=== PATIENT | male | born 1960 | race Caucasian/White ===

== ENCOUNTER → 2016-12-07 | Outpatient (CLI) | payer OTHER ==
[~2016-12-07] MED LIST: DIAZ5TAB PO; ELIQ5TAB PO; LEVA750T PO; MAG400TA PO; METO100T PO; OMEP20CA3 PO; TRIA37.5 PO; VITA500T88 PO; VITMTA PO; ZOFR4TAB3 PO
--- NOTE | 2016-12-07 14:21 | REP ---
ABDOMINAL SERIES: Five views. HISTORY: Tenderness. FINDINGS: Upright chest radiograph is compared with the September 01, 2010 prior study. Mild cardiomegaly is observed unchanged. The lungs are well inflated and clear. There is no evidence of infiltrate or free subdiaphragmatic air. Supine and upright views of the abdomen demonstrate an unremarkable bowel gas pattern with air and stool in a nondistended colon. Psoas margins and flank stripes are intact. No mass, organomegaly, or pathologic calcification seen. IMPRESSION: Chest x-ray shows prominent heart. Otherwise negative abdominal series. Signed by Tariq Arriaza MD 12/07/2016 02:25 P
[2016-12-07 14:38] LABS: MEAN CORPUSCULAR HEMOGLOBIN 31.7 pg (27.0-33.0); MEAN CORPUSCULAR HGB CONC 35.2 g/dl (32.0-36.5); MEAN CORPUSCULAR VOLUME 90.2 fl (80.0-96.0); RED CELL DISTRIBUTION WIDTH 11.9 % (11.5-14.5); WHITE BLOOD COUNT 14.9 K/mm3 (4.0-10.0)
[2016-12-07 14:46] LABS: ALBUMIN 3.9 GM/DL (3.2-5.2); ALBUMIN/GLOBULIN RATIO 1.15 (1.00-1.93); ALKALINE PHOSPHATASE 98 U/L (45-117); ALT/SGPT 40 U/L (12-78); AMYLASE 25 U/L (25-115); ANION GAP 9 MEQ/L (8-16); AST/SGOT 22 U/L (15-37); BLOOD UREA NITROGEN 10 MG/DL (7-18); CARBON DIOXIDE LEVEL 26 MEQ/L (21-32); CHLORIDE LEVEL 101 MEQ/L (98-107); CREATININE FOR GFR 0.78 MG/DL (0.70-1.30); GLOMERULAR FILTRATION RATE > 60.0 (>56); GLUCOSE, FASTING 143 MG/DL (70-105); POTASSIUM SERUM 4.4 MEQ/L (3.5-5.1); SODIUM LEVEL 136 MEQ/L (136-145); TOTAL PROTEIN 7.3 GM/DL (6.4-8.2)
[2016-12-07 15:17] LABS: BANDS 1 % (< 11); BASOPHILS 1 % (0-4); EOSINOPHILS 2 % (0-5)
[2016-12-07 15:18] LABS: ANISOCYTOSIS 1+
== END ==
LOC: M WUC 13:25
PROVIDERS: ATTEND Physician Assistant
DX: R10.811 Right upper quadrant abdominal tenderness (principal)

== ENCOUNTER 2016-12-09 08:20 | Inpatient (IN) | payer OTHER ==
[~2016-12-09] VITALS: Ht 177.8 cm; Wt 131.3 kg
[2016-12-09] MEDS ORDERED: KETOROLAC 30 MG/ML VIAL (J1885) As Ordered ONE (09:22)
[2016-12-09] MEDS ORDERED: ONDANSETRON 4MG/2ML VIAL (J2405) As Ordered ONE ×2 (09:22→12:43)
[2016-12-09] MEDS ORDERED: METOPROLOL 5 MG/5 ML VIAL As Ordered ONE (09:42)
[2016-12-09] MEDS ORDERED: METOPROLOL TART 50 MG TAB As Ordered ONE (09:42)
[2016-12-09 09:49] LABS: ALBUMIN 3.4 GM/DL (3.2-5.2); ALBUMIN/GLOBULIN RATIO 0.81 (1.00-1.93); ALKALINE PHOSPHATASE 88 U/L (45-117); ALT/SGPT 32 U/L (12-78); ANION GAP 13 MEQ/L (8-16); AST/SGOT 14 U/L (15-37); BILIRUBIN,DIRECT 0.2 MG/DL (0.0-0.2); BILIRUBIN,TOTAL 0.9 MG/DL (0.2-1.0); BLOOD UREA NITROGEN 10 MG/DL (7-18); CALCIUM LEVEL 8.6 MG/DL (8.5-10.1); CARBON DIOXIDE LEVEL 24 MEQ/L (21-32); CHLORIDE LEVEL 99 MEQ/L (98-107); CREATININE FOR GFR 0.87 MG/DL (0.70-1.30); FREE T4 1.09 NG/DL (0.76-1.46); GLOMERULAR FILTRATION RATE > 60.0 (>56); GLUCOSE, FASTING 241 MG/DL (70-105); POTASSIUM SERUM 3.8 MEQ/L (3.5-5.1); SODIUM LEVEL 136 MEQ/L (136-145); TOTAL PROTEIN 7.6 GM/DL (6.4-8.2)
[2016-12-09 09:59] LABS: BASO # 0.1 K/mm3 (0.0-0.2); BASO % 0.5 % (0.0-1.0); EOS # 0.2 K/mm3 (0.0-0.50); EOS % 1.1 % (0.0-3.0); LARGE UNSTAINED CELL # 0.3 K/mm3 (0.0-0.4); LYMPH # 2.1 K/mm3 (1.5-4.5); LYMPH % 13.6 % (24.0-44.0); MEAN CORPUSCULAR HEMOGLOBIN 31.9 pg (27.0-33.0); MEAN CORPUSCULAR HGB CONC 34.9 g/dl (32.0-36.5); MEAN CORPUSCULAR VOLUME 91.3 fl (80.0-96.0); MONO % 6.3 % (0.0-5.0); NEUTROPHILS % 76.4 % (36.0-66.0); PLATELET COUNT, AUTOMATED 255 k/mm3 (150-450); RED CELL DISTRIBUTION WIDTH 12.1 % (11.5-14.5); WHITE BLOOD COUNT 15.7 K/mm3 (4.0-10.0)
[2016-12-09] MEDS ORDERED: ISOVUE-370 76% 100ML VIAL (Q9967) As Ordered ONE (10:54)
--- NOTE | 2016-12-09 10:54 | ECGEPIP ---
Stationary ECG Study [facility] - ED Test Date: 2016-12-09 Pat Name: DEXTER MALLOY Department: Room: - Gender: M X Ray Technician: : 1960 Requested By: Danny Rojas Order Number: [id number] Reading MD: Laurie Gregory Measurements Intervals [place] Rate: 123 P: [place]: 0 QRS: 49 QRSD: 88 T: -37 QT: 302 QTc: 432 Interpretive Statements ATRIAL FIBRILLATION WITH RAPID VENTRICULAR RESPONSE NONSPECIFIC ST & T-WAVE ABNORMALITY NO PRIOR FOR COMPARISON Electronically Signed On 12-09-2016 10:54:31 EST by Laurie Gregory
--- NOTE | 2016-12-09 12:39 | REP ---
CT abdomen and pelvis with IV but without oral contrast: History: Biliary colic. Comparison study January 03, 2014. CT contrast dose: 100 ml of Isovue [address] by findings: Preliminary special client bus driver radiograph is unremarkable. Lung window settings demonstrate a heterogeneous infiltrate in the right lower lobe of the lung with small right pleural effusion. There is mild linear fibrosis versus discoid atelectasis in the left lower lobe. These findings are new when compared with the 2013 prior exam. Also noted are filling defects in several of the pulmonary arterial tree branches in the right lower lobe and one in the left lower lobe consistent with acute pulmonary embolus. There is moderate diffuse fatty infiltration of the liver. No focal liver mass lesion is seen. The liver is not enlarged. Spleen is unremarkable. There is a small sliding-type hiatal hernia. No adrenal lesion is observed on either side. Pancreas is unremarkable. No gallbladder abnormality is appreciated. There is a 3 cm cyst in the upper pole of the left kidney. A lower pole cyst is seen in the right kidney measuring 1.4 cm in greatest diameter. Kidneys are otherwise morphologically intact. No hydronephrosis is seen. Normal caliber aorta is noted. No retroperitoneal mass or adenopathy is seen. Small and large intestinal bowel loops are normal in caliber and course. There is diverticulosis affecting the sigmoid colon without CT evidence of diverticulitis. There are dystrophic calcifications in the prostate. Seminal vesicles and urinary bladder are unremarkable. No abdominal wall defect is seen. Impression: 1. There is an infiltrate in the right lower lobe, small right pleural effusion. Also noted is a filling defect in the right lower lobe pulmonary arterial tree indicating pulmonary embolism. There is a small thrombus in one of the left lower lobe pulmonary arterial branches as well. 2. Fatty infiltration of the liver. 3. No CT evidence of biliary tract disease. 4. 3 cm cyst upper pole left kidney unchanged from comparison study. 5. Sliding type hiatal hernia. 6. Left colonic diverticulosis without CT evidence of diverticulitis. Signed by Tariq Arriaza MD 12/09/2016 07:25 P
[2016-12-09] MEDS ORDERED: MORPHINE 2 MG/ML 1ML SYRINGE As Ordered ONE (12:42)
[2016-12-09] MEDS ORDERED: ZOFR4TAB3 PO (13:11)
[2016-12-09] MEDS ORDERED: VITA500T88 PO (13:11)
[2016-12-09] MEDS ORDERED: OMEP20CA3 PO (13:11)
[2016-12-09] MEDS ORDERED: DIAZ5TAB PO (13:11)
[2016-12-09] MEDS ORDERED: TRIA37.5 PO (13:11)
[2016-12-09] MEDS ORDERED: VITMTA PO (13:11)
[2016-12-09] MEDS ORDERED: NS 1,000 ML IV SCH (13:15)
[2016-12-09] MEDS ORDERED: GLUCAGON FOR INJ 1 MG VIAL (J1610) SC PRN (13:15)
[2016-12-09] MEDS ORDERED: DEXTROSE 50% 50 ML SYRINGE IV PRN (13:15)
[2016-12-09] MEDS ORDERED: GLUCOSE 4 GM CHEW TABLET PO PRN (13:15)
[2016-12-09] MEDS ORDERED: ONDANSETRON 4MG/2ML VIAL (J2405) IV PRN (13:15)
[2016-12-09] MEDS ORDERED: ACETAMINOPHEN TAB 650MG DOSE (2X325MG) PO PRN (13:15)
[2016-12-09] MEDS ORDERED: cefTRIAXone SOD 1 GM VIAL (J0696) As Ordered ONE (13:17)
[2016-12-09] MEDS ORDERED: AZITHROMYCIN INJ 500MG VIAL (J0456) As Ordered ONE (13:17)
[2016-12-09] MEDS ORDERED: diazePAM 5 MG TAB PO PRN (13:30)
--- NOTE | 2016-12-09 13:44 | HPEPDOC ---
General Date of Admission 12/09/16 143PM Chief Complaint The patient is a 56-year-old male Presented to the ER with Right lower quadrant abdominal pain for 1 month duration that has been worsening. History of Present Illness Patient is a 56 year old male with a PMHx of Menieres disease who presented to the ER with complaints of right upper quadrant abdominal pain. Patient notes that this has been going on for greater than 1 month and has been slowly worsening. He notes that in the last 2 weeks he has been unable to sleep because of it. He does note that the pain is a >10/10 at maximum intensity, throbbing / aching type, occurring intermittently and lasting for many hours. He tried heating pads an ibuprofen without relief. He notes aggravation with lying flat. He has associated nausea, but no vomiting. Deneis diarrhea or constipation. Has not reported fevers at home, but has had chills. Patient came to the ER and had imaging of his abdomen done, which revealed a right lower lobe infiltrate and bilateral pulmonary embolisms. He was also noted to be in new onset atrial fibrillation with a HR in 140s. He received Metoprolol IV x3 and PO dose. His heart rate is currently in 110s. Hospitalist team was called for admission. He denies any chest pain, palpitations, and shortness of breath. He does note a non-productive cough. Denies any dysuria. He denies any prolonged immobility or bed bound status. He has never had a colonoscopy. Home Medications Scheduled Ascorbic Acid (Vitamin C) 500 Mg Tab 500 MG PO DAILY (Reported) Hydrochlorothiazide W/Triamter (Triamterene/Hydrochloroth 37.5-25 mg) 1 Tab Tab 1 TAB PO DAILY (Reported) Multivitamins *[facility] STOCKED* (Thera M Plus *[facility] STOCKED*) 1 Tab Tab 1 TAB PO DAILY (Reported) Omeprazole (Omeprazole) 20 Mg Cap 20 MG PO BID (Reported) NOT REGULAR MED - MD PRESCRIBED FOR ABDOMINAL ISSUES Scheduled PRN Diazepam (Diazepam) 5 Mg Tab 5 MG PO TID PRN PRN ANXIETY (Reported) Ondansetron (Zofran Odt) 4 Mg Tab 4 MG PO Q4H PRN PRN NAUSEA OR VOMITING ( Reported) NOT REGULAR MED - MD PRESCRIBED FOR ABDOMINAL ISSUES Allergies Coded Allergies: No Known Drug Allergy (Verified Allergy, Unknown, 02/11/13) Past Medical History Medical History Menieres disease Surgical History Left hand trigger finger surgery Knee surgery Family History Family History - Mother with no reported medical problems - Father with a history of blood and bone cancer Social History Social History - Denies the use of illicit drugs. Smoked for 40 years at 1ppd, Drinks alcohol socially - Denies recent travel or sick contacts - Lives with - Occupation; [employer] Review of Symptoms Other systems Constitutional: Denies weight loss, change in appetite, or recent trauma Eyes: No visual changes or eye pain Ears, Nose, Throat: Denies nose bleeds, or difficulty swallowing Cardiovascular: Denies chest pain, sweating, or orthopnea Respiratory: Positive non-productive cough, No wheezing, or shortness of breath GI: [place] nausea, vomiting, diarrhea or constipation, Positive right upper quadrant abdominal pain : Denies pain with urination or frequency Musculoskeletal: Denies joint pain or swelling Neuro / Psych: Denies muscle weakness or sensory loss Skin: No skin rashes noted All other review of systems negative; otherwise stated in history of present illness Screening: - Colonoscopy: never done Vital Signs - Vitals: BP 97/76, HR 104, RR 18, Sat 92%RA, Temp 98.6F - General: Lying in bed, No acute distress, Speaking in full sentences, AAOx3 - HEENT: NC, AT, PERRLA, EOMI - CVS: Irregularly irregular, +S1S2 - Lungs: Fair air entry bilaterally, +Crackles / rhonchi at right lung base - Abdomen: Soft, Non-distended, Right upper quadrant tenderness, + Bowel sounds x 4 - Extremities: + PPx4, No lower extremity edema, No calf tenderness - Neuro: No focal motor or sensory deficit - Skin: No visible rashes Laboratory Data Labs 24H Laboratory Tests 2 12/09/16 09:19: Aspartate Amino Transf (AST/SGOT) 14L, Alanine Aminotransferase (ALT/SGPT) 32, Alkaline Phosphatase 88, Total Bilirubin 0.9, Direct Bilirubin 0.2, Albumin 3.4 , Albumin/Globulin Ratio 0.81L, Anion Gap 13, White Blood Count 15.7H, Red Blood Count 5.25, Hemoglobin 16.7, Hematocrit 47.9, Mean Corpuscular Volume 91.3 , Mean Corpuscular Hemoglobin 31.9, Mean Corpuscular Hemoglobin Concent 34.9, Red Cell Distribution Width 12.1, Platelet Count 255, Neutrophils (%) (Auto) 76.4H, Lymphocytes (%) (Auto) 13.6L, Monocytes (%) (Auto) 6.3H, Eosinophils (%) (Auto) 1.1, Basophils (%) (Auto) 0.5, Neutrophils # (Auto) 12.0H, Lymphocytes # (Auto) 2.1, Monocytes # (Auto) 1.0H, Eosinophils # (Auto) 0.2, Basophils # (Auto ) 0.1, Calcium Level 8.6, Creatine Kinase MB 1.0, Creatine Kinase MB Relative Index 1.21, Estimated Mean Plasma Glucose 177H, Free Thyroxine 1.09, Glomerular Filtration Rate > 60.0, Hemoglobin A1c 7.8H, Large Unclassified Cells # 0.3, Large Unclassified Cells % 2.0, Lipase 122, Thyroid Stimulating Hormone (TSH) 1.190, Total Creatine Kinase 82, Total Protein 7.6, Troponin I < 0.02 12/09/16 13:24: 12/09/16 13:26: CBC/BMP Laboratory Tests 12/09/16 09:19 Red Blood Count 5.25, Mean Corpuscular Volume 91.3, Mean Corpuscular Hemoglobin 31.9, Mean Corpuscular Hemoglobin Concent 34.9, Red Cell Distribution Width 12.1 , Neutrophils (%) (Auto) 76.4 H, Lymphocytes (%) (Auto) 13.6 L, Monocytes (%) ( Auto) 6.3 H, Eosinophils (%) (Auto) 1.1, Basophils (%) (Auto) 0.5, Neutrophils # (Auto) 12.0 H, Lymphocytes # (Auto) 2.1, Monocytes # (Auto) 1.0 H, Eosinophils # (Auto) 0.2, Basophils # (Auto) 0.1 Microbiology Microbiology 12/09/16 Blood Culture, Received Pending 12/09/16 Blood Culture, Received Pending Plan / VTE VTE Prophylaxis Ordered?: Yes Plan Plan New onset atrial fibrillation - Remains asymptomatic and hemodynamically stable - EKG reveals atrial fibrillation with RVR at rate of 123 - Troponin first set negative, will trend - Will check thyroid function, ECHO - Will c/w Metoprolol tartrate at 25mg PO Q6H (with holding parameters) - Will start full anticoagulation with Lovenox therapeutic - Discussed case with Cardiology (Dr. Loredo) will be on consult, appreciate their input Bilateral pulmonary embolism - Etiology remains unclear - Saturation is at 92% on room air - Abdominal CT 2: Filling defect in the right lower love, small thrombus in the left lower love - Will check hypercoagulability workup - Will c/w supplemental oxygen - Will start full anticoagulation with Lovenox therapeutic Right lower lobe pneumonia - Has non-productive cough, no fevers reports - Leukocytosis with left shift - Abdominal CT 2: Reveals infiltrate in right lower lobe with small right pleural effusion - Will check blood cultures, urinalysis, urine culture - Will cover for community acquired organisms - Start ceftriaxone and azithromycin Right upper quadrant pain likely 2/2 referred pain from pneumonia, less likely 2/2 gall bladder etiology - Physical reveals right upper quadrant tenderness - Abdominal CT 12/09: No CT evidence of biliary disease, fatty infiltration of liver noted - Will get US of abdomen - Will c/w pain control New onset diabetes mellitus - HbA1c of 7.8 - Will start insulin sliding scale Left colonoic diverticulosis - on CT abdomen 2 Meniere's disease - Will hold diuretic medications at this time, as blood pressure is only lower side of normal - Will give gentle IV fluid hydration for 1 liter only Gastrointestinal prophylaxis - Will start protonix DVT prophylaxis - Will start full anticoagulation for PE and atrial fibrillation ARIEL PETERS MD Dec 09, 2016 13:44
[2016-12-09 13:52] LABS: INR 1.06
--- NOTE | 2016-12-09 15:13 | EDDOCDS ---
Physician Documentation [facility] Name: Sammy Khan Age: 56 yrs Sex: Male : 1960 Arrival Date: 12/09/2016 Time: 08:20 Bed 6 Private MD: Heaven Lassiter C Disposition: 12/09 12:53 Critical Care:. pc Disposition: 12/09/16 13:04 Hospitalization ordered by Herman Peña for Inpatient Admission. Preliminary diagnosis are Pulmonary embolism - RLL and LLL, Bronchopneumonia, unspecified organism - RLL, Persistent atrial fibrillation - new onset. - Bed requested for M PCU. - Status is Inpatient Admission. jmk - Condition is Stable. - Problem is new. - Symptoms have improved. HPI: 09:16 This 56 yrs old Male presents to ER via Walkin/Carried/Asstd with complaints pc of Abdominal Pain. 09:16 The history is obtained from the patient. The patient presents with abdominal pain, in pc the right upper quadrant. The symptoms began at least 2-3 months ago, becoming more frequent in the past 3 weeks.. There have been multiple episodes. At its worst, the symptoms were a 6 out of 10. In the emergency department, the symptoms are a 6 out of 10. The pain is described as "pain". The is primarily located epigastric area and right upper quadrant. It radiates to the right subscapular area. The pain was associated with nausea. The symptoms are aggravated by a supine position, are alleviated by an upright position. Risk factors for CAD: history of high cholesterol, history of hypertension. The patient has experienced similar episodes in the past. The patient has been recently seen at an urgent care, this week, for similar complaints, labs were performed, X-rays were performed. Historical: - Allergies: no known allergies; - Home Meds: 1. omeprazole 20 mg Oral cpDR 1 cap 2 times per day (Last dose: 12/08/2016) 2. Zofran (as hydrochloride) 4 mg Oral tab tid prn 3. diazepam 5 mg Oral tab prn 4. triamterene-hydrochlorothiazid Unknown Oral once daily (Last dose: 12/08/2016) - PMHx: meniere's disease; Hypertension; GERD; Obesity; - PSHx: hand surgery; Knee surgery; - The history from nurses notes was reviewed: and elements of the historical information I have obtained differs from that reported to nursing. - Social history: Smoking status: Patient uses tobacco products, current every day smoker. No barriers to communication noted, The patient speaks fluent Chinese. - Family history: Not pertinent, Pertinent for Father has/had "blood cancer". - : The pt / caregiver states he / she is not on anticoagulants. Home medication list is obtained from the patient. - Hospitalizations: : No recent hospitalization is reported. - Exposure Risk Screening:: None identified. - Immunization history:: All immunizations up-to-date. - Social history:: the patient smokes cigarettes 1ppd the patient drinks alcohol, socially. ROS: 09:20 All systems are negative except if listed. The constitutional, cardiovascular, pc respiratory and neurological components are also addressed in the HPI. Exam: 09:20 General Appearance: alert, mild distress. pc 09:20 ENT: ear, nose and throat normal, pharynx normal. 09:20 Neck: The exam reveals no acute abnormalities. ROM is normal and painless. No nuchal rigidity is noted.. 09:20 Respiratory: no respiratory distress, normal breath sounds, chest non-tender. 09:20 Cardiovascular: normal heart sounds, equal and full pulses bilaterally, tachycardia, 145bpm, Rhythm is irregularly irregular. 09:20 Abdomen: soft, no organomegaly, normal bowel sounds, no masses appreciated, no hernias palpated with/without gravity or Valsalva moderate tenderness in the right upper quadrant, without rebound, voluntary guarding is not appreciated, involuntary guarding is elicited in the right upper quadrant. 09:20 Back: normal inspection, no CVA pain. 09:20 Skin: skin color is normal, warm, dry. 09:20 Extremities: The extremities have a grossly normal appearance, are non-tender, without acute ROM abnormalities. 09:20 Neuro: oriented x 3, cranial nerves normal as tested, no motor deficits, no sensory deficits. 09:20 Psych: mood is normal. Vital Signs: 08:39 BP 137 / 93 RA Sitting (auto/lg); Pulse 103; Resp 18; Temp 98.6(O); Pulse Ox 94% on jjr R/A; Weight 122.47 kg / 270 lbs (R); Height 5 ft. 10 in. (177.80 cm) (R); Pain 6/10; 08:43 BP 130 / 86 RA Sitting (man/reg); jjr 09:24 Pulse 144 MON; jmk 09:25 BP 153 / 93 (auto/); jmk 09:39 BP 145 / 98 (auto/); jmk 09:39 Pulse 138 MON; Pulse Ox 92% ; jmk 09:54 BP 113 / 81 (auto/); jmk 09:54 Pulse 116 MON; Pulse Ox 91% ; jmk 10:00 Pulse 110 MON; Pulse Ox 91% ; jmk 10:01 BP 113 / 89 (auto/); jmk 10:08 Pulse 108 MON; Pulse Ox 92% ; jmk 10:09 BP 106 / 84 (auto/); jmk 10:23 Pulse 108 MON; Pulse Ox 91% ; jmk 10:24 BP 108 / 81 (auto/); jmk 10:38 Pulse 110 MON; Pulse Ox 91% ; jmk 10:39 BP 105 / 74 (auto/); jmk 10:53 Pulse 108 MON; Pulse Ox 90% ; jmk 10:54 BP 115 / 79 (auto/); jmk 11:08 Pulse 112 MON; Pulse Ox 90% ; jmk 11:09 BP 99 / 59 (auto/); jmk 11:24 BP 97 / 76 (auto/); jmk 11:24 Pulse 104 MON; Pulse Ox 92% ; jmk 11:39 BP 112 / 77 (auto/); jmk 11:39 Pulse 108 MON; Pulse Ox 92% ; jmk 11:54 BP 96 / 65 (auto/); jmk 11:54 Pulse 106 MON; Pulse Ox 91% ; jmk 12:08 Pulse 110 MON; Pulse Ox 92% ; jmk 12:09 BP 107 / 64 (auto/); jmk 12:23 Pulse 112 MON; Pulse Ox 93% ; jmk 12:24 BP 112 / 72 (auto/); jmk 12:38 Pulse 108 MON; Pulse Ox 92% ; jmk 12:39 BP 122 / 82 (auto/); jmk 12:45 Pulse 104 MON; Pulse Ox 93% ; jmk 12:46 BP 102 / 57 (auto/); jmk 13:51 Pulse 112 MON; Pulse Ox 92% ; jmk 13:52 BP 141 / 93 (auto/); jmk 14:23 BP 126 / 81 (auto/); jmk 14:23 Pulse 112 MON; Pulse Ox 91% ; jmk 15:03 BP 109 / 80; Pulse 120; Resp 18; Temp 98.5; Pulse Ox 95% on R/A; jmk 08:39 Body Mass Index 38.74 (122.47 kg, 177.80 cm) jr MDM: 09:11 Ondansetron 4 mg IVP once ordered. pc 09:11 ketorolac 30 mg IVP once ordered. pc 09:11 IV Saline Lock ordered. pc 09:11 Bookkeeping Service Sales Agent/Pulse Ox/q 30 min VS ordered. pc 09:12 Basic Metabolic Profile Ordered. EDMS 09:12 CBC with Diff Ordered. EDMS 09:12 Lipase Ordered. EDMS 09:12 Liver Profile Ordered. EDMS 09:12 NOTHING BY MOUTH+DIET ordered. EDMS 09:12 ECG WITH READING ER PHYS+CARDIAG ordered. EDMS 09:20 Differential diagnosis: cholecystitis, Cholelithiasis, non-specific abd pain, pc arrhythmia - new onset. Plan: labs, meds, EKG, review US performed as out-patient just [employer]PER[employer] ROLLING ROOM. 09:33 CARDIAC INJURY PROFILE Ordered. EDMS 09:33 FT4&TSH PANEL Ordered. EDMS 09:33 TROPONIN Ordered. EDMS 09:37 A1C Ordered. EDMS 09:38 Metoprolol (Tartrate) 50 mg PO once ordered. pc 09:38 Metoprolol 5 mg IVP every 5 minutes; Hold for SBP < 100 or HR < 60. x3 ordered. pc 09:39 Test interpretation: EKG. pc 09:49 Financial registration complete. lg 09:53 [facility] Payment Agreement was scanned into [employer] and attached to record. lg 09:59 Basic Metabolic Profile Reviewed. pc 09:59 Liver Profile Reviewed. pc 09:59 Lipase Reviewed. pc 09:59 CARDIAC INJURY PROFILE Reviewed. pc 09:59 TROPONIN Reviewed. pc 10:38 Basic Metabolic Profile Reviewed. pc 10:38 CBC with Diff Reviewed. pc 10:38 Liver Profile Reviewed. pc 10:38 A1C Reviewed. pc 10:38 Lipase Reviewed. pc 10:38 CARDIAC INJURY PROFILE Reviewed. pc 10:38 FT4&TSH PANEL Reviewed. pc 10:38 TROPONIN Reviewed. pc 10:49 CT ABD & PELVIS: IV Contrast Only Ordered. EDMS 12:33 requires 7 blue tops, 1 tiger top, 3 purple tops per lab 4.21.14 ordered. pc 12:34 Anti Thrombin 3 Panel (ag/ac) Ordered. EDMS 12:34 Anti-Cardiolipin Antibodies Ordered. EDMS 12:34 Factor V Leiden Ordered. EDMS 12:34 Protein C Functional Activity Ordered. EDMS 12:34 Protein S Functional Activity Ordered. EDMS 12:34 Pt & Aptt Ordered. EDMS 12:34 BED REQUEST+ADM ordered. EDMS 12:40 morphine 2 mg IVP once ordered. pc 12:40 Ondansetron 4 mg IVP once ordered. pc 12:53 Data reviewed: old medical records, vital signs, nurses notes, EKG(s), lab test pc results, all radiology studies and available results. Test interpretation: LAB - all labs as ordered have been reviewed, interpreted and considered in the overall management of the clinical presentation; interpreted by Radiologist and personally reviewed, Abdomen/Pelvis CT; RLL infiltrate, RLL/LLL pulmonary emboli. nad. The patient has been re-examined and re-evaluated. The patient's symptoms have markedly improved after treatment. Physician consultation: Dr. Fina Loredo and will see patient in inpatient room. 12:53 Physician consultation: Dr. Herman Peña regarding admission. Disposition: The pc historical points, examination findings, and any diagnostic results supporting the provided diagnosis, were discussed with the patient or legal guardian. The need for further work-up and/or treatment in the hospital was explained. 12:55 -Blood Culture (Adults Only), peripheral from different site, or from device/port/PICC pc etc. if present ordered. 12:56 cefTRIAXone 1 grams IVPB once over 30 mins; dilute in 50mL of NS or D5W ordered. pc 12:56 azithromycin 500 mg IVPB once over 1 hrs; dilute in 250mL of D5W or NS ordered. pc 12:56 -Blood Culture Ordered. EDMS 12:56 -Blood Culture (Adults Only), peripheral from different site, or from device/port/PICC lbd etc. if present complete. 13:00 BLOOD CULTURES Ordered. EDMS 13:03 REGULAR DIET ROOM SERVICE ED+DIET ordered. EDMS 13:21 Admission / Observation Status ordered. EDMS 13:21 ECHOCARD,DOPPLER/COLOR FLOW ordered. EDMS 13:22 2 GRAM SODIUM DIET ordered. EDMS 13:22 CARDIAC INJURY PROFILE Ordered. EDMS 13:22 CARDIAC INJURY PROFILE Ordered. EDMS 13:22 TROPONIN Ordered. EDMS 13:22 TROPONIN Ordered. EDMS 13:23 URINALYSIS Ordered. EDMS 13:23 URINE CULTURE Ordered. EDMS 13:42 Abdomen, limited US Ordered. EDMS 13:49 TOTAL T3 Ordered. EDMS 13:54 Lupus Type Anticoagulant Ordered. EDMS EC:39 Rate is 123 beats/min. Rhythm is irregularly irregular, AFib vs AFlut with RVR. QRS pc Barrett is Normal. QRS interval is normal. QT interval is normal. No Q waves. T waves are Inverted in leads II, III, aVF. ST Segment is depressed in leads II, V6, <1mm. Clinical impression: AFib vs AFlut with RVR. Administered Medications: 09:39 Drug: Ondansetron 4 mg Route: IVP; Site: left antecubital; [facility] 09:39 Drug: ketorolac 30 mg [ketorolac 30 mg/mL (1 mL) injection solution (1 mL)] Route: IVP; [facility] Site: left antecubital; 09:45 Drug: Metoprolol (Tartrate) 50 mg Route: PO; [facility] 09:50 Drug: Metoprolol 5 mg [metoprolol 5 mg/5 mL intravenous solution (5 mL)] Route: IVP; [facility] Site: left antecubital; 09:58 Drug: Metoprolol 5 mg [metoprolol 5 mg/5 mL intravenous solution (5 mL)] Route: IVP; [facility] Site: left antecubital; 10:05 Drug: Metoprolol 5 mg [metoprolol 5 mg/5 mL intravenous solution (5 mL)] Route: IVP; [facility] Site: left antecubital; 12:49 Drug: morphine 2 mg Route: IVP; Site: left antecubital; [facility] 12:51 Drug: Ondansetron 4 mg Route: IVP; Site: left antecubital; [facility] 13:27 Drug: cefTRIAXone 1 grams Route: IVPB; Infused Over: 30 mins; Site: left antecubital; [facility] 14:14 Drug: azithromycin 500 mg [azithromycin 500 mg intravenous solution] Route: IVPB; [facility] Infused Over: 1 hrs; Site: left antecubital; Critical Care Time: 12:53 Critical care time: Bedside Care: 30 minutes, Consultation: 20 minutes, Family pc Intervention: 10 minutes. Total time: 60 minutes Signatures: Dispatcher [employer] EDMS Danny Powell MD MD pc Daly, Linda, Finance Admin Unit lbd James Fofana,RN RN Jeff Rodriguez, Reg Reg lg Nicole Cartagena, RN RN karenr Frank, [place], MECHANIC INSULATOR MECHANIC INSULATOR [id number] The chart was reviewed and I authenticate all verbal orders and agree with the evaluation and treatment provided.Corrections: (The following items were deleted from the chart) : 09:18 FT4&TSH PANEL+LAB ordered. EDMS EDMS :33 09:18 CARDIAC INJURY PROFILE+LAB ordered. EDMS EDMS :33 09:18 TROPONIN+LAB ordered. EDMS EDMS 13:45 13:23 BLOOD CULTURES ordered. EDMS EDMS 13:46 13:23 PROTHROMBIN TIME PROFILE\\E\\INR ordered. EDMS EDMS 13:46 13:23 THYROID STIMULATING HORMONE ordered. EDMS EDMS 13:46 13:23 FREE T4 ordered. EDMS EDMS 13:47 13:23 TOTAL T3 ordered. EDMS EDMS 13:53 12:34 Lupus Type Anticoagulant+LAB ordered. EDMS EDMS Attachments: 09:53 [facility] [place] lg MTDD
--- NOTE | 2016-12-09 15:13 | EDDOCDS ---
Nurse's Notes [facility] Name: Dexter Khan Age: 56 yrs Sex: Male : 1960 Arrival Date: 12/09/2016 Time: 08:20 Bed 6 Private MD: Heaven Lassiter C Diagnosis: Pulmonary embolism-RLL and LLL;Bronchopneumonia, unspecified organism-RLL;Persistent atrial fibrillation-new onset Presentation: 12/09 08:34 Presenting complaint: Patient states: right sided abdominal pain radiating to right jjr side of back for past couple weeks, reports nausea for past week and diarrhea lasting 4-5 days from 12/06/16, Dr Reilly ordered outpt blood work and US this morning which was completed. Adult Sepsis Screening: The patient does not have new or worsening altered mentation. Patient's respiratory rate is less than 22. Systolic blood pressure is greater than 100. Patient has a qSOFA score of 0- Negative Sepsis Screen. Suicide/Homicide risk assessment- the patient denies having any suicidal and/or homicidal ideations and does not present with any other emotional, behavioral or mental health complaints. 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 Transition of care: patient was not received from another setting of care. 08:34 Acuity: FELECIA Level 3 [facility] 08:34 Method Of Arrival: Walkin/Carried/Asstd j Triage Assessment: 08:43 General: Appears in no apparent distress. Pain: Location: right flank, right upper jjr quadrant and right lower quadrant. Pt Declines HIV testing. GI: Reports nausea. Historical: - Allergies: no known allergies; - Home Meds: 1. omeprazole 20 mg Oral cpDR 1 cap 2 times per day (Last dose: 12/08/2016) 2. Zofran (as hydrochloride) 4 mg Oral tab tid prn 3. diazepam 5 mg Oral tab prn 4. triamterene-hydrochlorothiazid Unknown Oral once daily (Last dose: 12/08/2016) - PMHx: meniere's disease; Hypertension; GERD; Obesity; - PSHx: hand surgery; Knee surgery; - The history from nurses notes was reviewed: and elements of the historical information I have obtained differs from that reported to nursing. - Social history: Smoking status: Patient uses tobacco products, current every day smoker. No barriers to communication noted, The patient speaks fluent Mauritian. - Family history: Not pertinent, Pertinent for Father has/had "blood cancer". - : The pt / caregiver states he / she is not on anticoagulants. Home medication list is obtained from the patient. - Hospitalizations: : No recent hospitalization is reported. - Exposure Risk Screening:: None identified. - Immunization history:: All immunizations up-to-date. - Social history:: the patient smokes cigarettes 1ppd the patient drinks alcohol, socially. Screenin:51 Screening information is obtained from the patient. Fall risk: No risks identified. jmk Assistance ADL's: requires no assistance with activities of daily living. Abuse/DV Screen: The patient / caregiver reports he/she is: not in a situation that causes fear, pain or injury. Nutritional screening: No deficits noted. Advance Directives: Currently, there is no health care proxy. There is no active DNR order. There is no living will. There is no Power of Athlete Marketing Agent. Advance directive information has not previously been placed in an [facility] medical record. home support is adequate. Assessment: 08:51 General: Appears in no apparent distress, skin warm and dry color satisfactory. Moist jmk pink oral mucosa. Obese abdomen .Firm, but non distended with bowel sounds present x 4. Indicates right upper abd pain that radiates to right scapular area. skin is unremarkable. chest CTA. without resp distress. Slight increase in pain with deep inspiration.. Respiratory: Airway is patent Respiratory effort is even, unlabored, Respiratory pattern is regular, Breath sounds are clear bilaterally. GI: Abdomen is flat, non- distended obese, Bowel sounds present X 4 quads. Abd is tender to palpation in posterior aspect of left lateral abdomen and right upper quadrant. Musculoskeletal: No deficits noted. 10:05 General: Appears states pain has decreased to 2/10/ monitor is AFib with rate of 108. jmk without chest pain dizziness or SOB. 10:23 General: Appears resting quietly. monitor continues as afib with rate of 108. denies jmk chest pain SOB or dizziness. states 2/10 abd pain. 12:51 General: Appears states pain to right upper abdomen has again increased to 6/10 and jmk medicated for same. monitor AF rate 120. no resp distress noted.. 14:39 General: Appears states pain has decreased to 2/10 diet has been taken and retained. IV jmk antibiotics infusing. 15:03 General: Appears ambulating about room ad xu and tolerating activity well. without jmk resp distress. monitor is afib. without chest discomfort. reports no chest discomfort. sl intact with antibiotic infusing without event.. Vital Signs: 08:39 BP 137 / 93 RA Sitting (auto/lg); Pulse 103; Resp 18; Temp 98.6(O); Pulse Ox 94% on jjr R/A; Weight 122.47 kg (R); Height 5 ft. 10 in. (177.80 cm) (R); Pain 6/10; 08:43 BP 130 / 86 RA Sitting (man/reg); jjr 09:24 Pulse 144 MON; jmk 09:25 BP 153 / 93 (auto/); jmk 09:39 BP 145 / 98 (auto/); jmk 09:39 Pulse 138 MON; Pulse Ox 92% ; jmk 09:54 BP 113 / 81 (auto/); jmk 09:54 Pulse 116 MON; Pulse Ox 91% ; jmk 10:00 Pulse 110 MON; Pulse Ox 91% ; jmk 10:01 BP 113 / 89 (auto/); jmk 10:08 Pulse 108 MON; Pulse Ox 92% ; jmk 10:09 BP 106 / 84 (auto/); jmk 10:23 Pulse 108 MON; Pulse Ox 91% ; jmk 10:24 BP 108 / 81 (auto/); jmk 10:38 Pulse 110 MON; Pulse Ox 91% ; jmk 10:39 BP 105 / 74 (auto/); jmk 10:53 Pulse 108 MON; Pulse Ox 90% ; jmk 10:54 BP 115 / 79 (auto/); jmk 11:08 Pulse 112 MON; Pulse Ox 90% ; jmk 11:09 BP 99 / 59 (auto/); jmk 11:24 BP 97 / 76 (auto/); jmk 11:24 Pulse 104 MON; Pulse Ox 92% ; jmk 11:39 BP 112 / 77 (auto/); jmk 11:39 Pulse 108 MON; Pulse Ox 92% ; jmk 11:54 BP 96 / 65 (auto/); jmk 11:54 Pulse 106 MON; Pulse Ox 91% ; jmk 12:08 Pulse 110 MON; Pulse Ox 92% ; jmk 12:09 BP 107 / 64 (auto/); jmk 12:23 Pulse 112 MON; Pulse Ox 93% ; jmk 12:24 BP 112 / 72 (auto/); jmk 12:38 Pulse 108 MON; Pulse Ox 92% ; jmk 12:39 BP 122 / 82 (auto/); jmk 12:45 Pulse 104 MON; Pulse Ox 93% ; jmk 12:46 BP 102 / 57 (auto/); jmk 13:51 Pulse 112 MON; Pulse Ox 92% ; jmk 13:52 BP 141 / 93 (auto/); jmk 14:23 BP 126 / 81 (auto/); jmk 14:23 Pulse 112 MON; Pulse Ox 91% ; jmk 15:03 BP 109 / 80; Pulse 120; Resp 18; Temp 98.5; Pulse Ox 95% on R/A; jmk 08:39 Body Mass Index 38.74 (122.47 kg, 177.80 cm) [facility] Vitals: 08:39 Log In Time: December 09, 2016 at 08:20. r ED Course: 08:22 Patient visited by Josias Thomas. mm15 08:22 Heaven Lassiter is Private Physician. mm15 08:22 Patient moved to Waiting mm15 08:36 Triage Initiated jjr 08:44 Patient moved to 6 jjr 08:49 Danny Powell MD is Attending Physician. pc 08:55 Patient visited by James Fofana RN. jmk 09:10 Patient visited by Danny Powell MD. pc 09:20 Inserted saline lock: 20 gauge in left antecubital area. jmk 09:21 Basic Metabolic Profile Sent. jmk 09:21 CBC with Diff Sent. jmk 09:21 Lipase Sent. jmk 09:21 Liver Profile Sent. jmk 09:37 EKG done. (by ED staff). Reviewed by Danny Powell MD performed by Jef Shelton RN. hs1 09:39 A1C Sent. jmk 09:39 TROPONIN Sent. jmk 09:39 CARDIAC INJURY PROFILE Sent. jmk 09:39 FT4&TSH PANEL Sent. jmk 09:53 [facility] Payment Agreement was scanned into [employer] and attached to record. lg 10:05 The patient / caregiver is instructed regarding the plan of care and ED course. jmk 10:21 Patient visited by Danny Powell MD. pc 11:12 EKG-ADULT Returned. EDMS 11:41 Patient visited by Danny Powell MD. pc 12:52 Patient visited by James Fofana RN. jmk 13:04 Herman Peña is Hospitalizing Provider. pc 13:19 CT ABD & PELVIS: IV Contrast Only Returned. EDMS 13:27 BLOOD CULTURES Sent. jmk 13:27 Anti Thrombin 3 Panel (ag/ac) Sent. jmk 13:27 Anti-Cardiolipin Antibodies Sent. jmk 13:27 Factor V Leiden Sent. jmk 13:27 Protein C Functional Activity Sent. jmk 13:27 Protein S Functional Activity Sent. jmk 13:27 Pt & Aptt Sent. jmk 15:03 No procedures done that require assistance. [facility] Administered Medications: 09:39 Drug: Ondansetron 4 mg Route: IVP; Site: left antecubital; [facility] 09:39 Drug: ketorolac 30 mg [ketorolac 30 mg/mL (1 mL) injection solution (1 mL)] Route: IVP; [facility] Site: left antecubital; 09:45 Drug: Metoprolol (Tartrate) 50 mg Route: PO; [facility] 09:50 Drug: Metoprolol 5 mg [metoprolol 5 mg/5 mL intravenous solution (5 mL)] Route: IVP; [facility] Site: left antecubital; 09:58 Drug: Metoprolol 5 mg [metoprolol 5 mg/5 mL intravenous solution (5 mL)] Route: IVP; [facility] Site: left antecubital; 10:05 Drug: Metoprolol 5 mg [metoprolol 5 mg/5 mL intravenous solution (5 mL)] Route: IVP; [facility] Site: left antecubital; 12:49 Drug: morphine 2 mg Route: IVP; Site: left antecubital; [facility] 12:51 Drug: Ondansetron 4 mg Route: IVP; Site: left antecubital; [facility] 13:27 Drug: cefTRIAXone 1 grams Route: IVPB; Infused Over: 30 mins; Site: left antecubital; [facility] 14:14 Drug: azithromycin 500 mg [azithromycin 500 mg intravenous solution] Route: IVPB; jmk Infused Over: 1 hrs; Site: left antecubital; Order Results: Lab Order: Basic Metabolic Profile; SPEC'M 12/09/16 09:19 Test: GLUCOSE, FASTING; Value: 241; Range: 70-105; Abnormal: Above high normal; Units: MG/DL; Status: F Test: BLOOD UREA NITROGEN; Value: 10; Range: 7-18; Units: MG/DL; Status: F Test: CREATININE FOR GFR; Value: 0.87; Range: 0.70-1.30; Units: MG/DL; Status: F Test: GLOMERULAR FILTRATION RATE; Value: > 60.0; Range: >56; Status: F Test: SODIUM LEVEL; Value: 136; Range: 136-145; Units: MEQ/L; Status: F Test: POTASSIUM SERUM; Value: 3.8; Range: 3.5-5.1; Units: MEQ/L; Status: F Test: CHLORIDE LEVEL; Value: 99; Range: 98-107; Units: MEQ/L; Status: F Test: CARBON DIOXIDE LEVEL; Value: 24; Range: 21-32; Units: MEQ/L; Status: F Test: ANION GAP; Value: 13; Range: 8-16; Units: MEQ/L; Status: F Test: CALCIUM LEVEL; Value: 8.6; Range: 8.5-10.1; Units: MG/DL; Status: F Test Note: ; Units are mL/min/1.73 m2 Chronic Kidney Disease Staging per NKF: Stage I & II GFR >=60 Normal to Mildly Decreased Stage III GFR 30-59 Moderately Decreased Stage IV GFR 15-29 Severely Decreased Stage V GFR <15 Very Little GFR Left ESRD GFR <15 on BATTER MIXER Lab Order: CBC with Diff; SPEC'M 12/09/16 09:19 Test: WHITE BLOOD COUNT; Value: 15.7; Range: 4.0-10.0; Abnormal: Above high normal; Units: K/mm3; Status: F Test: RED BLOOD COUNT; Value: 5.25; Range: 4.30-6.10; Units: M/mm3; Status: F Test: HEMOGLOBIN; Value: 16.7; Range: 14.0-18.0; Units: g/dl; Status: F Test: HEMATOCRIT; Value: 47.9; Range: 42.0-52.0; Units: %; Status: F Test: MEAN CORPUSCULAR VOLUME; Value: 91.3; Range: 80.0-96.0; Units: fl; Status: F Test: MEAN CORPUSCULAR HEMOGLOBIN; Value: 31.9; Range: 27.0-33.0; Units: pg; Status: F Test: MEAN CORPUSCULAR HGB CONC; Value: 34.9; Range: 32.0-36.5; Units: g/dl; Status: F Test: RED CELL DISTRIBUTION WIDTH; Value: 12.1; Range: 11.5-14.5; Units: %; Status: F Test: PLATELET COUNT, AUTOMATED; Value: 255; Range: 150-450; Units: k/mm3; Status: F Test: NEUTROPHILS %; Value: 76.4; Range: 36.0-66.0; Abnormal: Above high normal; Units: %; Status: F Test: LYMPH %; Value: 13.6; Range: 24.0-44.0; Abnormal: Below low normal; Units: %; Status: F Test: MONO %; Value: 6.3; Range: 0.0-5.0; Abnormal: Above high normal; Units: %; Status: F Test: EOS %; Value: 1.1; Range: 0.0-3.0; Units: %; Status: F Test: BASO %; Value: 0.5; Range: 0.0-1.0; Units: %; Status: F Test: LARGE UNSTAINED CELL %; Value: 2.0; Range: 0.0-4.0; Units: %; Status: F Test: NEUTROPHILS #; Value: 12.0; Range: 1.8-7.7; Abnormal: Above high normal; Units: K/mm3; Status: F Test: LYMPH #; Value: 2.1; Range: 1.5-4.5; Units: K/mm3; Status: F Test: MONO #; Value: 1.0; Range: 0.0-0.8; Abnormal: Above high normal; Units: K/mm3; Status: F Test: EOS #; Value: 0.2; Range: 0.0-0.50; Units: K/mm3; Status: F Test: BASO #; Value: 0.1; Range: 0.0-0.2; Units: K/mm3; Status: F Test: LARGE UNSTAINED CELL #; Value: 0.3; Range: 0.0-0.4; Units: K/mm3; Status: F Lab Order: Lipase; [facility] 12/09/16 09:19 Test: LIPASE; Value: 122; Range: 73-393; Units: U/L; Status: F Lab Order: Liver Profile; [facility] 12/09/16 09:19 Test: AST/SGOT; Value: 14; Range: 15-37; Abnormal: Below low normal; Units: U/L; Status: F Test: ALT/SGPT; Value: 32; Range: 12-78; Units: U/L; Status: F Test: ALKALINE PHOSPHATASE; Value: 88; Range: 45-117; Units: U/L; Status: F Test: BILIRUBIN,TOTAL; Value: 0.9; Range: 0.2-1.0; Units: MG/DL; Status: F Test: BILIRUBIN,DIRECT; Value: 0.2; Range: 0.0-0.2; Units: MG/DL; Status: F Test: TOTAL PROTEIN; Value: 7.6; Range: 6.4-8.2; Units: GM/DL; Status: F Test: ALBUMIN; Value: 3.4; Range: 3.2-5.2; Units: GM/DL; Status: F Test: ALBUMIN/GLOBULIN RATIO; Value: 0.81; Range: 1.00-1.93; Abnormal: Below low normal; Status: F Lab Order: CARDIAC INJURY PROFILE; [facility] 12/09/16 09:19 Test: CPK CREATINE PHOSPHOKINASE; Value: 82; Range: 39-308; Units: U/L; Status: F Test: CK-MB VALUE MASS; Value: 1.0; Range: 0.0-3.6; Units: NG/ML; Status: F Test: MB/CK RELATIVE INDEX; Value: 1.21; Range: < OR =4; Status: F Test Note: ; DIAGNOSIS CRITERIA MMB ng/ml Relative Index (RI) NON-AMI < or = 5 N/A [place] > 5 < or = 4 AMI > 5 > 4 Lab Order: FT4&TSH PANEL; [facility] 12/09/16 09:19 Test: THYROID STIMULATING HORMONE; Value: 1.190; Range: 0.358-3.740; Units: uIU/ML; Status: F Test: FREE T4; Value: 1.09; Range: 0.76-1.46; Units: NG/DL; Status: F Lab Order: TROPONIN; [facility] 12/09/16 09:19 Test: TROPONIN I; Value: < 0.02; Range: < 0.10; Units: NG/ML; Status: F Test Note: ; Troponin I Reference Interval for [employer] LOCI: 99th Percentile= 0.00-0.045 ng/ml Risk Stratification: <= 0.10 ng/ml Decreased Risk for Adverse Clinical Events. 0.10-1.50 ng/ml Increased Risk for Adverse Clinical Events. Evaluation of additional criterion and/or repeat testing in 2-6 hours is suggested to rule out myocardial damage. >= 1.50 ng/ml Indicative of Myocardial Injury. Lab Order: A1C; [facility] 12/09/16 09:19 Test: HEMOGLOBIN A1c; Value: 7.8; Range: 4.5-6.2; Abnormal: Above high normal; Units: %; Status: F Test: ESTIMATED AVERAGE GLUCOSE; Value: 177; Range: 60-110; Abnormal: Above high normal; Units: MG/DL; Status: F Lab Order: Pt & Aptt; [facility] 12/09/16 13:24 Test: PROTHROMBIN TIME; Value: 13.9; Range: 12.3-14.5; Units: SECONDS; Status: F Test: INR; Value: 1.06; Status: F Test: PARTIAL THROMBOPLASTIN TIME; Value: 27.9; Range: 26.6-37.1; Units: SECONDS; Status: F Test Note: ; THERAPUTIC HUMAN INR VALUES INDICATIONS NORMAL RANGES PROPHYLAXIS/TREATMENT OF: VENOUS THROMBOSIS 2.0-3.0 PULMONARY EMBOLISM 2.0-3.0 PREVENTION OF SYSTEMIC EMBOLISM FROM: TISSUE HEART VALVES 2.0-3.0 ACUTE MYOCARDIAL INFARCTION 2.0-3.0 VALVULAR HEART DISEASE 2.0-3.0 ATRIAL FIBRILLATION 2.0-3.0 MECHANICAL VALVES(HIGH RISK) 2.5-3.5 RECURRENT MYOCARDIAL INFARCTION 2.5-3.5 Lab Order: CARDIAC INJURY PROFILE; [facility] 12/09/16 13:14 Test: CPK CREATINE PHOSPHOKINASE; Value: 75; Range: 39-308; Units: U/L; Status: F Test: CK-MB VALUE MASS; Value: 1.0; Range: 0.0-3.6; Units: NG/ML; Status: F Test: MB/CK RELATIVE INDEX; Value: 1.33; Range: < OR =4; Status: F Test Note: ; DIAGNOSIS CRITERIA MMB ng/ml Relative Index (RI) NON-AMI < or = 5 N/A [place] > 5 < or = 4 AMI > 5 > 4 Lab Order: TROPONIN; [facility] 12/09/16 13:14 Test: TROPONIN I; Value: < 0.02; Range: < 0.10; Units: NG/ML; Status: F Test Note: ; Troponin I Reference Interval for [employer] LOCI: 99th Percentile= 0.00-0.045 ng/ml Risk Stratification: <= 0.10 ng/ml Decreased Risk for Adverse Clinical Events. 0.10-1.50 ng/ml Increased Risk for Adverse Clinical Events. Evaluation of additional criterion and/or repeat testing in 2-6 hours is suggested to rule out myocardial damage. >= 1.50 ng/ml Indicative of Myocardial Injury. Lab Order: URINALYSIS; [facility] 12/09/16 09:09 Test: APPEARANCE, URINE; Value: TURBID; Range: CLEAR; Abnormal: Above high normal; Status: F Test: COLOR, URINE; Value: PRITI; Range: YELLOW; Status: F Test: PH,URINE; Value: 5.0; Range: 5.0-9.0; Units: UNITS; Status: F Test: SPECIFIC GRAVITY URINE AUTO; Value: 1.024; Range: 1.002-1.035; Status: F Test: PROTEIN, URINE AUTO; Value: 2+; Range: NEGATIVE; Abnormal: Above high normal; Units: mg/dL; Status: F Test: GLUCOSE, URINE (UA) AUTO; Value: 3+; Range: NEGATIVE; Abnormal: Above high normal; Units: mg/dL; Status: F Test: KETONE, URINE AUTO; Value: TRACE; Range: NEGATIVE; Abnormal: Above high normal; Units: mg/dL; Status: F Test: UROBILINOGEN, URINE AUTO; Value: 0.2; Range: 0.0-2.0; Units: mg/dL; Status: F Test: BILIRUBIN, URINE AUTO; Value: NEGATIVE; Range: NEGATIVE; Status: F Test: NITRITE, URINE AUTO; Value: NEGATIVE; Range: NEGATIVE; Status: F Test: LEUKOCYTE ESTERASE, URINE AUTO; Value: NEGATIVE; Range: NEGATIVE; Status: F Test: BLOOD, URINE BLOOD; Value: NEGATIVE; Range: NEGATIVE; Status: F Test: WBC, URINE AUTO; Value: 2; Range: 0-3; Units: /HPF; Status: F Test: RBC, URINE AUTO; Value: 1; Range: 0-3; Units: /HPF; Status: F Test: BACTERIA, URINE AUTO; Value: 1+; Range: NEGATIVE; Abnormal: Above high normal; Status: F Test: SQUAMOUS EPITHELIAL CELL UR AU; Value: 0; Range: 0-6; Units: /HPF; Status: F Test: MUCUS, URINE; Value: SMALL; Range: NEGATIVE; Status: F Test: HYALINE CAST, URINE AUTO; Value: 0; Range: 0-1; Units: /LPF; Status: F Lab Order: TOTAL T3; SPEC'M 12/09/16 09:19 Test: TOTAL T3; Value: 94.7; Range: 60.0-181.0; Units: NG/DL; Status: F Radiology Order: EKG-ADULT Test: EKG-ADULT REASON FOR EXAMINATION: palpitations; Stationary ECG Study; [facility] - ED; ; Test Date: 2016-12-09; Pat Name: DEXTER KHAN Department:; Room: -; Gender: M 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; : 1960 Requested By: Danny Rojas; Order Number: [id number] Reading MD: Laurie Gregory; Measurements; Intervals [place]; Rate: 123 P:; SC: 0 QRS: 49; QRSD: 88 T: -37; QT: 302; QTc: 432; Interpretive Statements; ATRIAL FIBRILLATION WITH RAPID VENTRICULAR RESPONSE; NONSPECIFIC ST T-WAVE ABNORMALITY; NO PRIOR FOR COMPARISON; Electronically Signed On 12-09-2016 10:54:31 EST by Laurie Gregory; Radiology Order: CT ABD & PELVIS: IV Contrast Only Test: CT ABD & PELVIS: IV Contrast Only REASON FOR EXAMINATION: Biliary Colic; CT abdomen and pelvis with IV but without oral contrast:; ; History: Biliary colic.; ; Comparison study January 03, 2014.; ; CT contrast dose: 100 ml of Isovue 370 is administered intravenously.; ; CT by findings: Preliminary crew dispatcher radiograph is unremarkable. Lung window; settings demonstrate a heterogeneous infiltrate in the right lower lobe of the; lung with small right pleural effusion. There is mild linear fibrosis versus; discoid atelectasis in the left lower lobe. These findings are new when compared; with the 2013 prior exam. Also noted are filling defects in several of the; pulmonary arterial tree branches in the right lower lobe and one in the left; lower lobe consistent with acute pulmonary embolus.; ; There is moderate diffuse fatty infiltration of the liver. No focal liver mass; lesion is seen. The liver is not enlarged. Spleen is unremarkable. There is a; small sliding-type hiatal hernia. No adrenal lesion is observed on either side.; Pancreas is unremarkable. No gallbladder abnormality is appreciated. There is a; 3 cm cyst in the upper pole of the left kidney. A lower pole cyst is seen in the; right kidney measuring 1.4 cm in greatest diameter. Kidneys are otherwise; morphologically intact. No hydronephrosis is seen. Normal caliber aorta is; noted. No retroperitoneal mass or adenopathy is seen. Small and large; intestinal bowel loops are normal in caliber and course. There is diverticulosis; affecting the sigmoid colon without CT evidence of diverticulitis. There are; dystrophic calcifications in the prostate. Seminal vesicles and urinary bladder; are unremarkable. No abdominal wall defect is seen.; ; Impression:; 1. There is an infiltrate in the right lower lobe, small right pleural effusion.; Also noted is a filling defect in the right lower lobe pulmonary arterial tree; indicating pulmonary embolism. There is a small thrombus in one of the left; lower lobe pulmonary arterial branches as well.; 2. Fatty infiltration of the liver.; 3. No CT evidence of biliary tract disease.; 4. 3 cm cyst upper pole left kidney unchanged from comparison study.; 5. Sliding type hiatal hernia.; 6. Left colonic diverticulosis without CT evidence of diverticulitis.; ; ; ; ; ; Unreviewed; Outcome: 13:04 Decision to Hospitalize by Provider. pc 15:03 Discharge Assessment: Patient awake, alert and oriented x 3. No cognitive and/or [facility] functional deficits noted. Patient verbalized understanding of disposition instructions. patient administered narcotics - yes. Patient was admitted to the hospital or transferred to another facility. The following High Risk Discharge criteria are identified: None. Admitted to PCU accompanied by nurse, via stretcher, on monitor, with chart. Condition: good. CT Study completed. Property :Personal belongings accompany Pt. 15:12 Patient left the ED. [facility] Signatures: Dispatcher [employer] EDDanny Willoughby MD MD pc Knapp, Jean,RN RN Jeff Rodriguez, Reg Reg lg Nicole Cartagena RN RN jLorin Montalvo RN RN hs1 Josias Thomas mm15 Corrections: (The following items were deleted from the chart) 08:39 08:34 Presenting complaint: Patient states: right sided abdominal pain radiating to r right side of back for past couple weeks, reports nausea for past week and diarrhea lasting 4-5 days from 12/06/16 jjr 08:43 08:39 BP 137 / 93; Pulse 103bpm; Resp 18bpm; Pulse Ox 94% RA; Temp 98.6F Oral; 122.47 jjr kg Reported; Height 5 ft. 10 in. Reported; BMI: 38.7; Pain 6/10; jjr 09:33 09:20 TROPONIN+LAB sent. [facility] EDAK 09:33 09:21 CARDIAC INJURY PROFILE+LAB sent. [facility] 09:33 09:21 FT4&TSH PANEL+LAB sent. [facility] EDAK 13:45 13:27 BLOOD CULTURES sent. [facility] EDAK 13:53 13:27 Lupus Type Anticoagulant+LAB sent. [facility] MTDD
[2016-12-09 15:20] VITALS: BP 125/81
[2016-12-09 16:00] VITALS: BP 121/69
[2016-12-09] MEDS: METOPROLOL TART 25 MG TABLET PO SCH ×2 (16:05→20:41)
[2016-12-09] MEDS: PANTOPRAZOLE 40MG TAB (PROTONIX) PO SCH (16:05)
[2016-12-09] MEDS: MORPHINE 2 MG/ML 1ML SYRINGE IV PRN ×2 (16:08→20:52)
[2016-12-09] MEDS: HumaLOG INSULIN (NovoLOG) PER UNIT SC SCH ×2 (18:27→20:34)
[2016-12-09] MEDS: ENOXAPARIN 120 MG/0.8 ML SYR (J1650) SC SCH (18:28)
--- NOTE | 2016-12-09 18:41 | ECHO ---
DATE OF PROCEDURE: 12/09/2016 REFERRING PHYSICIAN: Dr. Bobo and Dr. Peña INDICATION: Abnormal ECG, AFib. HEIGHT: 178 cm WEIGHT: 122 kg DIMENSIONS: IVS: 1.2 LV: 4.9 LVPW: 1.2 LA: 4.3 Aorta: 4.0 FINDINGS: The study is of acceptable technical quality considering patient's body habitus. Left ventricle is of normal size and normal systolic function with estimated ejection fraction (EF) around 65%. Mild left ventricular hypertrophy (LVH) is noted. Right ventricle appears normal size or possibly mildly dilated. Both atria are mildly enlarged. Aortic, mitral, and tricuspid valves appear normal. Pulmonic valve was not well seen. No pericardial effusion is present. Inferior vena cava is dilated without appreciable collapse with respiration indicative of high central venous pressure. Aortic root is normal. Aortic arch and abdominal aorta were not well seen. Doppler interrogation reveals no aortic stenosis or insufficiency. There is trace mitral insufficiency and no tricuspid insufficiency. Trace pulmonic insufficiency was also seen. Mitral inflow pattern and tissue Doppler imaging of mitral annulus are inconclusive due to underlying atrial fibrillation with ventricular rate in 100-130 beats per minute (bpm) range. Tissue Doppler velocities are relatively preserved at 9.0 and 9.6 cm per second medial and lateral annulus respectively. CONCLUSIONS: 1. Study is of fair technical quality. 2. Normal left ventricle (LV) size with mild LVH and preserved LV systolic function. 3. No significant valvular disease. 4. Elevated central venous pressure. 5. Unable to estimate pulmonary artery pressure under COMMENT: Subacute bacterial endocarditis (SBE) prophylaxis is not recommended.
[2016-12-09 20:42] VITALS: BP 140/81
--- NOTE | 2016-12-09 23:24 | CR.PDOC ---
[facility] Cardiology Consultation Date of Consultation 12/09/16 Cadiology Consultation REFERRING PHYSICIAN: Dr Peña REASON FOR REFERRAL: New Onset Atrial fibrillation HISTORY OF PRESENT ILLNESS: Mr Khan is a 56 y.o. male who presented acutely to the ED after he was experiencing RUQ achy pain that had been progressively getting worse for the past two weeks. The patient stated that sometimes this pain would be worsened with food consumption but cannot pinpoint the exact foods that would do this, he states the pain was becoming so intense that it was waking him from sleep. PAST MEDICAL: Meniere Disease HTN Alcohol use/abuse SURGICAL HISTORY: left hand sx. Knee sx. FAMILY HISTORY: No significant cardiac history as per pt. 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 Smokes actively 1 PPD for the past 49 years, denies illicit drug use, consumes 2 -12 alcoholic beverages a day at least once a week, pt. states that when he drinks he does to to "become drunk". REVIEW OF SYSTEMS: Cardiovascular: Denies palpitations, chest pain or syncope episodes Respiratory: Denies SOB, wheeze or cough GI/: Denies changes in bowel or urinary habits HEENT: Denies change in vision or headache . All other 10 point review of systems questions negative. PHYSICAL EXAMINATION: VITAL SIGNS: Please see below. GENERAL APPEARANCE: Well appearing male appearing his stated age. In no distress, non-labored, conversant. EYES: EOMI ENT/Mouth: tongue midline, moist mucus membranes, nares patent b/l NECK: supple, minimal JVD appreciated. EXTREMITIES: no swelling, cyanosis or clubbing appreciated SKIN: intact NEUROLOGIC/PSYCHOLOGIC: affect is appropriate and no focal deficits appreciated HEART: normal s1 and s1, no murmurs, rubs or gallops appreciated, rate in the 80 's irregularly irregular ARTERIAL PULSES: +2 b/l radial LOWER EXTREMITY EDEMA: absent. ABDOMEN: soft, non-distended, tender to palpitation in RUQ, no organomegaly appreciated, NABSx4 RESPIRATORY: no wheezing, rales or rhonchi appreciated. good air expansion b/l. CTA b/l although diminished bibasilar breath sounds ALLERGIES: Please see below. HOME MEDICATIONS: Please see below. CURRENT MEDICATIONS: Please see below. Electrocardiogram: ECG 12-09-2016 showed atrial fibrillation w/ rate in the 120's , minimal non-specific ST-T wave abnormality LABORATORY DATA: Please see below. IMAGING: CT abdomen/pelvis 12-09-2016 1. There is an infiltrate in the right lower lobe, small right pleural effusion. Also noted is a filling defect in the right lower lobe pulmonary arterial tree indicating pulmonary embolism. There is a small thrombus in one of the left lower lobe pulmonary arterial branches as well. 2. Fatty infiltration of the liver. 3. No CT evidence of biliary tract disease. 4. 3 cm cyst upper pole left kidney unchanged from comparison study. 5. Sliding type hiatal hernia. 6. Left colonic diverticulosis without CT evidence of diverticulitis. ASSESSMENT/PLAN: Patients new onset atrial fibrillation is most likely secondary to his chronic and excessive alcohol and cigarette/tobacco use. The patient seemed to respond well to metoprolol therapy and we will continue him with this for now, anticoagulation is through lovenox therapy. The patient received ECHO study today that revealed normal EF and normal LV size with mild LVH and preserved LV systolic function, with no significant valvular disease and elevated central venous pressure. Since the patient is unable to detect symptoms of his new onset a. fib, it is unlikely he can provide reliable time of onset. Often, in these situations, the a. fib will convert to sinus after the patient ceases the offending agent, in this case alcohol. He is currently being worked up for clotting disorder to explain his b/l PE, and is is also being treated with antibiotics for suspected pneumonia. His heart rate has been controlled on metoprolol therapy in the 80-100's and blood pressure has been hovering at 140/ 80. Will monitor the patient overnight to see if he converts to NSR on his own, if not then we will consider adding on an agent for medical conversion. Of course if this does not work, patient may be a client for cardioversion, but we will cross that path if we need to later. No further recommendations at this time. Thank you kindly for asking me to participate in the care of your patient. Addendum MD Ronda: In principal agree with the note above. 56yo obese man with weekend ETOH use presenting with at east 5 days of symptoms of RUQ chest pain but no dyspnea. CTA revealed evidence for pulmonary embolism and adjacent RLL infiltrate. Plan for rate control and anticoagulation. If no spontaneous recovery of SR will discuss 3 weeks of anticoagulation followed by cardioversion vs CANDY/cardioversion during current hospitalization. Arrhythmia and pulmonary embolism are both well tolerated. Vital Signs/I&O Vital Signs Date Time Temp Pulse Resp B/P Pulse Ox O2 Delivery O2 Flow Rate FiO2 12/09/16 21:02 98.2 113 18 140/81 93 Room Air Laboratory Data Labs 24H Laboratory Tests 2 12/09/16 09:09: Urine Amorphous Sediment , Urine Appearance TURBIDH, Urine Color PRITI, Urine pH 5.0, Urine Specific Lima 1.024, Urine Protein 2+H, Urine Glucose (UA) 3+H , Urine Ketones TRACEH, Urine Urobilinogen 0.2, Urine Bilirubin NEGATIVE, Urine Leukocyte Esterase NEGATIVE, Urine Bacteria (Auto) 1+H, Urine Blood NEGATIVE, Urine Calcium Carbonate Cryst(Auto) , Urine Calcium Oxalate Cryst (Auto) , Urine Calcium Phosphate Belkis (Auto) , Urine Cellular Casts , Urine Cystine Crystals , Urine Granular Casts (Auto) , Urine Hyaline Casts (Auto) 0, Urine Leucine Crystals , Urine Mucus (Auto) SMALL, Urine Nitrite NEGATIVE, Urine Oval Fat Bodies (Auto) , Urine RBC (Auto) 1, Urine Renal Epithelial Cells , Urine Sperm (Auto) , Urine Squamous Epithelial Cells 0, Urine Transitional Epithelial Cells , Urine Trichomonas (Auto) , Urine Triple Phosphate Cryst (Auto) , Urine Tyrosine Crystals , Urine Uric Acid Crystals (Auto) , Urine WBC (Auto) 2, Urine Waxy Casts (Auto) , Urine Yeast-Like Cells (Auto) 12/09/16 09:19: Aspartate Amino Transf (AST/SGOT) 14L, Alanine Aminotransferase (ALT/SGPT) 32, Alkaline Phosphatase 88, Total Bilirubin 0.9, Direct Bilirubin 0.2, Albumin 3.4 , Albumin/Globulin Ratio 0.81L, Anion Gap 13, White Blood Count 15.7H, Red Blood Count 5.25, Hemoglobin 16.7, Hematocrit 47.9, Mean Corpuscular Volume 91.3 , Mean Corpuscular Hemoglobin 31.9, Mean Corpuscular Hemoglobin Concent 34.9, Red Cell Distribution Width 12.1, Platelet Count 255, Neutrophils (%) (Auto) 76.4H, Lymphocytes (%) (Auto) 13.6L, Monocytes (%) (Auto) 6.3H, Eosinophils (%) (Auto) 1.1, Basophils (%) (Auto) 0.5, Neutrophils # (Auto) 12.0H, Lymphocytes # (Auto) 2.1, Monocytes # (Auto) 1.0H, Eosinophils # (Auto) 0.2, Basophils # (Auto ) 0.1, Calcium Level 8.6, Creatine Kinase MB 1.0, Creatine Kinase MB Relative Index 1.21, Estimated Mean Plasma Glucose 177H, Free Thyroxine 1.09, Glomerular Filtration Rate > 60.0, Hemoglobin A1c 7.8H, Large Unclassified Cells # 0.3, Large Unclassified Cells % 2.0, Lipase 122, Thyroid Stimulating Hormone (TSH) 1.190, Total Creatine Kinase 82, Total Protein 7.6, Total Triiodothyronine 94.7 , Troponin I < 0.02 12/09/16 13:14: Creatine Kinase MB 1.0, Creatine Kinase MB Relative Index 1.33, Total Creatine Kinase 75, Troponin I < 0.02 12/09/16 13:24: Activated Partial Thromboplast Time 27.9, Prothromb Time International Ratio 1.06, Prothrombin Time 13.9 12/09/16 13:26: 12/09/16 16:33: Bedside Glucose (Misc Panel) 180H 12/09/16 20:21: Bedside Glucose (Misc Panel) 156H 12/09/16 22:56: CBC/BMP Laboratory Tests 12/09/16 09:19 Red Blood Count 5.25, Mean Corpuscular Volume 91.3, Mean Corpuscular Hemoglobin 31.9, Mean Corpuscular Hemoglobin Concent 34.9, Red Cell Distribution Width 12.1 , Neutrophils (%) (Auto) 76.4 H, Lymphocytes (%) (Auto) 13.6 L, Monocytes (%) ( Auto) 6.3 H, Eosinophils (%) (Auto) 1.1, Basophils (%) (Auto) 0.5, Neutrophils # (Auto) 12.0 H, Lymphocytes # (Auto) 2.1, Monocytes # (Auto) 1.0 H, Eosinophils # (Auto) 0.2, Basophils # (Auto) 0.1 FSBS Laboratory Tests Test 12/09/16 16:33 12/09/16 20:21 Range/Units Bedside Glucose (Misc Panel) 180 156 70-105 MG/DL Microbiology Microbiology 12/09/16 Blood Culture, Received Pending 12/09/16 Blood Culture, Received Pending 12/09/16 Urine Culture, Received Pending Home Medications Scheduled Ascorbic Acid (Vitamin C) 500 Mg Tab 500 MG PO DAILY (Reported) Hydrochlorothiazide W/Triamter (Triamterene/Hydrochloroth 37.5-25 mg) 1 Tab Tab 1 TAB PO DAILY (Reported) Multivitamins *[facility] STOCKED* (Thera M Plus *[facility] STOCKED*) 1 Tab Tab 1 TAB PO DAILY (Reported) Omeprazole (Omeprazole) 20 Mg Cap 20 MG PO BID (Reported) NOT REGULAR MED - MD PRESCRIBED FOR ABDOMINAL ISSUES Scheduled PRN Diazepam (Diazepam) 5 Mg Tab 5 MG PO TID PRN PRN ANXIETY (Reported) Ondansetron (Zofran Odt) 4 Mg Tab 4 MG PO Q4H PRN PRN NAUSEA OR VOMITING ( Reported) NOT REGULAR MED - MD PRESCRIBED FOR ABDOMINAL ISSUES Current Medications Current Medications Medications (Trade) Dose Ordered Sig/Rose Mary Route PRN Reason Start Time Stop Time Status Last Admin Dose Admin Acetaminophen (Tylenol Tab) 650 mg Q4HP PRN PO MILD PAIN OR FEVER 12/09/16 13:15 01/08/17 13:14 Azithromycin/IV Miscellaneous Supplies/Dextrose (Zithromax Inj/ Adapter-Vial Mate/ Dextrose 5%) 255 ml @ 255 mls/hr Q24H IV 12/10/16 14:00 12/17/16 13:59 Ceftriaxone Sodium 2 gm/ Dextrose 50 ml @ 100 mls/hr Q24H IV 12/10/16 13:00 12/17/16 12:59 Dextrose (Dextrose 50%) 25 ml ASDIRECTED PRN IV SEE LABEL COMMENTS 12/09/16 13:15 01/08/17 13:14 Diazepam (Valium) 5 mg TID PRN PO ANXIETY 12/09/16 13:30 12/16/16 13:29 Enoxaparin Sodium (Lovenox) 120 mg Q12H SC 12/09/16 17:00 12/14/16 16:59 12/09/16 18:28 Glucagon (Glucagon) 1 mg ASDIRECTED PRN SC SEE LABEL COMMENTS 12/09/16 13:15 01/08/17 13:14 Glucose (Glucose) 16 GM ASDIRECTED PRN PO SEE LABEL COMMENTS 12/09/16 13:15 01/08/17 13:14 Home Med (Med Rec Complete!) ASDIRECTED XX 12/09/16 13:15 12/09/16 13:23 DC Insulin Human Lispro (HumaLOG INSULIN) SEE PROTOCOL TABLE AC SC 12/09/16 17:30 01/08/17 17:29 12/09/16 18:27 Insulin Human Lispro (HumaLOG INSULIN) SEE PROTOCOL TABLE QHS SC 12/09/16 21:00 01/08/17 20:59 Metoprolol Tartrate 25 mg 25 mg Q6H PO 12/09/16 14:00 01/08/17 13:59 12/09/16 20:41 Morphine Sulfate 2 mg 2 mg Q4HP PRN IV PAIN 12/09/16 13:15 12/16/16 13:14 12/09/16 20:52 Multivitamins (Theragram-M) 1 tab DAILY PO 12/10/16 09:00 01/09/17 08:59 Ondansetron HCl (Zofran) 4 mg Q6HP PRN IV NAUSEA OR VOMITING 12/09/16 13:15 01/08/17 13:14 Pantoprazole Sodium (Protonix) 40 mg DAILY PO 12/09/16 09:00 01/08/17 08:59 12/09/16 16:05 Sodium Chloride (Nacl 0.9%) 1,000 ml @ 80 mls/hr [id number] IV 12/09/16 13:15 12/10/16 01:44 12/09/16 16:05 Allergies Allergies: Coded Allergies: No Known Drug Allergy (Verified Allergy, Unknown, 02/11/13) GME ATTESTATION GME ATTESTATION My preceptor for this patient encounter was physically present in the building during the encounter and was fully available. As needed, all aspects of the patient interview, examination, medical decision making process, and medical care plan development were reviewed and approved by the preceptor. Preceptor is aware and concurs with the plan as stated in the body of this note and will attest to such by his/her cosignature. JONO HODGSON DO Dec 09, 2016 23:23 Fina Loredo MD Dec 11, 2016 18:48
[2016-12-10] VITALS (7 sets, daily range): BP systolic 111–153; BP diastolic 62–84
[2016-12-10] MEDS: MORPHINE 2 MG/ML 1ML SYRINGE IV PRN ×4 (01:05→23:13)
[2016-12-10] MEDS: METOPROLOL TART 25 MG TABLET PO SCH ×2 (01:05→09:01)
[2016-12-10] MEDS: ENOXAPARIN 120 MG/0.8 ML SYR (J1650) SC SCH ×2 (05:10→18:04)
[2016-12-10 05:47] LABS: BASO # 0.1 K/mm3 (0.0-0.2); BASO % 0.5 % (0.0-1.0); EOS # 0.3 K/mm3 (0.0-0.50); EOS % 2.8 % (0.0-3.0); LARGE UNSTAINED CELL # 0.4 K/mm3 (0.0-0.4); LARGE UNSTAINED CELL % 3.3 % (0.0-4.0); LYMPH % 26.7 % (24.0-44.0); MEAN CORPUSCULAR HGB CONC 33.6 g/dl (32.0-36.5); MEAN CORPUSCULAR VOLUME 92.2 fl (80.0-96.0); MONO # 0.8 K/mm3 (0.0-0.8); MONO % 6.8 % (0.0-5.0); NEUTROPHILS # 6.8 K/mm3 (1.8-7.7); NEUTROPHILS % 59.9 % (36.0-66.0); PLATELET COUNT, AUTOMATED 231 k/mm3 (150-450); RED CELL DISTRIBUTION WIDTH 12.1 % (11.5-14.5); WHITE BLOOD COUNT 11.3 K/mm3 (4.0-10.0)
[2016-12-10 06:16] LABS: ALBUMIN 2.9 GM/DL (3.2-5.2); ALBUMIN/GLOBULIN RATIO 0.78 (1.00-1.93); ALKALINE PHOSPHATASE 78 U/L (45-117); ALT/SGPT 24 U/L (12-78); ANION GAP 9 MEQ/L (8-16); AST/SGOT 14 U/L (15-37); BILIRUBIN,TOTAL 0.4 MG/DL (0.2-1.0); BLOOD UREA NITROGEN 12 MG/DL (7-18); CALCIUM LEVEL 8.3 MG/DL (8.5-10.1); CARBON DIOXIDE LEVEL 28 MEQ/L (21-32); CHLORIDE LEVEL 102 MEQ/L (98-107); CREATININE FOR GFR 0.63 MG/DL (0.70-1.30); GLOMERULAR FILTRATION RATE > 60.0 (>56); GLUCOSE, FASTING 160 MG/DL (70-105); MAGNESIUM LEVEL 1.7 MG/DL (1.8-2.4); POTASSIUM SERUM 3.6 MEQ/L (3.5-5.1); SODIUM LEVEL 139 MEQ/L (136-145); TOTAL PROTEIN 6.6 GM/DL (6.4-8.2)
[2016-12-10] MEDS: PANTOPRAZOLE 40MG TAB (PROTONIX) PO SCH (09:01)
[2016-12-10] MEDS: MULTIVITAMINS/MINERALS THERAP 1 TAB PO SCH (09:01)
[2016-12-10] MEDS: HumaLOG INSULIN (NovoLOG) PER UNIT SC SCH ×4 (09:02→20:33)
[2016-12-10] MEDS: DYAZIDE 37.5/25 CAP (TRIAM/HCTZ) PO SCH (10:29)
--- NOTE | 2016-12-10 10:58 | IPN ---
DATE: 12/10/2016 Mr. Khan had a relatively uneventful night. He tells me that he his right upper quadrant chest discomfort has completely resolved. He denies any shortness of breath or chest pain, and he has no palpitations. On telemetry monitoring he remains in atrial fibrillation with uncontrolled rate with typical heart rate around 110 to 125 beats per minute. Vital signs: Blood pressure 125/75, heart rate 115, afebrile. Saturation 92% on room air. Fluid balance yesterday about equal. Weight today documented at 133 kg. JVP is not elevated. Lungs are clear to auscultation. Heart exam reveals a rather muffled heart sound due to his obesity, but I do not appreciate any gallop, rub or murmur. Abdomen is soft, nontender, no rebound tenderness. Right upper quadrant is still slightly tender. Extremities free of edema. Neurologically he is intact and skin is intact as well. CBC WBC count 11.3, hemoglobin 14.5, hematocrit 43, platelet count 231,000. Basic metabolic panel sodium 139, potassium 3.6, BUN 12, creatinine 0.6, glucose 160, magnesium is 1.7. Normal liver function test. Cardiac enzymes are negative. ASSESSMENT/PLAN: Mr. Khan is a 56-year-old man who presented with right upper quadrant abdominal and lower chest discomfort. Somewhat surprisingly, he was found to be in atrial fibrillation with RVR and CT angio of the abdomen actually reveal evidence for pulmonary emboli. Simultaneously, there was a right lower lobe infiltrate. It seems likely that his pain was actually pleuritic pain. He has been treated with antibiotics, anticoagulation and we are trying to rate control him. As far as the management of atrial fibrillation is concerned, I will leave him on Lovenox for the time being even though after a day or two we should switch him to one of the NOACs. I am going to increase metoprolol to 50 every 6 hours because his heart rate is still not well controlled. If he does not convert into sinus mechanism within another day, will have to make a decision whether to attempt CANDY cardioversion or whether to continue outpatient anticoagulation and then try to cardiovert him either chemically or electrically as an outpatient. I discussed this with the patient today and he will consider his options. As far as pulmonary embolism is concerned, it is very unusual that he does not have any dyspnea. He will be anticoagulated for a minimum of 3-6 months regardless. No hypoxemia, no troponin elevation, so relatively a low risk scenario. As far as pneumonia is concerned, he is managed by his primary team. We also had a discussion with the patient about his obesity and possible sleep apnea. The patient believes that he does not have sleep apnea though. He also is an alcohol drinker. He usually drinks only once a week, but on occasion it can be a lot. I explained to him that it is a very common trigger of atrial fibrillation and he should limit his alcohol consumption to no more than two drinks a day at max. MTDD
[2016-12-10] MEDS: METOPROLOL TART 50 MG TAB PO SCH ×3 (12:42→23:16)
[2016-12-10] MEDS: cefTRIAXone SOD 2 GM in D5W MINI-BAG PLUS 50 ML IV SCH (12:42)
[2016-12-10 13:26] LABS: INR 1.09
[2016-12-10] MEDS: AZITHROMYCIN INJ 500 MG, VIAL MATE ADAPTER 1 EACH in D5W 250 ML IV SCH (13:32)
[2016-12-10] MEDS: MAGNESIUM OXIDE 400 MG TAB (MAG-OX) PO SCH (18:03)
--- NOTE | 2016-12-10 19:17 | IPN ---
DATE: 12/10/2016 SUBJECTIVE: The patient is seen and examined in the room today. The patient stated that his chest discomfort has been resolved. No difficulty breathing. No gastrointestinal discomfort. On telemetry, the patient continues to have uncontrolled heart rate. The patient stated that he has been taking diuretic for his Meniere's disease. Usually his symptoms are controlled. If his diuretic is discontinued, the patient will have rapid recurrence of the symptoms. OBJECTIVE: VITAL SIGNS: Temperature is 96.8, pulse is 115, respiration 18, blood pressure is 125/75, pulse oximetry is 92% on room air. GENERAL: Sitting comfortably near the bedside. No acute distress. Alert and oriented times three. HEENT: Normocephalic, atraumatic. Extraocular motors are grossly intact. CARDIOVASCULAR: Irregularly irregular with a heart rate around 120s or above. LUNGS: Clear to auscultation bilaterally. ABDOMEN: Soft, obese, nontender, nondistended. Bowel sounds present. EXTREMITIES: No edema. No sign of cyanosis. LABORATORY DATA: WBC is 11.3, hemoglobin 14.5, hematocrit 43.1, platelet count is 231. Sodium is 139, potassium 3.6, chloride 102, carbon dioxide 28, BUN is 12, creatinine 0.63, GFR greater than 60, fasting glucose 160, calcium is 8.3, magnesium 1.7, total bilirubin 0.4, AST is 14, ALT is 24, alkaline phosphatase 78, total CK is 69, troponin I is less than 0.02. Total protein 6.6, albumin 2.9. ASSESSMENT AND PLAN: 1. New onset of atrial fibrillation with rapid ventricular rate. Cosmetic Manager is consulted. The patient has been placed on metoprolol and anticoagulated with Lovenox. The patient is continued to be monitored with cardiac telemetry. We will continue to follow with sleep lab technologist's recommendations. 2. Meniere's disease. We will resume the patient's Dyazide with holding parameters. 3. Right lower lobe infiltrate. The patient is on Rocephin and azithromycin. 4. History or bilateral pulmonary embolisms. The patient is anticoagulated with Lovenox at this moment. 5. New onset diabetes. The patient is on insulin sliding scale. A1/c 7.8. 6. History of colonic diverticulosis. No gastrointestinal bleed. 7. Deep vein thrombosis (DVT) prophylaxis. The patient is on Lovenox. MTDD
[2016-12-11] MEDS ORDERED: SLF 3 ML SYR IV PRN (02:30)
[2016-12-11 04:53] VITALS: BP 101/76
[2016-12-11] MEDS: ENOXAPARIN 120 MG/0.8 ML SYR (J1650) SC SCH ×2 (04:56→17:49)
[2016-12-11] MEDS: SLF 3 ML SYR IV SCH ×3 (04:56→21:38)
[2016-12-11] MEDS: METOPROLOL TART 50 MG TAB PO SCH ×4 (04:56→23:51)
[2016-12-11 05:16] LABS: BASO % 0.5 % (0.0-1.0); EOS # 0.3 K/mm3 (0.0-0.50); EOS % 3.5 % (0.0-3.0); LARGE UNSTAINED CELL # 0.2 K/mm3 (0.0-0.4); LARGE UNSTAINED CELL % 1.8 % (0.0-4.0); LYMPH # 2.9 K/mm3 (1.5-4.5); LYMPH % 29.8 % (24.0-44.0); MEAN CORPUSCULAR HEMOGLOBIN 31.5 pg (27.0-33.0); MEAN CORPUSCULAR HGB CONC 34.7 g/dl (32.0-36.5); MEAN CORPUSCULAR VOLUME 90.6 fl (80.0-96.0); MONO # 0.8 K/mm3 (0.0-0.8); MONO % 8.3 % (0.0-5.0); NEUTROPHILS # 5.1 K/mm3 (1.8-7.7); NEUTROPHILS % 56.1 % (36.0-66.0); PLATELET COUNT, AUTOMATED 233 k/mm3 (150-450); RED CELL DISTRIBUTION WIDTH 12.3 % (11.5-14.5)
[2016-12-11 05:42] LABS: ALBUMIN 2.8 GM/DL (3.2-5.2); ALKALINE PHOSPHATASE 83 U/L (45-117); ALT/SGPT 36 U/L (12-78); ANION GAP 8 MEQ/L (8-16); AST/SGOT 16 U/L (15-37); BILIRUBIN,TOTAL 0.2 MG/DL (0.2-1.0); BLOOD UREA NITROGEN 11 MG/DL (7-18); CALCIUM LEVEL 8.3 MG/DL (8.5-10.1); CARBON DIOXIDE LEVEL 27 MEQ/L (21-32); CHLORIDE LEVEL 105 MEQ/L (98-107); CREATININE FOR GFR 0.72 MG/DL (0.70-1.30); GLOMERULAR FILTRATION RATE > 60.0 (>56); GLUCOSE, FASTING 152 MG/DL (70-105); MAGNESIUM LEVEL 1.7 MG/DL (1.8-2.4); POTASSIUM SERUM 3.7 MEQ/L (3.5-5.1); SODIUM LEVEL 140 MEQ/L (136-145); TOTAL PROTEIN 6.3 GM/DL (6.4-8.2)
[2016-12-11 08:00] VITALS: BP 127/79
[2016-12-11] MEDS: MAGNESIUM OXIDE 400 MG TAB (MAG-OX) PO SCH (08:23)
[2016-12-11] MEDS: MULTIVITAMINS/MINERALS THERAP 1 TAB PO SCH (08:23)
[2016-12-11] MEDS: PANTOPRAZOLE 40MG TAB (PROTONIX) PO SCH (08:23)
[2016-12-11] MEDS: DYAZIDE 37.5/25 CAP (TRIAM/HCTZ) PO SCH (08:23)
[2016-12-11] MEDS: HumaLOG INSULIN (NovoLOG) PER UNIT SC SCH ×4 (08:24→21:00)
[2016-12-11] MEDS: MORPHINE 2 MG/ML 1ML SYRINGE IV PRN ×2 (10:13→23:52)
--- NOTE | 2016-12-11 10:51 | IPN ---
DATE: 12/11/2016 Mr. Khan is feeling again a little bit better today than yesterday. The discomfort in his right upper quadrant is essentially completely gone. He denies any dyspnea or sensation of palpitations. Telemetry monitoring revealed improvement in the heart rate control. He currently has been running around 100 beats per minute even though his blood pressure was a little low this morning, so he did not get his morning dose of metoprolol. He has no specific complaints. Vital Signs: Blood pressure 127/79. Heart rate is 70s to 90s. Afebrile. Saturation 96% on room air. Fluid balance yesterday was 1 liter positive. Weight does not seem to be changed. He is alert, oriented and appropriate. His jugular venous pulse (JVP) is not up. Lungs are clear. Heart exam irregular rhythm. No gallop, rub or murmur. No peripheral edema. Abdomen is very obese, but soft and nontender. CBC: Hemoglobin 13.5, hematocrit 39, platelet count is 233,000. WBC count is down to 9. Basic metabolic panel normal, but for glucose 152, magnesium 1.7 and albumin 2.8. ASSESSMENT AND PLAN: Mr. Khan is a 56-year-old man who presented with right upper quadrant and right lower chest discomfort of pleuritic nature. He was found to have pulmonary embolism in the right lower lobe with associated consolidation, probably pneumonia. Simultaneously, he was found to be in atrial fibrillation with rapid ventricular rate (RVR). He has been anticoagulated with Lovenox and is now reasonably well rate-controlled on metoprolol 50 every 6hours. It appears that he has not been receiving all the doses though. I had a discussion with him again regarding option of CANDY/cardioversion versus rate control for 3 weeks to be followed by cardioversion later. it appears that we are going to be going the second course and consequently I do assume that he will be discharged home tomorrow. BOY
--- NOTE | 2016-12-11 11:23 | ECGEPIP ---
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
[2016-12-11 12:00] VITALS: BP 108/78
[2016-12-11] MEDS: cefTRIAXone SOD 2 GM in D5W MINI-BAG PLUS 50 ML IV SCH (13:51)
[2016-12-11] MEDS: AZITHROMYCIN INJ 500 MG, VIAL MATE ADAPTER 1 EACH in D5W 250 ML IV SCH (13:52)
[2016-12-11 16:00] VITALS: BP 126/88
--- NOTE | 2016-12-11 16:13 | EDDOCDS ---
Physician Documentation [facility] Name: Sammy Khan Age: 56 yrs Sex: Male : 1960 Arrival Date: 12/09/2016 Time: 08:20 Bed 6 Private MD: Heaven Lassiter C Disposition: 12/09 12:53 Critical Care:. pc Disposition: 12/09/16 13:04 Hospitalization ordered by Herman Peña for Inpatient Admission. Preliminary diagnosis are Pulmonary embolism - RLL and LLL, Bronchopneumonia, unspecified organism - RLL, Persistent atrial fibrillation - new onset. - Bed requested for M PCU. - Status is Inpatient Admission. jmk - Condition is Stable. - Problem is new. - Symptoms have improved. HPI: 09:16 This 56 yrs old Male presents to ER via Walkin/Carried/Asstd with complaints pc of Abdominal Pain. 09:16 The history is obtained from the patient. The patient presents with abdominal pain, in pc the right upper quadrant. The symptoms began at least 2-3 months ago, becoming more frequent in the past 3 weeks.. There have been multiple episodes. At its worst, the symptoms were a 6 out of 10. In the emergency department, the symptoms are a 6 out of 10. The pain is described as "pain". The is primarily located epigastric area and right upper quadrant. It radiates to the right subscapular area. The pain was associated with nausea. The symptoms are aggravated by a supine position, are alleviated by an upright position. Risk factors for CAD: history of high cholesterol, history of hypertension. The patient has experienced similar episodes in the past. The patient has been recently seen at an urgent care, this week, for similar complaints, labs were performed, X-rays were performed. Historical: - Allergies: no known allergies; - Home Meds: 1. omeprazole 20 mg Oral cpDR 1 cap 2 times per day (Last dose: 12/08/2016) 2. Zofran (as hydrochloride) 4 mg Oral tab tid prn 3. diazepam 5 mg Oral tab prn 4. triamterene-hydrochlorothiazid Unknown Oral once daily (Last dose: 12/08/2016) - PMHx: meniere's disease; Hypertension; GERD; Obesity; - PSHx: hand surgery; Knee surgery; - The history from nurses notes was reviewed: and elements of the historical information I have obtained differs from that reported to nursing. - Social history: Smoking status: Patient uses tobacco products, current every day smoker. No barriers to communication noted, The patient speaks fluent Wolof. - Family history: Not pertinent, Pertinent for Father has/had "blood cancer". - : The pt / caregiver states he / she is not on anticoagulants. Home medication list is obtained from the patient. - Hospitalizations: : No recent hospitalization is reported. - Exposure Risk Screening:: None identified. - Immunization history:: All immunizations up-to-date. - Social history:: the patient smokes cigarettes 1ppd the patient drinks alcohol, socially. ROS: 09:20 All systems are negative except if listed. The constitutional, cardiovascular, pc respiratory and neurological components are also addressed in the HPI. Exam: 09:20 General Appearance: alert, mild distress. pc 09:20 ENT: ear, nose and throat normal, pharynx normal. 09:20 Neck: The exam reveals no acute abnormalities. ROM is normal and painless. No nuchal rigidity is noted.. 09:20 Respiratory: no respiratory distress, normal breath sounds, chest non-tender. 09:20 Cardiovascular: normal heart sounds, equal and full pulses bilaterally, tachycardia, 145bpm, Rhythm is irregularly irregular. 09:20 Abdomen: soft, no organomegaly, normal bowel sounds, no masses appreciated, no hernias palpated with/without gravity or Valsalva moderate tenderness in the right upper quadrant, without rebound, voluntary guarding is not appreciated, involuntary guarding is elicited in the right upper quadrant. 09:20 Back: normal inspection, no CVA pain. 09:20 Skin: skin color is normal, warm, dry. 09:20 Extremities: The extremities have a grossly normal appearance, are non-tender, without acute ROM abnormalities. 09:20 Neuro: oriented x 3, cranial nerves normal as tested, no motor deficits, no sensory deficits. 09:20 Psych: mood is normal. Vital Signs: 08:39 BP 137 / 93 RA Sitting (auto/lg); Pulse 103; Resp 18; Temp 98.6(O); Pulse Ox 94% on jjr R/A; Weight 122.47 kg / 270 lbs (R); Height 5 ft. 10 in. (177.80 cm) (R); Pain 6/10; 08:43 BP 130 / 86 RA Sitting (man/reg); jjr 09:24 Pulse 144 MON; jmk 09:25 BP 153 / 93 (auto/); jmk 09:39 BP 145 / 98 (auto/); jmk 09:39 Pulse 138 MON; Pulse Ox 92% ; jmk 09:54 BP 113 / 81 (auto/); jmk 09:54 Pulse 116 MON; Pulse Ox 91% ; jmk 10:00 Pulse 110 MON; Pulse Ox 91% ; jmk 10:01 BP 113 / 89 (auto/); jmk 10:08 Pulse 108 MON; Pulse Ox 92% ; jmk 10:09 BP 106 / 84 (auto/); jmk 10:23 Pulse 108 MON; Pulse Ox 91% ; jmk 10:24 BP 108 / 81 (auto/); jmk 10:38 Pulse 110 MON; Pulse Ox 91% ; jmk 10:39 BP 105 / 74 (auto/); jmk 10:53 Pulse 108 MON; Pulse Ox 90% ; jmk 10:54 BP 115 / 79 (auto/); jmk 11:08 Pulse 112 MON; Pulse Ox 90% ; jmk 11:09 BP 99 / 59 (auto/); jmk 11:24 BP 97 / 76 (auto/); jmk 11:24 Pulse 104 MON; Pulse Ox 92% ; jmk 11:39 BP 112 / 77 (auto/); jmk 11:39 Pulse 108 MON; Pulse Ox 92% ; jmk 11:54 BP 96 / 65 (auto/); jmk 11:54 Pulse 106 MON; Pulse Ox 91% ; jmk 12:08 Pulse 110 MON; Pulse Ox 92% ; jmk 12:09 BP 107 / 64 (auto/); jmk 12:23 Pulse 112 MON; Pulse Ox 93% ; jmk 12:24 BP 112 / 72 (auto/); jmk 12:38 Pulse 108 MON; Pulse Ox 92% ; jmk 12:39 BP 122 / 82 (auto/); jmk 12:45 Pulse 104 MON; Pulse Ox 93% ; jmk 12:46 BP 102 / 57 (auto/); jmk 13:51 Pulse 112 MON; Pulse Ox 92% ; jmk 13:52 BP 141 / 93 (auto/); jmk 14:23 BP 126 / 81 (auto/); jmk 14:23 Pulse 112 MON; Pulse Ox 91% ; jmk 15:03 BP 109 / 80; Pulse 120; Resp 18; Temp 98.5; Pulse Ox 95% on R/A; jmk 08:39 Body Mass Index 38.74 (122.47 kg, 177.80 cm) jr MDM: 09:11 Ondansetron 4 mg IVP once ordered. pc 09:11 ketorolac 30 mg IVP once ordered. pc 09:11 IV Saline Lock ordered. pc 09:11 Caddy/Pulse Ox/q 30 min VS ordered. pc 09:12 Basic Metabolic Profile Ordered. EDMS 09:12 CBC with Diff Ordered. EDMS 09:12 Lipase Ordered. EDMS 09:12 Liver Profile Ordered. EDMS 09:12 NOTHING BY MOUTH+DIET ordered. EDMS 09:12 ECG WITH READING ER PHYS+CARDIAG ordered. EDMS 09:20 Differential diagnosis: cholecystitis, Cholelithiasis, non-specific abd pain, pc arrhythmia - new onset. Plan: labs, meds, EKG, review US performed as out-patient just [employer]. 09:33 CARDIAC INJURY PROFILE Ordered. EDMS 09:33 FT4&TSH PANEL Ordered. EDMS 09:33 TROPONIN Ordered. EDMS 09:37 A1C Ordered. EDMS 09:38 Metoprolol (Tartrate) 50 mg PO once ordered. pc 09:38 Metoprolol 5 mg IVP every 5 minutes; Hold for SBP < 100 or HR < 60. x3 ordered. pc 09:39 Test interpretation: EKG. pc 09:49 Financial registration complete. lg 09:53 [facility] Payment Agreement was scanned into [employer] and attached to record. lg 09:59 Basic Metabolic Profile Reviewed. pc 09:59 Liver Profile Reviewed. pc 09:59 Lipase Reviewed. pc 09:59 CARDIAC INJURY PROFILE Reviewed. pc 09:59 TROPONIN Reviewed. pc 10:38 Basic Metabolic Profile Reviewed. pc 10:38 CBC with Diff Reviewed. pc 10:38 Liver Profile Reviewed. pc 10:38 A1C Reviewed. pc 10:38 Lipase Reviewed. pc 10:38 CARDIAC INJURY PROFILE Reviewed. pc 10:38 FT4&TSH PANEL Reviewed. pc 10:38 TROPONIN Reviewed. pc 10:49 CT ABD & PELVIS: IV Contrast Only Ordered. EDMS 12:33 requires 7 blue tops, 1 tiger top, 3 purple tops per lab 4.21.14 ordered. pc 12:34 Anti Thrombin 3 Panel (ag/ac) Ordered. EDMS 12:34 Anti-Cardiolipin Antibodies Ordered. EDMS 12:34 Factor V Leiden Ordered. EDMS 12:34 Protein C Functional Activity Ordered. EDMS 12:34 Protein S Functional Activity Ordered. EDMS 12:34 Pt & Aptt Ordered. EDMS 12:34 BED REQUEST+ADM ordered. EDMS 12:40 morphine 2 mg IVP once ordered. pc 12:40 Ondansetron 4 mg IVP once ordered. pc 12:53 Data reviewed: old medical records, vital signs, nurses notes, EKG(s), lab test pc results, all radiology studies and available results. Test interpretation: LAB - all labs as ordered have been reviewed, interpreted and considered in the overall management of the clinical presentation; interpreted by Radiologist and personally reviewed, Abdomen/Pelvis CT; RLL infiltrate, RLL/LLL pulmonary emboli. nad. The patient has been re-examined and re-evaluated. The patient's symptoms have markedly improved after treatment. Physician consultation: Dr. Fina Loredo and will see patient in inpatient room. 12:53 Physician consultation: Dr. Herman Peña regarding admission. Disposition: The pc historical points, examination findings, and any diagnostic results supporting the provided diagnosis, were discussed with the patient or legal guardian. The need for further work-up and/or treatment in the hospital was explained. 12:55 -Blood Culture (Adults Only), peripheral from different site, or from device/port/PICC pc etc. if present ordered. 12:56 cefTRIAXone 1 grams IVPB once over 30 mins; dilute in 50mL of NS or D5W ordered. pc 12:56 azithromycin 500 mg IVPB once over 1 hrs; dilute in 250mL of D5W or NS ordered. pc 12:56 -Blood Culture Ordered. EDMS 12:56 -Blood Culture (Adults Only), peripheral from different site, or from device/port/PICC lbd etc. if present complete. 13:00 BLOOD CULTURES Ordered. EDMS 13:03 REGULAR DIET ROOM SERVICE ED+DIET ordered. EDMS 13:21 Admission / Observation Status ordered. EDMS 13:21 ECHOCARD,DOPPLER/COLOR FLOW ordered. EDMS 13:22 2 GRAM SODIUM DIET ordered. EDMS 13:22 CARDIAC INJURY PROFILE Ordered. EDMS 13:22 CARDIAC INJURY PROFILE Ordered. EDMS 13:22 TROPONIN Ordered. EDMS 13:22 TROPONIN Ordered. EDMS 13:23 URINALYSIS Ordered. EDMS 13:23 URINE CULTURE Ordered. EDMS 13:42 Abdomen, limited US Ordered. EDMS 13:49 TOTAL T3 Ordered. EDMS 13:54 Lupus Type Anticoagulant Ordered. EDMS EC:39 Rate is 123 beats/min. Rhythm is irregularly irregular, AFib vs AFlut with RVR. QRS pc [place] is Normal. QRS interval is normal. QT interval is normal. No Q waves. T waves are Inverted in leads II, III, aVF. ST Segment is depressed in leads II, V6, <1mm. Clinical impression: AFib vs AFlut with RVR. Administered Medications: 09:39 Drug: Ondansetron 4 mg Route: IVP; Site: left antecubital; [facility] 09:39 Drug: ketorolac 30 mg [ketorolac 30 mg/mL (1 mL) injection solution (1 mL)] Route: IVP; [facility] Site: left antecubital; 09:45 Drug: Metoprolol (Tartrate) 50 mg Route: PO; [facility] 09:50 Drug: Metoprolol 5 mg [metoprolol 5 mg/5 mL intravenous solution (5 mL)] Route: IVP; [facility] Site: left antecubital; 09:58 Drug: Metoprolol 5 mg [metoprolol 5 mg/5 mL intravenous solution (5 mL)] Route: IVP; [facility] Site: left antecubital; 10:05 Drug: Metoprolol 5 mg [metoprolol 5 mg/5 mL intravenous solution (5 mL)] Route: IVP; [facility] Site: left antecubital; 12:49 Drug: morphine 2 mg Route: IVP; Site: left antecubital; [facility] 12:51 Drug: Ondansetron 4 mg Route: IVP; Site: left antecubital; [facility] 13:27 Drug: cefTRIAXone 1 grams Route: IVPB; Infused Over: 30 mins; Site: left antecubital; [facility] 14:14 Drug: azithromycin 500 mg [azithromycin 500 mg intravenous solution] Route: IVPB; [facility] Infused Over: 1 hrs; Site: left antecubital; Critical Care Time: 12:53 Critical care time: Bedside Care: 30 minutes, Consultation: 20 minutes, Family pc Intervention: 10 minutes. Total time: 60 minutes Signatures: Dispatcher [employer] EDMS Danny Powell MD MD pc Daly, Linda, Optometry Doctor Unit lbd James Fofana,RN RN Jeff Rodriguez, Reg Reg lg Nicole Cartagena, RN RN karenr Frank, [place], PIANO TUNER PIANO TUNER [id number] The chart was reviewed and I authenticate all verbal orders and agree with the evaluation and treatment provided.Corrections: (The following items were deleted from the chart) : 09:18 FT4&TSH PANEL+LAB ordered. EDMS EDMS :33 09:18 CARDIAC INJURY PROFILE+LAB ordered. EDMS EDMS :33 09:18 TROPONIN+LAB ordered. EDMS EDMS 13:45 13:23 BLOOD CULTURES ordered. EDMS EDMS 13:46 13:23 PROTHROMBIN TIME PROFILE\\E\\INR ordered. EDMS EDMS 13:46 13:23 THYROID STIMULATING HORMONE ordered. EDMS EDMS 13:46 13:23 FREE T4 ordered. EDMS EDMS 13:47 13:23 TOTAL T3 ordered. EDMS EDMS 13:53 12:34 Lupus Type Anticoagulant+LAB ordered. EDMS EDMS Attachments: 09:53 [facility] [place] Payment Agreement lg Chart Complete MTDD
--- NOTE | 2016-12-11 16:13 | EDDOCDS ---
Nurse's Notes [facility] Name: Dexter Khan Age: 56 yrs Sex: Male : 1960 Arrival Date: 12/09/2016 Time: 08:20 Bed 6 Private MD: Heaven Lassiter C Diagnosis: Pulmonary embolism-RLL and LLL;Bronchopneumonia, unspecified organism-RLL;Persistent atrial fibrillation-new onset Presentation: 12/09 08:34 Presenting complaint: Patient states: right sided abdominal pain radiating to right jjr side of back for past couple weeks, reports nausea for past week and diarrhea lasting 4-5 days from 12/06/16, Dr Reilly ordered outpt blood work and US this morning which was completed. Adult Sepsis Screening: The patient does not have new or worsening altered mentation. Patient's respiratory rate is less than 22. Systolic blood pressure is greater than 100. Patient has a qSOFA score of 0- Negative Sepsis Screen. Suicide/Homicide risk assessment- the patient denies having any suicidal and/or homicidal ideations and does not present with any other emotional, behavioral or mental health complaints. Status: Patient is not a community services manager or dependent. Transition of care: patient was not received from another setting of care. 08:34 Acuity: FELECIA Level 3 [facility] 08:34 Method Of Arrival: Walkin/Carried/Asstd j Triage Assessment: 08:43 General: Appears in no apparent distress. Pain: Location: right flank, right upper jjr quadrant and right lower quadrant. Pt Declines HIV testing. GI: Reports nausea. Historical: - Allergies: no known allergies; - Home Meds: 1. omeprazole 20 mg Oral cpDR 1 cap 2 times per day (Last dose: 12/08/2016) 2. Zofran (as hydrochloride) 4 mg Oral tab tid prn 3. diazepam 5 mg Oral tab prn 4. triamterene-hydrochlorothiazid Unknown Oral once daily (Last dose: 12/08/2016) - PMHx: meniere's disease; Hypertension; GERD; Obesity; - PSHx: hand surgery; Knee surgery; - The history from nurses notes was reviewed: and elements of the historical information I have obtained differs from that reported to nursing. - Social history: Smoking status: Patient uses tobacco products, current every day smoker. No barriers to communication noted, The patient speaks fluent Burmese. - Family history: Not pertinent, Pertinent for Father has/had "blood cancer". - : The pt / caregiver states he / she is not on anticoagulants. Home medication list is obtained from the patient. - Hospitalizations: : No recent hospitalization is reported. - Exposure Risk Screening:: None identified. - Immunization history:: All immunizations up-to-date. - Social history:: the patient smokes cigarettes 1ppd the patient drinks alcohol, socially. Screenin:51 Screening information is obtained from the patient. Fall risk: No risks identified. jmk Assistance ADL's: requires no assistance with activities of daily living. Abuse/DV Screen: The patient / caregiver reports he/she is: not in a situation that causes fear, pain or injury. Nutritional screening: No deficits noted. Advance Directives: Currently, there is no health care proxy. There is no active DNR order. There is no living will. There is no Power of Gas Meter Repairer. Advance directive information has not previously been placed in an [facility] medical record. home support is adequate. Assessment: 08:51 General: Appears in no apparent distress, skin warm and dry color satisfactory. Moist jmk pink oral mucosa. Obese abdomen .Firm, but non distended with bowel sounds present x 4. Indicates right upper abd pain that radiates to right scapular area. skin is unremarkable. chest CTA. without resp distress. Slight increase in pain with deep inspiration.. Respiratory: Airway is patent Respiratory effort is even, unlabored, Respiratory pattern is regular, Breath sounds are clear bilaterally. GI: Abdomen is flat, non- distended obese, Bowel sounds present X 4 quads. Abd is tender to palpation in posterior aspect of left lateral abdomen and right upper quadrant. Musculoskeletal: No deficits noted. 10:05 General: Appears states pain has decreased to 2/10/ monitor is AFib with rate of 108. jmk without chest pain dizziness or SOB. 10:23 General: Appears resting quietly. monitor continues as afib with rate of 108. denies jmk chest pain SOB or dizziness. states 2/10 abd pain. 12:51 General: Appears states pain to right upper abdomen has again increased to 6/10 and jmk medicated for same. monitor AF rate 120. no resp distress noted.. 14:39 General: Appears states pain has decreased to 2/10 diet has been taken and retained. IV jmk antibiotics infusing. 15:03 General: Appears ambulating about room ad xu and tolerating activity well. without jmk resp distress. monitor is afib. without chest discomfort. reports no chest discomfort. sl intact with antibiotic infusing without event.. Vital Signs: 08:39 BP 137 / 93 RA Sitting (auto/lg); Pulse 103; Resp 18; Temp 98.6(O); Pulse Ox 94% on jjr R/A; Weight 122.47 kg (R); Height 5 ft. 10 in. (177.80 cm) (R); Pain 6/10; 08:43 BP 130 / 86 RA Sitting (man/reg); jjr 09:24 Pulse 144 MON; jmk 09:25 BP 153 / 93 (auto/); jmk 09:39 BP 145 / 98 (auto/); jmk 09:39 Pulse 138 MON; Pulse Ox 92% ; jmk 09:54 BP 113 / 81 (auto/); jmk 09:54 Pulse 116 MON; Pulse Ox 91% ; jmk 10:00 Pulse 110 MON; Pulse Ox 91% ; jmk 10:01 BP 113 / 89 (auto/); jmk 10:08 Pulse 108 MON; Pulse Ox 92% ; jmk 10:09 BP 106 / 84 (auto/); jmk 10:23 Pulse 108 MON; Pulse Ox 91% ; jmk 10:24 BP 108 / 81 (auto/); jmk 10:38 Pulse 110 MON; Pulse Ox 91% ; jmk 10:39 BP 105 / 74 (auto/); jmk 10:53 Pulse 108 MON; Pulse Ox 90% ; jmk 10:54 BP 115 / 79 (auto/); jmk 11:08 Pulse 112 MON; Pulse Ox 90% ; jmk 11:09 BP 99 / 59 (auto/); jmk 11:24 BP 97 / 76 (auto/); jmk 11:24 Pulse 104 MON; Pulse Ox 92% ; jmk 11:39 BP 112 / 77 (auto/); jmk 11:39 Pulse 108 MON; Pulse Ox 92% ; jmk 11:54 BP 96 / 65 (auto/); jmk 11:54 Pulse 106 MON; Pulse Ox 91% ; jmk 12:08 Pulse 110 MON; Pulse Ox 92% ; jmk 12:09 BP 107 / 64 (auto/); jmk 12:23 Pulse 112 MON; Pulse Ox 93% ; jmk 12:24 BP 112 / 72 (auto/); jmk 12:38 Pulse 108 MON; Pulse Ox 92% ; jmk 12:39 BP 122 / 82 (auto/); jmk 12:45 Pulse 104 MON; Pulse Ox 93% ; jmk 12:46 BP 102 / 57 (auto/); jmk 13:51 Pulse 112 MON; Pulse Ox 92% ; jmk 13:52 BP 141 / 93 (auto/); jmk 14:23 BP 126 / 81 (auto/); jmk 14:23 Pulse 112 MON; Pulse Ox 91% ; jmk 15:03 BP 109 / 80; Pulse 120; Resp 18; Temp 98.5; Pulse Ox 95% on R/A; jmk 08:39 Body Mass Index 38.74 (122.47 kg, 177.80 cm) [facility] Vitals: 08:39 Log In Time: December 09, 2016 at 08:20. r ED Course: 08:22 Patient visited by Josias Thomas. mm15 08:22 Heaven Lassiter is Private Physician. mm15 08:22 Patient moved to Waiting mm15 08:36 Triage Initiated jjr 08:44 Patient moved to 6 jjr 08:49 Danny oPwell MD is Attending Physician. pc 08:55 Patient visited by James Fofana RN. jmk 09:10 Patient visited by Danny Powell MD. pc 09:20 Inserted saline lock: 20 gauge in left antecubital area. jmk 09:21 Basic Metabolic Profile Sent. jmk 09:21 CBC with Diff Sent. jmk 09:21 Lipase Sent. jmk 09:21 Liver Profile Sent. jmk 09:37 EKG done. (by ED staff). Reviewed by Danny Powell MD performed by Jef Shelton RN. hs1 09:39 A1C Sent. jmk 09:39 TROPONIN Sent. jmk 09:39 CARDIAC INJURY PROFILE Sent. jmk 09:39 FT4&TSH PANEL Sent. jmk 09:53 [facility] Payment Agreement was scanned into [employer] and attached to record. lg 10:05 The patient / caregiver is instructed regarding the plan of care and ED course. jmk 10:21 Patient visited by Danny Powell MD. pc 11:12 EKG-ADULT Returned. EDMS 11:41 Patient visited by Danny Powell MD. pc 12:52 Patient visited by James Fofana RN. jmk 13:04 Herman Peña is Hospitalizing Provider. pc 13:19 CT ABD & PELVIS: IV Contrast Only Returned. EDMS 13:27 BLOOD CULTURES Sent. jmk 13:27 Anti Thrombin 3 Panel (ag/ac) Sent. jmk 13:27 Anti-Cardiolipin Antibodies Sent. jmk 13:27 Factor V Leiden Sent. jmk 13:27 Protein C Functional Activity Sent. jmk 13:27 Protein S Functional Activity Sent. jmk 13:27 Pt & Aptt Sent. jmk 15:03 No procedures done that require assistance. [facility] Administered Medications: 09:39 Drug: Ondansetron 4 mg Route: IVP; Site: left antecubital; [facility] 09:39 Drug: ketorolac 30 mg [ketorolac 30 mg/mL (1 mL) injection solution (1 mL)] Route: IVP; [facility] Site: left antecubital; 09:45 Drug: Metoprolol (Tartrate) 50 mg Route: PO; [facility] 09:50 Drug: Metoprolol 5 mg [metoprolol 5 mg/5 mL intravenous solution (5 mL)] Route: IVP; [facility] Site: left antecubital; 09:58 Drug: Metoprolol 5 mg [metoprolol 5 mg/5 mL intravenous solution (5 mL)] Route: IVP; [facility] Site: left antecubital; 10:05 Drug: Metoprolol 5 mg [metoprolol 5 mg/5 mL intravenous solution (5 mL)] Route: IVP; [facility] Site: left antecubital; 12:49 Drug: morphine 2 mg Route: IVP; Site: left antecubital; [facility] 12:51 Drug: Ondansetron 4 mg Route: IVP; Site: left antecubital; [facility] 13:27 Drug: cefTRIAXone 1 grams Route: IVPB; Infused Over: 30 mins; Site: left antecubital; [facility] 14:14 Drug: azithromycin 500 mg [azithromycin 500 mg intravenous solution] Route: IVPB; jmk Infused Over: 1 hrs; Site: left antecubital; Order Results: Lab Order: Basic Metabolic Profile; SPEC'M 12/09/16 09:19 Test: GLUCOSE, FASTING; Value: 241; Range: 70-105; Abnormal: Above high normal; Units: MG/DL; Status: F Test: BLOOD UREA NITROGEN; Value: 10; Range: 7-18; Units: MG/DL; Status: F Test: CREATININE FOR GFR; Value: 0.87; Range: 0.70-1.30; Units: MG/DL; Status: F Test: GLOMERULAR FILTRATION RATE; Value: > 60.0; Range: >56; Status: F Test: SODIUM LEVEL; Value: 136; Range: 136-145; Units: MEQ/L; Status: F Test: POTASSIUM SERUM; Value: 3.8; Range: 3.5-5.1; Units: MEQ/L; Status: F Test: CHLORIDE LEVEL; Value: 99; Range: 98-107; Units: MEQ/L; Status: F Test: CARBON DIOXIDE LEVEL; Value: 24; Range: 21-32; Units: MEQ/L; Status: F Test: ANION GAP; Value: 13; Range: 8-16; Units: MEQ/L; Status: F Test: CALCIUM LEVEL; Value: 8.6; Range: 8.5-10.1; Units: MG/DL; Status: F Test Note: ; Units are mL/min/1.73 m2 Chronic Kidney Disease Staging per NKF: Stage I & II GFR >=60 Normal to Mildly Decreased Stage III GFR 30-59 Moderately Decreased Stage IV GFR 15-29 Severely Decreased Stage V GFR <15 Very Little GFR Left ESRD GFR <15 on [employer] Lab Order: CBC with Diff; SPEC'M 12/09/16 09:19 Test: WHITE BLOOD COUNT; Value: 15.7; Range: 4.0-10.0; Abnormal: Above high normal; Units: K/mm3; Status: F Test: RED BLOOD COUNT; Value: 5.25; Range: 4.30-6.10; Units: M/mm3; Status: F Test: HEMOGLOBIN; Value: 16.7; Range: 14.0-18.0; Units: g/dl; Status: F Test: HEMATOCRIT; Value: 47.9; Range: 42.0-52.0; Units: %; Status: F Test: MEAN CORPUSCULAR VOLUME; Value: 91.3; Range: 80.0-96.0; Units: fl; Status: F Test: MEAN CORPUSCULAR HEMOGLOBIN; Value: 31.9; Range: 27.0-33.0; Units: pg; Status: F Test: MEAN CORPUSCULAR HGB CONC; Value: 34.9; Range: 32.0-36.5; Units: g/dl; Status: F Test: RED CELL DISTRIBUTION WIDTH; Value: 12.1; Range: 11.5-14.5; Units: %; Status: F Test: PLATELET COUNT, AUTOMATED; Value: 255; Range: 150-450; Units: k/mm3; Status: F Test: NEUTROPHILS %; Value: 76.4; Range: 36.0-66.0; Abnormal: Above high normal; Units: %; Status: F Test: LYMPH %; Value: 13.6; Range: 24.0-44.0; Abnormal: Below low normal; Units: %; Status: F Test: MONO %; Value: 6.3; Range: 0.0-5.0; Abnormal: Above high normal; Units: %; Status: F Test: EOS %; Value: 1.1; Range: 0.0-3.0; Units: %; Status: F Test: BASO %; Value: 0.5; Range: 0.0-1.0; Units: %; Status: F Test: LARGE UNSTAINED CELL %; Value: 2.0; Range: 0.0-4.0; Units: %; Status: F Test: NEUTROPHILS #; Value: 12.0; Range: 1.8-7.7; Abnormal: Above high normal; Units: K/mm3; Status: F Test: LYMPH #; Value: 2.1; Range: 1.5-4.5; Units: K/mm3; Status: F Test: MONO #; Value: 1.0; Range: 0.0-0.8; Abnormal: Above high normal; Units: K/mm3; Status: F Test: EOS #; Value: 0.2; Range: 0.0-0.50; Units: K/mm3; Status: F Test: BASO #; Value: 0.1; Range: 0.0-0.2; Units: K/mm3; Status: F Test: LARGE UNSTAINED CELL #; Value: 0.3; Range: 0.0-0.4; Units: K/mm3; Status: F Lab Order: Lipase; [facility] 12/09/16 09:19 Test: LIPASE; Value: 122; Range: 73-393; Units: U/L; Status: F Lab Order: Liver Profile; [facility] 12/09/16 09:19 Test: AST/SGOT; Value: 14; Range: 15-37; Abnormal: Below low normal; Units: U/L; Status: F Test: ALT/SGPT; Value: 32; Range: 12-78; Units: U/L; Status: F Test: ALKALINE PHOSPHATASE; Value: 88; Range: 45-117; Units: U/L; Status: F Test: BILIRUBIN,TOTAL; Value: 0.9; Range: 0.2-1.0; Units: MG/DL; Status: F Test: BILIRUBIN,DIRECT; Value: 0.2; Range: 0.0-0.2; Units: MG/DL; Status: F Test: TOTAL PROTEIN; Value: 7.6; Range: 6.4-8.2; Units: GM/DL; Status: F Test: ALBUMIN; Value: 3.4; Range: 3.2-5.2; Units: GM/DL; Status: F Test: ALBUMIN/GLOBULIN RATIO; Value: 0.81; Range: 1.00-1.93; Abnormal: Below low normal; Status: F Lab Order: CARDIAC INJURY PROFILE; [facility] 12/09/16 09:19 Test: CPK CREATINE PHOSPHOKINASE; Value: 82; Range: 39-308; Units: U/L; Status: F Test: CK-MB VALUE MASS; Value: 1.0; Range: 0.0-3.6; Units: NG/ML; Status: F Test: MB/CK RELATIVE INDEX; Value: 1.21; Range: < OR =4; Status: F Test Note: ; DIAGNOSIS CRITERIA MMB ng/ml Relative Index (RI) NON-AMI < or = 5 N/A [place]MAN ZONE > 5 < or = 4 AMI > 5 > 4 Lab Order: FT4&TSH PANEL; [facility] 12/09/16 09:19 Test: THYROID STIMULATING HORMONE; Value: 1.190; Range: 0.358-3.740; Units: uIU/ML; Status: F Test: FREE T4; Value: 1.09; Range: 0.76-1.46; Units: NG/DL; Status: F Lab Order: TROPONIN; [facility] 12/09/16 09:19 Test: TROPONIN I; Value: < 0.02; Range: < 0.10; Units: NG/ML; Status: F Test Note: ; Troponin I Reference Interval for Concurrent Inc LOCI: 99th Percentile= 0.00-0.045 ng/ml Risk Stratification: <= 0.10 ng/ml Decreased Risk for Adverse Clinical Events. 0.10-1.50 ng/ml Increased Risk for Adverse Clinical Events. Evaluation of additional criterion and/or repeat testing in 2-6 hours is suggested to rule out myocardial damage. >= 1.50 ng/ml Indicative of Myocardial Injury. Lab Order: A1C; [facility] 12/09/16 09:19 Test: HEMOGLOBIN A1c; Value: 7.8; Range: 4.5-6.2; Abnormal: Above high normal; Units: %; Status: F Test: ESTIMATED AVERAGE GLUCOSE; Value: 177; Range: 60-110; Abnormal: Above high normal; Units: MG/DL; Status: F Lab Order: Pt & Aptt; [facility] 12/09/16 13:24 Test: PROTHROMBIN TIME; Value: 13.9; Range: 12.3-14.5; Units: SECONDS; Status: F Test: INR; Value: 1.06; Status: F Test: PARTIAL THROMBOPLASTIN TIME; Value: 27.9; Range: 26.6-37.1; Units: SECONDS; Status: F Test Note: ; THERAPUTIC HUMAN INR VALUES INDICATIONS NORMAL RANGES PROPHYLAXIS/TREATMENT OF: VENOUS THROMBOSIS 2.0-3.0 PULMONARY EMBOLISM 2.0-3.0 PREVENTION OF SYSTEMIC EMBOLISM FROM: TISSUE HEART VALVES 2.0-3.0 ACUTE MYOCARDIAL INFARCTION 2.0-3.0 VALVULAR HEART DISEASE 2.0-3.0 ATRIAL FIBRILLATION 2.0-3.0 MECHANICAL VALVES(HIGH RISK) 2.5-3.5 RECURRENT MYOCARDIAL INFARCTION 2.5-3.5 Lab Order: CARDIAC INJURY PROFILE; [facility] 12/09/16 13:14 Test: CPK CREATINE PHOSPHOKINASE; Value: 75; Range: 39-308; Units: U/L; Status: F Test: CK-MB VALUE MASS; Value: 1.0; Range: 0.0-3.6; Units: NG/ML; Status: F Test: MB/CK RELATIVE INDEX; Value: 1.33; Range: < OR =4; Status: F Test Note: ; DIAGNOSIS CRITERIA MMB ng/ml Relative Index (RI) NON-AMI < or = 5 N/A [place]ONE > 5 < or = 4 AMI > 5 > 4 Lab Order: TROPONIN; [facility] 12/09/16 13:14 Test: TROPONIN I; Value: < 0.02; Range: < 0.10; Units: NG/ML; Status: F Test Note: ; Troponin I Reference Interval for Concurrent Inc LOCI: 99th Percentile= 0.00-0.045 ng/ml Risk Stratification: <= 0.10 ng/ml Decreased Risk for Adverse Clinical Events. 0.10-1.50 ng/ml Increased Risk for Adverse Clinical Events. Evaluation of additional criterion and/or repeat testing in 2-6 hours is suggested to rule out myocardial damage. >= 1.50 ng/ml Indicative of Myocardial Injury. Lab Order: URINALYSIS; [facility] 12/09/16 09:09 Test: APPEARANCE, URINE; Value: TURBID; Range: CLEAR; Abnormal: Above high normal; Status: F Test: COLOR, URINE; Value: PRITI; Range: YELLOW; Status: F Test: PH,URINE; Value: 5.0; Range: 5.0-9.0; Units: UNITS; Status: F Test: SPECIFIC GRAVITY URINE AUTO; Value: 1.024; Range: 1.002-1.035; Status: F Test: PROTEIN, URINE AUTO; Value: 2+; Range: NEGATIVE; Abnormal: Above high normal; Units: mg/dL; Status: F Test: GLUCOSE, URINE (UA) AUTO; Value: 3+; Range: NEGATIVE; Abnormal: Above high normal; Units: mg/dL; Status: F Test: KETONE, URINE AUTO; Value: TRACE; Range: NEGATIVE; Abnormal: Above high normal; Units: mg/dL; Status: F Test: UROBILINOGEN, URINE AUTO; Value: 0.2; Range: 0.0-2.0; Units: mg/dL; Status: F Test: BILIRUBIN, URINE AUTO; Value: NEGATIVE; Range: NEGATIVE; Status: F Test: NITRITE, URINE AUTO; Value: NEGATIVE; Range: NEGATIVE; Status: F Test: LEUKOCYTE ESTERASE, URINE AUTO; Value: NEGATIVE; Range: NEGATIVE; Status: F Test: BLOOD, URINE BLOOD; Value: NEGATIVE; Range: NEGATIVE; Status: F Test: WBC, URINE AUTO; Value: 2; Range: 0-3; Units: /HPF; Status: F Test: RBC, URINE AUTO; Value: 1; Range: 0-3; Units: /HPF; Status: F Test: BACTERIA, URINE AUTO; Value: 1+; Range: NEGATIVE; Abnormal: Above high normal; Status: F Test: SQUAMOUS EPITHELIAL CELL UR AU; Value: 0; Range: 0-6; Units: /HPF; Status: F Test: MUCUS, URINE; Value: SMALL; Range: NEGATIVE; Status: F Test: HYALINE CAST, URINE AUTO; Value: 0; Range: 0-1; Units: /LPF; Status: F Lab Order: TOTAL T3; SPEC'M 12/09/16 09:19 Test: TOTAL T3; Value: 94.7; Range: 60.0-181.0; Units: NG/DL; Status: F Radiology Order: EKG-ADULT Test: EKG-ADULT REASON FOR EXAMINATION: palpitations; Stationary ECG Study; [facility] - ED; ; Test Date: 2016-12-09; Pat Name: DEXTER KHAN Department:; Room: -; Gender: M 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; : 1960 Requested By: Danny Rojas; Order Number: [id number] Reading MD: Laurie Gregory; Measurements; Intervals [place]; Rate: 123 P:; ME: 0 QRS: 49; QRSD: 88 T: -37; QT: 302; QTc: 432; Interpretive Statements; ATRIAL FIBRILLATION WITH RAPID VENTRICULAR RESPONSE; NONSPECIFIC ST T-WAVE ABNORMALITY; NO PRIOR FOR COMPARISON; Electronically Signed On 12-09-2016 10:54:31 EST by Laurie Gregory; Radiology Order: CT ABD & PELVIS: IV Contrast Only Test: CT ABD & PELVIS: IV Contrast Only REASON FOR EXAMINATION: Biliary Colic; CT abdomen and pelvis with IV but without oral contrast:; ; History: Biliary colic.; ; Comparison study January 03, 2014.; ; CT contrast dose: 100 ml of Isovue 370 is administered intravenously.; ; CT by findings: Preliminary cinema or theatre manager radiograph is unremarkable. Lung window; settings demonstrate a heterogeneous infiltrate in the right lower lobe of the; lung with small right pleural effusion. There is mild linear fibrosis versus; discoid atelectasis in the left lower lobe. These findings are new when compared; with the 2013 prior exam. Also noted are filling defects in several of the; pulmonary arterial tree branches in the right lower lobe and one in the left; lower lobe consistent with acute pulmonary embolus.; ; There is moderate diffuse fatty infiltration of the liver. No focal liver mass; lesion is seen. The liver is not enlarged. Spleen is unremarkable. There is a; small sliding-type hiatal hernia. No adrenal lesion is observed on either side.; Pancreas is unremarkable. No gallbladder abnormality is appreciated. There is a; 3 cm cyst in the upper pole of the left kidney. A lower pole cyst is seen in the; right kidney measuring 1.4 cm in greatest diameter. Kidneys are otherwise; morphologically intact. No hydronephrosis is seen. Normal caliber aorta is; noted. No retroperitoneal mass or adenopathy is seen. Small and large; intestinal bowel loops are normal in caliber and course. There is diverticulosis; affecting the sigmoid colon without CT evidence of diverticulitis. There are; dystrophic calcifications in the prostate. Seminal vesicles and urinary bladder; are unremarkable. No abdominal wall defect is seen.; ; Impression:; 1. There is an infiltrate in the right lower lobe, small right pleural effusion.; Also noted is a filling defect in the right lower lobe pulmonary arterial tree; indicating pulmonary embolism. There is a small thrombus in one of the left; lower lobe pulmonary arterial branches as well.; 2. Fatty infiltration of the liver.; 3. No CT evidence of biliary tract disease.; 4. 3 cm cyst upper pole left kidney unchanged from comparison study.; 5. Sliding type hiatal hernia.; 6. Left colonic diverticulosis without CT evidence of diverticulitis.; ; ; ; ; ; Unreviewed; Outcome: 13:04 Decision to Hospitalize by Provider. pc 15:03 Discharge Assessment: Patient awake, alert and oriented x 3. No cognitive and/or [facility] functional deficits noted. Patient verbalized understanding of disposition instructions. patient administered narcotics - yes. Patient was admitted to the hospital or transferred to another facility. The following High Risk Discharge criteria are identified: None. Admitted to PCU accompanied by nurse, via stretcher, on monitor, with chart. Condition: good. CT Study completed. Property :Personal belongings accompany Pt. 15:12 Patient left the ED. [facility] Signatures: Dispatcher [employer] EDDanny Willoughby MD MD pc Knapp, Jean,RN RN Jeff Rodriguez, Reg Reg lg Nicole Cartagena RN RN jLorin Montalvo RN RN hs1 Josias Thomas mm15 Corrections: (The following items were deleted from the chart) 08:39 08:34 Presenting complaint: Patient states: right sided abdominal pain radiating to [facility] right side of back for past couple weeks, reports nausea for past week and diarrhea lasting 4-5 days from 12/06/16 jjr 08:43 08:39 BP 137 / 93; Pulse 103bpm; Resp 18bpm; Pulse Ox 94% RA; Temp 98.6F Oral; 122.47 jjr kg Reported; Height 5 ft. 10 in. Reported; BMI: 38.7; Pain 6/10; jjr 09:33 09:20 TROPONIN+LAB sent. [facility] EDUT 09:33 09:21 CARDIAC INJURY PROFILE+LAB sent. [facility] 09:33 09:21 FT4&TSH PANEL+LAB sent. [facility] 13:45 13:27 BLOOD CULTURES sent. [facility] EDUT 13:53 13:27 Lupus Type Anticoagulant+LAB sent. [facility] Chart Complete MTDD
--- NOTE | 2016-12-11 16:13 | EDDOCDS ---
Physician Documentation [facility] Name: Sammy Khan Age: 56 yrs Sex: Male : 1960 Arrival Date: 12/09/2016 Time: 08:20 Bed 6 Private MD: Heaven Lassiter C Disposition: 12/09 12:53 Critical Care:. pc Disposition: 12/09/16 13:04 Hospitalization ordered by Herman Peña for Inpatient Admission. Preliminary diagnosis are Pulmonary embolism - RLL and LLL, Bronchopneumonia, unspecified organism - RLL, Persistent atrial fibrillation - new onset. - Bed requested for M PCU. - Status is Inpatient Admission. jmk - Condition is Stable. - Problem is new. - Symptoms have improved. HPI: 09:16 This 56 yrs old Male presents to ER via Walkin/Carried/Asstd with complaints pc of Abdominal Pain. 09:16 The history is obtained from the patient. The patient presents with abdominal pain, in pc the right upper quadrant. The symptoms began at least 2-3 months ago, becoming more frequent in the past 3 weeks.. There have been multiple episodes. At its worst, the symptoms were a 6 out of 10. In the emergency department, the symptoms are a 6 out of 10. The pain is described as "pain". The is primarily located epigastric area and right upper quadrant. It radiates to the right subscapular area. The pain was associated with nausea. The symptoms are aggravated by a supine position, are alleviated by an upright position. Risk factors for CAD: history of high cholesterol, history of hypertension. The patient has experienced similar episodes in the past. The patient has been recently seen at an urgent care, this week, for similar complaints, labs were performed, X-rays were performed. Historical: - Allergies: no known allergies; - Home Meds: 1. omeprazole 20 mg Oral cpDR 1 cap 2 times per day (Last dose: 12/08/2016) 2. Zofran (as hydrochloride) 4 mg Oral tab tid prn 3. diazepam 5 mg Oral tab prn 4. triamterene-hydrochlorothiazid Unknown Oral once daily (Last dose: 12/08/2016) - PMHx: meniere's disease; Hypertension; GERD; Obesity; - PSHx: hand surgery; Knee surgery; - The history from nurses notes was reviewed: and elements of the historical information I have obtained differs from that reported to nursing. - Social history: Smoking status: Patient uses tobacco products, current every day smoker. No barriers to communication noted, The patient speaks fluent Kiswahili. - Family history: Not pertinent, Pertinent for Father has/had "blood cancer". - : The pt / caregiver states he / she is not on anticoagulants. Home medication list is obtained from the patient. - Hospitalizations: : No recent hospitalization is reported. - Exposure Risk Screening:: None identified. - Immunization history:: All immunizations up-to-date. - Social history:: the patient smokes cigarettes 1ppd the patient drinks alcohol, socially. ROS: 09:20 All systems are negative except if listed. The constitutional, cardiovascular, pc respiratory and neurological components are also addressed in the HPI. Exam: 09:20 General Appearance: alert, mild distress. pc 09:20 ENT: ear, nose and throat normal, pharynx normal. 09:20 Neck: The exam reveals no acute abnormalities. ROM is normal and painless. No nuchal rigidity is noted.. 09:20 Respiratory: no respiratory distress, normal breath sounds, chest non-tender. 09:20 Cardiovascular: normal heart sounds, equal and full pulses bilaterally, tachycardia, 145bpm, Rhythm is irregularly irregular. 09:20 Abdomen: soft, no organomegaly, normal bowel sounds, no masses appreciated, no hernias palpated with/without gravity or Valsalva moderate tenderness in the right upper quadrant, without rebound, voluntary guarding is not appreciated, involuntary guarding is elicited in the right upper quadrant. 09:20 Back: normal inspection, no CVA pain. 09:20 Skin: skin color is normal, warm, dry. 09:20 Extremities: The extremities have a grossly normal appearance, are non-tender, without acute ROM abnormalities. 09:20 Neuro: oriented x 3, cranial nerves normal as tested, no motor deficits, no sensory deficits. 09:20 Psych: mood is normal. Vital Signs: 08:39 BP 137 / 93 RA Sitting (auto/lg); Pulse 103; Resp 18; Temp 98.6(O); Pulse Ox 94% on jjr R/A; Weight 122.47 kg / 270 lbs (R); Height 5 ft. 10 in. (177.80 cm) (R); Pain 6/10; 08:43 BP 130 / 86 RA Sitting (man/reg); jjr 09:24 Pulse 144 MON; jmk 09:25 BP 153 / 93 (auto/); jmk 09:39 BP 145 / 98 (auto/); jmk 09:39 Pulse 138 MON; Pulse Ox 92% ; jmk 09:54 BP 113 / 81 (auto/); jmk 09:54 Pulse 116 MON; Pulse Ox 91% ; jmk 10:00 Pulse 110 MON; Pulse Ox 91% ; jmk 10:01 BP 113 / 89 (auto/); jmk 10:08 Pulse 108 MON; Pulse Ox 92% ; jmk 10:09 BP 106 / 84 (auto/); jmk 10:23 Pulse 108 MON; Pulse Ox 91% ; jmk 10:24 BP 108 / 81 (auto/); jmk 10:38 Pulse 110 MON; Pulse Ox 91% ; jmk 10:39 BP 105 / 74 (auto/); jmk 10:53 Pulse 108 MON; Pulse Ox 90% ; jmk 10:54 BP 115 / 79 (auto/); jmk 11:08 Pulse 112 MON; Pulse Ox 90% ; jmk 11:09 BP 99 / 59 (auto/); jmk 11:24 BP 97 / 76 (auto/); jmk 11:24 Pulse 104 MON; Pulse Ox 92% ; jmk 11:39 BP 112 / 77 (auto/); jmk 11:39 Pulse 108 MON; Pulse Ox 92% ; jmk 11:54 BP 96 / 65 (auto/); jmk 11:54 Pulse 106 MON; Pulse Ox 91% ; jmk 12:08 Pulse 110 MON; Pulse Ox 92% ; jmk 12:09 BP 107 / 64 (auto/); jmk 12:23 Pulse 112 MON; Pulse Ox 93% ; jmk 12:24 BP 112 / 72 (auto/); jmk 12:38 Pulse 108 MON; Pulse Ox 92% ; jmk 12:39 BP 122 / 82 (auto/); jmk 12:45 Pulse 104 MON; Pulse Ox 93% ; jmk 12:46 BP 102 / 57 (auto/); jmk 13:51 Pulse 112 MON; Pulse Ox 92% ; jmk 13:52 BP 141 / 93 (auto/); jmk 14:23 BP 126 / 81 (auto/); jmk 14:23 Pulse 112 MON; Pulse Ox 91% ; jmk 15:03 BP 109 / 80; Pulse 120; Resp 18; Temp 98.5; Pulse Ox 95% on R/A; jmk 08:39 Body Mass Index 38.74 (122.47 kg, 177.80 cm) jr MDM: 09:11 Ondansetron 4 mg IVP once ordered. pc 09:11 ketorolac 30 mg IVP once ordered. pc 09:11 IV Saline Lock ordered. pc 09:11 Astrobiologist/Pulse Ox/q 30 min VS ordered. pc 09:12 Basic Metabolic Profile Ordered. EDMS 09:12 CBC with Diff Ordered. EDMS 09:12 Lipase Ordered. EDMS 09:12 Liver Profile Ordered. EDMS 09:12 NOTHING BY MOUTH+DIET ordered. EDMS 09:12 ECG WITH READING ER PHYS+CARDIAG ordered. EDMS 09:20 Differential diagnosis: cholecystitis, Cholelithiasis, non-specific abd pain, pc arrhythmia - new onset. 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 09:33 CARDIAC INJURY PROFILE Ordered. EDMS 09:33 FT4&TSH PANEL Ordered. EDMS 09:33 TROPONIN Ordered. EDMS 09:37 A1C Ordered. EDMS 09:38 Metoprolol (Tartrate) 50 mg PO once ordered. pc 09:38 Metoprolol 5 mg IVP every 5 minutes; Hold for SBP < 100 or HR < 60. x3 ordered. pc 09:39 Test interpretation: EKG. pc 09:49 Financial registration complete. lg 09:53 [facility] Payment Agreement was scanned into GetApp and attached to record. lg 09:59 Basic Metabolic Profile Reviewed. pc 09:59 Liver Profile Reviewed. pc 09:59 Lipase Reviewed. pc 09:59 CARDIAC INJURY PROFILE Reviewed. pc 09:59 TROPONIN Reviewed. pc 10:38 Basic Metabolic Profile Reviewed. pc 10:38 CBC with Diff Reviewed. pc 10:38 Liver Profile Reviewed. pc 10:38 A1C Reviewed. pc 10:38 Lipase Reviewed. pc 10:38 CARDIAC INJURY PROFILE Reviewed. pc 10:38 FT4&TSH PANEL Reviewed. pc 10:38 TROPONIN Reviewed. pc 10:49 CT ABD & PELVIS: IV Contrast Only Ordered. EDMS 12:33 requires 7 blue tops, 1 tiger top, 3 purple tops per lab 4.21.14 ordered. pc 12:34 Anti Thrombin 3 Panel (ag/ac) Ordered. EDMS 12:34 Anti-Cardiolipin Antibodies Ordered. EDMS 12:34 Factor V Leiden Ordered. EDMS 12:34 Protein C Functional Activity Ordered. EDMS 12:34 Protein S Functional Activity Ordered. EDMS 12:34 Pt & Aptt Ordered. EDMS 12:34 BED REQUEST+ADM ordered. EDMS 12:40 morphine 2 mg IVP once ordered. pc 12:40 Ondansetron 4 mg IVP once ordered. pc 12:53 Data reviewed: old medical records, vital signs, nurses notes, EKG(s), lab test pc results, all radiology studies and available results. Test interpretation: LAB - all labs as ordered have been reviewed, interpreted and considered in the overall management of the clinical presentation; interpreted by Radiologist and personally reviewed, Abdomen/Pelvis CT; RLL infiltrate, RLL/LLL pulmonary emboli. nad. The patient has been re-examined and re-evaluated. The patient's symptoms have markedly improved after treatment. Physician consultation: Dr. Fina Loredo and will see patient in inpatient room. 12:53 Physician consultation: Dr. Herman Peña regarding admission. Disposition: The pc historical points, examination findings, and any diagnostic results supporting the provided diagnosis, were discussed with the patient or legal guardian. The need for further work-up and/or treatment in the hospital was explained. 12:55 -Blood Culture (Adults Only), peripheral from different site, or from device/port/PICC pc etc. if present ordered. 12:56 cefTRIAXone 1 grams IVPB once over 30 mins; dilute in 50mL of NS or D5W ordered. pc 12:56 azithromycin 500 mg IVPB once over 1 hrs; dilute in 250mL of D5W or NS ordered. pc 12:56 -Blood Culture Ordered. EDMS 12:56 -Blood Culture (Adults Only), peripheral from different site, or from device/port/PICC lbd etc. if present complete. 13:00 BLOOD CULTURES Ordered. EDMS 13:03 REGULAR DIET ROOM SERVICE ED+DIET ordered. EDMS 13:21 Admission / Observation Status ordered. EDMS 13:21 ECHOCARD,DOPPLER/COLOR FLOW ordered. EDMS 13:22 2 GRAM SODIUM DIET ordered. EDMS 13:22 CARDIAC INJURY PROFILE Ordered. EDMS 13:22 CARDIAC INJURY PROFILE Ordered. EDMS 13:22 TROPONIN Ordered. EDMS 13:22 TROPONIN Ordered. EDMS 13:23 URINALYSIS Ordered. EDMS 13:23 URINE CULTURE Ordered. EDMS 13:42 Abdomen, limited US Ordered. EDMS 13:49 TOTAL T3 Ordered. EDMS 13:54 Lupus Type Anticoagulant Ordered. EDMS EC:39 Rate is 123 beats/min. Rhythm is irregularly irregular, AFib vs AFlut with RVR. QRS pc Mandan is Normal. QRS interval is normal. QT interval is normal. No Q waves. T waves are Inverted in leads II, III, aVF. ST Segment is depressed in leads II, V6, <1mm. Clinical impression: AFib vs AFlut with RVR. Administered Medications: 09:39 Drug: Ondansetron 4 mg Route: IVP; Site: left antecubital; [facility] 09:39 Drug: ketorolac 30 mg [ketorolac 30 mg/mL (1 mL) injection solution (1 mL)] Route: IVP; [facility] Site: left antecubital; 09:45 Drug: Metoprolol (Tartrate) 50 mg Route: PO; [facility] 09:50 Drug: Metoprolol 5 mg [metoprolol 5 mg/5 mL intravenous solution (5 mL)] Route: IVP; [facility] Site: left antecubital; 09:58 Drug: Metoprolol 5 mg [metoprolol 5 mg/5 mL intravenous solution (5 mL)] Route: IVP; [facility] Site: left antecubital; 10:05 Drug: Metoprolol 5 mg [metoprolol 5 mg/5 mL intravenous solution (5 mL)] Route: IVP; [facility] Site: left antecubital; 12:49 Drug: morphine 2 mg Route: IVP; Site: left antecubital; [facility] 12:51 Drug: Ondansetron 4 mg Route: IVP; Site: left antecubital; [facility] 13:27 Drug: cefTRIAXone 1 grams Route: IVPB; Infused Over: 30 mins; Site: left antecubital; [facility] 14:14 Drug: azithromycin 500 mg [azithromycin 500 mg intravenous solution] Route: IVPB; [facility] Infused Over: 1 hrs; Site: left antecubital; Critical Care Time: 12:53 Critical care time: Bedside Care: 30 minutes, Consultation: 20 minutes, Family pc Intervention: 10 minutes. Total time: 60 minutes Signatures: Dispatcher [employer] EDMS Danny Powell MD MD pc Daly, Linda, Airplane [employer] James Fofana,RN RN Jeff Rodriguez, Reg Reg lg Nicole Cartagena, RN RN karenr Frank, [place], COUPON AND BOND COLLECTION CLERK COUPON AND BOND COLLECTION CLERK [id number] The chart was reviewed and I authenticate all verbal orders and agree with the evaluation and treatment provided.Corrections: (The following items were deleted from the chart) : 09:18 FT4&TSH PANEL+LAB ordered. EDMS EDMS :33 09:18 CARDIAC INJURY PROFILE+LAB ordered. EDMS EDMS :33 09:18 TROPONIN+LAB ordered. EDMS EDMS 13:45 13:23 BLOOD CULTURES ordered. EDMS EDMS 13:46 13:23 PROTHROMBIN TIME PROFILE\\E\\INR ordered. EDMS EDMS 13:46 13:23 THYROID STIMULATING HORMONE ordered. EDMS EDMS 13:46 13:23 FREE T4 ordered. EDMS EDMS 13:47 13:23 TOTAL T3 ordered. EDMS EDMS 13:53 12:34 Lupus Type Anticoagulant+LAB ordered. EDMS EDMS Attachments: 09:53 [facility] Payment Agreement lg Chart Complete MTDD
--- NOTE | 2016-12-11 17:17 | IPN ---
DATE: 12/11/2016 SUBJECTIVE: The patient is seen and examined in the room today. The patient stated his right upper quadrant pain has resolved. No difficulty breathing or palpitations. His Meniere medication was restarted yesterday. The patient has not noticed any symptoms due to the brief discontinuation of the medication. The patient continues to have a heart rate greater than 100; however, the patient denies any feeling of palpitations. No overnight events were reported. OBJECTIVE: VITAL SIGNS: Temperature is 96.6, pulse 78, respirations 18, blood pressure 127/79, pulse oximetry is 96% on room air. GENERAL: No sign of acute distress, alert and oriented times three. HEENT: Normocephalic, atraumatic. Extraocular motor grossly intact. CARDIOVASCULAR: Irregularly irregular with a heart rate greater than 100. During examination on cardiac telemetry multiple incidents of heart rate greater than 120s have been recorded. LUNGS: Clear to auscultation bilaterally. ABDOMEN: Obese, soft, nontender, nondistended. Bowel sounds present. EXTREMITIES: No sign of edema. No cyanosis. LABORATORY DATA: WBC is 9, hemoglobin 13.5, hematocrit 39, platelet count 233. Sodium 140, potassium 3.7, chloride 105, carbon dioxide 27, BUN 11, creatinine 0.72, GFR greater than 60, fasting glucose of 152, calcium 8.3, magnesium 1.7. Total bilirubin is 0.2, AST 16, ALT 36, alkaline phosphatase 83. Total protein 6.3, albumin 2.8. PT 13.3, INR 1. MICROBIOLOGY: Blood cultures negative after 48 hours. Urine culture negative. ASSESSMENT AND PLAN: 1. Atrial fibrillation with rapid ventricular response. Cardiology has been consulted. The patient is currently anticoagulated with Lovenox. The patient's metoprolol 50 mg by mouth every six hours. The patient had a discussion with Dr. Loredo. The current plan with be the patient will continue with the current medication treatment. The patient will follow in the outpatient setting in 2-3 weeks and followed by the cardioversion in the outpatient setting. The patient is anticipated to be discharged tomorrow. 2. Meniere's disease. The patient is continued on Dyazide. The patient denies any acute symptoms. 3. Right lower lobe infiltrate. The patient is on Rocephin and azithromycin. 4. Bilateral pulmonary emboli. The patient is currently on anticoagulation with Lovenox. The patient may be switched to the new oral agent at the time of discharge. 5. New-onset diabetes. The patient is on sliding scale. Continue on consistent carbohydrate diet. The patient has an A1c of 7.8. 6. Deep venous thrombosis (DVT) prophylaxis on Lovenox.
[2016-12-11 20:38] VITALS: BP 124/73
[2016-12-11 23:46] VITALS: BP 126/85
[2016-12-12 04:56] VITALS: BP 109/77
[2016-12-12 05:17] LABS: BASO # 0.1 K/mm3 (0.0-0.2); BASO % 0.7 % (0.0-1.0); EOS # 0.4 K/mm3 (0.0-0.50); EOS % 3.6 % (0.0-3.0); LARGE UNSTAINED CELL # 0.2 K/mm3 (0.0-0.4); LARGE UNSTAINED CELL % 2.2 % (0.0-4.0); LYMPH # 2.9 K/mm3 (1.5-4.5); MEAN CORPUSCULAR HEMOGLOBIN 31.4 pg (27.0-33.0); MEAN CORPUSCULAR HGB CONC 34.9 g/dl (32.0-36.5); MONO # 0.7 K/mm3 (0.0-0.8); MONO % 7.7 % (0.0-5.0); NEUTROPHILS # 5.5 K/mm3 (1.8-7.7); NEUTROPHILS % 57.8 % (36.0-66.0); PLATELET COUNT, AUTOMATED 256 k/mm3 (150-450); RED CELL DISTRIBUTION WIDTH 12.5 % (11.5-14.5); WHITE BLOOD COUNT 9.5 K/mm3 (4.0-10.0)
[2016-12-12 05:34] LABS: ALBUMIN 2.9 GM/DL (3.2-5.2); ALBUMIN/GLOBULIN RATIO 0.76 (1.00-1.93); ALKALINE PHOSPHATASE 80 U/L (45-117); ALT/SGPT 31 U/L (12-78); ANION GAP 8 MEQ/L (8-16); AST/SGOT 15 U/L (15-37); BILIRUBIN,TOTAL 0.3 MG/DL (0.2-1.0); BLOOD UREA NITROGEN 9 MG/DL (7-18); CALCIUM LEVEL 8.5 MG/DL (8.5-10.1); CARBON DIOXIDE LEVEL 30 MEQ/L (21-32); CHLORIDE LEVEL 105 MEQ/L (98-107); CREATININE FOR GFR 0.69 MG/DL (0.70-1.30); GLOMERULAR FILTRATION RATE > 60.0 (>56); GLUCOSE, FASTING 143 MG/DL (70-105); MAGNESIUM LEVEL 1.8 MG/DL (1.8-2.4); POTASSIUM SERUM 3.7 MEQ/L (3.5-5.1); SODIUM LEVEL 143 MEQ/L (136-145); TOTAL PROTEIN 6.7 GM/DL (6.4-8.2)
[2016-12-12 06:21] VITALS: BP 115/81
[2016-12-12] MEDS: ENOXAPARIN 120 MG/0.8 ML SYR (J1650) SC SCH (06:21)
[2016-12-12] MEDS: METOPROLOL TART 50 MG TAB PO SCH (06:21)
[2016-12-12] MEDS: SLF 3 ML SYR IV SCH (06:22)
[2016-12-12 07:15] VITALS: BP 110/80
[2016-12-12] MEDS: HumaLOG INSULIN (NovoLOG) PER UNIT SC SCH (07:54)
[2016-12-12] MEDS ORDERED: MAG400TA PO (08:13)
[2016-12-12] MEDS ORDERED: ELIQ5TAB PO ×2 (08:13→11:22)
[2016-12-12] MEDS ORDERED: LEVA750T PO (08:13)
[2016-12-12] MEDS ORDERED: METO100T PO (08:13)
--- NOTE | 2016-12-12 08:33 | IPN ---
DATE: 12/12/2016 Mr. Khan has been feeling fine. He was able to ambulate around telemetry without difficulty and without any symptoms. His heart rate is still a little bit on the high side usually around 90, but reasonably well-controlled. Vital signs: Blood pressure 110/80, heart rate as above. He is afebrile. Saturation 97% on room air. Weight is 131 kg. Alert and oriented and appropriate. No distress. Lungs are clear to auscultation with good air movement and no wheezing, crackles or rhonchi. Heart exam irregularly irregular rhythm. Somewhat muffled heart sound due to his obesity. No edema. Neurologically intact. Laboratory mejia, basic metabolic panel is normal but for glucose 143, normal liver function test and his CBC reveals hemoglobin of 40, hematocrit 40.12, platelet count 256,000. ASSESSMENT AND PLAN: Mr. Khan is a 56-year-old man who presented with right upper quadrant and right lower chest discomfort. He was found to have probably pneumonia in the right lower lobe with also evidence for embolism and was in atrial fibrillation with rapid ventricular response. He responded well to administration of antibiotics, blood thinners and rate control. After discussion, we decided to pursue 3 weeks of anticoagulation before attempting cardioversion. Consequently, he can be discharged home today on Eliquis 5 mg twice a day, metoprolol 100 mg twice a day, plus his additional medications. I will arrange for outpatient followup this week.
[2016-12-12] MEDS: PANTOPRAZOLE 40MG TAB (PROTONIX) PO SCH (09:29)
[2016-12-12] MEDS: MULTIVITAMINS/MINERALS THERAP 1 TAB PO SCH (09:29)
[2016-12-12] MEDS: DYAZIDE 37.5/25 CAP (TRIAM/HCTZ) PO SCH (09:29)
[2016-12-12] MEDS: MAGNESIUM OXIDE 400 MG TAB (MAG-OX) PO SCH (09:29)
--- NOTE | 2016-12-12 19:10 | DSES ---
DATE OF ADMISSION: 12/09/2016 DATE OF DISCHARGE: 12/12/2016 PROCEDURES: None. COMPLICATIONS: None. ADMISSION/DISCHARGE DIAGNOSES: 1. New onset atrial fibrillation with rapid ventricular rate. 2. Meniere's disease. 3. Right lower lobe infiltrate. 4. Bilateral pulmonary embolism. 5. New onset of diabetes. HOSPITALIZATION COURSE: The patient is a 56-year-old male who presented to [facility] on 12/09/2016 for worsening right abdominal pain. During evaluation in the emergency room, the patient was found to have a right lower lobe infiltrates with bilateral pulmonary embolisms. The patient was also found to have new onset atrial fibrillation with heart rate around 140. The patient received metoprolol intravenously times three, which improved the heart rate. The patient was admitted to the progressive care unit (PCU) for cardiac telemetry. Echocardiogram and thyroid function was ordered and technology sales representative, Dr. Loredo, has been consulted. The patient is started on full therapeutic dose of Lovenox for anticoagulation. The patient was started on Rocephin and azithromycin. The patient's heart rate continued to improve with medical management. The patient continued improvement of the right abdominal pain, which is suspected due to referred pain from the right lower lobe infiltrate. The patient's vitals have remained stable and the patient does not require additional oxygen support. Multiple options were discussed with the patient with regard to his new onset atrial fibrillation, and it was determined that the patient should continue on the medical management, and the patient will be reevaluated for possible cardioversion in the outpatient setting. On 12/12/2016, after discussion with the patient and technology sales representative, Dr. Loredo, the patient was determined to be medically stable for discharge with instructions to continue metoprolol and Eliquis and continue with antibiotics. The patient should followup with Dr. Loredo within one week after the discharge. OBJECTIVE: VITAL SIGNS: Temperature is 95.1, pulse is 100, respiration 18, blood pressure 110/80, pulse oximetry is 97% on room air. LABORATORY DATA: WBC is 9.5, hemoglobin 14, hematocrit is 40.2, platelet count is 256. Sodium is 143, potassium 3.7, chloride is 105, carbon dioxide 30, BUN is 9, creatinine 0.69, GFR greater than 60, fasting glucose 143, calcium is 8.5, magnesium 1.8, total bilirubin 0.3, AST is 15, ALT is 31, alkaline phosphatase 80, total protein 6.7, albumin 2.9. PT is 13.1, INR is 1. Protein C level is 119, protein S level is 78, antithrombin III antigen level is 93. Antithrombin III activity level is 110. Factor V Leiden measurement is pending. Anticardiolipin IgG, IgA, IgM antibody level are all less than 9. 7.8. Microbiology: Blood cultures negative after 72 hours times two sets. Urine culture is negative. Imaging studies: CT of the abdomen and pelvis with contrast shows infiltrate in the right lower lobe. A small right pleural effusion. Filling defect in the right lower lobe, pulmonary artery tree indicating pulmonary embolism. There is a small thrombus in one of the left lower lobes, pulmonary artery branch as well. Fatty infiltrate of the liver. No CT evidence of biliary tract disease. 3 cm cyst upper lobe of the left kidney, unchanged compared to previous study. Sliding type of hiatal hernia. Left colonic diverticulosis without CT imaging of diverticulitis. DISCHARGE MEDICATIONS: - Eliquis 10 mg by mouth twice a day for 5 to 7 days - Levofloxacin 750 mg by mouth daily for 3 more days - magnesium oxide 400 mg by mouth daily for 5 days - metoprolol tartrate 100 mg by mouth twice a day for 7 days Continue home medications: - vitamin C by mouth 500 mg daily - diltiazem 5 mg by mouth three times a day as needed - hydrochlorothiazide/triamterene one tablet by mouth daily 25/37.5 - multivitamin one tablet by mouth daily DISCHARGE INSTRUCTIONS: Discontinue line. Discharge home. Activity as tolerated. Low salt diet. Consistent carbohydrate diet as tolerated. The patient should followup with Dr. Loredo within one week. The patient should followup with primary care provider, Keyona Butt, within 1 to 2 weeks. The patient should discuss his new diagnosis of diabetes and atrial fibrillation with providers. The patient is recommended to decrease or completely stop the alcohol intake. Discharge time: Greater than 30 minutes. Condition: Stable.
== END 2016-12-12 11:16 | disposition home or self-care (01) | DRG 308 ==
LOC: M ED 08:20 → M ED INP 13:03 → M PCU 15:10
PROVIDERS: ADMIT Internal Medicine; ATTEND Internal Medicine
DX: I48.91 Unspecified atrial fibrillation (principal); I26.99 Other pulmonary embolism without acute cor pulmonale; J18.9 Pneumonia, unspecified organism; J91.8 Pleural effusion in other conditions classified elsewhere; E11.9 Type 2 diabetes mellitus without complications; H81.09 Meniere's disease, unspecified ear; Z79.899 Other long term (current) drug therapy; K44.9 Diaphragmatic hernia without obstruction or gangrene; K57.30 Diverticulosis of large intestine without perforation or abscess without bleeding; F17.210 Nicotine dependence, cigarettes, uncomplicated

== ENCOUNTER → 2016-12-09 | Outpatient (CLI) | payer OTHER ==
--- NOTE | 2016-12-09 11:02 | REP ---
Clinical: Right upper quadrant abdominal pain. Technique: Rogers scale ultrasound using curved array transducer. Findings: The liver is increased echogenicity consistent with fatty infiltration. Liver and pancreas are otherwise normal in contour, size, and pancreatic echogenicity without focal hepatic or pancreatic lesions identified. The gallbladder demonstrates minimal adherent sludge without wall thickening or pericholecystic fluid. No biliary ductal dilatation is appreciated, and the common bile duct measures 5.2 mm diameter. The right kidney is normal in reniform shape without hydronephrosis and measures 12.9 x 6.3 x 7.3 cm. No ascites. Visualized portions of the abdominal aorta normal. Impression: Fatty infiltration to the liver. Minimal amount of gallbladder sludge. Signed by Timbo Pappas MD 12/09/2016 08:07 A
== END ==
LOC: M RAD 07:16
PROVIDERS: ATTEND Physician Assistant
DX: R10.811 Right upper quadrant abdominal tenderness (principal); K76.0 Fatty (change of) liver, not elsewhere classified

== ENCOUNTER → 2016-12-23 | Outpatient (CLI) | payer OTHER ==
--- NOTE | 2016-12-23 08:51 | REP ---
Clinical: History of right lower lobe pneumonia with chest pain . Comparison: 12/07/2016 . Technique: PA and lateral. Findings: The mediastinum and cardiac silhouette are normal. The lung olvera are clear and without acute consolidation, effusion, or pneumothorax. The skeletal structures are intact and normal. Impression: 1. No acute cardiopulmonary process. Signed by Timbo Pappas MD 12/23/2016 08:43 A
[2016-12-23 09:14] LABS: BASO # 0.1 K/mm3 (0.0-0.2); EOS # 0.3 K/mm3 (0.0-0.50); LYMPH # 2.5 K/mm3 (1.5-4.5); LYMPH % 25.2 % (24.0-44.0); MEAN CORPUSCULAR HEMOGLOBIN 31.6 pg (27.0-33.0); MEAN CORPUSCULAR HGB CONC 35.2 g/dl (32.0-36.5); MEAN CORPUSCULAR VOLUME 89.8 fl (80.0-96.0); MONO # 0.5 K/mm3 (0.0-0.8); NEUTROPHILS # 6.3 K/mm3 (1.8-7.7); NEUTROPHILS % 63.2 % (36.0-66.0); RED CELL DISTRIBUTION WIDTH 12.1 % (11.5-14.5); WHITE BLOOD COUNT 9.9 K/mm3 (4.0-10.0)
[2016-12-23 09:31] LABS: ALBUMIN 3.6 GM/DL (3.2-5.2); ALBUMIN/GLOBULIN RATIO 1.03 (1.00-1.93); ALKALINE PHOSPHATASE 94 U/L (45-117); ALT/SGPT 44 U/L (12-78); ANION GAP 9 MEQ/L (8-16); AST/SGOT 23 U/L (15-37); BILIRUBIN,TOTAL 0.6 MG/DL (0.2-1.0); BLOOD UREA NITROGEN 13 MG/DL (7-18); CALCIUM LEVEL 8.8 MG/DL (8.5-10.1); CARBON DIOXIDE LEVEL 29 MEQ/L (21-32); CHLORIDE LEVEL 102 MEQ/L (98-107); CHOLESTEROL LEVEL 243 MG/DL (<200); CREATININE FOR GFR 0.78 MG/DL (0.70-1.30); GLOMERULAR FILTRATION RATE > 60.0 (>56); GLUCOSE, FASTING 162 MG/DL (70-105); POTASSIUM SERUM 4.5 MEQ/L (3.5-5.1); SODIUM LEVEL 140 MEQ/L (136-145); TOTAL PROTEIN 7.1 GM/DL (6.4-8.2); TRIGLYCERIDES LEVEL 621 MG/DL (<150)
== END ==
LOC: M WUC 08:12
PROVIDERS: ATTEND Physician Assistant Medical
DX: Z86.711 Personal history of pulmonary embolism (principal); E11.9 Type 2 diabetes mellitus without complications

== ENCOUNTER → 2017-02-08 | Day surgery (SDC) | payer OTHER ==
[~2017-02-08] VITALS: Ht 177.8 cm; Wt 129.3 kg
[~2017-02-08] MED LIST changes: +GEMF600T PO; +LIPI20TA PO; +LR 1,000 ML IV SCH; +METF500T PO; +PACE200T PO; +VITA200028 PO
--- NOTE | 2017-02-08 07:42 | RO ---
DATE OF PROCEDURE: 02/08/2017 PREPROCEDURE DIAGNOSIS: Atrial fibrillation. POSTPROCEDURE DIAGNOSIS: PROCEDURE: DC cardioversion. SURGEON: Dr. Fina Loredo. SAP PORTAL DEVELOPER: None ANESTHESIA: Abhishek Treviño MD and Jamie Sharpe CRNA ESTIMATED BLOOD LOSS: None BRIEF HISTORY: Mr. Khan is a 56-year-old man who has persistent atrial fibrillation now at least 6 weeks. He has been anticoagulated with Eliquis, rate controlled and started on amiodarone. Because he continues to have symptoms of poor exertional tolerance and generalized weakness, we decided to pursue DC cardioversion. Consent was obtained on outpatient basis during office visit prior to the procedure. DESCRIPTION OF PROCEDURE: The patient was brought to recovery room in fasting condition. Anesthesiology provided sedation. He received total 160 mg of IV propofol. When appropriate level of sedation was accomplished, he was cardioverted with defibrillator patches applied in anterior position. I used 200 joules of energy applied in synchronized mode. It led to catholic of sinus mechanism. Post cardioversion, patient was bradycardic with heart rate fluctuating between 45-50 beats per minute. There was no significant desaturation or hypotension. 12-lead ECG is pending at the time of my dictation. The patient will be discharged home when meeting criteria. He will resume preadmission medications other than beta blockers. The dose of metoprolol 100 twice a day will be reduced to 50 mg twice a day. I will arrange for outpatient followup next week. [facility] HOSPITALSharri
[2017-02-08 09:00] VITALS: BP 100/63
--- NOTE | 2017-02-08 22:07 | ECGEPIP ---
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 Electronically Signed On 02-08-2017 22:07:10 EDT by Curtis Burch
--- NOTE | 2017-02-08 22:08 | ECGEPIP ---
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 No longer in atrial fibrillation compared with 02/08/2017. Electronically Signed On 02-08-2017 22:08:28 EDT by Curtis Burch
== END | disposition home or self-care (01) ==
LOC: M SDC 06:03
PROVIDERS: ATTEND Internal Medicine Cardiovascular Disease
DX: I48.91 Unspecified atrial fibrillation (principal); I73.9 Peripheral vascular disease, unspecified; R06.83 Snoring; Z79.899 Other long term (current) drug therapy; Z79.02 Long term (current) use of antithrombotics/antiplatelets; F17.210 Nicotine dependence, cigarettes, uncomplicated

== ENCOUNTER → 2017-02-23 | Outpatient (CLI) | payer OTHER ==
[~2017-02-23] MED LIST changes: -LR 1,000 ML IV SCH
[2017-02-23 10:49] LABS: ALBUMIN 3.9 GM/DL (3.2-5.2); ALBUMIN/GLOBULIN RATIO 1.11 (1.00-1.93); ALKALINE PHOSPHATASE 102 U/L (45-117); ALT/SGPT 31 U/L (12-78); ANION GAP 6 MEQ/L (8-16); AST/SGOT 13 U/L (15-37); BILIRUBIN,TOTAL 0.4 MG/DL (0.2-1.0); BLOOD UREA NITROGEN 13 MG/DL (7-18); CALCIUM LEVEL 8.8 MG/DL (8.5-10.1); CARBON DIOXIDE LEVEL 31 MEQ/L (21-32); CHLORIDE LEVEL 103 MEQ/L (98-107); CHOLESTEROL LEVEL 196 MG/DL (<200); CREATININE FOR GFR 0.75 MG/DL (0.70-1.30); GLOMERULAR FILTRATION RATE > 60.0 (>56); GLUCOSE, FASTING 146 MG/DL (70-105); POTASSIUM SERUM 4.4 MEQ/L (3.5-5.1); SODIUM LEVEL 140 MEQ/L (136-145); TOTAL PROTEIN 7.4 GM/DL (6.4-8.2); TRIGLYCERIDES LEVEL 190 MG/DL (<150)
== END ==
LOC: M WUC 08:07
PROVIDERS: ATTEND Physician Assistant Medical
DX: E11.9 Type 2 diabetes mellitus without complications (principal)

== ENCOUNTER → 2017-04-05 | Outpatient (CLI) | payer OTHER ==
[~2017-04-05] VITALS: Ht 175.3 cm; Wt 129.3 kg
[~2017-04-05] MED LIST changes: +LIDOCAINE 2% INJ 100 MG/5 ML SDV (FOR ANES.) As Ordered ONE; +NS 1,000 ML IV ONE; +PROPOFOL 200 MG/20 ML VIAL As Ordered ONE
--- NOTE | 2017-04-05 14:13 | ROOR ---
Patient Name: Sammy Khan Procedure Date: 04/05/2017 1:47 PM Date of : 1960 Age: 56 Room: [facility] Gender: Male Note Status: Finalized Procedure: Upper GI endoscopy Indications: Abnormal CT of the GI tract Providers: DO Leigh Phan MD: RONAN DOHERTY Requesting Provider: Medicines: Propofol per Anesthesia Complications: No immediate complications. Procedure: Pre-Anesthesia Assessment: - Prior to the procedure, a History and Physical was performed, and patient medications and allergies were reviewed. The patient is competent. The risks and benefits of the procedure and the sedation options and risks were discussed with the patient. All questions were answered and informed consent was obtained. Patient identification and proposed procedure were verified by the physician, the nurse, the anesthesiologist and the service desk technician in the endoscopy suite. Mental Status Examination: alert and oriented. Airway Examination: normal oropharyngeal airway and neck mobility. Respiratory Examination: clear to auscultation. CV Examination: normal. Prophylactic Antibiotics: The patient does not require prophylactic antibiotics. Prior Anticoagulants: The patient has taken no previous anticoagulant or antiplatelet agents. ASA Grade Assessment: II - A patient with mild systemic disease. After reviewing the risks and benefits, the patient was deemed in satisfactory condition to undergo the procedure. The anesthesia plan was to use monitored anesthesia care (MAC). Immediately prior to administration of medications, the patient was re-assessed for adequacy to receive sedatives. The heart rate, respiratory rate, oxygen saturations, blood pressure, adequacy of pulmonary ventilation, and response to care were monitored throughout the procedure. The physical status of the patient was re-assessed after the procedure. The Endoscope was introduced through the mouth, and advanced to the second part of duodenum. The upper GI endoscopy was accomplished without difficulty. The patient tolerated the procedure well. Findings: Segmental mild inflammation characterized by congestion (edema) was found in the prepyloric region of the stomach. Biopsies were taken with a cold forceps for Helicobacter pylori testing. Estimated blood loss was minimal. LA Grade A (one or more mucosal breaks less than 5 mm, not extending between tops of 2 mucosal folds) esophagitis with no bleeding was found. Biopsies were taken with a cold forceps for histology. Estimated blood loss was minimal. The exam was otherwise without abnormality. Impression: - Gastritis. Biopsied. - LA Grade A esophagitis. Biopsied. - The examination was otherwise normal. Recommendation: - Patient has a contact number available for emergencies. The signs and symptoms of potential delayed complications were discussed with the patient. Return to normal activities tomorrow. Written discharge instructions were provided to the patient. - Telephone my office for pathology results in 1 week. Car Carranza DO 04/05/2017 2:12:57 PM This report has been signed electronically. Number of Addenda: 0 Note Initiated On: 04/05/2017 1:47 PM Estimated Blood Loss: Estimated blood loss was minimal.
--- NOTE | 2017-04-05 14:15 | ROOR ---
Patient Name: Sammy Khan Procedure Date: 04/05/2017 1:49 PM Date of : 1960 Age: 56 Room: [facility] Gender: Male Note Status: Finalized Procedure: Colonoscopy Indications: Screening for colorectal malignant neoplasm Providers: DO Leigh Phan MD: RONAN DOHERTY Requesting Provider: Medicines: Propofol per Anesthesia Complications: No immediate complications. Procedure: Pre-Anesthesia Assessment: - Prior to the procedure, a History and Physical was performed, and patient medications and allergies were reviewed. The patient is competent. The risks and benefits of the procedure and the sedation options and risks were discussed with the patient. All questions were answered and informed consent was obtained. Patient identification and proposed procedure were verified by the physician, the nurse, the anesthesiologist and the water quality technician in the endoscopy suite. Mental Status Examination: normal. Airway Examination: normal oropharyngeal airway and neck mobility. Respiratory Examination: clear to auscultation. CV Examination: normal. Prophylactic Antibiotics: The patient does not require prophylactic antibiotics. Prior Anticoagulants: The patient has taken no previous anticoagulant or antiplatelet agents. ASA Grade Assessment: II - A patient with mild systemic disease. After reviewing the risks and benefits, the patient was deemed in satisfactory condition to undergo the procedure. The anesthesia plan was to use monitored anesthesia care (MAC). Immediately prior to administration of medications, the patient was re-assessed for adequacy to receive sedatives. The heart rate, respiratory rate, oxygen saturations, blood pressure, adequacy of pulmonary ventilation, and response to care were monitored throughout the procedure. The physical status of the patient was re-assessed after the procedure. The Colonoscope was introduced through the anus and advanced to the cecum, identified by the appendiceal orifice, ileocecal valve and palpation. The colonoscopy was performed without difficulty. The patient tolerated the procedure well. Findings: A polyp was found in the sigmoid colon. The polyp was semi-pedunculated. The polyp was removed with a hot snare. Resection and retrieval were complete. A few small-mouthed diverticula were found in the sigmoid colon. Impression: - One polyp in the sigmoid colon, removed with a hot snare. Resected and retrieved. - Diverticulosis in the sigmoid colon. Recommendation: - Patient has a contact number available for emergencies. The signs and symptoms of potential delayed complications were discussed with the patient. Return to normal activities tomorrow. Written discharge instructions were provided to the patient. - Repeat colonoscopy in 3 - 5 years for surveillance based on pathology results. - Telephone my office for pathology results in 1 week. Car Carranza DO 04/05/2017 2:15:12 PM This report has been signed electronically. Number of Addenda: 0 Note Initiated On: 04/05/2017 1:49 PM Estimated Blood Loss: Estimated blood loss was minimal.
[2017-04-05 14:54] VITALS: BP 136/84
== END | disposition home or self-care (01) ==
LOC: M OPP 12:37
PROVIDERS: ATTEND Surgery
DX: Z12.11 Encounter for screening for malignant neoplasm of colon (principal); D12.5 Benign neoplasm of sigmoid colon; K57.30 Diverticulosis of large intestine without perforation or abscess without bleeding; R93.3 Abnormal findings on diagnostic imaging of other parts of digestive tract; R10.9 Unspecified abdominal pain; K29.70 Gastritis, unspecified, without bleeding; K20.9 Esophagitis, unspecified; R00.8 Other abnormalities of heart beat; I48.0 Paroxysmal atrial fibrillation; I10 Essential (primary) hypertension; E78.5 Hyperlipidemia, unspecified; E11.9 Type 2 diabetes mellitus without complications; M19.90 Unspecified osteoarthritis, unspecified site; R06.83 Snoring; F17.210 Nicotine dependence, cigarettes, uncomplicated; I99.9 Unspecified disorder of circulatory system; Z79.01 Long term (current) use of anticoagulants; Z79.84 Long term (current) use of oral hypoglycemic drugs; Z79.899 Other long term (current) drug therapy; Z80.8 Family history of malignant neoplasm of other organs or systems

== ENCOUNTER → 2017-04-18 | Outpatient (CLI) | payer OTHER ==
[~2017-04-18] MED LIST changes: +GASTROGRAFIN SOLUTION 30ML (Q9963) As Ordered ONE; +ISOVUE-370 76% 100ML VIAL (Q9967) As Ordered ONE; -LIDOCAINE 2% INJ 100 MG/5 ML SDV (FOR ANES.) As Ordered ONE; -NS 1,000 ML IV ONE; -PROPOFOL 200 MG/20 ML VIAL As Ordered ONE
--- NOTE | 2017-04-18 15:54 | REP ---
CT ABDOMEN AND PELVIS WITH AND WITHOUT CONTRAST: TECHNIQUE: Axial noncontrast images through the abdomen followed by contrast-enhanced images through the abdomen and pelvis using 100 mL Isovue 370 intravenous contrast material, with coronal and sagittal reformations. The visualized lung bases are clear. Liver demonstrates no nodule or mass. Spleen is normal in size with no intrinsic abnormality. The adrenals and pancreas are unremarkable in appearance. A small right renal cyst is seen and there are two left renal cysts. There is no evidence of renal or ureteral calculus and no evidence of hydroureteronephrosis. There are mild atherosclerotic calcifications of the abdominal aorta without aneurysm. Normal sized periaortic lymph nodes are present. There is no significant adenopathy. There is no free air or free fluid. There is no thickening of bowel although there is thickening of the distal end of the esophagus. There is sigmoid diverticulosis. No pelvic mass is seen. Urinary bladder is mildly distended and appears unremarkable. IMPRESSION: Thickened distal esophagus in this patient with a stated history of esophageal adenocarcinoma. No evidence of nodule or mass in the abdomen or pelvis and no evidence of adenopathy. There are bilateral renal cysts. There is mild sigmoid diverticulosis. Signed by Car Rogers MD 04/19/2017 07:38 P
== END ==
LOC: M RAD 11:12
PROVIDERS: ATTEND Internal Medicine Medical Oncology
DX: C15.9 Malignant neoplasm of esophagus, unspecified (principal)
CPT/HCPCS: 74178; Q9963; Q9967

== ENCOUNTER → 2017-04-18 | Outpatient (REF) | payer OTHER ==
[~2017-04-18] MED LIST changes: -GASTROGRAFIN SOLUTION 30ML (Q9963) As Ordered ONE; -ISOVUE-370 76% 100ML VIAL (Q9967) As Ordered ONE
[2017-04-18 15:04] LABS: INR 1.12
== END ==
LOC: M LAB REF 13:46
PROVIDERS: ATTEND Internal Medicine Medical Oncology
DX: C16.0 Malignant neoplasm of cardia (principal)

== ENCOUNTER → 2017-04-25 | Outpatient (CLI) | payer OTHER | LOC: M PLARAD 13:27 | PROVIDERS: ATTEND Internal Medicine Medical Oncology | DX: C18.9 Malignant neoplasm of colon, unspecified (principal) | CPT/HCPCS: 78815; A9552 ==

== ENCOUNTER → 2017-05-02 | Outpatient (CLI) | payer OTHER ==
--- NOTE | 2017-05-04 10:47 | RADONC ---
RADIATION ONCOLOGY SIMULATION NOTE DATE: 05/03/2017 CHART NUMBER: [id number] Mr. Khan was taken to the CT scan for CT simulation of his esophageal gastric field. CT was accomplished without difficulty or discomfort. Radiation treatment planning is underway and radiation treatments will begin subsequently. An immobilization device was created and will be used throughout the course of treatment. I was physically present throughout the course of CT simulation.
--- NOTE | 2017-05-04 12:15 | RADONC ---
RADIATION ONCOLOGY CONSULTATION NOTE: DATE: 05/02/2017 CHART NUMBER: [id number] DIAGNOSIS: Gastroesophageal junction. STAGE: II B, T3N0M0. ECOG PERFORMANCE STATUS: 0 Mr. 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 HISTORY OF PRESENT ILLNESS: The patient was in his usual state of health and was undergoing cardiac workup in [place] for a planned ablation for atrial fibrillation. On 03/24/[address] scan was undertaken and showed some thickening of the distal esophagus. The patient was referred to Dr. Carranza although he remained totally asymptomatic and denied any symptoms of dysphasia, epigastric pain, heartburn, nausea, vomiting or weight loss. On 04/05/2017 an upper GI endoscopy was done and showed some congestive/edema in the prepyloric region of the stomach. Biopsies were undertaken which showed some mild chronic gastritis. The GE junction however showed poorly differentiated adenocarcinoma with luminal necrosis. The tissue was sent for HER2 markers and were negative for HER2 gene amplification. The patient was seen by Dr. Avilez for consideration of And house and for consideration of future surgery and was subsequently referred as well to Dr. Fontenot for discussion of combination radiation sensitizing chemotherapy with radiation as well. PAST MEDICAL HISTORY: The patient's past medical history is positive for his atrial fibrillation. He also has hypertension and diabetes. ALLERGIES: NO KNOWN DRUG ALLERGIES. SOCIAL HISTORY: The patient has smoked one pack of cigarettes per day for 40 years. He drinks alcohol frequently. FAMILY HISTORY: The patient's family history is positive for a father with some type of metastatic cancer. REVIEW OF SYSTEMS: The patient's review of systems is positive for some anxiety and decreased energy. It is otherwise noncontributory. He denies nausea, vomiting, fevers, chills, night sweats, diplopia, headaches, anxiety or depression, anorexia, weight loss, visual disturbances, chest pain, urinary or bowel difficulties, bone pain, or neurological problems. PHYSICAL EXAMINATION: The patient is a well-developed, well-nourished male in no acute distress. HEENT exam is normocephalic, atraumatic. Extraocular movements are intact. There is no palpable cervical, supraclavicular, infraclavicular, axillary, or inguinal lymphadenopathy present. Lungs are clear to auscultation and percussion. Heart has a regular rate and rhythm. Abdomen is benign with no hepatosplenomegaly, masses, or tenderness. Skeletal examination reveals no tenderness to pressure or percussion of the bony skeleton. Extremities reveal no clubbing, cyanosis, or edema. Neurologic exam is grossly intact, as is the remainder of the physical examination. ASSESSMENT: I have reviewed with the patient the NCCN guidelines and given him a copy of them. I agree that if this patient is a surgical candidate, he would also be a candidate for preoperative external beam radiation therapy combined with chemotherapy. I have discussed with the patient in detail the potential benefits as well as possible acute and chronic sequelae of external beam radiation therapy. We discussed logistics of treatment planning, simulation and subsequent fractionated daily radiation treatment. I have scheduled the patient for the next available simulation slot and radiation treatments will begin subsequently. The patient had many questions mostly focused around to his $20.00 co-pay. He seemed quite concerned with that. I have therefore set him up and actually brought the nurse navigator to the exam room to discuss his financial situation with him. Once again, I have scheduled the patient for initiation of treatment planning. We will coordinate his care closely with his medical oncologist and we will begin with concurrent therapy. Following that he will be referred back to Dr. Avilez for post chemo radiation surgery. Thank you for allowing us to participate in the care of this very pleasant gentleman. I will keep you informed as to any new developments as they occur. As always warm regards, cc: MD Maru Andrade MD Deborah Mccabe, PA
== END ==
LOC: M ONCR 09:49
PROVIDERS: ATTEND Radiology Radiation Oncology
DX: C15.9 Malignant neoplasm of esophagus, unspecified (principal)

== ENCOUNTER → 2017-05-03 | Outpatient (CLI) | payer OTHER | LOC: M RAD 10:18 | PROVIDERS: ATTEND Internal Medicine Medical Oncology | DX: C15.9 Malignant neoplasm of esophagus, unspecified (principal); Z53.9 Procedure and treatment not carried out, unspecified reason ==

== ENCOUNTER 2017-05-04 10:34 | Outpatient (RCR) | payer OTHER ==
[~2017-05-04 10:34] MED LIST changes: -PERC5TAB12 PO; -SUCR1SS PO
--- NOTE | 2017-06-06 08:31 | RADONC ---
RADIATION ONCOLOGY PROGRESS NOTE: DATE: 06/05/2017 CHART NUMBER: [id number]. PROGRESS NOTE: Mr. Khan is presently at a dose of 1980 cGy to his esophagus and has not yet been treated today. He is tolerating his treatments quite well with no difficulties related to his radiation therapy. He comes in with some vague story of some hip pain after twisting his leg in bed. He has no complaints however related to radiation. REVIEW OF SYSTEMS: The patient's review of systems is positive for some hip discomfort after some type of bed motion. It is otherwise noncontributory. Denies nausea, vomiting, fevers, chills, night sweats, diplopia, headaches, anxiety or depression, anorexia, weight loss, visual disturbances, chest pain, urinary or bowel difficulties, bone pain, or neurological problems. PHYSICAL EXAMINATION: The patient's skin is in good condition with no evidence of radiation change present. There is no moist or dry desquamation. The remainder of his physical exam remains unchanged. Mr. Khan is tolerating treatments quite well and radiation will continue as scheduled.
== END 2017-05-05 ==
LOC: M ONCR 10:34
PROVIDERS: ATTEND Radiology Radiation Oncology
DX: C16.0 Malignant neoplasm of cardia (principal)

== ENCOUNTER → 2017-05-04 | Outpatient (CLI) | payer OTHER ==
[~2017-05-04] MED LIST changes: -LEVA750T PO; +LEVA750T7 PO; -METF500T PO; +METF500T13 PO; -METO100T PO; +METO100T5 PO; +PERC5TAB12 PO; +SUCR1SS PO
== END ==
LOC: M RAD 10:05
PROVIDERS: ATTEND Radiology Radiation Oncology
DX: C15.9 Malignant neoplasm of esophagus, unspecified (principal)

== ENCOUNTER → 2017-05-08 | Outpatient (CLI) | payer OTHER ==
[~2017-05-08] MED LIST changes: +PERC5TAB12 PO; +SUCR1SS PO
--- NOTE | 2017-05-10 08:36 | REP ---
MRI THORACIC SPINE WITHOUT AND WITH CONTRAST: HISTORY: Thoracic pain. CONTRAST: ProHance 12 mL. There is no disc bulge or herniation. The spinal canal and neural foramina are patent. The spinal cord is normal in signal intensity. There is no abnormal enhancement. A hemangioma is present in the T12 vertebral body. Normal signal intensity is present in the remaining thoracic vertebral bodies. IMPRESSION: There is no disc bulge or herniation. Signed by Kiet Wang MD 05/10/2017 09:44 A
== END ==
LOC: M RAD 09:45
PROVIDERS: ATTEND Internal Medicine Medical Oncology
DX: C15.9 Malignant neoplasm of esophagus, unspecified (principal); M54.6 Pain in thoracic spine
CPT/HCPCS: 72157; A9576

== ENCOUNTER 2017-05-10 10:12 | Outpatient (RCR) | payer OTHER ==
[~2017-05-10 10:12] MED LIST changes: -EMLA CREAM 5GM (LIDOCAINE/PRILOCAINE) As Ordered ONE; -EMLA CREAM 5GM (LIDOCAINE/PRILOCAINE) TOP ONE; -HEPARIN SOD (PORCINE) 5000 UNITS/ML VIAL As Ordered ONE; -LIDOCAINE 1% SDV INJ 30 ML VIAL As Ordered ONE; -LIDOCAINE 2% INJ 100 MG/5 ML SDV (FOR ANES.) As Ordered ONE; -LR 1,000 ML IV ONE; -MIDAZOLAM INJ 2 MG/2 ML VIAL (J2250) As Ordered ONE; -MIDAZOLAM INJ 5 MG/ML VIAL (J2250) As Ordered ONE; -ONDANSETRON 4MG/2ML VIAL (J2405) As Ordered ONE; -PERC5TAB12 PO; -PROPOFOL 200 MG/20 ML VIAL As Ordered ONE; -ROCURONIUM BROMIDE 50 MG/5 ML VIAL/SYRINGE As Ordered ONE; -SUCR1SS PO; -dexameTHASONE 4 MG/ML 1ML VIAL (J1100) As Ordered ONE; -fentaNYL 100 MCG/2 ML INJECTION (J3010) As Ordered ONE
--- NOTE | 2017-05-23 06:57 | RADONC ---
RADIATION ONCOLOGY PROGRESS NOTE: DATE: 05/22/2017 CHART NUMBER: [id number]. PROGRESS NOTE: Mr. Christianson is presently at a dose of 540 cGy to his GE junction and overall is tolerating his radiation without significant difficulty. He complains of pains and aches all over since initiating chemotherapy. REVIEW OF SYSTEMS: The patient's review of systems is positive for general complaints of aches and pains but is otherwise noncontributory. Denies nausea, vomiting, fevers, chills, night sweats, diplopia, headaches, anxiety or depression, anorexia, weight loss, visual disturbances, chest pain, urinary or bowel difficulties, bone pain, or neurological problems. PHYSICAL EXAMINATION: The patient's skin is in good condition with no evidence of radiation change present. There is no moist or dry desquamation. The remainder of his physical exam remains unchanged. Mr. Christianson is tolerating his treatments fairly well and radiation will continue as scheduled.
--- NOTE | 2017-05-30 10:02 | RADONC ---
RADIATION ONCOLOGY PROGRESS NOTE DATE: 05/29/2017 Mr. Khan thus far has completed 4 out of his 25 fractions of radiation. The patient came in today and asked if he could be treated immediately. It was several hours before is treatment time and unfortunately we did not have an open slot. We let him know we would not be able to accommodate him at that moment and the patient said he would not be coming back today. He did say he will resume radiation tomorrow.
[2017-06-06] MEDS ORDERED: SUCR1SS PO (11:16)
== END 2017-06-05 ==
LOC: M ONCR 10:12
PROVIDERS: ATTEND Radiology Radiation Oncology
DX: C16.0 Malignant neoplasm of cardia (principal)

== ENCOUNTER → 2017-05-10 | Day surgery (SDC) | payer OTHER ==
[~2017-05-10] VITALS: Ht 177.8 cm; Wt 131.5 kg
[~2017-05-10] MED LIST changes: +EMLA CREAM 5GM (LIDOCAINE/PRILOCAINE) As Ordered ONE; +EMLA CREAM 5GM (LIDOCAINE/PRILOCAINE) TOP ONE; +HEPARIN SOD (PORCINE) 5000 UNITS/ML VIAL As Ordered ONE; +LIDOCAINE 1% SDV INJ 30 ML VIAL As Ordered ONE; +LIDOCAINE 2% INJ 100 MG/5 ML SDV (FOR ANES.) As Ordered ONE; +LR 1,000 ML IV ONE; +MIDAZOLAM INJ 2 MG/2 ML VIAL (J2250) As Ordered ONE; +MIDAZOLAM INJ 5 MG/ML VIAL (J2250) As Ordered ONE; +ONDANSETRON 4MG/2ML VIAL (J2405) As Ordered ONE; +PROPOFOL 200 MG/20 ML VIAL As Ordered ONE; +ROCURONIUM BROMIDE 50 MG/5 ML VIAL/SYRINGE As Ordered ONE; +dexameTHASONE 4 MG/ML 1ML VIAL (J1100) As Ordered ONE; +fentaNYL 100 MCG/2 ML INJECTION (J3010) As Ordered ONE
[2017-05-10 14:45] VITALS: BP 155/86
--- NOTE | 2017-05-10 14:45 | ECGEPIP ---
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
--- NOTE | 2017-05-10 15:19 | REP ---
Clinical: Pojrua-R-Skrc placement. Technique: Portable AP view. Comparison: 12/23/2016. Findings: Stable cardiomegaly is appreciated. Zecdif-J-Gcno extends into the right atrium. No consolidation, effusion, or pneumothorax. Skeletal structures intact. Impression: Appropriate placement for Fzwosv-G-Caie. No pneumothorax. Signed by Timbo Pappas MD 05/10/2017 03:10 P
--- NOTE | 2017-05-10 16:30 | REP ---
Partial chest x-ray: Single view: History: Thoracic pain. 15 seconds of fluoroscopy time is reported. Findings: A single fluoroscopically obtained last image hold spot radiograph of the chest documents an Sdmwjp-Z-Skhi catheter in place. Signed by Tariq Arriaza MD 05/10/2017 05:04 P
--- NOTE | 2017-05-11 08:54 | RO ---
DATE OF PROCEDURE: 05/10/2017 PREOPERATIVE DIAGNOSIS: Esophageal cancer. POSTOPERATIVE DIAGNOSIS: Esophageal cancer. PROCEDURE: 1. Right chest tunneled central venous catheter with subcutaneous port placement. 2. Right subclavian central venous access. 3. Interpretation and review of fluoroscopy for placement of MediPort. SURGEON: Dr. Carranza. RUG CUTTER HELPER: None. ANESTHESIA: IV sedation with 10 mL of 1% lidocaine plain local. COMPLICATIONS: None. INDICATIONS FOR PROCEDURE: Patient is 56-year-old male recently diagnosed with esophageal cancer. He is being treated down in [place] by Dr. Avilez; however, he has commended neoadjuvant chemotherapy. He is coming here today to have his MediPort placed so he can start his chemo. Risks, benefits procedure not limited but including bleeding, infection, need for further surgery and pneumothorax were discussed in detail with the patient. Informed consent was obtained and procedure was planned. PROCEDURE The patient brought to operating room #3. After sufficient sedation, the right chest was sterilely prepped and draped with chlorhexidine. Next, a time-out was done to confirm proper patient and proper procedure. Following that, local was injected skin and subcutaneous tissue over the right lateral chest wall. A 5 mm incision was created. Following that, a needle was passed below the clavicle and on second attempt was able to access the right subclavian vein. Once this was completed, the guidewire was passed through the needle into the vessel with minimal resistance. The needle was removed. Guidewire was held in place and fluoroscopy was used to confirm proper position. After doing so, 2 cm inferior to the guidewire, a 3 cm incision was created with a scalpel. Electrocautery was then used to create the pocket to place the MediPort in. After the pocket was created, MediPort was cut to length at 28 cm. It was connected to the port. The port was placed inside of the pocket and tunneled through to the base of the guidewire using a hemostat. Next, the split sheath introducer was passed over top of the guidewire into the vessel with minimal resistance. Guidewire was then removed. Catheter was passed through the split sheath introducer and laid in place. The port was then accessed with a Foley needle, aspirated until blood return was encountered, and then the port was flushed with saline twice and then with heparin flush. Once this was completed, another x-ray was taken to confirm proper course of the catheter, as well as proper positioning in the right atrium. Once this was completed, the subcutaneous tissues were approximated with interrupted #3-0 Vicryl sutures followed by running #4-0 Vicryl subcuticular suture on top of that. The area was cleaned and dried. Steri-Strips, 4x4 and Tegaderm were applied, thus ending procedure.
== END | disposition home or self-care (01) ==
LOC: M SDC 11:24
PROVIDERS: ATTEND Surgery
DX: C15.5 Malignant neoplasm of lower third of esophagus (principal); I10 Essential (primary) hypertension; E78.00 Pure hypercholesterolemia, unspecified; I48.91 Unspecified atrial fibrillation; F17.210 Nicotine dependence, cigarettes, uncomplicated; I73.9 Peripheral vascular disease, unspecified; E11.9 Type 2 diabetes mellitus without complications; M12.9 Arthropathy, unspecified; F41.9 Anxiety disorder, unspecified; F03.90 Unspecified dementia, unspecified severity, without behavioral disturbance, psychotic disturbance, mood disturbance, and anxiety; R06.83 Snoring; G47.30 Sleep apnea, unspecified; Z79.899 Other long term (current) drug therapy; Z79.84 Long term (current) use of oral hypoglycemic drugs
CPT/HCPCS: 36561; 71010; 76000; 93005; C1788; J0690; J1100; J2250; J2405; J3010

== ENCOUNTER → 2017-05-30 | Outpatient (CLI) | payer OTHER ==
[~2017-05-30] MED LIST changes: +GASTROGRAFIN SOLUTION 30ML (Q9963) As Ordered ONE; +ISOVUE-370 76% 100ML VIAL (Q9967) As Ordered ONE; +PERC5TAB12 PO; +SUCR1SS PO
--- NOTE | 2017-05-30 14:42 | REP ---
CT of the abdomen pelvis without and with IV contrast. Bowel contrast is used on all phases of the study. Comparison is 04/18/2017. After IV contrast. Biphasic imaging is performed initially during the arterial phase of enhancement later during the delayed equilibrium phase of enhancement. There is no pancreatic inflammation to suggest pancreatitis. No pancreatic mass is identified. The pancreatic duct is not dilated. The pancreas is unchanged in appearance. There is wall thickening of the distal esophagus at the EG junction, as previously, and this patient with known esophageal carcinoma. There is diffuse wall thickening of the transverse colon and there is also wall thickening of the proximal ascending colon and of the sigmoid colon. This is nonspecific. In the appropriate clinical context could represent colitis. There is no ascites or pneumoperitoneum. There is no bowel distension or obstruction. The visualized lung olvera are unremarkable. The hepatic parenchyma, gallbladder, spleen, adrenals, kidneys, abdominal aorta are unremarkable except for A renal cortical cyst in the upper pole left kidney. The is unchanged. The abdominal aorta, bowel loops and mesentery are otherwise unremarkable. Pelvis: The bladder is unremarkable. There is no ascites or adenopathy. Prostatic of this are incidentally identified. Impression: Wall thickening in the proximal ascending colon, throughout the transverse colon and in the sigmoid colon, compatible with colitis in the appropriate clinical context. There is no ascites, adenopathy, or pneumoperitoneum. There is no CT evidence of pancreatitis or pancreatic mass. Wall thickening of the distal esophagus is again identified. Signed by Car Alejandro MD 05/30/2017 02:33 P
== END ==
LOC: M RAD 12:29
PROVIDERS: ATTEND Internal Medicine Medical Oncology
DX: C16.0 Malignant neoplasm of cardia (principal)
CPT/HCPCS: 74178; Q9963; Q9967

== ENCOUNTER → 2017-05-30 | Outpatient (REF) | payer OTHER ==
[~2017-05-30] MED LIST changes: -GASTROGRAFIN SOLUTION 30ML (Q9963) As Ordered ONE; -ISOVUE-370 76% 100ML VIAL (Q9967) As Ordered ONE
[2017-05-30 15:17] LABS: AMYLASE 21 U/L (25-115)
== END ==
LOC: M LAB REF 13:41
PROVIDERS: ATTEND Internal Medicine Medical Oncology
DX: C15.9 Malignant neoplasm of esophagus, unspecified (principal)

== ENCOUNTER 2017-06-06 06:57 | Emergency (ER) | payer OTHER ==
[~2017-06-06] VITALS: Ht 177.8 cm; Wt 135.0 kg
[~2017-06-06 06:57] MED LIST changes: -PERC5TAB12 PO; -SUCR1SS PO
[2017-06-06] MEDS ORDERED: NS 1,000 ML IV SCH (07:34)
[2017-06-06] MEDS ORDERED: MORPHINE 4 MG/ML 1ML SYRINGE IV PRN (07:45)
[2017-06-06] MEDS ORDERED: METOCLOPRAMIDE INJ 10MG/2ML VIAL (J2765) IV ONE (07:45)
[2017-06-06 08:19] LABS: INR 1.06
[2017-06-06 08:29] LABS: EOS # 0.2 K/mm3 (0.0-0.50); EOS % 4.2 % (0.0-3.0); LARGE UNSTAINED CELL # 0.1 K/mm3 (0.0-0.4); LARGE UNSTAINED CELL % 2.2 % (0.0-4.0); LYMPH # 0.5 K/mm3 (1.5-4.5); LYMPH % 8.3 % (24.0-44.0); MEAN CORPUSCULAR HGB CONC 35.1 g/dl (32.0-36.5); MEAN CORPUSCULAR VOLUME 94.1 fl (80.0-96.0); MONO # 0.4 K/mm3 (0.0-0.8); MONO % 8.4 % (0.0-5.0); NEUTROPHILS # 3.3 K/mm3 (1.8-7.7); NEUTROPHILS % 75.8 % (36.0-66.0); PLATELET COUNT, AUTOMATED 210 k/mm3 (150-450); RED CELL DISTRIBUTION WIDTH 13.2 % (11.5-14.5); WHITE BLOOD COUNT 4.4 K/mm3 (4.0-10.0)
--- NOTE | 2017-06-06 08:29 | ECGEPIP ---
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
[2017-06-06 08:30] LABS: ALBUMIN 3.5 GM/DL (3.2-5.2); ALBUMIN/GLOBULIN RATIO 1.03 (1.00-1.93); ALKALINE PHOSPHATASE 86 U/L (45-117); ALT/SGPT 27 U/L (12-78); ANION GAP 11 MEQ/L (8-16); AST/SGOT 13 U/L (15-37); BILIRUBIN,DIRECT 0.1 MG/DL (0.0-0.2); BILIRUBIN,TOTAL 0.5 MG/DL (0.2-1.0); BLOOD UREA NITROGEN 12 MG/DL (7-18); CALCIUM LEVEL 8.7 MG/DL (8.5-10.1); CARBON DIOXIDE LEVEL 27 MEQ/L (21-32); CHLORIDE LEVEL 102 MEQ/L (98-107); CREATININE FOR GFR 0.71 MG/DL (0.70-1.30); GLOMERULAR FILTRATION RATE > 60.0 (>56); GLUCOSE, FASTING 170 MG/DL (70-105); POTASSIUM SERUM 3.7 MEQ/L (3.5-5.1); SODIUM LEVEL 140 MEQ/L (136-145); TOTAL PROTEIN 6.9 GM/DL (6.4-8.2)
[2017-06-06] MEDS ORDERED: SUCRALFATE SUSP 1GM/10ML UD PO ONE (08:45)
[2017-06-06] MEDS ORDERED: GI COCKTAIL 50ML BTL(HYOSCYAMINE/MAALOX/LIDOCAINE VISCOUS)(1:3:1) PO ONE (09:45)
[2017-06-06] MEDS ORDERED: SUCR1SS PO (11:16)
[2017-06-06 12:33] VITALS: BP 122/77
[2017-06-12] MEDS ORDERED: PERC5TAB12 PO (15:51)
== END 2017-06-06 12:42 | disposition home or self-care (01) ==
LOC: M ED 07:56
DX: K52.9 Noninfective gastroenteritis and colitis, unspecified (principal); C16.0 Malignant neoplasm of cardia; Z92.21 Personal history of antineoplastic chemotherapy; Z92.3 Personal history of irradiation; I48.91 Unspecified atrial fibrillation; I10 Essential (primary) hypertension; Z86.711 Personal history of pulmonary embolism; Z79.899 Other long term (current) drug therapy
CPT/HCPCS: 80048; 80076; 82550; 82553; 83690; 85025; 85610; 87507; 93005; 93041; 96361; 96374; 96375; 99285; J2765

== ENCOUNTER 2017-06-06 11:47 | Outpatient (RCR) | payer OTHER ==
[~2017-06-06 11:47] MED LIST changes: +SUCR1SS PO
[2017-06-12] MEDS ORDERED: PERC5TAB12 PO (15:51)
--- NOTE | 2017-06-13 08:08 | RADONC ---
RADIATION ONCOLOGY PROGRESS NOTE: DATE: 06/12/2017 CHART NUMBER: [id number] Mr. Khan is thus far at a dose of 3060 cGy to his gastroesophageal junction and reported that he is having loose bowel movements and has had 15 bowel movements in the last day or so. Unfortunately, he has not been following the dietary restrictions nor has he been taking Imodium. REVIEW OF SYSTEMS: The patient's review of systems is positive for his loose bowel movements as well as some abdominal pain in all four quadrants but is otherwise noncontributory. He denies nausea, vomiting, fevers, chills, night sweats, diplopia, headaches, anxiety or depression, anorexia, weight loss, visual disturbances, chest pain, urinary or bowel difficulties, bone pain, or neurological problems. PHYSICAL EXAMINATION: The patient's skin is in good condition with no evidence of moist or dry desquamation. The remainder of his physical exam remains unchanged. Mr. Khan has once again been instructed to try some Imodium. He has been reinforced with dietary instructions. Radiation will continue as scheduled at this point. I have given him a prescription for percocet 5/325. MTDD
--- NOTE | 2017-06-20 08:51 | RADONC ---
RADIATION ONCOLOGY PROGRESS NOTE DATE: 06/19/2017 CHART NUMBER: [id number] Mr. Khan is presently at a dose of 3960 centigrade to his GE junction. The patient came in today saying he is constantly nauseous and has abdominal discomfort. He says he is able to drink and has been drinking Gatorade, but he has no appetite. He did not specifically complain of diarrhea today. REVIEW OF SYSTEMS: The patient's review of systems is positive for nausea and anorexia. He also is complaining of weakness. PHYSICAL EXAMINATION: The patient has lost 10 pounds in the past week. He is now 263 pounds. The skin is in good condition with no evidence of moist or dry desquamation and the remainder of his physical exam remains unchanged. Mr. Khan is having difficulty at this point tolerating his treatments. In light of this, I have placed him on rest until Monday. We will reevaluate him at that time. He is scheduled to see medical oncology tomorrow for discussion and further evaluation. He did receive chemo last week.
--- NOTE | 2017-06-27 08:48 | RADONC ---
RADIATION ONCOLOGY PROGRESS NOTE: DATE: 06/26/2017 CHART NUMBER: [id number]. PROGRESS NOTE: Mr. Khan is presently at a dose of 4140 cGy to his gastroesophageal junction and is resuming treatment after a 1 week break. The patient presents today reporting that generally he is feeling better. REVIEW OF SYSTEMS: The patient's review of systems is largely noncontributory. Denies nausea, vomiting, fevers, chills, night sweats, diplopia, headaches, anxiety or depression, anorexia, weight loss, visual disturbances, chest pain, urinary or bowel difficulties, bone pain, or neurological problems. PHYSICAL EXAMINATION: The patient's skin is in good condition with no evidence of moist or dry desquamation. The remainder of his physical exam remains unchanged. ASSESSMENT: Mr. Khan only has two fractions following today left and will complete treatment as planned.
--- NOTE | 2017-06-29 13:31 | RADONC ---
RADIATION ONCOLOGY TREATMENT SUMMARY DATE: 06/28/2017 CHART NUMBER: [id number] DIAGNOSIS: Gastroesophageal junction cancer. STAGE: IIB, T3N0M0. ECOG PERFORMANCE STATUS: 0 TREATMENT SUMMARY: Mr. 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 We treated the patient to his GE junction for a dose of 4500 cGy delivered in 25 fractions of 180 cGy each over 41 elapsed days from 05/18/2017 through 06/28/2017. The patient's GE junction was treated on a linear accelerator utilizing an 18 MV photon beam via 3-D conformal technique with four olvera. Mr. Khan had difficulties throughout the course of treatment. He complained of GI difficulties as well as abdominal pain. This led him to take several breaks throughout the course of treatment. We were finally able to complete patient to his full prescription dose. I have scheduled the patient to see me again in 1 month for further followup. He is scheduled to see Dr. Avilez as well for discussion of his surgery. In the meantime, he will be also following his other physicians. cc: MD Maru Andrade MD Deborah Mccabe, PA
== END 2017-07-06 ==
LOC: M ONCR 11:47
PROVIDERS: ATTEND Radiology Radiation Oncology
DX: C16.0 Malignant neoplasm of cardia (principal)

== ENCOUNTER → 2017-07-17 | Outpatient (CLI) | payer OTHER ==
[~2017-07-17] MED LIST changes: +METO1TAB33 PO; +PERC5TAB12 PO; +RANI15TA PO; +XANA1TAB2 PO; +ZOFR8TAB PO
--- NOTE | 2017-07-18 07:39 | RADONC ---
RADIATION ONCOLOGY FOLLOWUP NOTE DATE: 07/17/2017 CHART NUMBER: [id number] DIAGNOSIS: Gastroesophageal junction cancer. STAGE: IIB, T3N0M0. ECOG PERFORMANCE STATUS: 0. FOLLOWUP NOTE: Mr. 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 The patient presents today reporting that generally he is doing fairly well. He reports that he has some occasional nauseousness. He reports that he has had three episodes of vomiting since completion of treatment. He is having no problems at this time. He also has some discomfort in the abdomen which is improving. The patient's review of systems is positive for some abdominal discomfort which is actually rate improved since completion of treatment. He has also had some episodes of vomiting, which are not going on at the present time. He denies fevers, chills, night sweats, diplopia, blood in the urine, blood in the stools, bone pain, neurological problems, headaches, visual disturbances, chest pain or other issues. PHYSICAL EXAMINATION: The patient is a well-developed, well-nourished male in no acute distress. HEENT exam is normocephalic, atraumatic. Extraocular movements are intact. There is no palpable cervical, supraclavicular, infraclavicular, axillary, or inguinal lymphadenopathy present. Lungs are clear to auscultation and percussion. Heart has a regular rate and rhythm. Abdomen is benign with no hepatosplenomegaly, masses, or tenderness. Rectal examination reveals a normal anal sphincter tone. Skeletal examination reveals no tenderness to pressure or percussion of the bony skeleton. Extremities reveal no clubbing, cyanosis, or edema. Neurologic exam is grossly intact as is the remainder of the physical examination. ASSESSMENT: The patient is clinically doing well at this point. I have reassured him that most of these issues are within expected limits. The patient is scheduled to be seen by his surgical oncologist in the next 2 weeks for discussion of his surgery. I have therefore set him up to see me again in followup in approximately 1-1/2 months. He will also continue his followup with his medical oncologist. cc: MD Maru Andrade MD Deborah Mccabe, PA
== END ==
LOC: M ONCR 09:34
PROVIDERS: ATTEND Radiology Radiation Oncology
DX: C16.0 Malignant neoplasm of cardia (principal)

== ENCOUNTER → 2017-07-25 | Outpatient (CLI) | payer OTHER ==
--- NOTE | 2017-07-25 14:47 | REP ---
PET/CT: HISTORY: Restaging GE junction esophageal cancer. COMPARISONS: Comparison PET/CT study April 25, 2017. TECHNIQUE: 47 minutes following the intravenous injection of a 8.8 mCi dose of F-18 FDG, three-dimensional PET scintigraphy is acquired from the skull base to the proximal thighs. Triplanar noncontrast CT scanning is acquired through the same anatomic range for attenuation correction, and image registration with scan parameters optimized to minimize radiation exposure to the patient. PET scintigraphy and CT datasets were fused and displayed on a workstation with multiplanar and projection display capability. PET/CT FINDINGS: There is no discernible hypermetabolic uptake in the distal esophagus today. No abnormal hypermetabolic uptake is seen within the chest. There is a right-sided [id number] catheter. No abnormal lung nodule is visible. No abnormal hypermetabolic uptake is seen in the liver. In the abdomen and pelvis normal FDG distribution is seen. No abnormal marielena uptake is seen. No abnormal skeletal uptake is observed. IMPRESSION: No abnormal hypermetabolic uptake seen. Signed by Tariq Arriaza MD 07/25/2017 03:53 P
== END ==
LOC: M PLARAD 10:25
PROVIDERS: ATTEND Internal Medicine Medical Oncology
DX: C15.5 Malignant neoplasm of lower third of esophagus (principal)
CPT/HCPCS: 78815; A9552

== ENCOUNTER 2017-09-16 09:41 | Emergency (ER) | payer OTHER ==
[~2017-09-16] VITALS: Ht 177.8 cm; Wt 106.5 kg
[~2017-09-16 09:41] MED LIST changes: -METO1TAB33 PO; -RANI15TA PO; -XANA1TAB2 PO; -ZOFR8TAB PO
[2017-09-16 09:42] VITALS: BP 132/85
[2017-09-16] MEDS ORDERED: XANA1TAB2 PO (10:07)
[2017-09-16] MEDS ORDERED: METO1TAB33 PO (10:07)
[2017-09-16] MEDS ORDERED: RANI15TA PO (10:07)
[2017-09-16] MEDS ORDERED: TRIA37.5 PO (10:07)
[2017-09-16] MEDS ORDERED: ZOFR8TAB PO (10:07)
[2017-09-16] MEDS ORDERED: NS 1,000 ML IV ONE (10:30)
[2017-09-16 10:54] LABS: BASO # 0.1 10^3/uL (0.0-0.2); BASO % 0.6 % (0.0-1.0); EOS # 0.3 10^3/uL (0.0-0.50); IMMATURE GRANULOCYTE % 0.7 % (0-0); LYMPH # 0.7 10^3/uL (1.5-4.5); LYMPH % 6.4 % (24.0-44.0); MEAN CORPUSCULAR HEMOGLOBIN 31.8 pg (27.0-33.0); MEAN CORPUSCULAR HGB CONC 33.8 g/dl (32.0-36.5); MEAN CORPUSCULAR VOLUME 94.1 fl (80.0-96.0); MONO # 0.8 10^3/uL (0.0-0.8); MONO % 7.8 % (0.0-5.0); NEUTROPHILS # 8.3 10^3/uL (1.8-7.7); NEUTROPHILS % 81.5 % (36.0-66.0); WHITE BLOOD COUNT 10.2 10^3/uL (4.0-10.0)
[2017-09-16 11:18] LABS: PLATELET COUNT, AUTOMATED 353 10^3/uL (150-450); PLT CLUMPS? POS FLAG; POS COUNT POS FLAG
[2017-09-16 11:31] LABS: ALKALINE PHOSPHATASE 212 U/L (45-117); ALT/SGPT 37 U/L (12-78); ANION GAP 11 MEQ/L (8-16); AST/SGOT 34 U/L (7-37); BILIRUBIN,DIRECT 0.1 MG/DL (0.0-0.2); BILIRUBIN,TOTAL 0.4 MG/DL (0.2-1.0); BLOOD UREA NITROGEN 12 MG/DL (7-18); CALCIUM LEVEL 8.9 MG/DL (8.5-10.1); CARBON DIOXIDE LEVEL 24 MEQ/L (21-32); CHLORIDE LEVEL 100 MEQ/L (98-107); CREATININE FOR GFR 0.68 MG/DL (0.70-1.30); GLOMERULAR FILTRATION RATE > 60.0 (>56); GLUCOSE, FASTING 125 MG/DL (70-105); POTASSIUM SERUM 4.2 MEQ/L (3.5-5.1); SODIUM LEVEL 135 MEQ/L (136-145); TOTAL PROTEIN 7.3 GM/DL (6.4-8.2)
[2017-09-16] MEDS ORDERED: ISOVUE-370 76% 100ML VIAL (Q9967) As Ordered ONE (11:43)
--- NOTE | 2017-09-16 12:49 | REP ---
CT CHEST WITH CONTRAST: HISTORY: Esophageal carcinoma. Contrast Isovue 370, 100 mL. The patient is status post partial esophagectomy and gastric pull through procedure. A small amount of stranding is present in the fat adjacent to the stomach in the upper abdomen consistent with edema or scarring. Patchy density is present in the lower lobes consistent with bibasilar atelectasis or infiltrates. There is no pleural effusion. There is no hilar mass. Small lymph nodes less than 1 cm in size are present in the mediastinum. The heart is normal in size. A 2.4 cm cyst is present in the upper pole of the left kidney. Degenerative change is present in the thoracic spine. IMPRESSION: 1. The patient is status post partial esophagectomy and gastric pull through procedure. 2. Bibasilar atelectasis or infiltrates. 3. 2.4 cm left renal cyst. Signed by Kiet Wang MD 09/16/2017 12:55 P
--- NOTE | 2017-09-16 13:51 | REP ---
CT ABDOMEN AND PELVIS WITH CONTRAST: HISTORY: Esophageal carcinoma. CONTRAST: Isovue 370, 100 mL. COMPARISON: 05/30/2017 The patient is status post gastric pull through procedure. A small amount of stranding is present in the stomach in the abdomen. A 2.4 cm area of decreased attenuation is present in the superomedial aspect of the spleen. The liver , gallbladder, pancreas, adrenal glands and right kidney are normal in appearance. A 2.4 cm cyst is present in the left kidney. There is no mass, adenopathy or free fluid. Patchy density is present in the lower lobes consistent with bibasilar atelectasis or infiltrates. The prostate gland and urinary bladder are normal in appearance. Diverticula are present in the descending and sigmoid colon. Degenerative change is present in the spine. A presumed feeding tube is present in the proximal small intestine in the left upper quadrant. IMPRESSION: 1. The patient is status post gastric pull through procedure. 2. There is a 2.4 cm area of decreased attenuation in the superomedial spleen most likely representing a subcapsular hematoma. 3. 2.4 cm left renal cyst. 4. Diverticulosis. 5. Bibasilar atelectasis or infiltrates. Signed by Kiet Wang MD 09/16/2017 02:18 P
--- NOTE | 2017-09-18 19:19 | ED PDOC ---
Post-Departure Follow-Up ct abd/p formal report reviewed. spoke to dr day who cared for pt; pt's surgeon was aware of result and told him normal post op course. surgeon to see pt as outpt for follow up. Dom Metz MD Sep 18, 2017 19:19
== END 2017-09-16 14:15 | disposition home or self-care (01) ==
LOC: M ED 09:41
DX: R11.0 Nausea (principal); F17.210 Nicotine dependence, cigarettes, uncomplicated; Z85.01 Personal history of malignant neoplasm of esophagus
CPT/HCPCS: 36415; 71260; 74177; 80048; 80076; 85025; 96360; 96361; 99284; Q9967

== ENCOUNTER 2017-10-05 15:24 | Emergency (ER) | payer OTHER ==
[~2017-10-05] VITALS: Ht 175.3 cm; Wt 108.2 kg
[~2017-10-05 15:24] MED LIST changes: +METO1TAB33 PO; +RANI15TA PO; +XANA1TAB2 PO; +ZOFR8TAB PO
[2017-10-05] MEDS ORDERED: NS 1,000 ML IV SCH (16:18)
[2017-10-05] MEDS ORDERED: MORPHINE 4 MG/ML 1ML SYRINGE IV ONE (16:30)
[2017-10-05] MEDS ORDERED: ONDANSETRON 4MG/2ML VIAL (J2405) IV ONE (16:30)
[2017-10-05 16:47] LABS: BASO # 0.1 10^3/uL (0.0-0.2); BASO % 0.7 % (0.0-1.0); EOS # 0.2 10^3/uL (0.0-0.50); EOS % 1.3 % (0.0-3.0); IMMATURE GRANULOCYTE % 0.5 % (0-0); LYMPH # 0.8 10^3/uL (1.5-4.5); MEAN CORPUSCULAR HEMOGLOBIN 31.2 pg (27.0-33.0); MEAN CORPUSCULAR HGB CONC 34.3 g/dl (32.0-36.5); MONO % 7.2 % (0.0-5.0); NEUTROPHILS # 11.1 10^3/uL (1.8-7.7); NEUTROPHILS % 84.3 % (36.0-66.0); PLATELET COUNT, AUTOMATED 376 10^3/uL (150-450); RED CELL DISTRIBUTION WIDTH 13.3 % (11.5-14.5); WHITE BLOOD COUNT 13.1 10^3/uL (4.0-10.0)
[2017-10-05 17:10] LABS: ALBUMIN 3.5 GM/DL (3.2-5.2); ALBUMIN/GLOBULIN RATIO 0.92 (1.00-1.93); ALKALINE PHOSPHATASE 185 U/L (45-117); ALT/SGPT 41 U/L (12-78); ANION GAP 12 MEQ/L (8-16); AST/SGOT 20 U/L (7-37); BILIRUBIN,DIRECT 0.1 MG/DL (0.0-0.2); BILIRUBIN,TOTAL 0.3 MG/DL (0.2-1.0); BLOOD UREA NITROGEN 11 MG/DL (7-18); CALCIUM LEVEL 9.6 MG/DL (8.5-10.1); CARBON DIOXIDE LEVEL 25 MEQ/L (21-32); CHLORIDE LEVEL 99 MEQ/L (98-107); CREATININE FOR GFR 0.73 MG/DL (0.70-1.30); GLOMERULAR FILTRATION RATE > 60.0 (>56); GLUCOSE, FASTING 126 MG/DL (70-105); POTASSIUM SERUM 4.1 MEQ/L (3.5-5.1); SODIUM LEVEL 136 MEQ/L (136-145); TOTAL PROTEIN 7.3 GM/DL (6.4-8.2)
[2017-10-05] MEDS ORDERED: GASTROGRAFIN SOLUTION 30ML PO ONE (17:30)
[2017-10-05] MEDS ORDERED: GASTROGRAFIN SOLUTION 30ML (Q9963) PO ONE (18:00)
[2017-10-05] MEDS ORDERED: ISOVUE-370 76% 100ML VIAL (Q9967) As Ordered ONE (18:48)
--- NOTE | 2017-10-05 19:33 | REP ---
Clinical: Diffuse abdominal pain. Technique: Axial contrast enhanced images from the lung bases to the pubic symphysis using oral (per protocol) 100 ml Isovue 370 intravenous contrast material with coronal and sagittal re-formations. Comparison: 09/16/2017. Findings: Moderate left lower lobe and lingular atelectasis. The patient is status post gastric pull-through. The wedge-shaped low density area along the medial aspect of the spleen suggests small local splenic infarction. Liver, pancreas, gallbladder, bilateral adrenal glands and kidneys are relatively normal. Bilateral renal cysts measuring up to 2.4 cm in left kidney are stable. There is no evidence for acute perinephric stranding or hydroureteronephrosis. The small and large bowel is without obstruction. Enterostomy tube identified via the left anterior abdominal wall. A mild colitis cannot be excluded. Scattered diverticula noted without acute diverticulitis. Pelvis demonstrates normal bladder and age appropriate prostate/seminal vesicles. No ascites. No significant adenopathy. Musculoskeletal structures demonstrate degenerative changes without focal osseous abnormality. Abdominal aorta is without aneurysm or dissection. Impression: 1. Moderate left lower lobe consolidation suggesting atelectasis/pneumonia. 2. A wedge-shaped low density area at the medial spleen suggests splenic infarction and is essentially unchanged compared to prior examination. The remainder of the spleen appears normal. 3. A mild inflammatory/infectious colitis cannot be excluded. There is no evidence for bowel obstruction, perforation or abscess. 4. Stable renal cysts. 5. Stable appearance to the gastric pull-through and enterostomy tube via left anterior abdomen. Signed by Timbo Pappas MD 10/05/2017 07:26 P
[2017-10-05] MEDS ORDERED: VANCOMYCIN HCL 1,000 MG, VIAL MATE ADAPTER 1 EACH in D5W 250 ML IV ONE (20:30)
[2017-10-05] MEDS ORDERED: PIPERACILLIN/TAZOBACTAM SOD 3.375 GM in APPROPRIATE DILUENT 1 EA IV ONE (20:30)
[2017-10-05 23:08] VITALS: BP 147/71
== END 2017-10-05 23:34 | disposition short-term general hospital (02) ==
LOC: M ED 15:24
DX: J18.9 Pneumonia, unspecified organism (principal); K52.9 Noninfective gastroenteritis and colitis, unspecified; Z85.01 Personal history of malignant neoplasm of esophagus; Z93.1 Gastrostomy status; I48.91 Unspecified atrial fibrillation; E11.9 Type 2 diabetes mellitus without complications; I10 Essential (primary) hypertension; E78.5 Hyperlipidemia, unspecified; Z87.891 Personal history of nicotine dependence; N28.1 Cyst of kidney, acquired; Z79.84 Long term (current) use of oral hypoglycemic drugs; Z79.899 Other long term (current) drug therapy
CPT/HCPCS: 74177; 80048; 80076; 83690; 85025; 93041; 96374; 96375; 99285; J2405; J2543; J3370; Q9963; Q9967

== ENCOUNTER → 2017-11-30 | Outpatient (CLI) | payer OTHER ==
[~2017-11-30] MED LIST changes: -DIAZ5TAB PO; -ELIQ5TAB PO; +GASTROGRAFIN SOLUTION 30ML (Q9963) As Ordered; -GEMF600T PO; +ISOVUE-370 76% 100ML VIAL (Q9967) As Ordered; -LEVA750T7 PO; -LIPI20TA PO; -MAG400TA PO; -METF500T13 PO; -METO100T5 PO; -METO1TAB33 PO; -OMEP20CA3 PO; -PACE200T PO; -PERC5TAB12 PO; -RANI15TA PO; -SUCR1SS PO; -TRIA37.5 PO; -VITA200028 PO; -VITA500T88 PO; -VITMTA PO; -XANA1TAB2 PO; -ZOFR4TAB3 PO; -ZOFR8TAB PO
== END ==
LOC: M RAD 08:45
DX: C16.0 Malignant neoplasm of cardia (principal)
CPT/HCPCS: Q9963

== ENCOUNTER 2017-12-05 19:20 | Emergency (ER) | payer OTHER ==
[2017-12-05] MEDS: MORPHINE 4 MG/ML 1ML SYRINGE IV (21:04)
[2017-12-05 21:26] LABS: BASO # 0.1 10^3/uL (0.0-0.2); BASO % 0.8 % (0.0-1.0); EOS # 0.3 10^3/uL (0.0-0.50); EOS % 4.9 % (0.0-3.0); HEMATOCRIT 43.5 % (42.0-52.0); HEMOGLOBIN 14.4 g/dl (14.0-18.0); IMMATURE GRANULOCYTE % 0.5 % (0-0); LYMPH # 0.7 10^3/uL (1.5-4.5); LYMPH % 10.8 % (24.0-44.0); MEAN CORPUSCULAR HEMOGLOBIN 29.9 pg (27.0-33.0); MEAN CORPUSCULAR HGB CONC 33.1 g/dl (32.0-36.5); MEAN CORPUSCULAR VOLUME 90.2 fl (80.0-96.0); MONO # 0.6 10^3/uL (0.0-0.8); MONO % 8.6 % (0.0-5.0); NEUTROPHILS # 4.8 10^3/uL (1.8-7.7); NEUTROPHILS % 74.4 % (36.0-66.0); PLATELET COUNT, AUTOMATED 279 10^3/uL (150-450); RED BLOOD COUNT 4.82 10^6/uL (4.30-6.10); RED CELL DISTRIBUTION WIDTH 14.9 % (11.5-14.5); WHITE BLOOD COUNT 6.5 10^3/uL (4.0-10.0)
[2017-12-05 21:33] LABS: ALBUMIN/GLOBULIN RATIO 0.88 (1.00-1.93); ALKALINE PHOSPHATASE 153 U/L (45-117); ALT/SGPT 31 U/L (12-78); ANION GAP 9 MEQ/L (8-16); AST/SGOT 25 U/L (7-37); BILIRUBIN,DIRECT 0.2 MG/DL (0.0-0.2); BILIRUBIN,TOTAL 0.5 MG/DL (0.2-1.0); BLOOD UREA NITROGEN 4 MG/DL (7-18); CALCIUM LEVEL 8.5 MG/DL (8.5-10.1); CARBON DIOXIDE LEVEL 26 MEQ/L (21-32); CHLORIDE LEVEL 105 MEQ/L (98-107); CPK CREATINE PHOSPHOKINASE 30 U/L (39-308); CREATININE FOR GFR 0.49 MG/DL (0.70-1.30); GLOMERULAR FILTRATION RATE > 60.0 (>56); GLUCOSE, FASTING 93 MG/DL (70-100); LIPASE 25 U/L (73-393); MB/CK RELATIVE INDEX 3.33 (< OR =4); POTASSIUM SERUM 3.6 MEQ/L (3.5-5.1); SODIUM LEVEL 140 MEQ/L (136-145); TOTAL PROTEIN 6.4 GM/DL (6.4-8.2); TROPONIN I < 0.02 NG/ML (< 0.10)
== END 2017-12-05 22:39 | disposition home or self-care (01) ==
LOC: M ED 19:20
DX: G89.29 Other chronic pain (principal); G89.18 Other acute postprocedural pain; I48.91 Unspecified atrial fibrillation; I10 Essential (primary) hypertension; K21.9 Gastro-esophageal reflux disease without esophagitis; Z85.01 Personal history of malignant neoplasm of esophagus; Z90.49 Acquired absence of other specified parts of digestive tract; Z87.891 Personal history of nicotine dependence; Z79.899 Other long term (current) drug therapy
CPT/HCPCS: 93005

== ENCOUNTER → 2017-12-07 | Outpatient (REF) | payer OTHER ==
[2017-12-07 16:04] LABS: LACTIC ACID SEPSIS PROTOCOL 1.2 MMOL/L (0.4-2.0)
[2017-12-08 15:14] LABS: CARCINOEMBRYONIC ANTIGEN 2.1 NG/ML (<2.5)
== END ==
LOC: M LAB REF 13:52
DX: C15.9 Malignant neoplasm of esophagus, unspecified (principal)

== ENCOUNTER → 2018-01-02 | Outpatient (REF) | payer OTHER ==
[2018-01-02 13:04] LABS: INR 1.14; PROTHROMBIN TIME 14.8 SECONDS (12.4-14.5)
[2018-01-02 13:22] LABS: CARCINOEMBRYONIC ANTIGEN 1.5 NG/ML (<2.5)
== END ==
LOC: M LAB REF 12:34
DX: C15.9 Malignant neoplasm of esophagus, unspecified (principal)
CPT/HCPCS: 82378

== ENCOUNTER → 2018-01-17 | Outpatient (CLI) | payer OTHER | LOC: M RAD 16:13 | DX: C16.0 Malignant neoplasm of cardia (principal) | CPT/HCPCS: 70551 ==

== ENCOUNTER 2018-04-11 09:31 | Day surgery (SDC) | payer OTHER ==
[2018-04-11] MEDS: LR 1,000 ML IV (10:07)
[2018-04-11] MEDS ORDERED: LIDOCAINE 2% INJ 100 MG/5 ML SDV (FOR ANES.) As Ordered (11:04)
[2018-04-11] MEDS ORDERED: MIDAZOLAM INJ 2 MG/2 ML VIAL (J2250) As Ordered (11:04)
[2018-04-11] MEDS ORDERED: PROPOFOL 200 MG/20 ML VIAL As Ordered (11:04)
[2018-04-11] MEDS ORDERED: fentaNYL 100 MCG/2 ML INJECTION (J3010) As Ordered (11:04)
[2018-04-11] MEDS: LIDOCAINE 1% MDV 20ML VIAL As Ordered (11:15)
[2018-04-11] MEDS ORDERED: NORCO, ANEXSIA 5/325MG TABLET (HYDROcodone/ACETAMINOPHEN) As Ordered (12:04)
[2018-04-11] MEDS: NORCO, ANEXSIA 5/325MG TABLET (HYDROcodone/ACETAMINOPHEN) PO (12:10)
== END 2018-04-11 12:35 | disposition home or self-care (01) ==
LOC: M SDC 09:31
DX: Z45.2 Encounter for adjustment and management of vascular access device (principal); C15.9 Malignant neoplasm of esophagus, unspecified; Z92.21 Personal history of antineoplastic chemotherapy; Z92.3 Personal history of irradiation; I48.91 Unspecified atrial fibrillation; I10 Essential (primary) hypertension; E78.5 Hyperlipidemia, unspecified; Z79.02 Long term (current) use of antithrombotics/antiplatelets; F41.9 Anxiety disorder, unspecified; Z87.891 Personal history of nicotine dependence
CPT/HCPCS: 36590

== ENCOUNTER → 2018-04-19 | Outpatient (CLI) | payer OTHER | LOC: M RAD 08:09 | DX: C15.9 Malignant neoplasm of esophagus, unspecified (principal) | CPT/HCPCS: Q9963 ==

== ENCOUNTER → 2018-04-19 | Outpatient (CLI) | payer OTHER ==
[2018-04-19 08:55] LABS: ALBUMIN 3.1 GM/DL (3.2-5.2); ALBUMIN/GLOBULIN RATIO 1.03 (1.00-1.93); ALKALINE PHOSPHATASE 185 U/L (45-117); ALT/SGPT 28 U/L (12-78); ANION GAP 8 MEQ/L (8-16); AST/SGOT 19 U/L (7-37); BILIRUBIN,TOTAL 0.4 MG/DL (0.2-1.0); BLOOD UREA NITROGEN 8 MG/DL (7-18); CALCIUM LEVEL 8.4 MG/DL (8.5-10.1); CARBON DIOXIDE LEVEL 29 MEQ/L (21-32); CHLORIDE LEVEL 112 MEQ/L (98-107); CREATININE FOR GFR 0.52 MG/DL (0.70-1.30); GLOMERULAR FILTRATION RATE > 60.0 (>56); GLUCOSE, FASTING 87 MG/DL (70-100); POTASSIUM SERUM 4.3 MEQ/L (3.5-5.1); SODIUM LEVEL 149 MEQ/L (136-145); TOTAL PROTEIN 6.1 GM/DL (6.4-8.2)
[2018-04-19 09:15] LABS: TOTAL 25(OH) VITAMIN D 43.3 NG/ML (30.0-100.0)
== END ==
LOC: M LAB 07:55
DX: E55.9 Vitamin D deficiency, unspecified (principal)
CPT/HCPCS: 80053

== ENCOUNTER 2018-06-03 00:58 | Emergency (ER) | payer OTHER ==
[2018-06-03] MEDS: NITROGLYCERIN 0.3 MG SUBL TAB SL (03:15)
[2018-06-03] MEDS: NS 1,000 ML IV (03:15)
[2018-06-03] MEDS: GLUCAGON FOR INJ 1 MG VIAL (J1610) IV ×2 (03:15→04:57)
[2018-06-03] MEDS ORDERED: METOCLOPRAMIDE INJ 10MG/2ML VIAL (J2765) As Ordered (05:24)
[2018-06-03] MEDS: METOCLOPRAMIDE INJ 10MG/2ML VIAL (J2765) IV (05:45)
== END 2018-06-03 06:34 | disposition short-term general hospital (02) ==
LOC: M ED 00:58
DX: T18.128A Food in esophagus causing other injury, initial encounter (principal); I10 Essential (primary) hypertension; I48.91 Unspecified atrial fibrillation; F17.200 Nicotine dependence, unspecified, uncomplicated; Z98.890 Other specified postprocedural states; Z79.899 Other long term (current) drug therapy; Z85.01 Personal history of malignant neoplasm of esophagus
CPT/HCPCS: J1610

== ENCOUNTER → 2018-06-25 | Outpatient (CLI) | payer OTHER | LOC: M WUC 13:24 | DX: S20.211A Contusion of right front wall of thorax, initial encounter (principal); X58.XXXA Exposure to other specified factors, initial encounter; Y92.9 Unspecified place or not applicable | CPT/HCPCS: 71101 ==

== ENCOUNTER → 2018-08-23 | Outpatient (CLI) | payer OTHER | LOC: M RAD 16:08 | DX: N28.1 Cyst of kidney, acquired (principal); K57.30 Diverticulosis of large intestine without perforation or abscess without bleeding | CPT/HCPCS: Q9963 ==

== ENCOUNTER 2018-09-19 06:45 | Day surgery (SDC) | payer OTHER ==
[2018-09-19] MEDS: NS 1,000 ML IV (06:00)
[2018-09-19] MEDS ORDERED: LIDOCAINE 2% INJ 100 MG/5 ML SDV (FOR ANES.) As Ordered (07:02)
[2018-09-19] MEDS ORDERED: PROPOFOL 200 MG/20 ML VIAL As Ordered (07:02)
[2018-09-19] MEDS ORDERED: ePHEDrine SULFATE 25 MG/5 ML(5MG/ML) SYRINGE As Ordered (07:45)
== END 2018-09-19 08:30 | disposition home or self-care (01) ==
LOC: M OPP 06:45
DX: Z86.010 Personal history of colon polyps (principal); K64.1 Second degree hemorrhoids; K57.30 Diverticulosis of large intestine without perforation or abscess without bleeding; R10.13 Epigastric pain; K29.70 Gastritis, unspecified, without bleeding
CPT/HCPCS: 45378

== ENCOUNTER 2018-12-05 10:10 | Emergency (ER) | payer OTHER ==
[~2018-12-05] VITALS: Ht 175.3 cm; Wt 73.6 kg
[~2018-12-05 10:10] MED LIST changes: +DIAZ5TAB PO; +DRON2.5C11 PO; +ELIQ5TAB PO; +GABA-1171 PO; -GASTROGRAFIN SOLUTION 30ML (Q9963) As Ordered; +GEMF600T5 PO; -ISOVUE-370 76% 100ML VIAL (Q9967) As Ordered; +LEVA750T7 PO; +LIPI20TA PO; +MAG400TA PO; +METF500T13 PO; +METO100T5 PO; +METO1TAB32 PO; +METO1TAB33 PO; +OMEP20CA3 PO; +ONDA8TAB7 PO; +PACE200T PO; +PERC5TAB12 PO; +RANI15TA PO; +SERT-138 PO; +SUCR1SS PO; +TRIA37.5 PO; +VITA200028 PO; +VITA500T88 PO; +VITMTA PO; +XANA1TAB2 PO; +ZOFR4TAB14 PO; +ZOFR4TAB16 PO; +ZOFR8TAB24 PO; +[UNRECOGNIZED DRUG - CODE] PO; +marijuana INH
[2018-12-05] MEDS ORDERED: ONDANSETRON 4MG/2ML VIAL (J2405) IV ONE (10:45)
[2018-12-05] MEDS ORDERED: NS 1,000 ML IV ONE (10:45)
[2018-12-05] MEDS: MORPHINE 4 MG/ML 1ML VIAL/SYRINGE (J2270) IV PRN ×2 (10:53→11:33)
[2018-12-05 11:06] LABS: BASO # 0.1 10^3/uL (0.0-0.2); BASO % 0.7 % (0.0-1.0); EOS # 0.3 10^3/uL (0.0-0.50); EOS % 2.8 % (0.0-3.0); HEMATOCRIT 43.9 % (42.0-52.0); HEMOGLOBIN 14.4 g/dl (13.5-17.5); LYMPH # 0.9 10^3/uL (1.5-4.5); LYMPH % 9.2 % (24.0-44.0); MEAN CORPUSCULAR HEMOGLOBIN 31.9 pg (27.0-33.0); MEAN CORPUSCULAR HGB CONC 32.8 g/dl (32.0-36.5); MEAN CORPUSCULAR VOLUME 97.3 fl (80.0-96.0); MONO # 0.7 10^3/uL (0.0-0.8); MONO % 7.4 % (0.0-5.0); NEUTROPHILS # 7.9 10^3/uL (1.8-7.7); NEUTROPHILS % 79.6 % (36.0-66.0); PLATELET COUNT, AUTOMATED 203 10^3/uL (150-450); RED BLOOD COUNT 4.51 10^6/uL (4.30-6.10)
--- NOTE | 2018-12-05 11:20 | REP ---
Clinical: Right flank pain and hematuria. Technique: Axial noncontrast images from the lung bases to the pubic symphysis with coronal and sagittal re-formations. Comparison: 08/23/2018. Findings: Right kidney demonstrates a mild obstructive uropathy with edematous enlargement to the kidney, mild hydronephrosis and proximal hydroureter with periureteral stranding secondary to a 3 mm calculus in the proximal right ureter (image 84). Left kidney includes 3 cm posterior exophytic cyst unchanged from prior examination. No further urinary tract calcifications are identified. Fatty infiltration of the liver. Spleen, pancreas, gallbladder, and bilateral adrenal glands are normal. Evidence for prior gastric pull-through surgery consistent with the given history of esophageal cancer. Small and large bowel is without obstruction or acute inflammatory process. Pelvis demonstrates normal bladder and heterogeneous prostate gland with scattered calcifications. Small fat containing left inguinal hernia noted. No ascites. No free air. No significant adenopathy. Abdominal aorta without aneurysm. Musculoskeletal structures demonstrate degenerative changes without focal osseous abnormality. Lung bases demonstrate chronic changes at the left base similar to prior examination. Impression: 1. Mild acute right-sided obstructive uropathy with a 3 mm calculus in the proximal right ureter. 2. Chronic stable changes as noted above. 3. No further acute abdominopelvic pathology appreciated. Electronically Signed by Timbo Pappas MD 12/05/2018 11:12 A
[2018-12-05] MEDS ORDERED: PROMETHAZINE INJ 25 MG/ML VIAL (J2550) IV ONE (11:30)
[2018-12-05 11:37] LABS: ALT/SGPT 52 U/L (12-78); BILIRUBIN,DIRECT < 0.1 MG/DL (0.0-0.2); BILIRUBIN,TOTAL 0.4 MG/DL (0.2-1.0); BLOOD UREA NITROGEN 14 MG/DL (7-18); CALCIUM LEVEL 8.9 MG/DL (8.5-10.1); CARBON DIOXIDE LEVEL 31 MEQ/L (21-32); CHLORIDE LEVEL 106 MEQ/L (98-107); CREATININE FOR GFR 0.74 MG/DL (0.70-1.30); GLOMERULAR FILTRATION RATE > 60.0 (>56); GLUCOSE, FASTING 119 MG/DL (70-100); LIPASE 46 U/L (73-393); POTASSIUM SERUM 4.1 MEQ/L (3.5-5.1); SODIUM LEVEL 142 MEQ/L (136-145); TOTAL PROTEIN 7.6 GM/DL (6.4-8.2)
[2018-12-05 11:45] LABS: BILIRUBIN, URINE MANUAL OBSCURED (NEGATIVE); GLUCOSE, URINE (UA) MANUAL NEGATIVE (NEGATIVE); KETONE, URINE MANUAL OBSCURED mg/dL (NEGATIVE); UROBILINOGEN, URINE MANUAL NORMAL (NORMAL)
[2018-12-05] MEDS ORDERED: KETOROLAC 30 MG/ML VIAL (J1885) IV ONE (11:45)
[2018-12-05 11:47] LABS: BACTERIA, URINE SMALL AMOUNT; HYALINE CAST, URINE NONE SEEN /lpf (0-1); RBC, URINE TNTC /hpf (0-3); SQUAMOUS EPITHELIAL CELL URINE NONE SEEN /hpf (SMALL AMT)
[2018-12-05 11:48] LABS: AMORPHOUS SEDIMENT, URINE SMALL AMOUNT (NEGATIVE)
[2018-12-05] MEDS ORDERED: FLOM0.4C39 PO (12:32)
[2018-12-05] MEDS ORDERED: PERC5TAB12 PO (12:32)
[2018-12-05] MEDS ORDERED: KETO10TAB PO (12:32)
[2018-12-05] MEDS ORDERED: CIPR-249 PO (12:32)
[2018-12-05 12:56] VITALS: BP 115/76
== END 2018-12-05 12:57 | disposition home or self-care (01) ==
LOC: M ED 10:10
DX: N20.1 Calculus of ureter (principal); N39.0 Urinary tract infection, site not specified; R31.9 Hematuria, unspecified; R11.2 Nausea with vomiting, unspecified; I10 Essential (primary) hypertension; E78.5 Hyperlipidemia, unspecified; K21.9 Gastro-esophageal reflux disease without esophagitis; K57.92 Diverticulitis of intestine, part unspecified, without perforation or abscess without bleeding; Z87.19 Personal history of other diseases of the digestive system; R51 Headache; Z86.711 Personal history of pulmonary embolism; M54.9 Dorsalgia, unspecified; F41.9 Anxiety disorder, unspecified; F32.9 Major depressive disorder, single episode, unspecified; F03.90 Unspecified dementia, unspecified severity, without behavioral disturbance, psychotic disturbance, mood disturbance, and anxiety; H81.09 Meniere's disease, unspecified ear; Z87.442 Personal history of urinary calculi; Z79.899 Other long term (current) drug therapy; Z79.01 Long term (current) use of anticoagulants
CPT/HCPCS: 36415; 74176; 80048; 80076; 81000; 83690; 85025; 87086; 96374; 96375; 96376; 99284; J1885; J2270; J2405

== ENCOUNTER → 2018-12-20 | Outpatient (CLI) | payer OTHER ==
[~2018-12-20] MED LIST changes: +CIPR-249 PO; +FLOM0.4C39 PO; +KETO10TAB PO
[2018-12-20 14:31] LABS: HEMATOCRIT 42.3 % (42.0-52.0); HEMOGLOBIN 13.9 g/dl (13.5-17.5); MEAN CORPUSCULAR HEMOGLOBIN 31.4 pg (27.0-33.0); MEAN CORPUSCULAR HGB CONC 32.9 g/dl (32.0-36.5); MEAN CORPUSCULAR VOLUME 95.5 fl (80.0-96.0); PLATELET COUNT, AUTOMATED 248 10^3/uL (150-450); RED BLOOD COUNT 4.43 10^6/uL (4.30-6.10); WHITE BLOOD COUNT 6.8 10^3/uL (4.0-10.0)
[2018-12-20 14:51] LABS: ALBUMIN 3.6 GM/DL (3.2-5.2); ALT/SGPT 36 U/L (12-78); BILIRUBIN,TOTAL 0.4 MG/DL (0.2-1.0); BLOOD UREA NITROGEN 9 MG/DL (7-18); CALCIUM LEVEL 8.6 MG/DL (8.5-10.1); CARBON DIOXIDE LEVEL 34 MEQ/L (21-32); CHLORIDE LEVEL 103 MEQ/L (98-107); CREATININE FOR GFR 0.61 MG/DL (0.70-1.30); GLOMERULAR FILTRATION RATE > 60.0 (>56); GLUCOSE, FASTING 101 MG/DL (70-100); POTASSIUM SERUM 3.9 MEQ/L (3.5-5.1); SODIUM LEVEL 141 MEQ/L (136-145); TOTAL PROTEIN 6.6 GM/DL (6.4-8.2)
== END ==
LOC: M LAB 13:43
PROVIDERS: ATTEND Nurse Practitioner
DX: C15.5 Malignant neoplasm of lower third of esophagus (principal)

== ENCOUNTER → 2018-12-24 | Outpatient (CLI) | payer OTHER ==
[~2018-12-24] MED LIST changes: +GASTROGRAFIN SOLUTION 30ML (Q9963) As Ordered ONE; +ISOVUE-370 76% 100ML VIAL (Q9967) As Ordered ONE
--- NOTE | 2018-12-25 04:49 | REP ---
Clinical: History of esophageal neoplasm. Technique: Axial contrast enhanced images from the thoracic inlet to the upper abdomen using 100 ml Isovue 370 intravenous contrast material. Automated dose lowering techniques and adjustment based on patient's size utilized during acquisition. Comparison: 08/23/2018 Findings: Evidence for partial esophagectomy and gastric pull-through surgery is again identified and without significant change. No obvious increased soft tissue in the rosanne esophageal middle mediastinum is identified and no obvious mediastinal, hilar, or gastroesophageal adenopathy is appreciated. Remainder of the mediastinum including thoracic aorta, pulmonary vasculature, and heart/pericardium remains stable. Atherosclerotic changes noted to the thoracic aorta and coronary arteries without aneurysm or dissection. No pericardial effusion. The bilateral lung olvera demonstrate mild chronic interstitial changes without acute consolidation, significant nodule or mass lesion. Minimal left basilar fibroatelectatic changes are again identified and relatively unchanged. Limited upper abdomen demonstrates normal bilateral adrenal glands and stable cyst along the posterior aspect of the left kidney. Musculoskeletal structures again demonstrate mild compression deformity involving the superior endplate of T8. Impression: 1. Postsurgical changes involving the esophagus and middle mediastinum again noted without change from prior examination. No evidence for obvious recurrence, adenopathy, or mass lesion. 2. Mild persistent fibroatelectatic changes at the left lung base essentially unchanged. No new acute mediastinal or pleuroparenchymal process identified. 3. Continued evidence for mild compression fracture involving the superior endplate of T8. Electronically Signed by Timbo Pappas MD 12/25/2018 04:40 A
--- NOTE | 2018-12-25 04:55 | REP ---
Clinical: History of esophageal neoplasm. Technique: Axial contrast enhanced images from the lung bases to the pubic symphysis using oral (per protocol) and 100 ml Isovue 370 intravenous contrast material with delayed images of the abdomen as well as coronal and sagittal re-formations. Automated dose lowering techniques and/or adjustment according to patient's size were utilized during acquisition. Comparison: 12/05/2018, 08/23/2018. Findings: The visualized lung bases demonstrate evidence for prior partial esophagectomy and gastric pull-through surgery. Minimal chronic left basilar atelectasis noted. Liver, spleen, pancreas, gallbladder, bilateral adrenal glands and kidneys are essentially normal/stable. Bilateral renal cysts appear simple/benign and unchanged. Small and large bowel is without obstruction or acute inflammatory process. Colonic and sigmoid diverticulosis noted without acute diverticulitis. Pelvis demonstrates normal bladder and age appropriate prostate/seminal vesicles. No ascites. No free air. No significant adenopathy. Atherosclerotic changes to the aorta noted without aneurysm or dissection. Musculoskeletal structures demonstrate age-related degenerative changes without focal osseous abnormality. Impression: 1. Evidence of prior gastroesophageal surgery. No evidence for mass lesion, recurrence or metastatic disease noted. 2. Colonic and sigmoid diverticula without acute diverticulitis. 3. Stable benign bilateral renal cysts. 4. Mild fatty infiltration to the liver without focal hepatic lesion. Electronically Signed by Timbo Pappas MD 12/25/2018 04:46 A
== END ==
LOC: M RAD 09:30
PROVIDERS: ATTEND Nurse Practitioner
DX: C15.5 Malignant neoplasm of lower third of esophagus (principal)

== ENCOUNTER → 2019-01-23 | Outpatient (REF) | payer OTHER ==
[~2019-01-23] MED LIST changes: -GASTROGRAFIN SOLUTION 30ML (Q9963) As Ordered ONE; -ISOVUE-370 76% 100ML VIAL (Q9967) As Ordered ONE
[2019-01-23 18:29] LABS: APPEARANCE, URINE CLOUDY (CLEAR); BACTERIA, URINE AUTO NEGATIVE (NEGATIVE); BILIRUBIN, URINE AUTO NEGATIVE (NEGATIVE); BLOOD, URINE BLOOD 3+ (NEGATIVE); COLOR, URINE YELLOW (YELLOW); GLUCOSE, URINE (UA) AUTO NEGATIVE (NEGATIVE); KETONE, URINE AUTO NEGATIVE (NEGATIVE); LEUKOCYTE ESTERASE, URINE AUTO NEGATIVE (NEGATIVE); NITRITE, URINE AUTO NEGATIVE (NEGATIVE); PROTEIN, URINE AUTO 1+ mg/dL (NEGATIVE); RBC, URINE AUTO TNTC /HPF (0-3); SPECIFIC GRAVITY URINE AUTO 1.015 (1.002-1.035); SQUAMOUS EPITHELIAL CELL UR AU 0 /HPF (0-6); UROBILINOGEN, URINE AUTO 0.2 mg/dL (0.0-2.0); WBC, URINE AUTO 3 /HPF (0-3)
== END ==
LOC: M LAB REF 17:49
PROVIDERS: ATTEND Physician Assistant Medical
DX: R31.9 Hematuria, unspecified (principal); R31.0 Gross hematuria

== ENCOUNTER 2019-02-01 11:40 | Emergency (ER) | payer OTHER ==
[~2019-02-01] VITALS: Ht 177.8 cm; Wt 80.8 kg
[2019-02-01] MEDS ORDERED: ONDANSETRON 4MG/2ML VIAL (J2405) IV ONE (13:00)
[2019-02-01] MEDS ORDERED: NS 500 ML IV ONE (13:00)
[2019-02-01] MEDS ORDERED: MORPHINE 2 MG/ML 1ML SYRINGE (J2270) IV PRN (13:00)
[2019-02-01 13:08] LABS: BASO # 0.1 10^3/uL (0.0-0.2); BASO % 0.6 % (0.0-1.0); EOS # 0.2 10^3/uL (0.0-0.50); EOS % 1.5 % (0.0-3.0); HEMATOCRIT 43.7 % (42.0-52.0); HEMOGLOBIN 14.4 g/dl (13.5-17.5); LYMPH # 0.8 10^3/uL (1.5-4.5); MEAN CORPUSCULAR HEMOGLOBIN 31.4 pg (27.0-33.0); MEAN CORPUSCULAR VOLUME 95.4 fl (80.0-96.0); MONO # 0.9 10^3/uL (0.0-0.8); MONO % 7.8 % (0.0-5.0); NEUTROPHILS # 9.9 10^3/uL (1.8-7.7); NEUTROPHILS % 82.7 % (36.0-66.0); PLATELET COUNT, AUTOMATED 190 10^3/uL (150-450); RED BLOOD COUNT 4.58 10^6/uL (4.30-6.10)
[2019-02-01 13:25] LABS: INR 1.03; PROTHROMBIN TIME 13.6 SECONDS (12.1-14.4)
[2019-02-01 13:26] LABS: PARTIAL THROMBOPLASTIN TIME 29.7 SECONDS (25.4-37.6)
[2019-02-01 13:31] LABS: ALBUMIN 3.9 GM/DL (3.2-5.2); ALT/SGPT 32 U/L (12-78); AMYLASE 30 U/L (25-115); BILIRUBIN,DIRECT < 0.1 MG/DL (0.0-0.2); BILIRUBIN,TOTAL 0.4 MG/DL (0.2-1.0); BLOOD UREA NITROGEN 9 MG/DL (7-18); CALCIUM LEVEL 8.6 MG/DL (8.5-10.1); CARBON DIOXIDE LEVEL 29 MEQ/L (21-32); CHLORIDE LEVEL 104 MEQ/L (98-107); CREATININE FOR GFR 0.86 MG/DL (0.70-1.30); GLOMERULAR FILTRATION RATE > 60.0 (>56); GLUCOSE, FASTING 134 MG/DL (70-100); LIPASE 45 U/L (73-393); POTASSIUM SERUM 3.7 MEQ/L (3.5-5.1); SODIUM LEVEL 142 MEQ/L (136-145); TOTAL PROTEIN 6.9 GM/DL (6.4-8.2)
[2019-02-01] MEDS ORDERED: MORPHINE 2 MG/ML 1ML SYRINGE (J2270) IV ONE (13:45)
[2019-02-01] MEDS ORDERED: ZOFR4TAB16 PO (14:16)
[2019-02-01] MEDS ORDERED: HYDR-3715 PO (14:16)
[2019-02-01] MEDS ORDERED: FLOM0.4C39 PO (14:18)
--- NOTE | 2019-02-01 14:28 | REP ---
CT ABDOMEN AND PELVIS WITHOUT IV OR ORAL CONTRAST: HISTORY: Left lower quadrant pain. History of stone. COMPARISON: CT study December 24, 2018. CT FINDINGS: Preliminary digital director of revenue cycle management radiograph demonstrates surgical clips in the upper abdomen. Bowel gas pattern is normal. There is some coarse pulmonary fibrotic reaction in the left lower lobe, unchanged. Lung bases are otherwise clear. The patient is status post esophagectomy and gastric interposition procedure. There is no evidence of focal liver mass or upper abdominal adenopathy. There is an upper pole cyst affecting the left kidney. There is left-sided hydronephrosis. There are two intrarenal calculi in the left kidney collecting system each of which measures 3 mm in greatest diameter. The left-sided hydroureter is seen with some periureteral edema to the level of the mid pelvis where there is evidence of a 3 mm obstructive calculus. There are dystrophic calcifications in the prostate. No bladder calculus is seen. No pelvic mass or adenopathy is observed. Small and large intestinal bowel loops are unremarkable. No abdominal wall defect is seen. No bony destructive lesion is appreciated. IMPRESSION: 1. Obstructive 3 mm left distal ureteral calculus at left mid pelvic level. 2. There are two intrarenal calculi in the left kidney. 3. Status post esophagectomy with gastric interposition procedure. 4. No other significant finding. Electronically Signed by Tariq Arriaza MD 02/01/2019 02:41 P
[2019-02-01 14:40] VITALS: BP 172/90
== END 2019-02-01 14:46 | disposition home or self-care (01) ==
LOC: M ED 11:40
DX: N23 Unspecified renal colic (principal); I48.91 Unspecified atrial fibrillation; E11.9 Type 2 diabetes mellitus without complications; Z72.0 Tobacco use; Z86.711 Personal history of pulmonary embolism; F41.9 Anxiety disorder, unspecified; F32.9 Major depressive disorder, single episode, unspecified; N21.1 Calculus in urethra; N20.0 Calculus of kidney; Z79.01 Long term (current) use of anticoagulants; Z79.899 Other long term (current) drug therapy
CPT/HCPCS: 74176; 80048; 80076; 81001; 82150; 83690; 85025; 85610; 85730; 86850; 86900; 86901; 93041; 96374; 96375; 99284; J2270; J2405

== ENCOUNTER → 2019-03-14 | Outpatient (CLI) | payer OTHER ==
[~2019-03-14] MED LIST changes: +HYDR-3715 PO
--- NOTE | 2019-03-15 06:49 | REP ---
Clinical: Nephrolithiasis. Technique: Real time reyes scale and color evaluation using curved array transducer. Findings: The bilateral kidneys are normal in reniform shape and echogenicity without hydronephrosis or obvious nephrolithiasis. Right kidney measures 12.4 x 6.5 x 4.9 cm and includes 1.3 x 1.0 x 1.3 cm complex cyst in the lower pole. Left kidney measures 12.3 x 4.7 x 7.0 cm with 2.8 x 2.6 x 2.8 cm simple cyst at the upper pole. The bladder is normal in appearance and demonstrates bilateral ureteral jets. Impression: Solitary bilateral renal cysts. No obvious nephrolithiasis. Electronically Signed by Timbo Pappas MD 03/15/2019 06:40 A
== END ==
LOC: M RAD 07:51
PROVIDERS: ATTEND Urology
DX: N28.1 Cyst of kidney, acquired (principal)

== ENCOUNTER → 2019-06-28 | Outpatient (CLI) | payer OTHER ==
[~2019-06-28] MED LIST changes: +CYAN100050 PO; +DULO1CAP6 PO; +GASTROGRAFIN SOLUTION 30ML (Q9963) As Ordered ONE; +ISOVUE-370 76% 100ML VIAL (Q9967) As Ordered ONE; +MIRT1TAB16 PO; +OMEP1CAP73 PO; -OMEP20CA3 PO; +OMEP40CA97 PO; +ONDA8TAB10 PO; -ONDA8TAB7 PO; +OXYC1TAB23 PO; +REME15TA PO
--- NOTE | 2019-06-28 13:00 | REP ---
REASON FOR EXAM: History of esophageal carcinoma with gastric pull through procedure. COMPARISON: Multiple, latest 12/24/2018. CONTRAST: 100 mL Isovue-370. Mediastinum and pulmonary nicola are unchanged. There is no mass or adenopathy. Postoperative changes from previous gastric pull through, status quo. There are no pleural or pericardial effusions. The imaged upper abdomen is unchanged. The imaged osseous structures are stable and intact. Evaluation of the lung olvera shows no new abnormal nodules, masses, or opacities. There is mild bibasilar cylindrical bronchiectasis. IMPRESSION: Stable CT examination of the chest. There is no evidence of acute disease. Electronically Signed by Maximino Cerda DO 06/28/2019 02:20 P
--- NOTE | 2019-06-28 13:26 | REP ---
REASON: History of esophageal carcinoma. All priors were reviewed, the latest which is dated 02/01/2019 a noncontrast enhanced examination and the latest contrast enhanced examination dated 12/24/2018. CONTRAST: 100 mL Isovue 370. Postoperative changes from gastric pull through procedure status quo. The liver and spleen are unchanged and again seen to be within normal limits. The gallbladder, adrenal glands, and kidneys are unchanged. There is a left renal cyst status quo. There is benign adrenal gland thickening status quo. The pancreas is atrophic status quo. There is no free fluid or free air. The bowel loops and their mesenteries are unchanged and again seen to be within normal limits. The abdominal aorta and paraaortic regions are unchanged. Borderline paraaortic lymph nodes are noted status quo. Bone window technique throughout the examination shows no significant change in the appearance of the osseous structures. IMPRESSION: No significant change compared to 12/14/2018 contrast enhanced exam. The left renal obstructive phenomena due to calcifications seen on the prior of 02/01/2019 exam has abated. Unchanged simple left renal cysts. There is no evidence of acute disease. Electronically Signed by Maximino Cerda DO 06/28/2019 02:20 P
== END ==
LOC: M RAD 10:50
PROVIDERS: ATTEND Internal Medicine Hematology & Oncology
DX: C15.5 Malignant neoplasm of lower third of esophagus (principal); R11.0 Nausea; R10.9 Unspecified abdominal pain; N28.1 Cyst of kidney, acquired
CPT/HCPCS: 71260; 74160; Q9963; Q9967

== ENCOUNTER 2019-09-15 12:59 | Day surgery (SDC) | payer OTHER ==
[~2019-09-15] VITALS: Ht 175.3 cm; Wt 78.2 kg
[~2019-09-15 12:59] MED LIST changes: -CYAN100050 PO; -DULO1CAP6 PO; -GASTROGRAFIN SOLUTION 30ML (Q9963) As Ordered ONE; -ISOVUE-370 76% 100ML VIAL (Q9967) As Ordered ONE; -MIRT1TAB16 PO; -OMEP1CAP73 PO; +OMEP20CA4 PO; -OMEP40CA97 PO; -ONDA8TAB10 PO; +ONDA8TAB7 PO; -OXYC1TAB23 PO; -REME15TA PO
[2019-09-15] MEDS ORDERED: GLUCAGON FOR INJ 1 MG VIAL (J1610) IV STA ×2 (13:24→14:04)
[2019-09-15] MEDS ORDERED: DULO1CAP6 PO (13:47)
[2019-09-15] MEDS ORDERED: REME15TA PO (13:48)
[2019-09-15] MEDS ORDERED: MIRT1TAB16 PO (15:27)
[2019-09-15] MEDS ORDERED: OXYC1TAB23 PO (15:27)
[2019-09-15] MEDS ORDERED: CYAN100050 PO (15:27)
[2019-09-15] MEDS ORDERED: ZOFR4TAB16 PO (15:27)
[2019-09-15] MEDS ORDERED: E-Z-PAQUE 96% w/w SUSP 176GM BTL As Ordered ONE (15:33)
--- NOTE | 2019-09-15 16:27 | REP ---
Barium esophagram: The the patient has an esophagectomy with gastric pull-through and complains of sensation of something stuck in his throat and inability to swallow except for some sipping small amounts of fluid. The hypopharynx is unremarkable. There are multiple filling defects in the superior portion of the pull-through at the thoracic inlet. The pull-through in this location is not distended. Liquid barium can be seen around the periphery of these filling defects and extending into the nondistended portion of the pull-through slightly more distally. The pull-through distal to the filling defects is nondistended. These filling defects are nonspecific and could represent impacted ingested food or tumor recurrence. Impression: Multiple filling defects within the proximal portion of the pull-through at the thoracic inlet. The pull-through distal to this is nondistended. Electronically Signed by Car Alejandro MD 09/15/2019 04:18 P
[2019-09-15] MEDS ORDERED: ROCURONIUM BROMIDE 50 MG/5 ML VIAL As Ordered ONE (16:59)
[2019-09-15] MEDS ORDERED: PROPOFOL 200 MG/20 ML VIAL As Ordered ONE (16:59)
[2019-09-15] MEDS ORDERED: LIDOCAINE 2% INJ 100 MG/5 ML SDV (FOR ANES.) As Ordered ONE (16:59)
[2019-09-15] MEDS ORDERED: fentaNYL 100 MCG/2 ML INJECTION (J3010) As Ordered ONE (17:00)
[2019-09-15] MEDS ORDERED: MIDAZOLAM INJ 2 MG/2 ML VIAL (J2250) As Ordered ONE (17:03)
--- NOTE | 2019-09-15 17:23 | CR.PDOC ---
General Date of Consultation: Sep 15, 2019 Referring Provider: DESTINEY REYNA Attending Physician: XIOMARA SNOW MD Consultation REASON FOR CONSULTATION/CHIEF COMPLAINT: Esophageal food impaction. 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 Today patient came to ER for persistent symptoms. Patient was given glucagon and he started tolerating liquids but still continues to complain of throat pain. Patient reports having prior similar symptoms, when he vomiting and cleared his throat but today he is unable to do the same. 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 ALLERGIES: Please see below. HOME MEDICATIONS: Please see below. PAST MEDICAL HISTORY: as per HPI. PAST SURGICAL HISTORY: As per HPI FAMILY HISTORY: non- contributory. SOCIAL HISTORY: Denied any smoking, alcohol or IVDA. REVIEW OF SYSTEMS: CONSTITUTIONAL: No fever HEENT: No cough, having persistent throat discomfort. CARDIOVASCULAR: No chest pain, no exertional shortness of breath. RESPIRATORY: No shortness of breath. no wheezing. GENITOURINARY: No burning micturition. MUSCULOSKELETAL: No joint pain.. GASTROINTESTINAL: as above. SKIN: No new rash. NEUROLOGICAL: No focal weakness. HEMATOLOGIC/LYMPHATIC: No gum bleeding. PHYSICAL EXAMINATION: VITAL SIGNS: Please see below. GENERAL APPEARANCE: Patient is mild to moderate distress from persistent throat pain. HEENT: No pallor, no icterus, NC/ AT, GREGORIO, no palpable neck masses. Scar from prior surgery. RESPIRATORY: Bilateral clear air entry, no wheezing. CARDIOVASCULAR: s1, s2 heard, irregular rhythm ABDOMEN: Soft, no distended, normal bowel sounds. EXTREMITIES: No pedal edema. NEUROLOGICAL: No focal deficits. LABORATORY DATA: Please see below. Impression: -- Food impaction in esophagus with Esophagogram shows slight passage of gastrograffin -- needs further evaluation. Recommendations: -- Patient is educated about the test results and all questions answered. -- NPO -- IV fluids -- prefer NS at 100cc/ hour. -- Patient is scheduled for urgent endoscopy in OR. Patient is educated about the procedure, indications, risks, benefits and alternatives. he verbalized understanding and consented for the procedure. -- Please review EGD report for Post procedure recommendations. -- Patient want to get discharged after procedure and accompanied by his family member. -- Plan of care discussed with patient, ER team. Patient verbalized understanding. Vital Signs/I&O Vital Signs Date Time Temp Pulse Resp B/P (MAP) Pulse Ox O2 Delivery O2 Flow Rate FiO2 09/15/19 16:40 98.1 60 18 131/78 (95) 98 Room Air Allergies Coded Allergies: No Known Allergies (Unverified , 02/01/19) Home Medications Scheduled Apixaban (Eliquis) 5 Mg Tab, 5 MG PO BID, (Reported) Ascorbic Acid (Vitamin C) 500 Mg Tab, 500 MG PO DAILY, (Reported) Cyanocobalamin (Vitamin B-12) (Vitamin B-12) 1,000 Mcg Tablet, 1,000 MCG PO DAILY, (Reported) Duloxetine Hcl (Duloxetine HCl) 60 Mg Capsule.dr, 60 MG PO DAILY, (Reported) Mirtazapine (Mirtazapine) 30 Mg Tab.rapdis, 30 MG PO QHS, (Reported) Multivitamins (Thera M Plus Tablet) 1 Tab Tab, 1 TAB PO DAILY, (Reported) Scheduled PRN Ondansetron HCl (Zofran) 4 Mg Tablet, 4 MG PO Q6H PRN for NAUSEA OR VOMITING, (Reported) Oxycodone HCl/Acetaminophen (Oxycodone-Acetaminophen 5-325) 1 Each Tablet, 1 TAB PO BID PRN for PAIN, (Reported) Discharge Summary General Date of Admission 09/15/2019 for same day procedure-- EGD Date of Discharge 09/15/2019 Discharge Summary Impression: - Food in the upper third of the esophagus. Removal was successful. - An esophago-gastric anastomosis was found, characterized by congestion, erythema and mild stenosis. - A previous surgical anastomosis was found. - Normal duodenal bulb and second portion of the duodenum. Recommendation: - Patient has a contact number available for emergencies. The signs and symptoms of potential delayed complications were discussed with the patient. Return to normal activities tomorrow. Written discharge instructions were provided to the patient. - Clear liquid diet for 1 day, then advance as tolerated to chopped diet, mechanical soft diet and pureed diet. - Resume Eliquis (apixaban) at prior dose tomorrow. Refer to primary physician for further adjustment of therapy. - Use a proton pump inhibitor PO daily for 3 months. - Return to primary care physician. - The patient will be observed post-procedure, until all discharge criteria are met. - Discharge patient to home (with spouse). Vital Signs/I&Os Vital Signs Date Time Temp Pulse Resp B/P (MAP) Pulse Ox O2 Delivery O2 Flow Rate FiO2 09/15/19 16:40 98.1 60 18 131/78 (95) 98 Room Air XIOMARA SNOW MD Sep 15, 2019 17:23
[2019-09-15] MEDS ORDERED: SUCCINYLCHOLINE 100 MG/5 ML SYRINGE (J0330) As Ordered ONE (17:56)
[2019-09-15] MEDS ORDERED: ePHEDrine SULFATE 25 MG/5 ML(5MG/ML) SYRINGE As Ordered ONE (17:56)
[2019-09-15] MEDS ORDERED: ONDANSETRON 4MG/2ML VIAL (J2405) As Ordered ONE (18:07)
[2019-09-15] MEDS ORDERED: dexameTHASONE 4 MG/ML 1ML VIAL (J1100) As Ordered ONE (18:08)
--- NOTE | 2019-09-15 18:41 | ROOR ---
Patient Name: Sammy Khan Procedure Date: 09/15/2019 4:56 PM Date of : 1960 Age: 59 Room: Main OR Gender: Male Note Status: Finalized Procedure: Upper GI endoscopy Indications: Foreign body in the esophagus Providers: Lewis Lainez MD Referring MD: Rosie Edward MD Requesting Provider: Medicines: Monitored Anesthesia Care Complications: No immediate complications. Procedure: Pre-Anesthesia Assessment: - Prior to the procedure, a History and Physical was performed, and patient medications and allergies were reviewed. The patient is competent. The risks and benefits of the procedure and the sedation options and risks were discussed with the patient. All questions were answered and informed consent was obtained. Patient identification and proposed procedure were verified by the physician, the nurse and the anesthesiologist in the procedure room. Mental Status Examination: alert and oriented. Airway Examination: normal oropharyngeal airway and neck mobility. Respiratory Examination: clear to auscultation. CV Examination: normal. Prophylactic Antibiotics: The patient does not require prophylactic antibiotics. Prior Anticoagulants: The patient has taken Eliquis (apixaban), last dose was 1 day prior to procedure. ASA Grade Assessment: II - A patient with mild systemic disease. After reviewing the risks and benefits, the patient was deemed in satisfactory condition to undergo the procedure. The anesthesia plan was to use monitored anesthesia care (MAC). Immediately prior to administration of medications, the patient was re-assessed for adequacy to receive sedatives. The heart rate, respiratory rate, oxygen saturations, blood pressure, adequacy of pulmonary ventilation, and response to care were monitored throughout the procedure. The physical status of the patient was re-assessed after the procedure. The Endoscope was introduced through the mouth, and advanced to the second part of duodenum. The upper GI endoscopy was accomplished without difficulty. The patient tolerated the procedure well. Findings: Food was found in the upper third of the esophagus. Removal of food was accomplished. An esophago-gastric anastomosis was found in the upper third of the esophagus. This was characterized by congestion, erythema and mild stenosis. Evidence of a previous surgical anastomosis was found in the gastroesophageal junction. The duodenal bulb and second portion of the duodenum were normal. Impression: - Food in the upper third of the esophagus. Removal was successful. - An esophago-gastric anastomosis was found, characterized by congestion, erythema and mild stenosis. - A previous surgical anastomosis was found. - Normal duodenal bulb and second portion of the duodenum. Recommendation: - Patient has a contact number available for emergencies. The signs and symptoms of potential delayed complications were discussed with the patient. Return to normal activities tomorrow. Written discharge instructions were provided to the patient. - Clear liquid diet for 1 day, then advance as tolerated to chopped diet, mechanical soft diet and pureed diet. - Resume Eliquis (apixaban) at prior dose tomorrow. Refer to primary physician for further adjustment of therapy. - Use a proton pump inhibitor PO daily for 3 months. - Return to primary care physician. - The patient will be observed post-procedure, until all discharge criteria are met. - Discharge patient to home (with spouse). Attending Participation: I personally performed the entire procedure. Lewis Lainez MD Lewis Lainez MD 09/15/2019 6:41:21 PM Electronically signed by Lewis Lainez MD Number of Addenda: 0 Note Initiated On: 09/15/2019 4:56 PM Estimated Blood Loss: Estimated blood loss: none.
[2019-09-15] MEDS ORDERED: METOCLOPRAMIDE INJ 10MG/2ML VIAL (J2765) IV PRN (19:15)
[2019-09-15] MEDS ORDERED: fentaNYL 100 MCG/2 ML INJECTION (J3010) IV PRN (19:15)
[2019-09-15] MEDS ORDERED: LR 1,000 ML IV SCH (19:15)
[2019-09-15] MEDS ORDERED: PERCOCET 5MG/325MG TAB PO PRN (19:15)
[2019-09-15] MEDS ORDERED: ONDANSETRON 4MG/2ML VIAL (J2405) IV PRN (19:15)
[2019-09-15 19:25] VITALS: BP 111/69
[2019-09-15 20:10] VITALS: BP 112/69
[2019-09-15] MEDS ORDERED: OMEP40CA97 PO (20:59)
== END 2019-09-15 20:10 | disposition home or self-care (01) ==
LOC: M ED 12:59 → M SDC 13:00 → M MSPAV 19:25 → M SDC 20:10
PROVIDERS: ATTEND Internal Medicine Gastroenterology
DX: T18.128A Food in esophagus causing other injury, initial encounter (principal); Z98.0 Intestinal bypass and anastomosis status; Z98.890 Other specified postprocedural states; I10 Essential (primary) hypertension; I48.91 Unspecified atrial fibrillation; E78.00 Pure hypercholesterolemia, unspecified; Z92.21 Personal history of antineoplastic chemotherapy; Z92.3 Personal history of irradiation; Z87.891 Personal history of nicotine dependence; Z85.01 Personal history of malignant neoplasm of esophagus; F41.9 Anxiety disorder, unspecified; F32.9 Major depressive disorder, single episode, unspecified; Z79.01 Long term (current) use of anticoagulants; Z79.899 Other long term (current) drug therapy
CPT/HCPCS: 43247; 74220; 96374; 96376; 99284; J0330; J1100; J1610; J2250; J2405; J3010

== ENCOUNTER → 2019-09-16 | Outpatient (CLI) | payer OTHER ==
[~2019-09-16] MED LIST changes: +CYAN100050 PO; +DULO1CAP6 PO; +ISOVUE-370 76% 100ML VIAL (Q9967) As Ordered ONE; +MIRT1TAB16 PO; +OMEP40CA97 PO; +OXYC1TAB23 PO; +REME15TA PO
--- NOTE | 2019-09-17 07:51 | REP ---
Clinical: Gross hematuria. Technique: Precontrast, contrast enhanced, and delayed images of the abdomen and pelvis using 100 ml Isovue 370 intravenous contrast material with 3-D volume rendered MIP urogram. Comparison: 02/01/2019, 06/28/2019. Findings: Evaluation of the urinary tract system demonstrates few punctate bilateral nonobstructing intrarenal calculi measuring up to 1 - 2 mm without perinephric stranding, hydroureteronephrosis or obstructing ureteral calculi. Simple bilateral renal cysts measure 1.5 centimeters and 9 mm in the right kidney along with 3 cm exophytic left upper pole cyst and 1 cm anterior mid pole cyst. Bilateral ureters and bladder are normal. Liver, spleen, pancreas, gallbladder, and bilateral adrenal glands are normal. Evaluation of the enteric system suggests prior gastric pull-through procedure for esophageal carcinoma. No bowel obstruction or acute inflammatory process noted. Pelvis demonstrates normal bladder and age appropriate prostate/seminal vesicles. No ascites. No free air. No adenopathy. Abdominal aorta without aneurysm or dissection. Musculoskeletal structures demonstrate age-related changes without focal abnormality. Lung bases demonstrate minimal left basilar fibro atelectatic changes. Impression: 1. Urinary tract system demonstrates bilateral simple cysts and few bilateral nonobstructing 1-2 mm calculi. Electronically Signed by Timbo Pappas MD 09/17/2019 07:42 A
== END ==
LOC: M RAD 07:50
PROVIDERS: ATTEND Urology
DX: N20.1 Calculus of ureter (principal)
CPT/HCPCS: 74178; Q9967

== ENCOUNTER → 2019-09-30 | Outpatient (REF) | payer OTHER ==
[~2019-09-30] MED LIST changes: -ISOVUE-370 76% 100ML VIAL (Q9967) As Ordered ONE
[2019-09-30 14:05] LABS: APPEARANCE, URINE CLEAR (CLEAR); BACTERIA, URINE AUTO NEGATIVE (NEGATIVE); BILIRUBIN, URINE AUTO NEGATIVE (NEGATIVE); BLOOD, URINE BLOOD NEGATIVE (NEGATIVE); CALCIUM OXALATE CRYSTALS SMALL; COLOR, URINE YELLOW (YELLOW); GLUCOSE, URINE (UA) AUTO NEGATIVE (NEGATIVE); KETONE, URINE AUTO NEGATIVE (NEGATIVE); LEUKOCYTE ESTERASE, URINE AUTO NEGATIVE (NEGATIVE); NITRITE, URINE AUTO NEGATIVE (NEGATIVE); PROTEIN, URINE AUTO NEGATIVE (NEGATIVE); RBC, URINE AUTO 1 /HPF (0-3); SPECIFIC GRAVITY URINE AUTO 1.014 (1.002-1.035); SQUAMOUS EPITHELIAL CELL UR AU 0 /HPF (0-6); UROBILINOGEN, URINE AUTO 0.2 mg/dL (0.0-2.0); WBC, URINE AUTO 3 /HPF (0-3)
== END ==
LOC: M LAB REF 12:59
PROVIDERS: ATTEND Family Medicine
DX: Z01.812 Encounter for preprocedural laboratory examination (principal)

== ENCOUNTER → 2019-09-30 | Outpatient (CLI) | payer OTHER ==
[2019-09-30 13:17] LABS: BASO # 0.1 10^3/uL (0.0-0.2); BASO % 1.2 % (0.0-1.0); EOS # 0.5 10^3/uL (0.0-0.5); EOS % 5.5 % (0.0-3.0); HEMATOCRIT 42.3 % (42.0-52.0); HEMOGLOBIN 13.7 g/dl (13.5-17.5); LYMPH % 12.3 % (24.0-44.0); MEAN CORPUSCULAR HEMOGLOBIN 31.9 pg (27.0-33.0); MEAN CORPUSCULAR HGB CONC 32.4 g/dl (32.0-36.5); MEAN CORPUSCULAR VOLUME 98.4 fl (80.0-96.0); MONO # 0.7 10^3/uL (0.0-0.8); MONO % 8.3 % (0.0-5.0); NEUTROPHILS % 72.3 % (36.0-66.0); PLATELET COUNT, AUTOMATED 220 10^3/uL (150-450); WHITE BLOOD COUNT 8.2 10^3/uL (4.0-10.0)
[2019-09-30 13:23] LABS: INR 1.06; PROTHROMBIN TIME 13.6 SECONDS (11.8-14.0)
[2019-09-30 13:24] LABS: PARTIAL THROMBOPLASTIN TIME 30.7 SECONDS (25.0-38.4)
[2019-09-30 13:41] LABS: BLOOD UREA NITROGEN 8 MG/DL (7-18); CALCIUM LEVEL 8.6 MG/DL (8.5-10.1); CARBON DIOXIDE LEVEL 30 MEQ/L (21-32); CHLORIDE LEVEL 106 MEQ/L (98-107); CREATININE FOR GFR 0.64 MG/DL (0.70-1.30); GLOMERULAR FILTRATION RATE > 60.0 (>56); GLUCOSE, FASTING 93 MG/DL (70-100); POTASSIUM SERUM 4.1 MEQ/L (3.5-5.1); SODIUM LEVEL 141 MEQ/L (136-145)
[2019-09-30 14:21] LABS: HEMOGLOBIN A1c 5.5 %
== END ==
LOC: M LAB 11:42
PROVIDERS: ATTEND Family Medicine
DX: Z01.818 Encounter for other preprocedural examination (principal)

== ENCOUNTER → 2019-12-30 | Outpatient (CLI) | payer OTHER ==
[~2019-12-30] MED LIST changes: +OMEP1CAP73 PO; -OMEP20CA4 PO; +ONDA8TAB10 PO; -ONDA8TAB7 PO
[2019-12-30 14:10] LABS: BASO # 0.1 10^3/uL (0.0-0.2); BASO % 1.2 % (0.0-1.0); EOS # 0.4 10^3/uL (0.0-0.5); EOS % 5.4 % (0.0-3.0); HEMATOCRIT 43.1 % (42.0-52.0); HEMOGLOBIN 14.1 g/dl (13.5-17.5); LYMPH # 1.1 10^3/uL (1.5-5.0); LYMPH % 16.4 % (24.0-44.0); MEAN CORPUSCULAR HEMOGLOBIN 31.3 pg (27.0-33.0); MEAN CORPUSCULAR HGB CONC 32.7 g/dl (32.0-36.5); MEAN CORPUSCULAR VOLUME 95.8 fl (80.0-96.0); MONO # 0.6 10^3/uL (0.0-0.8); NEUTROPHILS # 4.5 10^3/uL (1.5-8.5); NEUTROPHILS % 67.7 % (36.0-66.0); PLATELET COUNT, AUTOMATED 222 10^3/uL (150-450); WHITE BLOOD COUNT 6.7 10^3/uL (4.0-10.0)
[2019-12-30 14:33] LABS: ALBUMIN 3.8 GM/DL (3.2-5.2); ALT/SGPT 38 U/L (12-78); BILIRUBIN,TOTAL 0.3 MG/DL (0.2-1.0); BLOOD UREA NITROGEN 10 MG/DL (7-18); CALCIUM LEVEL 8.8 MG/DL (8.5-10.1); CARBON DIOXIDE LEVEL 33 MEQ/L (21-32); CHLORIDE LEVEL 105 MEQ/L (98-107); CREATININE FOR GFR 0.65 MG/DL (0.70-1.30); GLOMERULAR FILTRATION RATE > 60.0 (>56); GLUCOSE, FASTING 103 MG/DL (70-100); SODIUM LEVEL 142 MEQ/L (136-145)
== END ==
LOC: M LAB 13:01
PROVIDERS: ATTEND Internal Medicine Hematology & Oncology
DX: R11.2 Nausea with vomiting, unspecified (principal); R10.9 Unspecified abdominal pain; C15.5 Malignant neoplasm of lower third of esophagus

== ENCOUNTER → 2020-01-03 | Outpatient (CLI) | payer OTHER ==
[~2020-01-03] MED LIST changes: +GASTROGRAFIN SOLUTION 30ML (Q9963) As Ordered ONE; +ISOVUE-370 76% 100ML VIAL (Q9967) As Ordered ONE
--- NOTE | 2020-01-03 11:53 | REP ---
CT CHEST WITH IV CONTRAST: HISTORY: Restaging esophageal carcinoma. Comparison chest CT study June 28, 2019. CT CONTRAST DOSE: 100 mL of intravenous Isovue 370. CT FINDINGS: The patient is status post esophagectomy and gastric interposition procedure. There is no evidence of pleural or pericardial effusion. There is no new or enlarging mediastinal lymph node. No lung nodule is appreciated. There is some linear fibrosis again noted in the left lung base. No infiltrate is seen. There is good opacification of the pulmonary arterial tree and the thoracic aorta. There is no evidence of aortic dissection or aneurysm. There is no CT evidence of pulmonary embolus. No adrenal lesion is seen on either side. No evidence of upper abdominal adenopathy. Bone window settings show no bony destructive lesion. IMPRESSION: Status post esophagectomy and gastric pull-through procedure. No active intrathoracic disease. Electronically Signed by Tariq Arriaza MD 01/03/2020 12:35 P
--- NOTE | 2020-01-03 12:11 | REP ---
CT ABDOMEN AND PELVIS WITH IV AND ORAL CONTRAST: HISTORY: Restaging esophageal carcinoma. Comparison study September [address] CONTRAST DOSE: 100 mL of intravenous Isovue [address] FINDINGS: The patient is status post esophagectomy and gastric pull-through procedure. There is no evidence of perigastric or upper abdominal mass or adenopathy. Normal adrenals. No liver mass lesion is appreciated. The spleen is unremarkable. There are cortical cysts in the left and right kidney, which are unchanged from the comparison study September 16, 2019. There are two separate 2 mm calculi in the right kidney without hydronephrosis. There is a 3 mm calculus in the collecting system of the left mid kidney and a 4 mm calculus is seen in the lower pole left kidney. There is no evidence of hydronephrosis on the left. No retroperitoneal adenopathy is seen. Normal caliber aorta is noted. There is no evidence of ascites. Small and large intestinal bowel loops are unremarkable in the upper abdomen. There is sigmoid colonic diverticulosis without CT evidence of diverticulitis. No abdominal wall defect is seen. No abnormalities noted in the gallbladder or pancreas. The appendix is not confidently identified but there is no inflammatory change at the cecal tip to suggest appendicitis. No abdominal wall defect is seen. No bony destructive lesion is appreciated. IMPRESSION: 1. Status post esophagectomy and gastric pull-through procedure. 2. Stable bilateral renal cysts and bilateral intrarenal calculi without hydronephrosis. 3. Left colonic diverticulosis. 4. No evidence of mass adenopathy or metastasis. Mild fatty infiltration of the liver. Electronically Signed by Tariq Arriaza MD 01/03/2020 12:35 P
== END ==
LOC: M RAD 08:59
PROVIDERS: ATTEND Internal Medicine Hematology & Oncology
DX: C15.5 Malignant neoplasm of lower third of esophagus (principal); R11.2 Nausea with vomiting, unspecified; R10.9 Unspecified abdominal pain
CPT/HCPCS: 71260; 74177; Q9963; Q9967

== ENCOUNTER → 2020-07-09 | Outpatient (CLI) | payer MEDICARE, OTHER ==
[~2020-07-09] MED LIST changes: +BIOT50004 PO; -ISOVUE-370 76% 100ML VIAL (Q9967) As Ordered ONE; +ISOVUE-370 76% 100ML VIAL As Ordered ONE; +medical marijuana
--- NOTE | 2020-08-04 08:17 | REP ---
CONTRAST ENHANCED CT OF THE CHEST CLINICAL: History of esophageal cancer. TECHNIQUE: Axial contrast enhanced images from the thoracic inlet to the upper abdomen with coronal and sagittal reformations using 100 mL Isovue-370 intravenous contrast material followed by CT of the abdomen and pelvis. COMPARISON: 12/14/2019. FINDINGS: The patient is again noted to be status post esophagectomy and gastric pull- through procedure. The mediastinum demonstrates small stable lymph nodes without obvious progression. The thoracic aorta and pulmonary vasculature appeared normal. The tracheobronchial tree is patent. Bilateral lung olvera are relatively clear and without consolidation, significant nodule or mass lesion to suggest metastatic disease. Minimal chronic fibroatelectatic changes at the left base are again noted. Surrounding musculoskeletal structures are intact and without focal osseous abnormality. IMPRESSION: Patient is again noted to be status post esophagectomy and gastric pull-through. Few small mediastinal and hilar lymph nodes remain essentially unchanged. No evidence for metastatic disease or recurrence. No obvious acute mediastinal or pleural parenchymal. MTDD
--- NOTE | 2020-08-04 08:18 | REP ---
CONTRAST-ENHANCED CT OF THE ABDOMEN: CLINICAL: History of esophageal cancer. TECHNIQUE: Axial contrast-enhanced images of the abdomen using oral (per protocol) and 100 cc Isovue 370 contrast material along with delayed images of the abdomen and coronal/sagittal reformations. FINDINGS: The liver demonstrates diffuse fatty infiltration without focal hepatic lesion to suggest metastatic disease. The spleen, pancreas, gallbladder and bilateral adrenal glands are normal. Small lymph nodes in the mid-upper abdominal mesentery as well as small para-aortic retroperitoneal lymph nodes which measure up to approximately 13 mm are again noted and remain stable. The kidneys demonstrate stable bilateral simple cysts along with few nonobstructing left renal calculi. The right kidney demonstrates mild/moderate hydronephrosis and hydroureter to the inferior-most images and distal obstruction cannot be excluded. The enteric system is without obstruction or acute inflammatory process and evidence for prior gastric pull throughout surgery is again noted and appears stable. No ascites. No free air. The abdominal aorta demonstrates atherosclerotic changes without aneurysm. The musculoskeletal structures demonstrate degenerative changes without focal osseous abnormalities. IMPRESSION: 1. Evidence for prior gastric pull through surgery without obvious metastatic disease or recurrence in the abdomen. 2. Few mesenteric and para-aortic retroperitoneal lymph nodes are again noted and stable. No increased adenopathy or obvious new mass lesion appreciated. 3. Hepatosteatosis. 4. Right renal hydronephrosis and hydroureter suspicious for obstruction possibly within the nonvisualized pelvis. Correlation with physical examination and urinalysis is recommended along with noncontrast CT of the abdomen and pelvis, if necessary. 5. Stable bilateral renal cysts and nonobstructing left renal calculi. MTDD
== END ==
LOC: M RAD 08:49
PROVIDERS: ATTEND Internal Medicine Hematology & Oncology
DX: Z90.49 Acquired absence of other specified parts of digestive tract (principal); Z85.01 Personal history of malignant neoplasm of esophagus; N28.1 Cyst of kidney, acquired; N20.0 Calculus of kidney; K76.0 Fatty (change of) liver, not elsewhere classified
CPT/HCPCS: 71260; 74160; Q9963; Q9967

== ENCOUNTER → 2020-07-31 | Outpatient (CLI) | payer MEDICARE, OTHER ==
[~2020-07-31] MED LIST changes: -GASTROGRAFIN SOLUTION 30ML (Q9963) As Ordered ONE; -ISOVUE-370 76% 100ML VIAL As Ordered ONE
== END ==
LOC: M LABSMTC 10:02
PROVIDERS: ATTEND Anesthesiology
DX: Z01.812 Encounter for preprocedural laboratory examination (principal); Z20.828 Contact with and (suspected) exposure to other viral communicable diseases
CPT/HCPCS: C9803; U0003

== ENCOUNTER 2020-08-05 06:58 | Day surgery (SDC) | payer MEDICARE, OTHER ==
[~2020-08-05] VITALS: Ht 175.3 cm; Wt 86.6 kg
[~2020-08-05 06:58] MED LIST changes: +NS 1,000 ML IV ONE
[2020-08-05] MEDS ORDERED: fentaNYL 100 MCG/2 ML INJECTION (J3010) As Ordered ONE (07:12)
[2020-08-05] MEDS ORDERED: LIDOCAINE 2% 100MG/5ML SDV (FOR ANES.) As Ordered ONE (07:13)
[2020-08-05] MEDS ORDERED: propofoL 200 MG/20 ML VIAL As Ordered ONE (07:13)
--- NOTE | 2020-08-05 07:44 | ROOR ---
Patient Name: Sammy Khan Procedure Date: 08/05/2020 7:30 AM Date of : 1960 Age: 59 Room: [facility] Gender: Male Note Status: Finalized Procedure: Upper GI endoscopy Indications: Follow-up of tumor of the GI tract Providers: DO Leigh Phan MD: Rosie Edward MD Requesting Provider: Medicines: Propofol per Anesthesia Complications: No immediate complications. Procedure: Pre-Anesthesia Assessment: - Prior to the procedure, a History and Physical was performed, and patient medications and allergies were reviewed. The patient is competent. The risks and benefits of the procedure and the sedation options and risks were discussed with the patient. All questions were answered and informed consent was obtained. Patient identification and proposed procedure were verified by the physician, the nurse, the environmental planner and the nail technician teacher in the endoscopy suite. Mental Status Examination: alert and oriented. Airway Examination: normal oropharyngeal airway and neck mobility. Respiratory Examination: clear to auscultation. CV Examination: normal. Prophylactic Antibiotics: The patient does not require prophylactic antibiotics. Prior Anticoagulants: The patient has taken no previous anticoagulant or antiplatelet agents. ASA Grade Assessment: III - A patient with severe systemic disease. After reviewing the risks and benefits, the patient was deemed in satisfactory condition to undergo the procedure. The anesthesia plan was to use monitored anesthesia care (MAC). Immediately prior to administration of medications, the patient was re-assessed for adequacy to receive sedatives. The heart rate, respiratory rate, oxygen saturations, blood pressure, adequacy of pulmonary ventilation, and response to care were monitored throughout the procedure. The physical status of the patient was re-assessed after the procedure. The Endoscope was introduced through the mouth, and advanced to the second part of duodenum. The upper GI endoscopy was accomplished without difficulty. The patient tolerated the procedure well. Findings: The esophagus was normal. The stomach was normal. A small amount of a phytobezoar was found in the entire examined stomach. Impression: - Normal esophagus. - Normal stomach. - A small amount of a phytobezoar in the stomach. - No specimens collected. Recommendation: - Patient has a contact number available for emergencies. The signs and symptoms of potential delayed complications were discussed with the patient. Return to normal activities tomorrow. Written discharge instructions were provided to the patient. - Return to my office PRN. Car Carranza DO 08/05/2020 7:43:45 AM Electronically signed by Car Carranza DO Number of Addenda: 0 Note Initiated On: 08/05/2020 7:30 AM Estimated Blood Loss: Estimated blood loss: none.
[2020-08-05 08:02] VITALS: BP 127/91
== END 2020-08-05 07:55 | disposition home or self-care (01) ==
LOC: M OPP 06:58
PROVIDERS: ATTEND Surgery
DX: D49.0 Neoplasm of unspecified behavior of digestive system (principal); T18.2XXA Foreign body in stomach, initial encounter; Z85.01 Personal history of malignant neoplasm of esophagus; I48.91 Unspecified atrial fibrillation; Z87.891 Personal history of nicotine dependence; Z79.891 Long term (current) use of opiate analgesic; Z79.899 Other long term (current) drug therapy
CPT/HCPCS: 43235; J3010

== ENCOUNTER 2021-04-27 13:52 | Observation (INO) | payer MEDICARE, OTHER ==
[~2021-04-27] VITALS: Ht 175.3 cm; Wt 90.5 kg
[~2021-04-27 13:52] MED LIST changes: -MAG400TA PO; +MAGN400T35 PO; +MIRT-62 PO; -NS 1,000 ML IV ONE; +OMEP40CA4 PO; -OMEP40CA97 PO; -REME15TA PO; -medical marijuana; +medical marijuana INH
[2021-04-27] MEDS ORDERED: MIRT1TAB17 PO (15:21)
[2021-04-27] MEDS ORDERED: D31000TA2 PO (15:21)
--- NOTE | 2021-04-27 15:32 | REP ---
INDICATION: pre-op. Patient is status post esophagectomy and gastric pull-through procedure for esophageal malignancy. COMPARISON: Comparison chest radiograph June 25, 2018.. TECHNIQUE: Sitting AP portable chest x-ray. FINDINGS: There is increased soft tissue density behind the heart consistent with gastric pull-through esophagectomy procedure. The lungs are free of infiltrate. There is a possible nodular soft tissue density in the right base laterallya measuring 8 mm in diameter. This was not previously apparent. No other pulmonary nodule is appreciated. Heart size is mildly increased. Pulmonary vasculature is not increased. No acute bony abnormality is seen. There are degenerative disc changes in the thoracic spine. IMPRESSION: Possible soft tissue nodule right lung base laterally 8 mm. Status post esophagectomy and gastric pull-through procedure. Mildly prominent heart. Otherwise no acute disease. <Electronically signed by Tre Arriaza > 04/27/21 [id number]
[2021-04-27 15:39] LABS: HEMATOCRIT 43.6 % (42.0-52.0); HEMOGLOBIN 14.3 g/dl (13.5-17.5); MEAN CORPUSCULAR HEMOGLOBIN 31.2 pg (27.0-33.0); MEAN CORPUSCULAR HGB CONC 32.8 g/dl (32.0-36.5); MEAN CORPUSCULAR VOLUME 95.2 fl (80.0-96.0); PLATELET COUNT, AUTOMATED 227 10^3/uL (150-450); RED BLOOD COUNT 4.58 10^6/uL (4.30-6.10); WHITE BLOOD COUNT 8.5 10^3/uL (4.0-10.0)
[2021-04-27] MEDS ORDERED: fentaNYL 100 MCG/2 ML INJECTION (J3010) As Ordered ONE (15:43)
[2021-04-27] MEDS ORDERED: propofoL 200 MG/20 ML VIAL As Ordered ONE (15:43)
[2021-04-27] MEDS ORDERED: LIDOCAINE 2% 100MG/5ML SDV (FOR ANES.) As Ordered ONE (15:43)
[2021-04-27 15:48] LABS: INR 1.06
[2021-04-27 15:49] LABS: PARTIAL THROMBOPLASTIN TIME 30.5 SECONDS (24.2-38.5)
[2021-04-27 15:58] LABS: BLOOD UREA NITROGEN 9 MG/DL (7-18); CALCIUM LEVEL 8.7 MG/DL (8.5-10.1); CARBON DIOXIDE LEVEL 31 MEQ/L (21-32); CHLORIDE LEVEL 105 MEQ/L (98-107); CREATININE FOR GFR 0.58 MG/DL (0.70-1.30); GLOMERULAR FILTRATION RATE > 60.0 (>56); GLUCOSE, FASTING 85 MG/DL (70-100); POTASSIUM SERUM 4.2 MEQ/L (3.5-5.1); SODIUM LEVEL 141 MEQ/L (136-145)
[2021-04-27] MEDS ORDERED: SUGAMMADEX SODIUM 500 MG/5 ML VIAL (BRIDION) As Ordered ONE (16:06)
[2021-04-27] MEDS ORDERED: ROCURONIUM BROMIDE 50 MG/5 ML VIAL As Ordered ONE (16:06)
[2021-04-27 16:11] LABS: RSV AMPLIFICATION NEGATIVE (NEGATIVE)
[2021-04-27] MEDS ORDERED: MIDAZOLAM INJ 2MG/2ML VIAL (J2250 PER 1MG) As Ordered ONE (16:31)
[2021-04-27] MEDS ORDERED: dexameTHASONE 4 MG/ML 1ML VIAL (J1100 PER 1MG) As Ordered ONE (16:57)
[2021-04-27] MEDS ORDERED: ONDANSETRON 4MG/2ML VIAL As Ordered ONE (16:57)
[2021-04-27] MEDS ORDERED: ESMOLOL INJ 100MG/10ML VIAL As Ordered ONE (17:28)
[2021-04-27] MEDS ORDERED: LR 1,000 ML IV SCH (17:55)
[2021-04-27] MEDS ORDERED: ONDANSETRON 4MG/2ML VIAL IV PRN (17:55)
[2021-04-27] MEDS ORDERED: METOPROLOL TART 25 MG TABLET PO ONE (18:50)
[2021-04-27] MEDS ORDERED: ACETAMINOPHEN TAB 650MG DOSE (2X325MG) PO PRN (20:10)
[2021-04-27] MEDS ORDERED: MOM 30ML SUSPENSION UDC PO PRN (20:10)
[2021-04-27] MEDS ORDERED: MAALOX 30 ML SUSP *UDC PO PRN (20:10)
[2021-04-27] MEDS ORDERED: METOPROLOL 5 MG/5 ML VIAL As Ordered ONE (20:11)
[2021-04-27] MEDS ORDERED: METOPROLOL 5 MG/5 ML VIAL IV ONE (20:30)
[2021-04-27] MEDS ORDERED: METOPROLOL 5 MG/5 ML VIAL IV STA (20:39)
[2021-04-27] MEDS: METOPROLOL 5 MG/5 ML VIAL IV SCH ×3 (20:55→21:05)
[2021-04-27] MEDS: DOCUSATE SODIUM 100MG CAPSULE PO SCH (21:00)
[2021-04-27 21:45] VITALS: BP 149/92
[2021-04-27 22:00] VITALS: BP 124/68
[2021-04-27] MEDS ORDERED: OMEPRAZOLE 20 MG CAP PO PRN (22:05)
[2021-04-27] MEDS ORDERED: RAMELTEON 8 MG TAB (ROZEREM) PO PRN (22:05)
[2021-04-27] MEDS: APIXABAN 5 MG TAB (ELIQUIS) PO SCH (22:13)
[2021-04-27 22:14] VITALS: BP 126/79
[2021-04-27] MEDS: PERCOCET 5MG/325MG TAB PO PRN (22:14)
[2021-04-27] MEDS ORDERED: SLF 3 ML SYR IV PRN (22:15)
--- NOTE | 2021-04-27 22:26 | HPEPDOC ---
[facility] Medical History & Physical Date of Admission Apr 27, 2021 Date of Service: Apr 27, 2021 History and Physical CHIEF COMPLAINT: rapid heart rate, afib with rvr HISTORY OF PRESENT ILLNESS: 60 yo M with a PMHx of atrial fibrillation (on eliquis), pulmonary embolism, esophageal cancer ( s/p surgery: gastric pull through and esophagogastric anastomosis 08/2017 in [place], [place]; s/p radiation therapy), presented to ER with sensation of food being stuck in the throat. He was taken to the OR for EGD by Dr. Carranza, and retrieved a nut from a pouch at site of esophageal anastomosis. Procedure was well tolerated, but in PACU, patient developed a rapid heart heart suspected to be atrial fibrillation with rapid ventricular rate. Hospitalist service was consulted for rate control. Patient denies chest pain, shortness of breath, palpitations, headache, blurred vision, n/v/d. He follows with Dr. Loredo. he states that he is compliant with his anticoagulation on eliquis, but takes no rate control agents. He is a poor istorian, but describes being cardioverted at some point in 2017. He was later referred to [facility] for cardiac ablation by Dr. Loredo, but concurrently was diagnosed with esophageal cancer and reports ablation being deferred at that time, and has not been performed. Patient received 25 mg PO metoprolol, as recommended by Dr. Loredo. This had no improvement, patient received 5 mg metoprolol IV x 2, which converted patient to NSR at rate of 65 BPM. PAST MEDICAL HISTORY: chronic atrial fibrillation, AC with eliquis; s/p cardioversion Pulmonary embolism depression, anxiety esophageal cancer (GE junction PAST SURGICAL HISTORY: gastric pull through and esophagogastric anastomosis 08/2017 in [place], [place] SOCIAL HISTORY: former smoker, quit 6 weeks ago. denies etoh use denies illicit drug use FAMILY HISTORY: reviewed with patient, described a hx of cancer in family, but unable to specify in more detail ALLERGIES: Please see below. REVIEW OF SYSTEMS: 10 point ROS was completed, relevant findings are noted in HPI HOME MEDICATIONS: Please see below. PHYSICAL EXAMINATION: VITAL SIGNS: please see below General: NAD, comfortable HEENT: PERRLA, EOMI, sclerae clear Neck: supple, normal ROM, no JVD Respiratory: lungs CTAB, no wheeze, no rales, no crackles CVS: tachycardic, irregularly irregular, normal S1, S2, no murmurs Abdo: soft, no masses, no hepatosplenomegaly, BS+, no rebound tenderness. Large scars from prior sx Extremities: no edema, pulses 2+ MSK: no joint deformities, normal ROM Neuro: no focal neuro deficits, moving all 4 extremities, CN2-12 intact. Strength 5/5 in all 4 extremities. No nystagmus. Psych: calm, cooperative, AAO x 3 LABORATORY DATA: See below. CXR (04/27/21): Possible soft tissue nodule right lung base laterally 8 mm. Status post esophagectomy and gastric pull-through procedure. Mildly prominent heart. Otherwise no acute disease. MICROBIOLOGY: Please see below. ASSESSMENT: 60 yo M with a PMHx of atrial fibrillation (on eliquis), pulmonary emolism, esophageal cancer ( s/p surgery: gastric pull through and esophagogastric anastomosis 08/2017 in [place], [place]; s/p radiation therapy), presented to ER with sensation of food being stuck in the throat. He was taken to the OR for EGD by Dr. Carranza, and retrieved a nut from a pouch at site of esophageal anastomosis. Developed afib with RVR post EGD in PACU. Admitted to hospitalist service for rate control. Dr. Carranza spoke to Dr. Loredo (primary sole dyer), recommended 25 mg PO metoprolol, which had no improvement. . PLAN: #Afib with RVR - on anticoagulation with eliquis - s/p ablation in 2017 - follows with Dr. Loredo - patient does not appear to take rate or rhythm control agents - was planned for ablation in 2017 at [place] [facility], but this was delayed due to dx of esophageal cancer at the time - received 25 mg PO metoprolol w/o improvement - s/p metoprolol 5 mg IV x 2. Converted to NSR. Rate 65 bpm - admit to PCU. Tele monitoring - check 2D echo, ordered. - check TSH, CBC, CMP - start on metoprolol 25 mg PO BID #Foreign body in esophagus - retrieved by Dr. Carranza via EGD - stable. #Pulmonary nodule R lung base - suspicion of 8 mm nodule R lung base laterally - needs further imaging to better characterize #Hx of PE - on eliquis #Hx of esophageal cancer - follows at [facility] Dispo: pending clinical improvement. Vital Signs Vital Signs Date Time Temp Pulse Resp B/P (MAP) Pulse Ox O2 Delivery O2 Flow Rate FiO2 04/27/21 21:45 97.0 63 16 149/92 (111) 96 Room Air 04/27/21 18:10 2.0 Laboratory Data Labs 24H Laboratory Tests 2 04/27/21 15:11: Nucleated Red Blood Cells % (auto) 0.0, Prothrombin Time 14.0, Prothromb Time International Ratio 1.06, Activated Partial Thromboplast Time 30.5, Anion Gap 5L, Glomerular Filtration Rate > 60.0, Calcium Level 8.7, Coronavirus (COVID- 19)(PCR) NEGATIVE, Influenza Type A (RT-PCR) NEGATIVE, Influenza Type B (RT-PCR) NEGATIVE, Respiratory Syncytial Virus (PCR) NEGATIVE CBC/BMP Laboratory Tests 04/27/21 15:11 Home Medications Scheduled Apixaban (Eliquis) 5 Mg Tab, 5 MG PO BID Ascorbic Acid (Vitamin C) 500 Mg Tab, 500 MG PO DAILY Biotin (Biotin) 5 Mg Capsule, 5,000 MCG PO DAILY Cholecalciferol (Vitamin D3) (Vitamin D3) 1,000 Unit Tablet, 1,000 UNITS PO DAILY Duloxetine Hcl (Duloxetine HCl) 60 Mg Capsule.dr, 60 MG PO DAILY Metoprolol Tartrate (Metoprolol Tartrate) 25 Mg Tablet, 25 MG PO Q8H Mirtazapine (Mirtazapine) 45 Mg Tab.rapdis, 45 MG PO QHS Multivitamins (Thera M Plus Tablet) 1 Tab Tab, 1 TAB PO DAILY [medical marijuana] , 2 PUFFS INH TID Scheduled PRN Omeprazole (Omeprazole) 40 Mg Capsule.dr, 40 MG PO DAILY PRN for HEARTBURN Oxycodone HCl/Acetaminophen (Oxycodone-Acetaminophen 5-325) 1 Each Tablet, 1 TAB PO BID PRN for PAIN Allergies Coded Allergies: No Known Allergies (Unverified , 07/22/20) A-FIB/CHADSVASC A-FIB History Current/History of A-Fib/PAF?: Yes Current PO Anticoag Therapy: Yes TATIANA BHATTI MD Apr 27, 2021 22:25
[2021-04-27 23:00] VITALS: BP 120/76
[2021-04-28] VITALS (10 sets, daily range): BP systolic 106–138; BP diastolic 67–86
[2021-04-28] MEDS: MIRTAZAPINE 15 MG TAB PO SCH ×2 (02:37→20:29)
[2021-04-28] MEDS ORDERED: diphenhydrAMINE 25MG CAP PO ONE (02:45)
[2021-04-28] MEDS: SLF 3 ML SYR IV SCH ×3 (06:35→20:28)
[2021-04-28] MEDS: APIXABAN 5 MG TAB (ELIQUIS) PO SCH ×2 (08:19→20:29)
[2021-04-28] MEDS: DULoxetine 30 MG CAP (CYMBALTA) PO SCH (08:19)
[2021-04-28] MEDS: VITAMIN D 1,000 INTERNATIONAL UNITS TABLET PO SCH (08:19)
[2021-04-28] MEDS: MULTIVITAMINS/MINERALS THERAP 1 TAB PO SCH (08:19)
[2021-04-28] MEDS: DOCUSATE SODIUM 100MG CAPSULE PO SCH ×4 (08:19→20:30)
--- NOTE | 2021-04-28 08:47 | HPE ---
HISTORY AND PHYSICAL DATE OF ADMISSION: 04/27/2021 CHIEF COMPLAINT: Esophageal food impaction. HISTORY OF PRESENT ILLNESS: The patient is a 60-year-old male well known to me. He has had a history of esophageal cancer that has undergone resection and I have done multiple endoscopies for him over the past few years. He presents today with difficulty swallowing that started around Monday after having some white pizza and some peppers. He is uncertain exactly what is in there but since his esophageal resection four years ago. He has had a few episodes of this dysphagia with food stuck in his throat. 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 The last procedure, I believe, was last year with Dr. Lainez where he had an impaction done then. For the past two days he has tried taking small sips of water to get this to pass on its own but it has not gone. If he takes anything beyond like half a spoonful at a time, he throws it right up. Other than that, he has been able to tolerate liquids very slowly, at least about 10-12 ounces a day but it is not improving on its own. PAST MEDICAL HISTORY: 1. Atrial fibrillation. 2. Pulmonary embolism. 3. Depression/anxiety. 4. Esophageal cancer. PAST SURGICAL HISTORY: 1. Esophageal resection. 2. Knee surgery. 3. Hand surgery. SOCIAL HISTORY: None. Denies drug, alcohol or tobacco abuse. FAMILY HISTORY: Noncontributory. ALLERGIES: None. HOME MEDICATIONS: Please see medical record. REVIEW OF SYSTEMS: Pertinent positives and negatives stated in the history of present illness (HPI). LABORATORY: White count 8.5, hemoglobin 14.3, platelets 227. Potassium 4.2, creatinine 0.58. IMAGING: Chest x-ray: Possible soft tissue nodule, right lung base, lateral, 8 mm; status post esophagectomy, gastric ulcer procedure, mildly prominent heart though has no acute disease. PHYSICAL EXAMINATION: GENERAL: Alert and oriented times 3, in no acute distress. VITALS: Temperature 97.4, pulse 48, respirations 18, blood pressure 131/83, pulse ox 99% on room air. HEENT: Pupils equally round, reactive to light and accommodation. HEART: S1, S2. Regular rate and rhythm. LUNGS: Clear to auscultation bilaterally. ABDOMEN: Soft, nontender, nondistended. EXTREMITIES: No cyanosis, clubbing or edema. ASSESSMENT AND PLAN: The patient is a 60-year-old male with esophageal food impaction likely. Recommendation is to proceed with esophagogastroduodenoscopy (EDG) with removal of the foreign body. The risks and benefits of the procedure not limited to, but including bleeding, infection, perforation and need for further surgery were discussed in detail with the patient. Informed consent was obtained and procedure was planned.
[2021-04-28] MEDS ORDERED: METOPROLOL TART 25 MG TABLET PO SCH (09:00)
[2021-04-28] MEDS: METOPROLOL 5 MG/5 ML VIAL IV SCH ×3 (09:15→19:00)
[2021-04-28 10:08] LABS: FREE T4 0.92 NG/DL (0.76-1.46); THYROID STIMULATING HORMONE 0.38 uIU/ML (0.358-3.740)
--- NOTE | 2021-04-28 11:40 | IPN ---
PROGRESS NOTE DATE: 04/28/2021 SUBJECTIVE: Sammy was admitted to the Hospitalist Service after atrial fibrillation, which is persistent, showed uncontrolled after an EGD done to remove a foreign body from the esophagus. He is followed by [facility]iology, Dr. Loredo. Last night he converted to sinus rhythm with oral metoprolol but reverted back to atrial fibrillation with rapid ventricular response this morning. He denies palpitations, chest pain or shortness of breath. OBJECTIVE: VITAL SIGNS: Afebrile. Vital signs are stable. Heart rate is currently 130, it was 54 at 4 a.m. GENERAL APPEARANCE: He is alert and conversant, in no distress. LUNGS: Clear. HEART: Irregularly irregular rate and rhythm and tachycardic. ABDOMEN: Soft, nontender, no masses. EXTREMITIES: No peripheral edema. LABORATORY DATA: He did not have any labs ordered for today. IMPRESSION: 1. Atrial fibrillation with rapid ventricular response. Will push the doses of his medications, give him a dose of intravenous Lopressor now and increase his oral Lopressor dose. If he rate remains uncontrolled will ask Cardiology to see him. Continue Eliquis for thromboembolic prophylaxis. 2. Foreign body of esophagus. He is on omeprazole, status post EGD and removal of foreign body. 3. Sleep disturbance, he is on Rozerem and Remeron. MTDD
--- NOTE | 2021-04-28 11:46 | RO ---
OPERATIVE NOTE DATE OF OPERATION: 04/27/2021 PREOPERATIVE DIAGNOSIS: Esophageal food impaction. POSTOPERATIVE DIAGNOSIS: Esophageal food impaction. PROCEDURE: Esophagogastroscopy with removal of a large pepper stuck in a diverticulum at the gastroesophageal anastomosis where there was a large diverticulum there. Once the large pepper was removed, I also removed a large amount of food material from the diverticulum and I was able to easily evaluate the rest of the stomach and down into the duodenum. SURGEON: Car Carranza DO F[employer]T HAT POUNCING OPERATOR HAND: ANESTHESIA: General. ESTIMATED BLOOD LOSS: Minimal. COMPLICATIONS: None. INDICATION FOR PROCEDURE: The patient is a 60-year-old male, status post esophageal food impaction with multiple previous food impactions in the past as well as esophageal resection. He currently presented again with a two-day history of likely food stuck in his throat. Recommendation was to proceed with a repeat endoscopy. The risks and benefits of the procedure not limited to, but including bleeding, infection, perforation, damage to surrounding structures, need for further surgery were discussed in detail with the patient. Informed consent was obtained and procedure was planned. DESCRIPTION OF PROCEDURE: The patient was brought back to operating room two. After satisfactory sedation, he was placed in the left lateral decubitus position. Next, timeout was done to confirm the proper patient and the proper procedure. Following that, the scope was passed down through oropharynx into the top of the esophagus where there was obvious food stuck. I was unable to get the scope to go passed at this point. There was a very large, what appeared to be a green hot pepper there. After multiple attempts with different types of graspers and baskets, and finally using the largest grasper that we had, I was able to grab it sufficiently and remove the whole thing from the esophagus. Once that was removed, I was easily able to pass the scope all the way down the esophagus through the stomach into the duodenum. I was able to pass easily; however, in the diverticulum at the top of the esophagus, there was still a large amount of food debris in there. I tried irrigating it out and it was still pretty lodged in there and would not remove that easily, but I was, using a small grasper, able to remove 90 percent of it. Then, he started to have some tachycardia, so I decided to stop at that point. The scope was then removed. The patient was awakened was anesthesia and sent to the recovery room in stable condition; however, he was still tachycardic with atrial fibrillation with rapid ventricular response (RVR). After waking up completely in the recovery room, he felt completely stable; however, he was still tachycardic. I spoke with his gastroenterology nurse practitioner who recommended some labetalol. That was attempted and a few minutes later he still was not having any improvement so he was eventually admitted to the hospitalist overnight for management of his atrial fibrillation. From a surgical standpoint, everything went well and he should be able to tolerate regular foods without any difficulty, and it is recommended at this point to continue with smaller bites and to chew his food better.
[2021-04-28] MEDS: PERCOCET 5MG/325MG TAB PO PRN ×2 (13:24→19:45)
[2021-04-28] MEDS: METOPROLOL TART 25 MG TABLET PO SCH ×2 (18:00→23:12)
[2021-04-28] MEDS ORDERED: METOPROLOL TART 25 MG TABLET PO ONE (20:20)
[2021-04-28] MEDS ORDERED: AMIODARONE HCL 150 MG in IV 1 EA IV ONE (21:05)
--- NOTE | 2021-04-29 00:07 | ECHO ---
"ECHOCARDIOGRAM DATE OF PROCEDURE: 04/28/2021 Age: 60 Gender: Male Height: 175 cm Weight: 92 kg REFERRING PHYSICIAN: Dr. Hema Faith INDICATION: Cardiomegaly. MEASUREMENTS: |2D Measurements: Aortic root 3.7 cm Left atrium 4.0 cm Left atrium volume index 42 cm Intraventricular septum 1.52 cm Posterior wall 1.53 cm Left ventricle diastole 3.9 cm Proximal ascending aorta 4.2 cm Left atrial volume index 42 cm Inferior vena cava 1.5 cm Doppler Measurements: Aortic valve velocity 113 cm/s No aortic regurgitation Very mild mitral regurgitation No mitral stenosis No tricuspid regurgitation Trace pulmonic regurgitation Pulmonary artery acceleration time 98 msec DESCRIPTION: Rhythm was predominantly sinus rhythm, however, very transient sinus bradycardia was observed. This was a 2D, M-mode, color flow Doppler, and pulsed wave Doppler examination including mitral annular tissue Doppler. Image quality was fair. CONCLUSIONS: 1. Moderate concentric left ventricular hypertrophy. Normal regional LV wall motion and wall thickening. Normal LV systolic function. LVEF 65% by visual estimate. 2. Severe left atrial dilation, mild left atrial volume index. 3. Mild aortic sclerosis of a 3-cuspid aortic valve. No aortic regurgitation. 4. Mild mitral annular calcification. Very mild mitral regurgitation. 5. Mild dilation of the proximal ascending aorta. 6. Suggestive of mild elevation of pulmonary artery systolic pressure. Normal right ventricle size and systolic function. 7. No pericardial effusion."
[2021-04-29 04:00] VITALS: BP 113/70
[2021-04-29 05:43] LABS: HEMATOCRIT 39.8 % (42.0-52.0); HEMOGLOBIN 13.1 g/dl (13.5-17.5); MEAN CORPUSCULAR HEMOGLOBIN 31.6 pg (27.0-33.0); MEAN CORPUSCULAR HGB CONC 32.9 g/dl (32.0-36.5); MEAN CORPUSCULAR VOLUME 96.1 fl (80.0-96.0); PLATELET COUNT, AUTOMATED 218 10^3/uL (150-450); RED BLOOD COUNT 4.14 10^6/uL (4.30-6.10); WHITE BLOOD COUNT 10.1 10^3/uL (4.0-10.0)
--- NOTE | 2021-04-29 05:54 | ECGEPIP ---
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
[2021-04-29 05:58] VITALS: BP 91/63
[2021-04-29] MEDS: SLF 3 ML SYR IV SCH (05:58)
[2021-04-29] MEDS ORDERED: METOPROLOL TART 25 MG TABLET PO SCH (06:00)
[2021-04-29 06:10] LABS: BLOOD UREA NITROGEN 15 MG/DL (7-18); CARBON DIOXIDE LEVEL 32 MEQ/L (21-32); CHLORIDE LEVEL 107 MEQ/L (98-107); GLOMERULAR FILTRATION RATE > 60.0 (>56); GLUCOSE, FASTING 89 MG/DL (70-100); POTASSIUM SERUM 3.8 MEQ/L (3.5-5.1); SODIUM LEVEL 141 MEQ/L (136-145)
[2021-04-29 08:00] VITALS: BP 113/67
[2021-04-29] MEDS: VITAMIN D 1,000 INTERNATIONAL UNITS TABLET PO SCH (08:10)
[2021-04-29] MEDS: APIXABAN 5 MG TAB (ELIQUIS) PO SCH (08:10)
[2021-04-29] MEDS: DULoxetine 30 MG CAP (CYMBALTA) PO SCH (08:10)
[2021-04-29] MEDS: DOCUSATE SODIUM 100MG CAPSULE PO SCH (08:10)
[2021-04-29] MEDS: MULTIVITAMINS/MINERALS THERAP 1 TAB PO SCH (08:10)
[2021-04-29] MEDS ORDERED: METO1TAB87 PO (10:23)
--- NOTE | 2021-04-29 12:45 | DSES ---
DISCHARGE SUMMARY DATE OF ADMISSION: 04/27/2021 DATE OF DISCHARGE: 04/29/2021 DISCHARGE DIAGNOSIS: 1. Atrial fibrillation with rapid ventricular response. SECONDARY DIAGNOSES: 1. Foreign body in esophagus status post extraction by Dr. Carranza via endoscope. 2. Sleep disturbance. HISTORY: Patient came to the ER with a nut lodged in the pouch of his esophagus. He underwent extraction of this in the OR by Dr. Carranza. In the Operating Room he developed uncontrolled atrial fibrillation. He was admitted for further treatment. He is followed by [facility]iology/Dr. Loredo. HOSPITAL COURSE: He was put on telemetry. He converted to sinus rhythm but kept reverting back to atrial fibrillation and I formally consulted Cardiology, Dr. Valencia, gave him intravenous amiodarone last night, he has been in sinus rhythm and sinus bradycardia since then. Dr. Valencia called me this morning and thought the patient could be discharged with office follow-up. PHYSICAL EXAMINATION: VITAL SIGNS: Blood pressure 113/67, pulse was around 50, 98% O2 saturation. GENERAL APPEARANCE: He is alert, conversant in no distress. LUNGS: Clear. HEART: Regular rhythm. ABDOMEN: Soft, nontender. EXTREMITIES: No peripheral edema. LABORATORY DATA: White count is 10.1, hemoglobin is 13, platelets are 218,000. Sodium 141, potassium is 3.8, BUN 15, creatinine is 0.7. Glucose is 89. TSH and free T4 are normal. DISPOSITION: Discharge home in improved and stable condition. He will follow-up with primary care provider in a week, he will follow-up with Dr. Valencia's office next week per his instructions. MEDICATIONS: On discharge, his medicines will continue to be Eliquis 5 mg b.i.d., vitamin C, biotin, Duloxetine 60 mg daily, mirtazapine 45 mg q.h.s., omeprazole 40 mg q.h.s., medical marijuana which he takes t.i.d., oxycodone/acetaminophen 5/325 b.i.d. p.r.n., the only new medicine is metoprolol tartrate 25 mg q. 8 hours. ADDENDUM: The echocardiogram report is back, ejection fraction was 65%, severe left atrial dilatation, mild aortic sclerosis without stenosis and mild elevation of pulmonary artery pressures.
--- NOTE | 2021-04-30 14:07 | ED PDOC ---
Post-Departure Follow-Up radiology rpeort faxed to Laurie Caceres MD Apr 30, 2021 14:07
== END 2021-04-29 11:19 | disposition home or self-care (01) ==
LOC: M ED 13:52 → M ED INP 13:53 → M ED 16:32 → M PCU 21:32
PROVIDERS: ADMIT Family Medicine; ATTEND Family Medicine
DX: T18.128A Food in esophagus causing other injury, initial encounter (principal); I48.0 Paroxysmal atrial fibrillation; Z79.01 Long term (current) use of anticoagulants; Z86.711 Personal history of pulmonary embolism; Z92.3 Personal history of irradiation; Z85.01 Personal history of malignant neoplasm of esophagus; R91.1 Solitary pulmonary nodule; F41.9 Anxiety disorder, unspecified; F32.9 Major depressive disorder, single episode, unspecified; Z87.891 Personal history of nicotine dependence; Z79.899 Other long term (current) drug therapy; Y92.89 Other specified places as the place of occurrence of the external cause; Y93.9 Activity, unspecified; Y99.9 Unspecified external cause status
CPT/HCPCS: 36415; 43247; 71045; 80048; 84439; 84443; 85027; 85610; 85730; 87631; 93005; 93306; 96374; 99284; G0378; J0282; J1100; J2250; J2405; J3010

== ENCOUNTER → 2021-07-26 | Outpatient (CLI) | payer MEDICARE, OTHER ==
[~2021-07-26] MED LIST changes: +D31000TA2 PO; +GASTROGRAFIN SOLUTION 30ML (Q9963) As Ordered ONE; +ISOVUE-370 76% 100ML VIAL As Ordered ONE; +METO1TAB87 PO; +MIRT1TAB17 PO
[2021-07-26 15:35] LABS: BASO # 0.1 10^3/uL (0.0-0.2); BASO % 0.9 % (0.0-1.0); EOS # 0.3 10^3/uL (0.0-0.5); EOS % 3.3 % (0.0-3.0); HEMOGLOBIN 14.6 g/dl (13.5-17.5); LYMPH # 1.9 10^3/uL (1.5-5.0); LYMPH % 19.4 % (24.0-44.0); MEAN CORPUSCULAR HEMOGLOBIN 31.1 pg (27.0-33.0); MEAN CORPUSCULAR HGB CONC 32.4 g/dl (32.0-36.5); MEAN CORPUSCULAR VOLUME 95.7 fl (80.0-96.0); MONO # 0.9 10^3/uL (0.0-0.8); MONO % 8.8 % (2.0-8.0); NEUTROPHILS # 6.5 10^3/uL (1.5-8.5); NEUTROPHILS % 67.3 % (36.0-66.0); PLATELET COUNT, AUTOMATED 243 10^3/uL (150-450); WHITE BLOOD COUNT 9.6 10^3/uL (4.0-10.0)
[2021-07-26 16:04] LABS: ALBUMIN 3.6 GM/DL (3.2-5.2); ALT/SGPT 41 U/L (12-78); BILIRUBIN,TOTAL 0.4 MG/DL (0.2-1.0); BLOOD UREA NITROGEN 12 MG/DL (7-18); CALCIUM LEVEL 9.3 MG/DL (8.5-10.1); CARBON DIOXIDE LEVEL 32 MEQ/L (21-32); CHLORIDE LEVEL 105 MEQ/L (98-107); CREATININE FOR GFR 0.72 MG/DL (0.70-1.30); GLOMERULAR FILTRATION RATE > 60.0 (>56); GLUCOSE, FASTING 93 MG/DL (70-100); POTASSIUM SERUM 4.4 MEQ/L (3.5-5.1); SODIUM LEVEL 143 MEQ/L (136-145); TOTAL PROTEIN 7.2 GM/DL (6.4-8.2)
--- NOTE | 2021-07-26 16:29 | REP ---
INDICATION: MALIG NEOPLASM OF LOW 3RD OF ESOPHAGUS LABS FIRST. COMPARISON: Multiple the latest 07/09/2020 TECHNIQUE: Standard helical technique after the intravenous administration of 100 cc Isovue 370 and oral bowel preparatory contrast administration. FINDINGS: The liver, gallbladder, spleen, pancreas, and adrenal glands are unchanged. There are bilateral renal cysts status quo. Previously noted right-sided hydronephrosis has resolved. Kidneys are otherwise unchanged. There are no enhancing masses. There is pancreatic atrophy and fatty infiltration status quo. The abdominal aorta is unchanged. Once again, there are multiple borderline para-aortic lymph nodes status quo. No marcella adenopathy has developed. The bowel loops on the mesenteries appear stable. Note is again made of previous gastric pull-through procedure. Bone window technique throughout the examination shows no significant change in appearance of the imaged osseous structures. IMPRESSION: No evidence of acute disease. Findings as described above. <Electronically signed by Maximino Cerda > 07/26/21 [id number]
--- NOTE | 2021-07-26 16:38 | REP ---
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 FINDINGS: The mediastinum and pulmonary nicola are unchanged. Once again, there is evidence of previous gastric pull-through procedure. No mass or adenopathy has developed. There are no pleural or pericardial effusions. There is no significant change in appearance of the imaged osseous structures. Evaluation of the lung olvera shows no significant change compared to the prior exam. There are no new abnormal nodules, masses, or opacities. IMPRESSION: Stable CT examination of the chest. There is no evidence of acute disease. <Electronically signed by Maximino Cerda > 07/26/21 [id number]
== END ==
LOC: M LAB 14:35
PROVIDERS: ATTEND Internal Medicine Hematology & Oncology
DX: C15.5 Malignant neoplasm of lower third of esophagus (principal)
CPT/HCPCS: 36415; 71260; 74160; 80053; 82378; 85025; Q9963; Q9967

== ENCOUNTER → 2022-01-28 | Outpatient (CLI) | payer MEDICARE, OTHER ==
[~2022-01-28] MED LIST changes: -D31000TA2 PO; -GASTROGRAFIN SOLUTION 30ML (Q9963) As Ordered ONE; -ISOVUE-370 76% 100ML VIAL As Ordered ONE; +ONDA-84 PO; -ONDA8TAB10 PO; +VITA100093 PO
[2022-01-28 12:23] LABS: BASO # 0.1 10^3/uL (0.0-0.2); BASO % 0.8 % (0.0-1.0); EOS # 0.4 10^3/uL (0.0-0.5); EOS % 3.3 % (0.0-3.0); HEMATOCRIT 42.2 % (42.0-52.0); HEMOGLOBIN 13.6 g/dl (13.5-17.5); LYMPH # 1.6 10^3/uL (1.5-5.0); LYMPH % 14.1 % (24.0-44.0); MEAN CORPUSCULAR HEMOGLOBIN 29.1 pg (27.0-33.0); MEAN CORPUSCULAR HGB CONC 32.2 g/dl (32.0-36.5); MEAN CORPUSCULAR VOLUME 90.4 fl (80.0-96.0); MONO # 0.9 10^3/uL (0.0-0.8); MONO % 8.1 % (2.0-8.0); NEUTROPHILS # 8.4 10^3/uL (1.5-8.5); NEUTROPHILS % 73.4 % (36.0-66.0); PLATELET COUNT, AUTOMATED 353 10^3/uL (150-450); RED BLOOD COUNT 4.67 10^6/uL (4.30-6.10); WHITE BLOOD COUNT 11.4 10^3/uL (4.0-10.0)
[2022-01-28 12:44] LABS: ALBUMIN 3.8 GM/DL (3.2-5.2); ALT/SGPT 37 U/L (12-78); BILIRUBIN,TOTAL 0.3 MG/DL (0.2-1.0); BLOOD UREA NITROGEN 16 MG/DL (7-18); CALCIUM LEVEL 9.3 MG/DL (8.8-10.2); CARBON DIOXIDE LEVEL 30 MEQ/L (21-32); CHLORIDE LEVEL 108 MEQ/L (98-107); CREATININE FOR GFR 0.87 MG/DL (0.70-1.30); GLOMERULAR FILTRATION RATE > 60.0 (>49); GLUCOSE, FASTING 139 MG/DL (70-100); POTASSIUM SERUM 4.3 MEQ/L (3.5-5.1); SODIUM LEVEL 141 MEQ/L (136-145); TOTAL PROTEIN 7.1 GM/DL (6.4-8.2)
== END ==
LOC: M LAB 11:34
PROVIDERS: ATTEND Nurse Practitioner Adult Health
DX: Z85.09 Personal history of malignant neoplasm of other digestive organs (principal); C15.5 Malignant neoplasm of lower third of esophagus

== ENCOUNTER → 2022-02-01 | Outpatient (CLI) | payer MEDICARE, OTHER ==
[~2022-02-01] MED LIST changes: +GASTROGRAFIN SOLUTION 30ML (Q9963) As Ordered ONE; +ISOVUE-370 76% 100ML VIAL As Ordered ONE
== END ==
LOC: M RAD 09:10
PROVIDERS: ATTEND Internal Medicine Hematology & Oncology
DX: Z86.003 Personal history of in-situ neoplasm of oral cavity, esophagus and stomach (principal); K76.0 Fatty (change of) liver, not elsewhere classified
CPT/HCPCS: 71260; 74160; Q9963; Q9967

== ENCOUNTER 2022-02-23 15:47 | Day surgery (SDC) | payer MEDICARE, OTHER ==
[~2022-02-23] VITALS: Ht 180.3 cm; Wt 110.7 kg
[~2022-02-23 15:47] MED LIST changes: -GASTROGRAFIN SOLUTION 30ML (Q9963) As Ordered ONE; -ISOVUE-370 76% 100ML VIAL As Ordered ONE
[2022-02-23] MEDS ORDERED: propofoL 200 MG/20 ML VIAL As Ordered ONE (16:07)
[2022-02-23] MEDS ORDERED: LIDOCAINE 2% 100MG/5ML SDV (FOR ANES.) As Ordered ONE (16:07)
[2022-02-23 17:31] VITALS: BP 130/94
== END 2022-02-23 17:40 | disposition home or self-care (01) ==
LOC: M SDC 15:47
PROVIDERS: ATTEND Internal Medicine Cardiovascular Disease
DX: I48.91 Unspecified atrial fibrillation (principal); Z53.09 Procedure and treatment not carried out because of other contraindication

== ENCOUNTER → 2022-06-21 | Outpatient (CLI) | payer MEDICARE, OTHER ==
[~2022-06-21] VITALS: Ht 175.3 cm; Wt 112.0 kg
[~2022-06-21] MED LIST changes: +GLYC2TAB18 PO
[2022-06-21 10:19] VITALS: BP 125/88
== END ==
LOC: M PAL 10:08
PROVIDERS: ATTEND Nurse Practitioner Adult Health
DX: G89.3 Neoplasm related pain (acute) (chronic) (principal); F43.23 Adjustment disorder with mixed anxiety and depressed mood; F43.10 Post-traumatic stress disorder, unspecified; I10 Essential (primary) hypertension; I48.91 Unspecified atrial fibrillation; K21.9 Gastro-esophageal reflux disease without esophagitis; R53.83 Other fatigue; R11.0 Nausea; R10.84 Generalized abdominal pain; M25.561 Pain in right knee; M79.645 Pain in left finger(s); Z92.21 Personal history of antineoplastic chemotherapy; Z92.3 Personal history of irradiation; Z51.5 Encounter for palliative care; Z80.9 Family history of malignant neoplasm, unspecified; Z87.891 Personal history of nicotine dependence; Z79.899 Other long term (current) drug therapy; Z79.891 Long term (current) use of opiate analgesic; Z85.01 Personal history of malignant neoplasm of esophagus

== ENCOUNTER → 2022-08-26 | Outpatient (CLI) | payer MEDICARE, OTHER ==
[~2022-08-26] MED LIST changes: +GASTROGRAFIN SOLUTION 30ML (Q9963) As Ordered ONE; +ISOVUE-370 76% 100ML VIAL As Ordered ONE; +SENN-120 PO
== END ==
LOC: M RAD 11:02
PROVIDERS: ATTEND Internal Medicine Hematology & Oncology
DX: C15.5 Malignant neoplasm of lower third of esophagus (principal)
CPT/HCPCS: 71260; 74160; Q9963; Q9967

== ENCOUNTER 2022-09-01 14:14 | Emergency (ER) | payer MEDICARE, OTHER ==
[~2022-09-01] VITALS: Ht 177.8 cm; Wt 109.6 kg
[~2022-09-01 14:14] MED LIST changes: -GASTROGRAFIN SOLUTION 30ML (Q9963) As Ordered ONE; -ISOVUE-370 76% 100ML VIAL As Ordered ONE
[2022-09-01 15:31] LABS: BASO # 0.1 10^3/uL (0.0-0.2); BASO % 1.1 % (0.0-1.0); EOS # 0.3 10^3/uL (0.0-0.5); EOS % 2.7 % (0.0-3.0); HEMATOCRIT 32.1 % (42.0-52.0); LYMPH # 1.4 10^3/uL (1.5-5.0); LYMPH % 13.3 % (24.0-44.0); MEAN CORPUSCULAR HEMOGLOBIN 22.3 pg (27.0-33.0); MEAN CORPUSCULAR VOLUME 79.5 fl (80.0-96.0); MONO # 0.9 10^3/uL (0.0-0.8); NEUTROPHILS # 7.9 10^3/uL (1.5-8.5); NEUTROPHILS % 74.6 % (36.0-66.0); PLATELET COUNT, AUTOMATED 376 10^3/uL (150-450); RED BLOOD COUNT 4.04 10^6/uL (4.30-6.10); WHITE BLOOD COUNT 10.6 10^3/uL (4.0-10.0)
[2022-09-01 16:06] LABS: BLOOD UREA NITROGEN 10 MG/DL (7-18); CALCIUM LEVEL 8.7 MG/DL (8.8-10.2); CARBON DIOXIDE LEVEL 26 MEQ/L (21-32); CHLORIDE LEVEL 105 MEQ/L (98-107); CREATININE FOR GFR 0.98 MG/DL (0.70-1.30); GLOMERULAR FILTRATION RATE > 60.0 (>49); GLUCOSE, FASTING 186 MG/DL (70-100); POTASSIUM SERUM 4.4 MEQ/L (3.5-5.1); SODIUM LEVEL 136 MEQ/L (136-145)
[2022-09-01 16:07] LABS: ALBUMIN 3.3 GM/DL (3.2-5.2); ALT/SGPT 28 U/L (12-78); BILIRUBIN,DIRECT 0.1 MG/DL (0.0-0.2); BILIRUBIN,TOTAL 0.3 MG/DL (0.2-1.0); LIPASE 36 U/L (73-393); TOTAL PROTEIN 7.3 GM/DL (6.4-8.2)
[2022-09-01] MEDS ORDERED: MORPHINE 4 MG/ML 1ML VIAL/SYRINGE IV ONE (16:45)
[2022-09-01] MEDS ORDERED: ONDANSETRON 4MG 2ML VIAL IV ONE (16:45)
[2022-09-01] MEDS ORDERED: methocarbamoL 750 MG TAB PO ONE (19:30)
[2022-09-01] MEDS ORDERED: BACTRIM 160MG/800MG DS TAB PO ONE (22:25)
[2022-09-01] MEDS ORDERED: METH-1165 PO ×2 (22:28→23:05)
[2022-09-01] MEDS ORDERED: BACT800T5 PO ×2 (22:28→23:05)
[2022-09-01] MEDS ORDERED: ASPE4PAD TOP ×2 (22:28→23:05)
[2022-09-01] MEDS ORDERED: PERC5TAB12 PO ×2 (22:28→23:05)
[2022-09-01 22:37] VITALS: BP 144/89
== END 2022-09-01 22:44 | disposition home or self-care (01) ==
LOC: M ED 14:14
DX: R10.32 Left lower quadrant pain (principal); D64.9 Anemia, unspecified; R31.9 Hematuria, unspecified; E11.9 Type 2 diabetes mellitus without complications; I10 Essential (primary) hypertension; E78.5 Hyperlipidemia, unspecified; R51.9 Headache, unspecified; F17.200 Nicotine dependence, unspecified, uncomplicated; Z86.79 Personal history of other diseases of the circulatory system; Z87.442 Personal history of urinary calculi; Z79.01 Long term (current) use of anticoagulants; Z79.4 Long term (current) use of insulin; Z79.811 Long term (current) use of aromatase inhibitors; Z79.899 Other long term (current) drug therapy
CPT/HCPCS: 74176; 80048; 80076; 81000; 81015; 83690; 85025; 87086; 96374; 99284; J2270; J2405

== ENCOUNTER → 2022-10-13 | Outpatient (CLI) | payer MEDICARE, OTHER ==
[~2022-10-13] VITALS: Ht 177.8 cm; Wt 110.1 kg
[~2022-10-13] MED LIST changes: +AMIO200T49 PO; +ASPE4PAD TOP; +BACT800T5 PO; +HYDR-4514 PO; +METH-1165 PO; +ONDA-83 PO; +ONDA4TAB6 PO; +OXYC-517 PO
[2022-10-13 11:49] VITALS: BP 132/82
== END ==
LOC: M PAL 11:17
PROVIDERS: ATTEND Nurse Practitioner Adult Health
DX: C15.9 Malignant neoplasm of esophagus, unspecified (principal); Z90.49 Acquired absence of other specified parts of digestive tract; Z90.3 Acquired absence of stomach [part of]; Z51.5 Encounter for palliative care; R10.9 Unspecified abdominal pain; R11.0 Nausea; F43.23 Adjustment disorder with mixed anxiety and depressed mood; G89.3 Neoplasm related pain (acute) (chronic); F43.10 Post-traumatic stress disorder, unspecified; I48.91 Unspecified atrial fibrillation; I10 Essential (primary) hypertension; N20.0 Calculus of kidney; Z87.891 Personal history of nicotine dependence; Z79.891 Long term (current) use of opiate analgesic; Z79.899 Other long term (current) drug therapy

== ENCOUNTER 2022-11-09 12:56 | Observation (INO) | payer MEDICARE, OTHER ==
[~2022-11-09] VITALS: Ht 177.8 cm; Wt 110.1 kg
[2022-11-09] MEDS ORDERED: MORPHINE 4 MG/ML 1ML VIAL IV ONE (20:05)
[2022-11-09] MEDS ORDERED: ONDANSETRON 4MG 2ML VIAL IV ONE (20:05)
[2022-11-09 20:43] LABS: BASO # 0.2 10^3/uL (0.0-0.2); BASO % 1.6 % (0.0-1.0); EOS # 0.3 10^3/uL (0.0-0.5); EOS % 3.6 % (0.0-3.0); HEMATOCRIT 27.7 % (42.0-52.0); HEMOGLOBIN 7.2 g/dl (13.5-17.5); LYMPH % 21.5 % (24.0-44.0); MEAN CORPUSCULAR HEMOGLOBIN 18.8 pg (27.0-33.0); MEAN CORPUSCULAR VOLUME 72.5 fl (80.0-96.0); MONO # 0.9 10^3/uL (0.0-0.8); MONO % 9.4 % (2.0-8.0); NEUTROPHILS % 63.7 % (36.0-66.0); PLATELET COUNT, AUTOMATED 382 10^3/uL (150-450); RED BLOOD COUNT 3.82 10^6/uL (4.30-6.10); WHITE BLOOD COUNT 9.4 10^3/uL (4.0-10.0)
[2022-11-09 21:01] LABS: LIPASE 18 U/L (12-53)
[2022-11-09 21:02] LABS: BILIRUBIN,DIRECT 0.2 MG/DL (<0.4)
[2022-11-09 21:03] LABS: ALBUMIN 3.4 G/DL (3.2-5.2); ALKALINE PHOSPHATASE 166 U/L (46-116); ALT/SGPT 20 U/L (7.0-40); AST/SGOT 25 U/L (<34); BILIRUBIN,TOTAL 0.5 MG/DL (0.3-1.2); BLOOD UREA NITROGEN 9 MG/DL (9-23); CALCIUM LEVEL 8.6 MG/DL (8.3-10.6); CARBON DIOXIDE LEVEL 30 MMOL/L (20-31); CHLORIDE LEVEL 101 MMOL/L (98-107); CREATININE FOR GFR 0.72 MG/DL (0.70-1.30); GLOMERULAR FILTRATION RATE > 60.0 (>49); GLUCOSE, FASTING 114 MG/DL (74-106); POTASSIUM SERUM 4.5 MMOL/L (3.5-5.1); SODIUM LEVEL 138 MMOL/L (136-145)
[2022-11-09 22:21] LABS: INR 1.08; PROTHROMBIN TIME 14.2 SECONDS (12.5-14.5)
[2022-11-09 22:22] LABS: PARTIAL THROMBOPLASTIN TIME 23.7 SECONDS (24.8-34.2)
[2022-11-09] MEDS ORDERED: KETOROLAC 30 MG/ML 1ML VIAL IV ONE (23:00)
[2022-11-09] MEDS ORDERED: ACETAMINOPHEN TAB 650MG DOSE (2X325MG) PO PRN (23:00)
[2022-11-09] MEDS ORDERED: LR 1,000 ML IV ONE (23:00)
[2022-11-09 23:10] LABS: RSV AMPLIFICATION NEGATIVE (NEGATIVE)
[2022-11-10] VITALS (12 sets, daily range): BP systolic 107–158; BP diastolic 67–86
[2022-11-10 00:38] LABS: IRON (FE) 19 UG/DL (65-175); TOTAL IRON BINDING CAPACITY 379 UG/DL (250-425)
[2022-11-10 00:40] LABS: FERRITIN 3.6 NG/ML (10.5-307.3); FOLATE > 24.00 NG/ML (>5.4); VITAMIN B12 LEVEL 297 PG/ML (211-911)
[2022-11-10] MEDS ORDERED: ONDANSETRON 4MG 2ML VIAL IV PRN (01:15)
[2022-11-10] MEDS ORDERED: METO1TAB87 PO (02:07)
[2022-11-10] MEDS ORDERED: ATOR1TAB19 PO (02:07)
[2022-11-10] MEDS ORDERED: OMEP1CAP73 PO (02:07)
[2022-11-10] MEDS ORDERED: HOME MED LIST COMPLETE! XX SCH (02:10)
[2022-11-10] MEDS: oxyCODONE 5MG TAB PO PRN ×4 (02:46→20:26)
[2022-11-10] MEDS ORDERED: CALCIUM CARBONATE 500 MG CHEW U/D PO ONE (04:10)
[2022-11-10] MEDS ORDERED: hydrOXYzine 50 MG TAB PO ONE (04:10)
[2022-11-10 05:46] LABS: HEMOGLOBIN 7.3 g/dl (13.5-17.5); MEAN CORPUSCULAR HEMOGLOBIN 19.9 pg (27.0-33.0); MEAN CORPUSCULAR VOLUME 73.8 fl (80.0-96.0); PLATELET COUNT, AUTOMATED 325 10^3/uL (150-450); RED BLOOD COUNT 3.66 10^6/uL (4.30-6.10); WHITE BLOOD COUNT 8.7 10^3/uL (4.0-10.0)
[2022-11-10 06:14] LABS: MAGNESIUM LEVEL 1.5 MG/DL (1.8-2.4)
[2022-11-10 06:16] LABS: BLOOD UREA NITROGEN 13 MG/DL (9-23); CALCIUM LEVEL 8.3 MG/DL (8.3-10.6); CARBON DIOXIDE LEVEL 29 MMOL/L (20-31); CHLORIDE LEVEL 101 MMOL/L (98-107); GLOMERULAR FILTRATION RATE > 60.0 (>49); GLUCOSE, FASTING 132 MG/DL (74-106); POTASSIUM SERUM 3.7 MMOL/L (3.5-5.1); SODIUM LEVEL 138 MMOL/L (136-145)
[2022-11-10] MEDS ORDERED: MAG SULF 1GM/100ML (MAG RUN) 1 GM in IV 1 EA IV ONE (08:00)
[2022-11-10] MEDS: METOPROLOL TART 25 MG TABLET PO SCH ×2 (09:12→20:25)
[2022-11-10] MEDS: FERROUS GLUCONATE 324 MG TAB PO SCH ×2 (09:12→20:22)
[2022-11-10] MEDS: DULoxetine 30MG CAPSULE (CYMBALTA) PO SCH (09:13)
[2022-11-10] MEDS: OMEPRAZOLE 20MG CAP PO SCH (09:13)
[2022-11-10] MEDS: AMIODARONE 200 MG TAB (PACERONE) PO SCH (09:13)
[2022-11-10] MEDS: ATORVASTATIN 10 MG TAB PO SCH (09:53)
[2022-11-10] MEDS ORDERED: FERRIC CARBOXYMALTOSE INJ 750 MG, VIAL MATE ADAPTER 1 EACH in NS 250 ML IV ONE (13:00)
[2022-11-10] MEDS ORDERED: MIRALAX *UNIT DOSE* 17GM PACKET PO PRN (13:40)
[2022-11-10 19:38] LABS: HEMATOCRIT 29.4 % (42.0-52.0); HEMOGLOBIN 8.2 g/dl (13.5-17.5)
[2022-11-10] MEDS ORDERED: MIRTAZAPINE 15 MG TAB PO SCH (21:00)
[2022-11-10] MEDS: APIXABAN 5 MG TAB (ELIQUIS) PO SCH (23:20)
[2022-11-11 05:57] VITALS: BP 105/65
[2022-11-11 06:50] LABS: HEMOGLOBIN 7.9 g/dl (13.5-17.5); MEAN CORPUSCULAR HEMOGLOBIN 21.2 pg (27.0-33.0); MEAN CORPUSCULAR HGB CONC 28.2 g/dl (32.0-36.5); MEAN CORPUSCULAR VOLUME 75.1 fl (80.0-96.0); PLATELET COUNT, AUTOMATED 303 10^3/uL (150-450); RED BLOOD COUNT 3.73 10^6/uL (4.30-6.10); WHITE BLOOD COUNT 8.9 10^3/uL (4.0-10.0)
[2022-11-11 07:22] LABS: BLOOD UREA NITROGEN 10 MG/DL (9-23); CALCIUM LEVEL 8.4 MG/DL (8.3-10.6); CARBON DIOXIDE LEVEL 30 MMOL/L (20-31); CHLORIDE LEVEL 104 MMOL/L (98-107); CREATININE FOR GFR 0.77 MG/DL (0.70-1.30); GLOMERULAR FILTRATION RATE > 60.0 (>49); GLUCOSE, FASTING 117 MG/DL (74-106); POTASSIUM SERUM 4.5 MMOL/L (3.5-5.1); SODIUM LEVEL 141 MMOL/L (136-145)
[2022-11-11] MEDS: DULoxetine 30MG CAPSULE (CYMBALTA) PO SCH (08:54)
[2022-11-11] MEDS: APIXABAN 5 MG TAB (ELIQUIS) PO SCH (08:54)
[2022-11-11 08:55] VITALS: BP 127/78
[2022-11-11] MEDS: OMEPRAZOLE 20MG CAP PO SCH (08:55)
[2022-11-11] MEDS: AMIODARONE 200 MG TAB (PACERONE) PO SCH (08:55)
[2022-11-11] MEDS: FERROUS GLUCONATE 324 MG TAB PO SCH (08:55)
[2022-11-11] MEDS: ATORVASTATIN 10 MG TAB PO SCH (08:55)
[2022-11-11] MEDS: METOPROLOL TART 25 MG TABLET PO SCH (08:55)
[2022-11-11] MEDS: oxyCODONE 5MG TAB PO PRN (08:56)
[2022-11-11] MEDS ORDERED: FERR325T18 PO (09:01)
[2022-11-17] MEDS ORDERED: ONDA4TAB6 SL (09:12)
[2022-11-22] MEDS ORDERED: SENN-120 PO (07:17)
[2022-11-30] MEDS ORDERED: DULO1CAP6 PO (11:57)
[2022-11-30] MEDS ORDERED: GLYC2TAB18 PO (11:59)
[2022-12-13] MEDS ORDERED: OMEP1CAP73 PO (15:39)
[2022-12-13] MEDS ORDERED: MIRT1TAB17 PO (15:39)
[2022-12-14] MEDS ORDERED: MIRT1TAB17 PO ×2 (10:11→10:12)
[2022-12-14] MEDS ORDERED: OMEP1CAP73 PO ×2 (10:11→10:12)
== END 2022-11-11 11:16 | disposition home or self-care (01) ==
LOC: M ED 19:36 → M ED INP 19:37 → ENRESERV 11-10 01:18 → M MSPAV 11-10 01:49
PROVIDERS: ADMIT Family Medicine; ATTEND Internal Medicine
DX: R31.9 Hematuria, unspecified (principal); R00.0 Tachycardia, unspecified; D62 Acute posthemorrhagic anemia; I10 Essential (primary) hypertension; I48.91 Unspecified atrial fibrillation; E78.5 Hyperlipidemia, unspecified; F41.9 Anxiety disorder, unspecified; F32.A Depression, unspecified; Z79.01 Long term (current) use of anticoagulants; Z87.891 Personal history of nicotine dependence; Z79.899 Other long term (current) drug therapy; Z92.3 Personal history of irradiation; Z85.01 Personal history of malignant neoplasm of esophagus
CPT/HCPCS: 36415; 36430; 73502; 74176; 76775; 80048; 80076; 81000; 81015; 82270; 82607; 82728; 82746; 83550; 83605; 83690; 83735; 84466; 85014; 85018; 85025; 85027; 85610; 85730; 86850; 86900; 86901; 86920; 87086; 87507; 87631; 93005; 93970; 96361; 96374; 96375; 96376; 99285; G0378; J1439; J1885; J2270; J2405; J3475; P9016

== ENCOUNTER → 2022-11-17 | Outpatient (CLI) | payer MEDICARE, OTHER ==
[~2022-11-17] VITALS: Ht 177.8 cm; Wt 111.0 kg
[~2022-11-17] MED LIST changes: +ATOR1TAB19 PO; +FERR325T18 PO; +ONDA4TAB6 SL
[2022-11-17 08:30] VITALS: BP 126/80
[2022-11-17 10:27] LABS: BASO # 0.1 10^3/uL (0.0-0.2); BASO % 1.2 % (0.0-1.0); EOS # 0.5 10^3/uL (0.0-0.5); EOS % 4.4 % (0.0-3.0); HEMATOCRIT 34.4 % (42.0-52.0); HEMOGLOBIN 9.1 g/dl (13.5-17.5); LYMPH # 1.6 10^3/uL (1.5-5.0); LYMPH % 14.6 % (24.0-44.0); MEAN CORPUSCULAR HGB CONC 26.5 g/dl (32.0-36.5); MEAN CORPUSCULAR VOLUME 83.3 fl (80.0-96.0); MONO # 0.9 10^3/uL (0.0-0.8); MONO % 8.2 % (2.0-8.0); NEUTROPHILS # 7.6 10^3/uL (1.5-8.5); NEUTROPHILS % 70.9 % (36.0-66.0); PLATELET COUNT, AUTOMATED 332 10^3/uL (150-450); RED BLOOD COUNT 4.13 10^6/uL (4.30-6.10); WHITE BLOOD COUNT 10.7 10^3/uL (4.0-10.0)
[2022-11-17 10:48] LABS: ALBUMIN 3.2 G/DL (3.2-5.2); ALKALINE PHOSPHATASE 147 U/L (46-116); ALT/SGPT 23 U/L (7.0-40); AST/SGOT 27 U/L (<34); BILIRUBIN,TOTAL 0.3 MG/DL (0.3-1.2); BLOOD UREA NITROGEN 12 MG/DL (9-23); CALCIUM LEVEL 8.7 MG/DL (8.3-10.6); CARBON DIOXIDE LEVEL 31 MMOL/L (20-31); CHLORIDE LEVEL 107 MMOL/L (98-107); CREATININE FOR GFR 0.83 MG/DL (0.70-1.30); GLOMERULAR FILTRATION RATE > 60.0 (>49); GLUCOSE, FASTING 123 MG/DL (74-106); POTASSIUM SERUM 4.8 MMOL/L (3.5-5.1); SODIUM LEVEL 142 MMOL/L (136-145); TOTAL PROTEIN 6.3 G/DL (5.7-8.2)
== END ==
LOC: M PAL 07:44
PROVIDERS: ATTEND Nurse Practitioner Adult Health
DX: C15.9 Malignant neoplasm of esophagus, unspecified (principal); Z90.49 Acquired absence of other specified parts of digestive tract; Z90.3 Acquired absence of stomach [part of]; R10.9 Unspecified abdominal pain; Z51.5 Encounter for palliative care; R11.0 Nausea; Z92.21 Personal history of antineoplastic chemotherapy; G89.3 Neoplasm related pain (acute) (chronic); K21.9 Gastro-esophageal reflux disease without esophagitis; I10 Essential (primary) hypertension; I48.91 Unspecified atrial fibrillation; Z87.442 Personal history of urinary calculi; F43.21 Adjustment disorder with depressed mood; F43.10 Post-traumatic stress disorder, unspecified; Z79.51 Long term (current) use of inhaled steroids; Z79.899 Other long term (current) drug therapy
CPT/HCPCS: 80053; 85025; G0463

== ENCOUNTER → 2022-11-17 | Outpatient (CLI) | payer MEDICARE, OTHER | LOC: M ONCR 09:24 | PROVIDERS: ATTEND Nurse Practitioner Adult Health | DX: D62 Acute posthemorrhagic anemia (principal) ==

== ENCOUNTER → 2022-11-28 | Outpatient (CLI) | payer MEDICARE, OTHER | LOC: M RAD 14:11 | PROVIDERS: ATTEND Urology | DX: N20.0 Calculus of kidney (principal) ==

== ENCOUNTER → 2022-12-02 | Outpatient (CLI) | payer MEDICARE, OTHER ==
[2022-12-02 12:00] LABS: HEMATOCRIT 39.1 % (42.0-52.0); MEAN CORPUSCULAR HEMOGLOBIN 24.8 pg (27.0-33.0); MEAN CORPUSCULAR HGB CONC 28.1 g/dl (32.0-36.5); MEAN CORPUSCULAR VOLUME 88.3 fl (80.0-96.0); PLATELET COUNT, AUTOMATED 307 10^3/uL (150-450); RED BLOOD COUNT 4.43 10^6/uL (4.30-6.10); WHITE BLOOD COUNT 10.7 10^3/uL (4.0-10.0)
== END ==
LOC: M LAB 10:18
PROVIDERS: ATTEND Nurse Practitioner Family
DX: D50.0 Iron deficiency anemia secondary to blood loss (chronic) (principal)

== ENCOUNTER → 2022-12-09 | Outpatient (CLI) | payer MEDICARE, OTHER ==
[~2022-12-09] MED LIST changes: +AMIO100T3 PO; +FURO40TA2; +METO50TA7 PO; +MIRT-11 PO; +TAMS1CAP17
== END ==
LOC: M RAD 10:04
PROVIDERS: ATTEND Urology
DX: N20.0 Calculus of kidney (principal)

== ENCOUNTER → 2022-12-09 | Outpatient (CLI) | payer MEDICARE, OTHER ==
[2022-12-09 10:56] LABS: HEMOGLOBIN 12.7 g/dl (13.5-17.5); MEAN CORPUSCULAR HEMOGLOBIN 25.6 pg (27.0-33.0); MEAN CORPUSCULAR HGB CONC 28.9 g/dl (32.0-36.5); MEAN CORPUSCULAR VOLUME 88.5 fl (80.0-96.0); PLATELET COUNT, AUTOMATED 252 10^3/uL (150-450); RED BLOOD COUNT 4.97 10^6/uL (4.30-6.10); WHITE BLOOD COUNT 10.1 10^3/uL (4.0-10.0)
== END ==
LOC: M LAB 10:11
PROVIDERS: ATTEND Nurse Practitioner Family
DX: D50.0 Iron deficiency anemia secondary to blood loss (chronic) (principal)

== ENCOUNTER → 2022-12-20 | Outpatient (CLI) | payer MEDICARE, OTHER ==
[~2022-12-20] MED LIST changes: -AMIO100T3 PO; -FURO40TA2; -METO50TA7 PO; -MIRT-11 PO; -TAMS1CAP17
[2022-12-20 12:48] LABS: APPEARANCE, URINE HAZY (CLEAR); BILIRUBIN, URINE AUTO NEGATIVE (NEGATIVE); BLOOD, URINE BLOOD 3+ (NEGATIVE); COLOR, URINE YELLOW (YELLOW); GLUCOSE, URINE (UA) AUTO NEGATIVE (NEGATIVE); KETONE, URINE AUTO NEGATIVE (NEGATIVE); LEUKOCYTE ESTERASE, URINE AUTO NEGATIVE (NEGATIVE); NITRITE, URINE AUTO NEGATIVE (NEGATIVE); PROTEIN, URINE AUTO 1+ mg/dL (NEGATIVE); SPECIFIC GRAVITY URINE AUTO 1.013 (1.002-1.035); UROBILINOGEN, URINE AUTO 0.2 mg/dL (0.0-2.0)
[2022-12-20 13:31] LABS: AMORPHOUS SEDIMENT SMALL (NEGATIVE); BACTERIA, URINE AUTO NEGATIVE (NEGATIVE); CALCIUM OXALATE CRYSTALS SMALL; MUCUS, URINE SMALL (NEGATIVE); RBC, URINE AUTO TNTC /HPF (0-3); SQUAMOUS EPITHELIAL CELL UR AU 0 /HPF (0-6); WBC, URINE AUTO 5 /HPF (0-3)
== END ==
LOC: M LAB 11:35
PROVIDERS: ATTEND Urology
DX: N20.0 Calculus of kidney (principal)

== ENCOUNTER → 2022-12-25 | Outpatient (CLI) | payer MEDICARE, OTHER ==
[2022-12-25 12:11] LABS: HEMATOCRIT 41.5 % (42.0-52.0); HEMOGLOBIN 12.2 g/dl (13.5-17.5); MEAN CORPUSCULAR HGB CONC 29.4 g/dl (32.0-36.5); MEAN CORPUSCULAR VOLUME 91.8 fl (80.0-96.0); PLATELET COUNT, AUTOMATED 312 10^3/uL (150-450); RED BLOOD COUNT 4.52 10^6/uL (4.30-6.10); WHITE BLOOD COUNT 8.5 10^3/uL (4.0-10.0)
== END ==
LOC: M LAB 11:38
PROVIDERS: ATTEND Nurse Practitioner Family
DX: D50.0 Iron deficiency anemia secondary to blood loss (chronic) (principal)

== ENCOUNTER 2022-12-27 12:29 | Emergency (ER) | payer MEDICARE, OTHER ==
[~2022-12-27] VITALS: Ht 177.8 cm; Wt 109.0 kg
[2022-12-27] MEDS ORDERED: TAMS1CAP17 (12:40)
[2022-12-27] MEDS ORDERED: FURO40TA2 (12:40)
[2022-12-27 13:31] LABS: BASO # 0.1 10^3/uL (0.0-0.2); BASO % 0.9 % (0.0-1.0); EOS # 0.4 10^3/uL (0.0-0.5); EOS % 3.9 % (0.0-3.0); HEMATOCRIT 43.5 % (42.0-52.0); LYMPH # 1.4 10^3/uL (1.5-5.0); MEAN CORPUSCULAR HEMOGLOBIN 26.9 pg (27.0-33.0); MEAN CORPUSCULAR HGB CONC 29.9 g/dl (32.0-36.5); MEAN CORPUSCULAR VOLUME 89.9 fl (80.0-96.0); MONO # 0.7 10^3/uL (0.0-0.8); MONO % 7.1 % (2.0-8.0); NEUTROPHILS # 6.6 10^3/uL (1.5-8.5); NEUTROPHILS % 72.8 % (36.0-66.0); PLATELET COUNT, AUTOMATED 345 10^3/uL (150-450); RED BLOOD COUNT 4.84 10^6/uL (4.30-6.10); WHITE BLOOD COUNT 9.1 10^3/uL (4.0-10.0)
[2022-12-27 14:04] LABS: LIPASE 16 U/L (12-53)
[2022-12-27 14:09] LABS: ALBUMIN 3.7 G/DL (3.2-5.2); ALKALINE PHOSPHATASE 123 U/L (46-116); ALT/SGPT 28 U/L (7.0-40); AST/SGOT 34 U/L (<34); BILIRUBIN,DIRECT < 0.1 MG/DL (<0.4); BILIRUBIN,TOTAL 0.3 MG/DL (0.3-1.2); TOTAL PROTEIN 7.3 G/DL (5.7-8.2)
[2022-12-27] MEDS ORDERED: KETOROLAC 30 MG/ML 1ML VIAL IV ONE (14:45)
[2022-12-27 17:00] VITALS: BP 129/82
== END 2022-12-27 17:00 | disposition home or self-care (01) ==
LOC: M ED 12:29
DX: T83.192A Other mechanical complication of indwelling ureteral stent, initial encounter (principal); E11.9 Type 2 diabetes mellitus without complications; I10 Essential (primary) hypertension; K21.9 Gastro-esophageal reflux disease without esophagitis; E78.5 Hyperlipidemia, unspecified; F43.10 Post-traumatic stress disorder, unspecified; F41.9 Anxiety disorder, unspecified; F32.A Depression, unspecified; F12.10 Cannabis abuse, uncomplicated; Z87.442 Personal history of urinary calculi; Z79.01 Long term (current) use of anticoagulants; Z79.4 Long term (current) use of insulin; Z86.79 Personal history of other diseases of the circulatory system; Z79.83 Long term (current) use of bisphosphonates; Z79.02 Long term (current) use of antithrombotics/antiplatelets; Z79.899 Other long term (current) drug therapy
CPT/HCPCS: 74176; 80047; 80076; 81001; 83690; 85025; 87086; 96374; 99284; J1885

== ENCOUNTER → 2023-01-11 | Outpatient (CLI) | payer MEDICARE, OTHER ==
[~2023-01-11] MED LIST changes: +FURO40TA2; +TAMS1CAP17
[2023-01-11 13:45] LABS: HEMATOCRIT 39.6 % (42.0-52.0); HEMOGLOBIN 12.1 g/dl (13.5-17.5); MEAN CORPUSCULAR HEMOGLOBIN 28.4 pg (27.0-33.0); MEAN CORPUSCULAR HGB CONC 30.6 g/dl (32.0-36.5); PLATELET COUNT, AUTOMATED 357 10^3/uL (150-450); RED BLOOD COUNT 4.26 10^6/uL (4.30-6.10); WHITE BLOOD COUNT 9.9 10^3/uL (4.0-10.0)
== END ==
LOC: M LAB 12:32
PROVIDERS: ATTEND Nurse Practitioner Family
DX: D50.0 Iron deficiency anemia secondary to blood loss (chronic) (principal)

== ENCOUNTER → 2023-01-19 | Outpatient (CLI) | payer MEDICARE, OTHER ==
[2023-01-19 12:45] LABS: HEMATOCRIT 36.9 % (42.0-52.0); HEMOGLOBIN 11.2 g/dl (13.5-17.5); MEAN CORPUSCULAR HGB CONC 30.4 g/dl (32.0-36.5); MEAN CORPUSCULAR VOLUME 95.6 fl (80.0-96.0); PLATELET COUNT, AUTOMATED 339 10^3/uL (150-450); RED BLOOD COUNT 3.86 10^6/uL (4.30-6.10); WHITE BLOOD COUNT 10.4 10^3/uL (4.0-10.0)
== END ==
LOC: M LAB 11:04
PROVIDERS: ATTEND Nurse Practitioner Family
DX: D50.0 Iron deficiency anemia secondary to blood loss (chronic) (principal)

== ENCOUNTER → 2023-01-24 | Outpatient (CLI) | payer MEDICARE, OTHER ==
[~2023-01-24] VITALS: Ht 177.8 cm; Wt 107.7 kg
[~2023-01-24] MED LIST changes: +AMIO100T3 PO; +METO50TA7 PO; +MIRT-11 PO
[2023-01-24 11:09] VITALS: BP 112/71
== END ==
LOC: M PAL 10:48
PROVIDERS: ATTEND Nurse Practitioner Adult Health
DX: C15.9 Malignant neoplasm of esophagus, unspecified (principal); Z90.49 Acquired absence of other specified parts of digestive tract; Z90.3 Acquired absence of stomach [part of]; Z51.5 Encounter for palliative care; R10.9 Unspecified abdominal pain; R11.0 Nausea; Z92.21 Personal history of antineoplastic chemotherapy; G89.3 Neoplasm related pain (acute) (chronic); K21.9 Gastro-esophageal reflux disease without esophagitis; I10 Essential (primary) hypertension; I48.91 Unspecified atrial fibrillation; Z87.442 Personal history of urinary calculi; F43.21 Adjustment disorder with depressed mood; F43.10 Post-traumatic stress disorder, unspecified; Z79.51 Long term (current) use of inhaled steroids; Z79.899 Other long term (current) drug therapy

== ENCOUNTER → 2023-01-26 | Outpatient (CLI) | payer MEDICARE, OTHER ==
[2023-01-26 16:25] LABS: HEMATOCRIT 35.9 % (42.0-52.0); HEMOGLOBIN 11.1 g/dl (13.5-17.5); MEAN CORPUSCULAR HEMOGLOBIN 28.8 pg (27.0-33.0); MEAN CORPUSCULAR HGB CONC 30.9 g/dl (32.0-36.5); PLATELET COUNT, AUTOMATED 326 10^3/uL (150-450); RED BLOOD COUNT 3.86 10^6/uL (4.30-6.10); WHITE BLOOD COUNT 11.7 10^3/uL (4.0-10.0)
== END ==
LOC: M LAB 15:47
PROVIDERS: ATTEND Internal Medicine Cardiovascular Disease
DX: R31.9 Hematuria, unspecified (principal); D50.0 Iron deficiency anemia secondary to blood loss (chronic)

== ENCOUNTER → 2023-02-01 | Outpatient (CLI) | payer MEDICARE, OTHER | LOC: M LAB 11:19 | PROVIDERS: ATTEND Urology | DX: N20.0 Calculus of kidney (principal) ==

== ENCOUNTER → 2023-02-01 | Outpatient (CLI) | payer MEDICARE, OTHER | LOC: M LAB 10:53 | PROVIDERS: ATTEND Internal Medicine Cardiovascular Disease | DX: Z53.9 Procedure and treatment not carried out, unspecified reason (principal) ==

== ENCOUNTER → 2023-03-07 | Outpatient (CLI) | payer MEDICARE, OTHER ==
[~2023-03-07] VITALS: Ht 177.8 cm; Wt 111.6 kg
[2023-03-07 11:12] VITALS: BP 104/73
== END ==
LOC: M PAL 11:05
PROVIDERS: ATTEND Nurse Practitioner Adult Health
DX: C15.9 Malignant neoplasm of esophagus, unspecified (principal); Z90.49 Acquired absence of other specified parts of digestive tract; Z90.3 Acquired absence of stomach [part of]; Z92.21 Personal history of antineoplastic chemotherapy; Z92.3 Personal history of irradiation; Z51.5 Encounter for palliative care; F43.23 Adjustment disorder with mixed anxiety and depressed mood; F43.10 Post-traumatic stress disorder, unspecified; R10.9 Unspecified abdominal pain; Z98.890 Other specified postprocedural states; R11.0 Nausea; Z80.9 Family history of malignant neoplasm, unspecified; Z87.891 Personal history of nicotine dependence; G89.3 Neoplasm related pain (acute) (chronic); I48.91 Unspecified atrial fibrillation; Z79.891 Long term (current) use of opiate analgesic; Z79.01 Long term (current) use of anticoagulants

== ENCOUNTER → 2023-04-04 | Outpatient (CLI) | payer MEDICARE, OTHER | LOC: M RAD 09:33 | PROVIDERS: ATTEND Physician Assistant Medical | DX: N20.0 Calculus of kidney (principal) ==

== ENCOUNTER → 2023-04-12 | Outpatient (CLI) | payer MEDICARE, OTHER ==
[~2023-04-12] MED LIST changes: +E-Z-GAS II EFFERVESCENT PACKET (SODIUM BICARB./CITRIC ACID/SIMETHICONE) As Ordered ONE; +E-Z-HD 98% w/w 340GM SUSP BTL As Ordered ONE; +E-Z-PAQUE 96% w/w SUSP 176GM BTL As Ordered ONE
== END ==
LOC: M RAD 07:02
PROVIDERS: ATTEND Surgery
DX: R47.02 Dysphasia (principal)

== ENCOUNTER 2023-05-05 09:05 | Day surgery (SDC) | payer MEDICARE, OTHER ==
[~2023-05-05] VITALS: Ht 177.8 cm; Wt 108.2 kg
[~2023-05-05 09:05] MED LIST changes: +ASCO500C3 PO; +CYAN-1 PO; -CYAN100050 PO; -E-Z-GAS II EFFERVESCENT PACKET (SODIUM BICARB./CITRIC ACID/SIMETHICONE) As Ordered ONE; -E-Z-HD 98% w/w 340GM SUSP BTL As Ordered ONE; -E-Z-PAQUE 96% w/w SUSP 176GM BTL As Ordered ONE; +OMEP-173 PO
[2023-05-05] MEDS ORDERED: MED REC IN PROGRESS XX SCH (10:00)
[2023-05-05] MEDS ORDERED: ASCO500T PO (10:20)
[2023-05-05] MEDS ORDERED: MIRT1TAB17 PO (10:20)
[2023-05-05] MEDS ORDERED: ONDA4TAB6 SL (10:20)
[2023-05-05] MEDS ORDERED: ATOR1TAB21 PO (10:20)
[2023-05-05] MEDS ORDERED: AMIO200T49 PO (10:20)
[2023-05-05] MEDS ORDERED: SENN-188 PO (10:20)
[2023-05-05] MEDS ORDERED: HOME MED LIST COMPLETE! XX SCH (10:25)
[2023-05-05] MEDS ORDERED: fentaNYL 100 MCG/2 ML INJECTION As Ordered ONE (10:27)
[2023-05-05] MEDS ORDERED: LIDOCAINE 2% 100MG/5ML SDV (FOR ANES.) As Ordered ONE (10:28)
[2023-05-05] MEDS ORDERED: propofoL 200 MG/20 ML VIAL As Ordered ONE (10:28)
[2023-05-05] MEDS ORDERED: SUCCINYLCHOLINE 100MG/5ML SYRINGE As Ordered ONE (10:28)
[2023-05-05] MEDS ORDERED: ONDANSETRON 4MG 2ML VIAL As Ordered ONE (10:33)
[2023-05-05 10:36] LABS: HEMATOCRIT 44.6 % (42.0-52.0); HEMOGLOBIN 14.3 g/dl (13.5-17.5); MEAN CORPUSCULAR HEMOGLOBIN 29.2 pg (27.0-33.0); MEAN CORPUSCULAR HGB CONC 32.1 g/dl (32.0-36.5); PLATELET COUNT, AUTOMATED 268 10^3/uL (150-450); WHITE BLOOD COUNT 8.5 10^3/uL (4.0-10.0)
[2023-05-05] MEDS ORDERED: MIDAZOLAM INJ 2MG/2ML VIAL As Ordered ONE (10:36)
[2023-05-05 10:40] LABS: BLOOD UREA NITROGEN 11 MG/DL (9-23); CALCIUM LEVEL 8.6 MG/DL (8.3-10.6); CARBON DIOXIDE LEVEL 28 MMOL/L (20-31); CHLORIDE LEVEL 105 MMOL/L (98-107); CREATININE FOR GFR 0.64 MG/DL (0.70-1.30); GLOMERULAR FILTRATION RATE > 60.0 (>49); GLUCOSE, FASTING 138 MG/DL (74-106); SODIUM LEVEL 140 MMOL/L (136-145)
[2023-05-05 13:45] VITALS: BP 150/88; TEMP 97.8; O2SAT 96
[2023-05-16] MEDS ORDERED: OXYC-517 PO (12:00)
== END 2023-05-05 13:50 | disposition home or self-care (01) ==
LOC: M ED 09:05 → M SDC 10:26
PROVIDERS: ATTEND Surgery
DX: T18.128A Food in esophagus causing other injury, initial encounter (principal); Z85.01 Personal history of malignant neoplasm of esophagus; I10 Essential (primary) hypertension; I48.91 Unspecified atrial fibrillation; F41.9 Anxiety disorder, unspecified; F32.A Depression, unspecified; Z79.01 Long term (current) use of anticoagulants; Z79.899 Other long term (current) drug therapy; Z87.891 Personal history of nicotine dependence
CPT/HCPCS: 43247; 71045; 80048; 85027; 87635; 93005; 99284; J0330; J1100; J2405; J3010

== ENCOUNTER → 2023-05-16 | Outpatient (CLI) | payer MEDICARE, OTHER ==
[~2023-05-16] VITALS: Ht 177.8 cm; Wt 109.2 kg
[~2023-05-16] MED LIST changes: +ASCO500T PO; +ATOR1TAB21 PO; +SENN-188 PO
[2023-05-16 11:01] VITALS: BP 141/81; O2SAT 96
== END ==
LOC: M PAL 10:43
PROVIDERS: ATTEND Nurse Practitioner Adult Health
DX: Z85.01 Personal history of malignant neoplasm of esophagus (principal); F43.10 Post-traumatic stress disorder, unspecified; F43.23 Adjustment disorder with mixed anxiety and depressed mood; G89.3 Neoplasm related pain (acute) (chronic); I48.91 Unspecified atrial fibrillation; R10.9 Unspecified abdominal pain; R11.0 Nausea; N20.0 Calculus of kidney; Z90.49 Acquired absence of other specified parts of digestive tract; Z90.3 Acquired absence of stomach [part of]; Z92.21 Personal history of antineoplastic chemotherapy; Z92.3 Personal history of irradiation; Z51.5 Encounter for palliative care; Z80.9 Family history of malignant neoplasm, unspecified; Z87.891 Personal history of nicotine dependence; Z79.891 Long term (current) use of opiate analgesic; Z79.01 Long term (current) use of anticoagulants

== ENCOUNTER → 2023-07-03 | Outpatient (CLI) | payer MEDICARE, OTHER | LOC: M PLAIMG 09:48 | PROVIDERS: ATTEND Urology | DX: N20.0 Calculus of kidney (principal); K44.9 Diaphragmatic hernia without obstruction or gangrene; Z97.8 Presence of other specified devices ==

== ENCOUNTER → 2023-07-20 | Outpatient (CLI) | payer MEDICARE, OTHER ==
[~2023-07-20] VITALS: Ht 177.8 cm; Wt 108.0 kg
[~2023-07-20] MED LIST changes: +AMIO100T11 PO; -AMIO100T3 PO; -MIRT-62 PO; +MIRT-88 PO
[2023-07-20 14:34] VITALS: BP 143/90; O2SAT 97
== END ==
LOC: M PAL 12:44
PROVIDERS: ATTEND Nurse Practitioner Adult Health
DX: C15.9 Malignant neoplasm of esophagus, unspecified (principal); Z51.5 Encounter for palliative care; R10.9 Unspecified abdominal pain; R11.0 Nausea; F43.10 Post-traumatic stress disorder, unspecified; F43.23 Adjustment disorder with mixed anxiety and depressed mood; I48.91 Unspecified atrial fibrillation; N20.0 Calculus of kidney; G89.3 Neoplasm related pain (acute) (chronic); Z80.9 Family history of malignant neoplasm, unspecified; Z87.891 Personal history of nicotine dependence; Z79.01 Long term (current) use of anticoagulants; Z79.891 Long term (current) use of opiate analgesic; Z79.899 Other long term (current) drug therapy; Z90.3 Acquired absence of stomach [part of]; Z90.49 Acquired absence of other specified parts of digestive tract; Z92.21 Personal history of antineoplastic chemotherapy; Z92.3 Personal history of irradiation

== ENCOUNTER → 2023-09-05 | Outpatient (REF) | payer MEDICARE, OTHER | LOC: M LAB REF 08:19 | PROVIDERS: ATTEND Internal Medicine Endocrinology, Diabetes & Metabolism | DX: E04.2 Nontoxic multinodular goiter (principal) ==

== ENCOUNTER → 2023-09-18 | Outpatient (CLI) | payer MEDICARE, OTHER ==
[2023-09-18 13:13] LABS: HEMATOCRIT 47.1 % (42.0-52.0); HEMOGLOBIN 15.5 g/dl (13.5-17.5); MEAN CORPUSCULAR HEMOGLOBIN 31.4 pg (27.0-33.0); MEAN CORPUSCULAR HGB CONC 32.9 g/dl (32.0-36.5); MEAN CORPUSCULAR VOLUME 95.5 fl (80.0-96.0); PLATELET COUNT, AUTOMATED 259 10^3/uL (150-450); RED BLOOD COUNT 4.93 10^6/uL (4.30-6.10); WHITE BLOOD COUNT 9.4 10^3/uL (4.0-10.0)
[2023-09-18 13:37] LABS: ALBUMIN 3.7 G/DL (3.2-5.2); ALKALINE PHOSPHATASE 136 U/L (46-116); ALT/SGPT 44 U/L (7.0-40); AST/SGOT 38 U/L (<34); BILIRUBIN,TOTAL 0.4 MG/DL (0.3-1.2); BLOOD UREA NITROGEN 13 MG/DL (9-23); CALCIUM LEVEL 9.3 MG/DL (8.3-10.6); CARBON DIOXIDE LEVEL 31 MMOL/L (20-31); CHLORIDE LEVEL 101 MMOL/L (98-107); CREATININE FOR GFR 0.74 MG/DL (0.70-1.30); GLOMERULAR FILTRATION RATE > 60.0 (>49); GLUCOSE, FASTING 171 MG/DL (74-106); POTASSIUM SERUM 4.8 MMOL/L (3.5-5.1); SODIUM LEVEL 137 MMOL/L (136-145); TOTAL PROTEIN 7.3 G/DL (5.7-8.2)
== END ==
LOC: M LAB 12:19
PROVIDERS: ATTEND Urology
DX: N20.0 Calculus of kidney (principal)

== ENCOUNTER 2023-09-21 08:35 | Day surgery (SDC) | payer MEDICARE, OTHER ==
[~2023-09-21] VITALS: Ht 175.3 cm; Wt 105.7 kg
[~2023-09-21 08:35] MED LIST changes: +ceFAZolin SOD 2 GM in IV 1 EA IV ONE
[2023-09-21] MEDS ORDERED: LR 1,000 ML IV SCH (10:15)
[2023-09-21] MEDS ORDERED: MIDAZOLAM INJ 2MG/2ML VIAL As Ordered ONE (10:55)
[2023-09-21] MEDS ORDERED: propofoL 200 MG/20 ML VIAL As Ordered ONE (10:55)
[2023-09-21] MEDS ORDERED: fentaNYL 100 MCG/2 ML INJECTION As Ordered ONE (10:55)
[2023-09-21] MEDS ORDERED: LIDOCAINE 2% 100MG/5ML SDV (FOR ANES.) As Ordered ONE (10:57)
[2023-09-21] MEDS ORDERED: ONDANSETRON 4MG 2ML VIAL As Ordered ONE (10:58)
[2023-09-21 12:50] VITALS: BP 136/88; TEMP 97.8; O2SAT 98
[2023-09-22] MEDS ORDERED: ONDA4TAB6 PO (08:34)
[2023-09-22] MEDS ORDERED: GERI8.6T PO (08:34)
[2023-09-22] MEDS ORDERED: MIRT-11 PO (08:34)
[2023-09-22] MEDS ORDERED: ELIQ5TAB PO (08:34)
== END 2023-09-21 12:50 | disposition home or self-care (01) ==
LOC: M SDC 08:35
PROVIDERS: ATTEND Urology
DX: N20.0 Calculus of kidney (principal); I48.91 Unspecified atrial fibrillation; I10 Essential (primary) hypertension; E78.5 Hyperlipidemia, unspecified; Z87.891 Personal history of nicotine dependence; F12.10 Cannabis abuse, uncomplicated; Z85.01 Personal history of malignant neoplasm of esophagus; Z92.21 Personal history of antineoplastic chemotherapy; K44.9 Diaphragmatic hernia without obstruction or gangrene; K21.9 Gastro-esophageal reflux disease without esophagitis; D64.9 Anemia, unspecified; F41.9 Anxiety disorder, unspecified; F32.A Depression, unspecified; Z79.01 Long term (current) use of anticoagulants; Z79.899 Other long term (current) drug therapy
CPT/HCPCS: 50590; 74018; J2250; J2405; J3010

== ENCOUNTER → 2023-10-09 | Outpatient (CLI) | payer MEDICARE, OTHER ==
[~2023-10-09] MED LIST changes: +GERI8.6T PO; -ceFAZolin SOD 2 GM in IV 1 EA IV ONE
== END ==
LOC: M RAD 08:38
PROVIDERS: ATTEND Urology
DX: N20.0 Calculus of kidney (principal)

== ENCOUNTER → 2023-10-10 | Day surgery (SDC) | payer MEDICARE, OTHER ==
[~2023-10-10] VITALS: Ht 175.3 cm; Wt 107.0 kg
[~2023-10-10] MED LIST changes: -BIOT50004 PO; +BIOT5CAP8 PO; +LIDOCAINE 2% 100MG/5ML SDV (FOR ANES.) As Ordered ONE; +NS 1,000 ML IV ONE; +ePHEDrine SULFATE 25 MG/5 ML(5MG/ML) SYRINGE As Ordered ONE; +fentaNYL 100 MCG/2 ML INJECTION As Ordered ONE; +propofoL 200 MG/20 ML VIAL As Ordered ONE
[2023-10-10 11:05] VITALS: TEMP 98.5
[2023-10-10 11:24] VITALS: BP 160/68; O2SAT 97
== END | disposition home or self-care (01) ==
LOC: M OPP 07:49
PROVIDERS: ATTEND Internal Medicine Gastroenterology
DX: Z12.11 Encounter for screening for malignant neoplasm of colon (principal); D12.7 Benign neoplasm of rectosigmoid junction; K57.30 Diverticulosis of large intestine without perforation or abscess without bleeding; K64.4 Residual hemorrhoidal skin tags; K64.8 Other hemorrhoids; R13.10 Dysphagia, unspecified; Z98.890 Other specified postprocedural states; K29.70 Gastritis, unspecified, without bleeding
CPT/HCPCS: 43249; 45385; 88305; J3010

== ENCOUNTER → 2023-10-25 | Outpatient (REF) | payer MEDICARE, OTHER ==
[~2023-10-25] MED LIST changes: +CHOL250C2 PO; +GLYC1TAB18 PO; -LIDOCAINE 2% 100MG/5ML SDV (FOR ANES.) As Ordered ONE; +LOSA50TA28 PO; +MIRT-10 PO; -NS 1,000 ML IV ONE; +OMEP40CA5 PO; -ePHEDrine SULFATE 25 MG/5 ML(5MG/ML) SYRINGE As Ordered ONE; -fentaNYL 100 MCG/2 ML INJECTION As Ordered ONE; -propofoL 200 MG/20 ML VIAL As Ordered ONE
[2023-10-25 11:20] LABS: APPEARANCE, URINE HAZY (CLEAR); BACTERIA, URINE AUTO NEGATIVE (NEGATIVE); BILIRUBIN, URINE AUTO NEGATIVE (NEGATIVE); BLOOD, URINE BLOOD NEGATIVE (NEGATIVE); COLOR, URINE YELLOW (YELLOW); GLUCOSE, URINE (UA) AUTO NEGATIVE (NEGATIVE); KETONE, URINE AUTO NEGATIVE (NEGATIVE); LEUKOCYTE ESTERASE, URINE AUTO 2+ (NEGATIVE); MUCUS, URINE SMALL (NEGATIVE); NITRITE, URINE AUTO NEGATIVE (NEGATIVE); PROTEIN, URINE AUTO NEGATIVE (NEGATIVE); RBC, URINE AUTO 6 /HPF (0-3); SPECIFIC GRAVITY URINE AUTO 1.017 (1.002-1.035); SQUAMOUS EPITHELIAL CELL UR AU 1 /HPF (0-6); UROBILINOGEN, URINE AUTO 0.2 mg/dL (0.0-2.0); WBC, URINE AUTO 58 /HPF (0-3)
== END ==
LOC: M SMT 10:37
PROVIDERS: ATTEND Physician Assistant
DX: Z01.818 Encounter for other preprocedural examination (principal)

== ENCOUNTER 2023-11-02 09:35 | Day surgery (SDC) | payer MEDICARE, OTHER ==
[~2023-11-02] VITALS: Ht 177.8 cm; Wt 107.0 kg
[~2023-11-02 09:35] MED LIST changes: +ceFAZolin SOD 2 GM in IV 1 EA IV ONE
[2023-11-02] MEDS ORDERED: MIDAZOLAM INJ 2MG/2ML VIAL As Ordered ONE (11:02)
[2023-11-02] MEDS ORDERED: ONDANSETRON 4MG 2ML VIAL As Ordered ONE (11:02)
[2023-11-02] MEDS ORDERED: ACETAMINOPHEN 1000MG 100ML IV BAG As Ordered ONE (11:02)
[2023-11-02] MEDS ORDERED: propofoL 200 MG/20 ML VIAL As Ordered ONE ×2 (11:02→11:04)
[2023-11-02] MEDS ORDERED: fentaNYL 100 MCG/2 ML INJECTION As Ordered ONE (11:02)
[2023-11-02] MEDS ORDERED: LIDOCAINE 2% 100MG/5ML SDV (FOR ANES.) As Ordered ONE (11:02)
[2023-11-02 13:25] VITALS: BP 144/79; TEMP 97.4; O2SAT 98
[2023-11-08] MEDS ORDERED: OXYC-517 PO (13:52)
== END 2023-11-02 13:42 | disposition home or self-care (01) ==
LOC: M SDC 09:35
PROVIDERS: ATTEND Urology
DX: N20.0 Calculus of kidney (principal); I10 Essential (primary) hypertension; E78.5 Hyperlipidemia, unspecified; K21.9 Gastro-esophageal reflux disease without esophagitis; K44.9 Diaphragmatic hernia without obstruction or gangrene; F41.9 Anxiety disorder, unspecified; F32.A Depression, unspecified; Z87.891 Personal history of nicotine dependence; Z86.711 Personal history of pulmonary embolism; Z85.01 Personal history of malignant neoplasm of esophagus; Z92.3 Personal history of irradiation; Z92.21 Personal history of antineoplastic chemotherapy; Z79.899 Other long term (current) drug therapy
CPT/HCPCS: 50590; 74018; J0131; J2250; J2405; J3010

== ENCOUNTER → 2023-11-14 | Outpatient (CLI) | payer MEDICARE, OTHER ==
[~2023-11-14] VITALS: Ht 177.8 cm; Wt 109.4 kg
[~2023-11-14] MED LIST changes: +LOSA25TA13 PO; -ceFAZolin SOD 2 GM in IV 1 EA IV ONE
[2023-11-14 08:08] VITALS: BP 126/83; O2SAT 95
== END ==
LOC: M PAL 07:58
PROVIDERS: ATTEND Nurse Practitioner Adult Health
DX: C15.9 Malignant neoplasm of esophagus, unspecified (principal); G89.3 Neoplasm related pain (acute) (chronic); R10.9 Unspecified abdominal pain; R11.0 Nausea; N20.0 Calculus of kidney; Z51.5 Encounter for palliative care; F43.23 Adjustment disorder with mixed anxiety and depressed mood; F43.10 Post-traumatic stress disorder, unspecified; F32.A Depression, unspecified; I48.91 Unspecified atrial fibrillation; Z63.4 Disappearance and death of family member; Z79.891 Long term (current) use of opiate analgesic; Z79.899 Other long term (current) drug therapy; Z80.8 Family history of malignant neoplasm of other organs or systems; Z87.891 Personal history of nicotine dependence; Z90.3 Acquired absence of stomach [part of]; Z90.49 Acquired absence of other specified parts of digestive tract; Z92.21 Personal history of antineoplastic chemotherapy; Z92.3 Personal history of irradiation

== ENCOUNTER → 2023-11-23 | Outpatient (CLI) | payer MEDICARE, OTHER | LOC: M RAD 11:49 | PROVIDERS: ATTEND Urology | DX: N20.0 Calculus of kidney (principal) ==

== ENCOUNTER → 2024-02-13 | Outpatient (CLI) | payer MEDICARE, OTHER ==
[~2024-02-13] VITALS: Ht 177.8 cm; Wt 110.0 kg
[~2024-02-13] MED LIST changes: -GERI8.6T PO; +SENN-193 PO
[2024-02-13 08:45] VITALS: BP 129/84; O2SAT 95
== END ==
LOC: M PAL 08:27
PROVIDERS: ATTEND Nurse Practitioner Adult Health
DX: G89.3 Neoplasm related pain (acute) (chronic) (principal); R10.9 Unspecified abdominal pain; R11.0 Nausea; N20.0 Calculus of kidney; C15.9 Malignant neoplasm of esophagus, unspecified; Z51.5 Encounter for palliative care; F43.23 Adjustment disorder with mixed anxiety and depressed mood; F43.10 Post-traumatic stress disorder, unspecified; I48.91 Unspecified atrial fibrillation; Z79.891 Long term (current) use of opiate analgesic; Z79.899 Other long term (current) drug therapy; Z80.8 Family history of malignant neoplasm of other organs or systems; Z87.891 Personal history of nicotine dependence; Z90.3 Acquired absence of stomach [part of]; Z90.49 Acquired absence of other specified parts of digestive tract; Z92.21 Personal history of antineoplastic chemotherapy; Z92.3 Personal history of irradiation

== ENCOUNTER → 2024-04-16 | Outpatient (CLI) | payer MEDICARE, OTHER ==
[~2024-04-16] VITALS: Ht 177.8 cm; Wt 108.4 kg
[~2024-04-16] MED LIST changes: +ONDA-282 PO; +ONDA-282 SL; -ONDA4TAB6 PO; -ONDA4TAB6 SL
[2024-04-16 09:33] VITALS: BP 118/73; O2SAT 97
== END ==
LOC: M PAL 09:20
PROVIDERS: ATTEND Nurse Practitioner Adult Health
DX: G89.3 Neoplasm related pain (acute) (chronic) (principal); R10.9 Unspecified abdominal pain; R11.0 Nausea; N20.0 Calculus of kidney; C15.9 Malignant neoplasm of esophagus, unspecified; Z51.5 Encounter for palliative care; F43.23 Adjustment disorder with mixed anxiety and depressed mood; F43.10 Post-traumatic stress disorder, unspecified; I48.91 Unspecified atrial fibrillation; Z79.891 Long term (current) use of opiate analgesic; Z79.899 Other long term (current) drug therapy; Z80.8 Family history of malignant neoplasm of other organs or systems; Z87.891 Personal history of nicotine dependence; Z90.3 Acquired absence of stomach [part of]; Z90.49 Acquired absence of other specified parts of digestive tract; Z92.21 Personal history of antineoplastic chemotherapy; Z92.3 Personal history of irradiation; Z87.442 Personal history of urinary calculi

== ENCOUNTER → 2024-06-18 | Outpatient (CLI) | payer MEDICARE, OTHER ==
[~2024-06-18] VITALS: Ht 177.8 cm; Wt 105.5 kg
[~2024-06-18] MED LIST changes: +CYMB1CAP5 PO
[2024-06-18 09:54] VITALS: BP 130/83; O2SAT 92
== END ==
LOC: M PAL 09:24
PROVIDERS: ATTEND Nurse Practitioner Adult Health
DX: G89.3 Neoplasm related pain (acute) (chronic) (principal); R10.9 Unspecified abdominal pain; R11.0 Nausea; N20.0 Calculus of kidney; C15.9 Malignant neoplasm of esophagus, unspecified; Z51.5 Encounter for palliative care; F43.23 Adjustment disorder with mixed anxiety and depressed mood; F43.10 Post-traumatic stress disorder, unspecified; I48.91 Unspecified atrial fibrillation; Z79.891 Long term (current) use of opiate analgesic; Z79.899 Other long term (current) drug therapy; Z80.8 Family history of malignant neoplasm of other organs or systems; Z87.891 Personal history of nicotine dependence; Z90.3 Acquired absence of stomach [part of]; Z90.49 Acquired absence of other specified parts of digestive tract; Z92.21 Personal history of antineoplastic chemotherapy; Z92.3 Personal history of irradiation

== ENCOUNTER → 2024-07-01 | Outpatient (CLI) | payer MEDICARE, OTHER | LOC: M RAD 12:33 | PROVIDERS: ATTEND Physician Assistant | DX: N20.0 Calculus of kidney (principal) ==

== ENCOUNTER → 2024-08-20 | Outpatient (CLI) | payer MEDICARE, OTHER ==
[~2024-08-20] VITALS: Ht 175.3 cm; Wt 104.7 kg
[2024-08-20 08:16] VITALS: BP 121/75; O2SAT 95
== END ==
LOC: M PAL 07:59
PROVIDERS: ATTEND Nurse Practitioner Adult Health
DX: G89.3 Neoplasm related pain (acute) (chronic) (principal); G89.29 Other chronic pain; R10.9 Unspecified abdominal pain; R11.0 Nausea; C15.5 Malignant neoplasm of lower third of esophagus; Z87.442 Personal history of urinary calculi; F43.10 Post-traumatic stress disorder, unspecified; F43.23 Adjustment disorder with mixed anxiety and depressed mood; Z51.5 Encounter for palliative care; Z79.891 Long term (current) use of opiate analgesic; Z79.899 Other long term (current) drug therapy; Z80.8 Family history of malignant neoplasm of other organs or systems; Z87.891 Personal history of nicotine dependence; Z90.3 Acquired absence of stomach [part of]; Z90.49 Acquired absence of other specified parts of digestive tract; Z92.21 Personal history of antineoplastic chemotherapy; Z92.3 Personal history of irradiation

== ENCOUNTER → 2024-12-18 | Outpatient (CLI) | payer MEDICARE, OTHER | LOC: M PAL 15:15 | PROVIDERS: ATTEND Family Medicine | DX: C15.9 Malignant neoplasm of esophagus, unspecified (principal); Z48.815 Encounter for surgical aftercare following surgery on the digestive system; Z92.3 Personal history of irradiation; Z92.21 Personal history of antineoplastic chemotherapy; Z79.891 Long term (current) use of opiate analgesic; Z79.899 Other long term (current) drug therapy ==

== ENCOUNTER → 2024-12-20 | Outpatient (REF) | payer MEDICARE, OTHER ==
[2024-12-20 18:12] LABS: RSV AMPLIFICATION NEGATIVE (NEGATIVE)
== END ==
LOC: M LAB REF 16:22
PROVIDERS: ATTEND Nurse Practitioner Family
DX: J06.9 Acute upper respiratory infection, unspecified (principal)

== ENCOUNTER → 2025-01-17 | Outpatient (REF) | payer MEDICARE, OTHER ==
[2025-01-17 14:13] LABS: APPEARANCE, URINE HAZY (CLEAR); BACTERIA, URINE AUTO NEGATIVE (NEGATIVE); BILIRUBIN, URINE AUTO NEGATIVE (NEGATIVE); BLOOD, URINE BLOOD 3+ (NEGATIVE); CALCIUM OXALATE CRYSTALS LARGE; COLOR, URINE YELLOW (YELLOW); GLUCOSE, URINE (UA) AUTO 3+ mg/dL (NEGATIVE); KETONE, URINE AUTO NEGATIVE (NEGATIVE); LEUKOCYTE ESTERASE, URINE AUTO NEGATIVE (NEGATIVE); MUCUS, URINE SMALL (NEGATIVE); NITRITE, URINE AUTO NEGATIVE (NEGATIVE); PROTEIN, URINE AUTO NEGATIVE (NEGATIVE); RBC, URINE AUTO TNTC /HPF (0-3); SPECIFIC GRAVITY URINE AUTO 1.018 (1.002-1.035); SQUAMOUS EPITHELIAL CELL UR AU 0 /HPF (0-6); UROBILINOGEN, URINE AUTO 0.2 mg/dL (0.0-2.0); WBC, URINE AUTO 0 /HPF (0-3)
[2025-01-17 16:19] LABS: BASO # 0.1 10^3/uL (0.0-0.2); BASO % 1.1 % (0.0-1.0); EOS # 0.2 10^3/uL (0.0-0.5); EOS % 2.6 % (0.0-3.0); HEMATOCRIT 46.8 % (42.0-52.0); HEMOGLOBIN 15.1 g/dl (13.5-17.5); LYMPH # 1.6 10^3/uL (1.5-5.0); LYMPH % 19.5 % (24.0-44.0); MEAN CORPUSCULAR HEMOGLOBIN 30.7 pg (27.0-33.0); MEAN CORPUSCULAR HGB CONC 32.3 g/dl (32.0-36.5); MEAN CORPUSCULAR VOLUME 95.1 fl (80.0-96.0); MONO # 0.8 10^3/uL (0.0-0.8); MONO % 9.4 % (2.0-8.0); NEUTROPHILS # 5.4 10^3/uL (1.5-8.5); NEUTROPHILS % 67.3 % (36.0-66.0); PLATELET COUNT, AUTOMATED 317 10^3/uL (150-450); RED BLOOD COUNT 4.92 10^6/uL (4.30-6.10); WHITE BLOOD COUNT 8.1 10^3/uL (4.0-10.0)
[2025-01-17 16:41] LABS: ALBUMIN 3.7 G/DL (3.2-5.2); ALKALINE PHOSPHATASE 149 U/L (40-129); ALT/SGPT 38 U/L (7.0-40); AST/SGOT 27 U/L (<34); BILIRUBIN,TOTAL 0.3 MG/DL (0.3-1.2); BLOOD UREA NITROGEN 14 MG/DL (9-23); CALCIUM LEVEL 9.5 MG/DL (8.3-10.6); CARBON DIOXIDE LEVEL 32 MMOL/L (20-31); CHLORIDE LEVEL 102 MMOL/L (98-107); CHOLESTEROL LEVEL 165 MG/DL (<200); CREATININE FOR GFR 0.64 MG/DL (0.70-1.30); GLOMERULAR FILTRATION RATE > 60.0 (>49); GLUCOSE, FASTING 221 MG/DL (74-106); HDL CHOLESTEROL 30.5 MG/DL (>40); LDL CHOLESTEROL 98.1 MG/DL (<100); NON-HDL-C 134.5 MG/DL; POTASSIUM SERUM 4.5 MMOL/L (3.5-5.1); PROSTATIC SPECIFIC AG MONITOR 0.41 NG/ML (< 4.00); SODIUM LEVEL 140 MMOL/L (136-145); TOTAL PROTEIN 7.5 G/DL (5.7-8.2); TRIGLYCERIDES LEVEL 182 MG/DL (<150)
[2025-01-17 16:42] LABS: THYROID STIMULATING HORMONE 2.417 uIU/ML (0.55-4.78)
[2025-01-17 17:03] LABS: HEMOGLOBIN A1c 8.6 % (4.0-6.0)
== END ==
LOC: M LAB REF 12:31
PROVIDERS: ATTEND Nurse Practitioner Family
DX: F52.21 Male erectile disorder (principal); E66.3 Overweight; Z12.5 Encounter for screening for malignant neoplasm of prostate; R53.83 Other fatigue; Z79.899 Other long term (current) drug therapy; Z11.3 Encounter for screening for infections with a predominantly sexual mode of transmission; Z72.89 Other problems related to lifestyle

== ENCOUNTER → 2025-01-21 | Outpatient (REF) | payer MEDICARE, OTHER ==
[2025-01-21 16:39] LABS: APPEARANCE, URINE CLOUDY (CLEAR); BACTERIA, URINE AUTO NEGATIVE (NEGATIVE); BILIRUBIN, URINE AUTO NEGATIVE (NEGATIVE); BLOOD, URINE BLOOD 3+ (NEGATIVE); CALCIUM OXALATE CRYSTALS SMALL; COLOR, URINE AMBER (YELLOW); GLUCOSE, URINE (UA) AUTO 3+ mg/dL (NEGATIVE); KETONE, URINE AUTO NEGATIVE (NEGATIVE); LEUKOCYTE ESTERASE, URINE AUTO NEGATIVE (NEGATIVE); MUCUS, URINE SMALL (NEGATIVE); NITRITE, URINE AUTO NEGATIVE (NEGATIVE); PROTEIN, URINE AUTO 2+ mg/dL (NEGATIVE); RBC, URINE AUTO TNTC /HPF (0-3); SPECIFIC GRAVITY URINE AUTO 1.025 (1.002-1.035); SQUAMOUS EPITHELIAL CELL UR AU 0 /HPF (0-6); UROBILINOGEN, URINE AUTO 0.2 mg/dL (0.0-2.0); WBC, URINE AUTO 41 /HPF (0-3); YEAST LIKE CELL URINE AUTO SMALL
[2025-01-21 16:58] LABS: CREATININE, URINE 148.3 MG/DL; MAU/CREAT RATIO 64.7 MCG/MG (0.0-30.0)
== END ==
LOC: M LAB REF 15:23
PROVIDERS: ATTEND Nurse Practitioner Family
DX: E11.8 Type 2 diabetes mellitus with unspecified complications (principal); R31.29 Other microscopic hematuria

== ENCOUNTER → 2025-02-03 | Outpatient (CLI) | payer MEDICARE, OTHER ==
[~2025-02-03] VITALS: Ht 177.8 cm; Wt 102.8 kg
[2025-02-03 08:49] VITALS: BP 127/81; TEMP 97.4; O2SAT 97
== END ==
LOC: M PAL 08:37
PROVIDERS: ATTEND Physician Assistant
DX: Z51.5 Encounter for palliative care (principal); C15.9 Malignant neoplasm of esophagus, unspecified; Z90.49 Acquired absence of other specified parts of digestive tract; Z92.21 Personal history of antineoplastic chemotherapy; Z92.3 Personal history of irradiation; Z79.891 Long term (current) use of opiate analgesic; Z79.899 Other long term (current) drug therapy

== ENCOUNTER → 2025-02-21 | Outpatient (CLI) | payer MEDICARE, OTHER | LOC: M RAD 09:50 | PROVIDERS: ATTEND Physician Assistant | DX: N20.0 Calculus of kidney (principal); Z87.442 Personal history of urinary calculi ==

== ENCOUNTER → 2025-02-24 | Outpatient (CLI) | payer MEDICARE, OTHER | LOC: M RAD 08:36 | PROVIDERS: ATTEND Nurse Practitioner Family | DX: Z87.891 Personal history of nicotine dependence (principal) ==

== ENCOUNTER → 2025-02-26 | Outpatient (REF) | payer MEDICARE, OTHER ==
[~2025-02-26] MED LIST changes: -DRON2.5C11 PO; +DRON2.5C17 PO; -FLOM0.4C39 PO; +TAMS-18 PO
[2025-02-26 13:33] LABS: APPEARANCE, URINE CLOUDY (CLEAR); BACTERIA, URINE AUTO NEGATIVE (NEGATIVE); BILIRUBIN, URINE AUTO NEGATIVE (NEGATIVE); BLOOD, URINE BLOOD 3+ (NEGATIVE); CALCIUM OXALATE CRYSTALS LARGE; COLOR, URINE AMBER (YELLOW); GLUCOSE, URINE (UA) AUTO 2+ mg/dL (NEGATIVE); KETONE, URINE AUTO NEGATIVE (NEGATIVE); LEUKOCYTE ESTERASE, URINE AUTO TRACE (NEGATIVE); MUCUS, URINE SMALL (NEGATIVE); NITRITE, URINE AUTO NEGATIVE (NEGATIVE); PROTEIN, URINE AUTO 2+ mg/dL (NEGATIVE); RBC, URINE AUTO TNTC /HPF (0-3); SPECIFIC GRAVITY URINE AUTO 1.023 (1.002-1.035); SQUAMOUS EPITHELIAL CELL UR AU 1 /HPF (0-6); UROBILINOGEN, URINE AUTO 0.2 mg/dL (0.0-2.0); WBC, URINE AUTO 37 /HPF (0-3); YEAST LIKE CELL URINE AUTO SMALL
== END ==
LOC: M SMT 12:34
PROVIDERS: ATTEND Urology
DX: N20.0 Calculus of kidney (principal)

== ENCOUNTER → 2025-03-07 | Outpatient (REF) | payer MEDICARE, OTHER ==
[2025-03-07 18:25] LABS: BLOOD UREA NITROGEN 13 MG/DL (9-23); CALCIUM LEVEL 8.6 MG/DL (8.3-10.6); CARBON DIOXIDE LEVEL 32 MMOL/L (20-31); CHLORIDE LEVEL 103 MMOL/L (98-107); CREATININE FOR GFR 0.61 MG/DL (0.70-1.30); GLOMERULAR FILTRATION RATE > 90.0 (>49); GLUCOSE, FASTING 183 MG/DL (74-106); POTASSIUM SERUM 4.1 MMOL/L (3.5-5.1); SODIUM LEVEL 142 MMOL/L (136-145)
== END ==
LOC: M LABDRWAD 16:49
PROVIDERS: ATTEND Urology
DX: N20.0 Calculus of kidney (principal)

== ENCOUNTER → 2025-03-19 | Outpatient (CLI) | payer MEDICARE, OTHER ==
[~2025-03-19] MED LIST changes: +ISOVUE-370 76% 100ML VIAL As Ordered ONE
== END ==
LOC: M RAD 14:09
PROVIDERS: ATTEND Urology
DX: N20.0 Calculus of kidney (principal); R31.0 Gross hematuria
CPT/HCPCS: 74178; Q9967

== ENCOUNTER → 2025-05-07 | Outpatient (REF) | payer MEDICARE, OTHER ==
[~2025-05-07] MED LIST changes: -AMIO200T49 PO; +AMIO200T54 PO; +ATOR40TA75 PO; +DOXY-346 PO; +DULO1CAP5 PO; +FERR325T3 PO; -ISOVUE-370 76% 100ML VIAL As Ordered ONE; +MULTTAB61 PO; +SEMA0.257 SQ; +SENN-186 PO
== END ==
LOC: M SMT 13:08
PROVIDERS: ATTEND Urology
DX: N20.0 Calculus of kidney (principal)

== ENCOUNTER → 2025-05-12 | Outpatient (CLI) | payer MEDICARE, OTHER ==
[~2025-05-12] VITALS: Ht 177.8 cm; Wt 99.7 kg
[~2025-05-12] MED LIST changes: -SEMA0.257 SQ
[2025-05-12 08:39] VITALS: BP 140/94; O2SAT 96
== END ==
LOC: M PAL 08:08
PROVIDERS: ATTEND Physician Assistant
DX: Z51.5 Encounter for palliative care (principal); Z85.01 Personal history of malignant neoplasm of esophagus; Z90.49 Acquired absence of other specified parts of digestive tract; Z92.21 Personal history of antineoplastic chemotherapy; Z92.3 Personal history of irradiation; Z79.891 Long term (current) use of opiate analgesic; Z79.899 Other long term (current) drug therapy; Z79.02 Long term (current) use of antithrombotics/antiplatelets; Z79.83 Long term (current) use of bisphosphonates

== ENCOUNTER → 2025-05-21 | Outpatient (CLI) | payer MEDICARE, OTHER ==
[~2025-05-21] MED LIST changes: +SEMA0.257 SQ
[2025-05-21 10:45] LABS: ESTIMATED AVERAGE GLUCOSE 157.0 MG/DL (60-110)
[2025-05-21 10:49] LABS: CHOLESTEROL LEVEL 154.0 MG/DL (<200); CHOLESTEROL RISK RATIO 3.98 (<5); LDL CHOLESTEROL 67.6 MG/DL (<100); NON-HDL-C 115.4 MG/DL; TRIGLYCERIDES LEVEL 239.0 MG/DL (<150)
[2025-05-26 16:16] LABS: PTH INTACT 41.5 PG/ML (18.5-88.0)
== END ==
LOC: M LAB 09:28
PROVIDERS: ATTEND Nurse Practitioner Family
DX: E11.8 Type 2 diabetes mellitus with unspecified complications (principal); E78.5 Hyperlipidemia, unspecified; N20.0 Calculus of kidney

== ENCOUNTER → 2025-05-21 | Outpatient (CLI) | payer MEDICARE, OTHER | LOC: M RAD 09:25 | PROVIDERS: ATTEND Urology | DX: N20.0 Calculus of kidney (principal) ==

== ENCOUNTER 2025-05-22 11:02 | Day surgery (SDC) | payer MEDICARE, OTHER ==
[~2025-05-22] VITALS: Ht 177.8 cm; Wt 98.1 kg
[~2025-05-22 11:02] MED LIST changes: -SEMA0.257 SQ
[2025-05-22] MEDS ORDERED: SEMA0.257 SQ (11:33)
[2025-05-22 13:35] VITALS: TEMP 98.3
[2025-05-22 14:01] VITALS: BP 140/88; O2SAT 98
== END 2025-05-22 14:15 | disposition home or self-care (01) ==
LOC: M OPP 11:02
PROVIDERS: ATTEND Surgery
DX: K22.2 Esophageal obstruction (principal); K29.70 Gastritis, unspecified, without bleeding; R13.10 Dysphagia, unspecified; I48.91 Unspecified atrial fibrillation; Z79.01 Long term (current) use of anticoagulants; Z79.891 Long term (current) use of opiate analgesic; Z79.899 Other long term (current) drug therapy; Z86.711 Personal history of pulmonary embolism

== ENCOUNTER → 2025-07-01 | Outpatient (REF) | payer MEDICARE, OTHER ==
[~2025-07-01] MED LIST changes: +SEMA0.257 SQ
[2025-07-01 13:08] LABS: BASO # 0.1 10^3/uL (0.0-0.2); BASO % 1.0 % (0.0-1.0); EOS # 0.2 10^3/uL (0.0-0.5); EOS % 2.8 % (0.0-3.0); LYMPH # 1.7 10^3/uL (1.5-5.0); LYMPH % 21.0 % (24.0-44.0); MONO # 0.7 10^3/uL (0.0-0.8); MONO % 8.8 % (2.0-8.0); NEUTROPHILS # 5.5 10^3/uL (1.5-8.5); NEUTROPHILS % 66.2 % (36.0-66.0); PLATELET COUNT, AUTOMATED 232 10^3/uL (150-450)
== END ==
LOC: M LAB REF 12:19
PROVIDERS: ATTEND Nurse Practitioner Family
DX: S80.869D Insect bite (nonvenomous), unspecified lower leg, subsequent encounter (principal); W57.XXXD Bitten or stung by nonvenomous insect and other nonvenomous arthropods, subsequent encounter; B60.00 Babesiosis, unspecified

== ENCOUNTER → 2025-07-21 | Outpatient (CLI) | payer MEDICARE, OTHER ==
[2025-07-21 14:14] LABS: BASO # 0.1 10^3/uL (0.0-0.2); BASO % 1.0 % (0.0-1.0); EOS # 0.2 10^3/uL (0.0-0.5); EOS % 2.3 % (0.0-3.0); LYMPH # 1.8 10^3/uL (1.5-5.0); LYMPH % 17.7 % (24.0-44.0); MONO # 1.0 10^3/uL (0.0-0.8); MONO % 10.0 % (2.0-8.0); NEUTROPHILS # 7.0 10^3/uL (1.5-8.5); NEUTROPHILS % 68.7 % (36.0-66.0); PLATELET COUNT, AUTOMATED 287 10^3/uL (150-450)
[2025-07-21 14:20] LABS: ERYTHROCYTE SEDIMENTATION RATE 41 mm/hr (0-20)
[2025-07-21 14:47] LABS: C REACTIVE PROTEIN QUANTITATIV < 0.50 MG/DL (<1.0)
[2025-07-21 14:48] LABS: ALT/SGPT 43 U/L (7.0-40); AST/SGOT 36 U/L (<34); CALCIUM LEVEL 9.1 MG/DL (8.3-10.6); CARBON DIOXIDE LEVEL 29 MMOL/L (20-31); CHLORIDE LEVEL 102 MMOL/L (98-107); CREATININE FOR GFR 0.68 MG/DL (0.70-1.30); GLOMERULAR FILTRATION RATE > 90.0 (>49); POTASSIUM SERUM 4.3 MMOL/L (3.5-5.1); SODIUM LEVEL 140 MMOL/L (136-145)
== END ==
LOC: M PLALAB 11:49
PROVIDERS: ATTEND Internal Medicine Infectious Disease
DX: A69.20 Lyme disease, unspecified (principal); B60.00 Babesiosis, unspecified

== ENCOUNTER → 2025-10-20 | Outpatient (REF) | payer MEDICARE, OTHER ==
[2025-10-20 13:47] LABS: CREATININE, URINE 127.3 MG/DL; MALB URINE SIEMENS 102.0 MG/L; MAU/CREAT RATIO 80.1 MCG/MG (0.0-30.0)
== END ==
LOC: M LAB REF 12:15
PROVIDERS: ATTEND Nurse Practitioner Family
DX: E11.8 Type 2 diabetes mellitus with unspecified complications (principal)